=== PATIENT | female | born 1935 | race Caucasian/White ===

== ENCOUNTER 2017-10-30 16:12 | Inpatient (IN) | payer MEDICARE ==
[~2017-10-30] VITALS: Ht 157.5 cm; Wt 53.6 kg
[~2017-10-30 16:12] MED LIST: ACET-3067 PO; ALCA3DRO EACHEYE; BUPR-83 PO; CALC-20 PO; CHOL100062 PO; CYAN1TAB39 PO; GABA-338 PO; GLUC1TAB40 PO; LABE300T PO; LATA2.5D2 EACHEYE; MELA1TAB11 PO; MINO2.5T19 PO; MULT-785 PO; OMEG1CAP54 PO; SYN0.1T PO; UBID100C16 PO; VITA400C19 PO; VITC500T PO
[2017-10-30 16:41] LABS: BASOPHILS % (AUTO) 0.1 % (0-1); EOSINOPHILS % (AUTO) 0.2 % (0-6); HEMATOCRIT 38.7 % (35.0-45.0); HEMOGLOBIN 13.1 g/dl (12.0-16.0); LYMPHOCYTES # (AUTO) 0.6 X10'3 (1.1-4.8); MEAN CORPUSCULAR HEMOGLOBIN 30.7 PG (27.0-31.0); MEAN CORPUSCULAR VOLUME 90.5 FL (78-98); MEAN PLATELET VOLUME 9.5 FL (7.4-10.4); MONOCYTES # (AUTO) 0.8 X10'3 (0-0.9); MONOCYTES % (AUTO) 6.9 % (2-12); NEUTROPHILS # (AUTO) 10.5 X10'3 (1.8-7.7); NEUTROPHILS % (AUTO) 87.8 % (42-75); PLATELET COUNT 325 X10'3 (140-440); RED BLOOD COUNT 4.27 X10'6 (4.20-5.60); RED CELL DISTRIBUTION WIDTH 14.8 % (11.5-14.5); WHITE BLOOD COUNT 11.9 X10'3 (4.5-11.0)
[2017-10-30 16:52] LABS: PARTIAL THROMBOPLASTIN TIME 34 SECONDS (22-32); PROTHROMBIN TIME 10.8 SECONDS (9.0-12.0)
[2017-10-30 16:56] LABS: ALANINE AMINOTRANSFERASE 23 U/L (12-78); ALBUMIN 3.3 G/DL (3.4-5.0); ALKALINE PHOSPHATASE 87 IU/L (46-116); ANION GAP 4 (8-16); ASPARTATE AMINO TRANSFERASE 38 U/L (10-37); BILIRUBIN,TOTAL 0.5 MG/DL (0.1-1.0); BLOOD UREA NITROGEN 17 MG/DL (7-18); BUN/CREATININE RATIO 23.6 (6.6-38.0); CALCIUM 8.4 MG/DL (8.5-10.1); CHLORIDE 89 MMOL/L (99-107); CREATININE 0.72 MG/DL (0.40-0.90); GLUCOSE 134 MG/DL (70-104); POTASSIUM 4.3 MMOL/L (3.5-5.1); SODIUM 129 MMOL/L (135-145); TOTAL CARBON DIOXIDE 36.4 MMOL/L (24-32); TOTAL PROTEIN 6.6 G/DL (6.4-8.2); eGFR 78 ML/MIN
[2017-10-30] MEDS ORDERED: heparin 10,000 units/1 ML INJ IV ONE (18:00)
[2017-10-30] MEDS ORDERED: heparin 10,000 units/1 ML INJ IV PRN (18:00)
[2017-10-30] MEDS ORDERED: nitroGLYCERIN 1gm ointment UD TP ONE (18:00)
[2017-10-30] MEDS ORDERED: normal saline 1000ml 1,000 ML IV SCH (18:19)
[2017-10-30] MEDS ORDERED: mag hydrox/Alum hydrox/simeth 30ml oral suspension PO PRN (18:20)
[2017-10-30] MEDS ORDERED: acetaminophen 325mg tablet PO PRN ×2 (18:20)
[2017-10-30] MEDS ORDERED: magnesium 4gm in 100ml NS 100 ML IV PRN (18:20)
[2017-10-30] MEDS ORDERED: potassium Cl 40MEQ/NS 500ml 500 ML IV PRN ×2 (18:20)
[2017-10-30] MEDS ORDERED: magnesium/D5W IVPB 50 ML IV PRN (18:20)
[2017-10-30] MEDS ORDERED: ondansetron/PF 4mg/2ml inj IV PRN (18:20)
[2017-10-30] MEDS ORDERED: magnesium Cl slow-release 64mg tablet PO PRN (18:20)
[2017-10-30] MEDS ORDERED: magnesium hydroxide 30ml (MOM) UD suspension PO PRN (18:20)
[2017-10-30] MEDS ORDERED: potassium Cl 20 mEq SR tablet PO PRN (18:20)
[2017-10-30] MEDS ORDERED: ASHWAGANDHA PO (18:24)
[2017-10-30] MEDS ORDERED: [UNRECOGNIZED DRUG - OTHER] (18:24)
[2017-10-30] MEDS ORDERED: MAGNESIUM CHELATE PO (18:26)
[2017-10-30] MEDS ORDERED: albuterol 2.5 MG/3 ML nebule NEB PRN (18:40)
[2017-10-30 19:15] VITALS: BP 175/105
[2017-10-30] MEDS: ALPRAZolam 0.5mg tablet PO PRN (19:55)
[2017-10-30] MEDS: carVEDilol 3.125mg tablet PO SCH (19:55)
[2017-10-30] MEDS: HYDROcodone/acetaminophen 5mg/325mg tablet PO PRN (19:56)
[2017-10-30] MEDS ORDERED: temazepam 15mg capsule PO PRN (21:00)
[2017-10-30 21:07] LABS: D-DIMER 0.51 MG/L FEU (0-0.50)
[2017-10-30 23:00] VITALS: BP 120/80
[2017-10-31] VITALS (14 sets, daily range): BP systolic 118–170; BP diastolic 62–94
[2017-10-31] MEDS ORDERED: nitroGLYCERIN 0.4mg SUBLingual tab SL PRN (02:20)
[2017-10-31] MEDS: hydrALAZINE 20mg/ml inj. IV PRN ×2 (03:35→22:21)
[2017-10-31] MEDS: ALPRAZolam 0.5mg tablet PO PRN ×2 (03:51→16:27)
[2017-10-31 05:20] LABS: BASOPHILS % (AUTO) 0.4 % (0-1); EOSINOPHILS # (AUTO) 0.1 X10'3 (0-0.9); EOSINOPHILS % (AUTO) 0.8 % (0-6); HEMATOCRIT 38.1 % (35.0-45.0); HEMOGLOBIN 12.9 g/dl (12.0-16.0); LYMPHOCYTES # (AUTO) 1.1 X10'3 (1.1-4.8); MEAN CORPUSCULAR HEMOGLOBIN 30.8 PG (27.0-31.0); MEAN CORPUSCULAR VOLUME 90.6 FL (78-98); MEAN PLATELET VOLUME 10.5 FL (7.4-10.4); MONOCYTES # (AUTO) 1.1 X10'3 (0-0.9); MONOCYTES % (AUTO) 9.4 % (2-12); NEUTROPHILS % (AUTO) 79.4 % (42-75); PLATELET COUNT 310 X10'3 (140-440); WHITE BLOOD COUNT 11.3 X10'3 (4.5-11.0)
[2017-10-31 06:03] LABS: ALBUMIN 3.2 G/DL (3.4-5.0); ANION GAP 4 (8-16); BLOOD UREA NITROGEN 13 MG/DL (7-18); BUN/CREATININE RATIO 16.9 (6.6-38.0); CALCIUM 8.6 MG/DL (8.5-10.1); CHLORIDE 94 MMOL/L (99-107); CHOL/HDL RATIO 2.5 (0.00-4.99); CHOLESTEROL 150 MG/DL (0-200); CREATININE 0.77 MG/DL (0.40-0.90); GLUCOSE 125 MG/DL (70-104); HDL CHOLESTEROL 61 MG/DL (35-60); LDL CHOLESTEROL 76 MG/DL (50-100); MAGNESIUM 1.9 MG/DL (1.5-2.4); POTASSIUM 3.6 MMOL/L (3.5-5.1); SODIUM 135 MMOL/L (135-145); TRIGLYCERIDES 56 MG/DL (20-135); eGFR 72 ML/MIN
[2017-10-31 07:04] LABS: CLARITY,URINE SLIGHTLY CLOUDY (Clear); COLOR,URINE YELLOW (Yellow); GLUCOSE, URINE NEGATIVE (Neg); KETONES,URINE NEGATIVE (Neg); LEUKOCYTE ESTERASE ,URINE NEGATIVE (Neg); NITRITES, URINE NEGATIVE (Neg); OCCULT BLOOD,URINE NEGATIVE (Neg); PROTEIN,URINE NEGATIVE (Neg); UROBILINOGEN,URINE 0.2 E.U/dL (0.2-1.0)
[2017-10-31] MEDS: enoxaparin 40mg/0.4ml syringe SUBCUT SCH (07:09)
[2017-10-31 07:12] LABS: UA COLLECTION TYPE CLN CATCH MIDSTREAM
[2017-10-31 07:13] LABS: AMORPHOUS PHOSPHATES 1+; BACTERIA,URINE NONE SEEN /HPF (Neg); MUCUS STRANDS NONE SEEN /LPF (Neg); RBC,URINE NONE SEEN /HPF (0-2); SQUAMOUS EPITHELIAL CELL,UR FEW /LPF (FEW); WBC,URINE NONE SEEN /HPF (0-4)
[2017-10-31] MEDS: furosemide 40mg/4ml inj IV SCH (07:37)
[2017-10-31] MEDS: levoFLOXACIN 500mg tablet PO SCH (07:38)
[2017-10-31] MEDS: carVEDilol 3.125mg tablet PO SCH ×2 (07:38→19:32)
[2017-10-31] MEDS: buPROPion SR 150mg tablet PO SCH (07:38)
[2017-10-31] MEDS: losartan 50mg tablet PO SCH (07:38)
[2017-10-31] MEDS: K and/or MAG REPLACEMENT MC SCH (07:46)
[2017-10-31] MEDS ORDERED: heparin 1,000unit/ml 10ml vial 10 ML ONE (07:52)
[2017-10-31] MEDS ORDERED: iohexol 350MG/ML 100ml bottle IV ONE (07:52)
[2017-10-31] MEDS ORDERED: iohexol 350 MG/ML 50ML vial IV ONE (07:52)
[2017-10-31] MEDS ORDERED: nitroGLYCERIN-Tridil 50MG/D5W 250 ML IV ONE (07:52)
[2017-10-31] MEDS ORDERED: LIDOcaine 1% 30ml preserv. free vial ONE (07:53)
[2017-10-31] MEDS ORDERED: enoxaparin 40mg/0.4ml syringe SQ SCH (08:00)
[2017-10-31] MEDS: HYDROcodone/acetaminophen 5mg/325mg tablet PO PRN ×2 (09:45→15:37)
[2017-10-31] MEDS: clopidogrel 75mg tablet PO SCH (09:59)
[2017-10-31] MEDS ORDERED: methylPREDNISolone sod succ 125mg/2ml vial IV ONE (11:50)
[2017-10-31] MEDS ORDERED: ipratropium/albuterol 3ml nebule NEB PRN (11:50)
[2017-10-31] MEDS: atorvastatin 20mg tablet PO SCH (12:00)
[2017-10-31] MEDS: methylPREDNISolone sod succ 125mg/2ml vial IV SCH ×2 (14:15→19:31)
[2017-10-31] MEDS: ipratropium/albuterol 3ml nebule NEB SCH ×2 (15:00→20:29)
[2017-10-31] MEDS: lactobacillus rhamnosus 10,000 MMU CELLS/CAPSULE PO SCH (19:31)
[2017-11-01] VITALS (7 sets, daily range): BP systolic 110–172; BP diastolic 58–88
[2017-11-01] MEDS: methylPREDNISolone sod succ 125mg/2ml vial IV SCH ×4 (01:55→22:23)
[2017-11-01] MEDS: HYDROcodone/acetaminophen 5mg/325mg tablet PO PRN ×2 (02:23→17:53)
[2017-11-01] MEDS: ipratropium/albuterol 3ml nebule NEB SCH ×4 (03:02→20:34)
[2017-11-01 05:30] LABS: BASOPHILS % (AUTO) 0 % (0-1); EOSINOPHILS % (AUTO) 0 % (0-6); HEMATOCRIT 35.7 % (35.0-45.0); HEMOGLOBIN 12.1 g/dl (12.0-16.0); LYMPHOCYTES # (AUTO) 0.3 X10'3 (1.1-4.8); LYMPHOCYTES % (AUTO) 3.1 % (21-51); MEAN CORPUSCULAR HEMOGLOBIN 30.3 PG (27.0-31.0); MEAN CORPUSCULAR HGB CONC 33.8 % (33.0-36.5); MEAN CORPUSCULAR VOLUME 89.7 FL (78-98); MEAN PLATELET VOLUME 10.1 FL (7.4-10.4); MONOCYTES # (AUTO) 0.1 X10'3 (0-0.9); MONOCYTES % (AUTO) 0.9 % (2-12); NEUTROPHILS # (AUTO) 7.9 X10'3 (1.8-7.7); PLATELET COUNT 289 X10'3 (140-440); RED BLOOD COUNT 3.98 X10'6 (4.20-5.60); RED CELL DISTRIBUTION WIDTH 15.3 % (11.5-14.5); WHITE BLOOD COUNT 8.2 X10'3 (4.5-11.0)
[2017-11-01 05:41] LABS: ALBUMIN 2.8 G/DL (3.4-5.0); ANION GAP 5 (8-16); BLOOD UREA NITROGEN 22 MG/DL (7-18); BUN/CREATININE RATIO 29.3 (6.6-38.0); CALCIUM 8.6 MG/DL (8.5-10.1); CHLORIDE 94 MMOL/L (99-107); CREATININE 0.75 MG/DL (0.40-0.90); GLUCOSE 165 MG/DL (70-104); POTASSIUM 3.5 MMOL/L (3.5-5.1); SODIUM 136 MMOL/L (135-145); TOTAL CARBON DIOXIDE 37.4 MMOL/L (24-32); eGFR 74 ML/MIN
[2017-11-01] MEDS: K and/or MAG REPLACEMENT MC SCH (08:00)
[2017-11-01] MEDS: furosemide 40mg/4ml inj IV SCH (08:47)
[2017-11-01] MEDS: levoFLOXACIN 500mg tablet PO SCH (08:48)
[2017-11-01] MEDS: buPROPion SR 150mg tablet PO SCH (08:48)
[2017-11-01] MEDS: clopidogrel 75mg tablet PO SCH (08:48)
[2017-11-01] MEDS: carVEDilol 3.125mg tablet PO SCH ×2 (08:48→22:22)
[2017-11-01] MEDS: lactobacillus rhamnosus 10,000 MMU CELLS/CAPSULE PO SCH ×2 (08:48→22:22)
[2017-11-01] MEDS: enoxaparin 40mg/0.4ml syringe SUBCUT SCH (08:48)
[2017-11-01] MEDS: losartan 50mg tablet PO SCH (08:49)
[2017-11-01] MEDS: atorvastatin 20mg tablet PO SCH (08:49)
[2017-11-01] MEDS: aspirin 81mg tab.chew PO SCH (09:40)
[2017-11-01] MEDS: hydrALAZINE 20mg/ml inj. IV PRN (22:23)
[2017-11-02] MEDS: HYDROcodone/acetaminophen 5mg/325mg tablet PO PRN ×2 (01:43→14:46)
[2017-11-02] MEDS: ipratropium/albuterol 3ml nebule NEB SCH ×4 (02:39→19:59)
[2017-11-02 03:00] VITALS: BP 143/79
[2017-11-02] MEDS: methylPREDNISolone sod succ 125mg/2ml vial IV SCH ×4 (03:01→19:53)
[2017-11-02 05:12] LABS: BASOPHILS % (AUTO) 0.1 % (0-1); EOSINOPHILS # (AUTO) 0.1 X10'3 (0-0.9); EOSINOPHILS % (AUTO) 0.4 % (0-6); HEMATOCRIT 37.2 % (35.0-45.0); HEMOGLOBIN 12.6 g/dl (12.0-16.0); LYMPHOCYTES # (AUTO) 0.3 X10'3 (1.1-4.8); LYMPHOCYTES % (AUTO) 2.5 % (21-51); MEAN CORPUSCULAR HEMOGLOBIN 30.8 PG (27.0-31.0); MEAN CORPUSCULAR HGB CONC 33.7 % (33.0-36.5); MEAN CORPUSCULAR VOLUME 91.2 FL (78-98); MEAN PLATELET VOLUME 10.3 FL (7.4-10.4); MONOCYTES # (AUTO) 0.4 X10'3 (0-0.9); MONOCYTES % (AUTO) 3.3 % (2-12); NEUTROPHILS # (AUTO) 12.4 X10'3 (1.8-7.7); NEUTROPHILS % (AUTO) 93.7 % (42-75); PLATELET COUNT 364 X10'3 (140-440); RED BLOOD COUNT 4.09 X10'6 (4.20-5.60); WHITE BLOOD COUNT 13.2 X10'3 (4.5-11.0)
[2017-11-02 05:29] LABS: ALBUMIN 2.8 G/DL (3.4-5.0); ANION GAP 2 (8-16); BLOOD UREA NITROGEN 27 MG/DL (7-18); BUN/CREATININE RATIO 32.1 (6.6-38.0); CALCIUM 8.6 MG/DL (8.5-10.1); CHLORIDE 91 MMOL/L (99-107); CREATININE 0.84 MG/DL (0.40-0.90); GLUCOSE 181 MG/DL (70-104); POTASSIUM 3.4 MMOL/L (3.5-5.1); SODIUM 132 MMOL/L (135-145); TOTAL CARBON DIOXIDE 38.9 MMOL/L (24-32); eGFR 65 ML/MIN
[2017-11-02 06:00] VITALS: BP 163/81
[2017-11-02 06:36] LABS: LARGE PLATELETS FEW; PLATELET ESTIMATE NORMAL
[2017-11-02] MEDS: K and/or MAG REPLACEMENT MC SCH (08:00)
[2017-11-02] MEDS: buPROPion SR 150mg tablet PO SCH (08:09)
[2017-11-02] MEDS: atorvastatin 20mg tablet PO SCH (08:09)
[2017-11-02] MEDS: carVEDilol 3.125mg tablet PO SCH (08:09)
[2017-11-02] MEDS: losartan 50mg tablet PO SCH (08:09)
[2017-11-02] MEDS: clopidogrel 75mg tablet PO SCH (08:09)
[2017-11-02] MEDS: enoxaparin 40mg/0.4ml syringe SUBCUT SCH (08:09)
[2017-11-02] MEDS: levoFLOXACIN 500mg tablet PO SCH (08:09)
[2017-11-02] MEDS: aspirin 81mg tab.chew PO SCH (08:09)
[2017-11-02] MEDS: potassium Cl 20 mEq SR tablet PO PRN ×2 (08:09→14:41)
[2017-11-02] MEDS: lactobacillus rhamnosus 10,000 MMU CELLS/CAPSULE PO SCH ×2 (08:09→19:53)
[2017-11-02] MEDS: furosemide 40mg/4ml inj IV SCH (08:10)
[2017-11-02 11:00] VITALS: BP 146/77
[2017-11-02] MEDS ORDERED: carVEDilol 3.125mg tablet PO ONE (11:40)
[2017-11-02] MEDS: ALPRAZolam 0.5mg tablet PO PRN ×2 (11:58→22:18)
[2017-11-02 15:00] VITALS: BP 115/79
[2017-11-02 19:00] VITALS: BP 137/82
[2017-11-02] MEDS: carvedilol 6.25mg tablet PO SCH (19:54)
[2017-11-02] MEDS ORDERED: potassium Cl 40MEQ/NS 500ml 500 ML IV PRN ×2 (22:15)
[2017-11-02] MEDS ORDERED: potassium Cl 20 mEq SR tablet PO PRN ×2 (22:15)
[2017-11-02 23:00] VITALS: BP 135/85
[2017-11-03] MEDS: ipratropium/albuterol 3ml nebule NEB SCH ×2 (02:27→09:00)
[2017-11-03 03:00] VITALS: BP 153/75
[2017-11-03] MEDS: HYDROcodone/acetaminophen 5mg/325mg tablet PO PRN (04:54)
[2017-11-03 05:38] LABS: BASOPHILS % (AUTO) 0 % (0-1); EOSINOPHILS # (AUTO) 0.2 X10'3 (0-0.9); EOSINOPHILS % (AUTO) 1.7 % (0-6); HEMATOCRIT 38.3 % (35.0-45.0); LYMPHOCYTES # (AUTO) 0.4 X10'3 (1.1-4.8); MEAN CORPUSCULAR HEMOGLOBIN 30.7 PG (27.0-31.0); MEAN CORPUSCULAR HGB CONC 33.9 % (33.0-36.5); MEAN CORPUSCULAR VOLUME 90.7 FL (78-98); MEAN PLATELET VOLUME 10.2 FL (7.4-10.4); MONOCYTES # (AUTO) 0.4 X10'3 (0-0.9); MONOCYTES % (AUTO) 3.4 % (2-12); NEUTROPHILS % (AUTO) 91.9 % (42-75); PLATELET COUNT 370 X10'3 (140-440); RED BLOOD COUNT 4.22 X10'6 (4.20-5.60); RED CELL DISTRIBUTION WIDTH 14.9 % (11.5-14.5)
[2017-11-03 06:05] LABS: ALBUMIN 2.8 G/DL (3.4-5.0); ANION GAP 4 (8-16); BLOOD UREA NITROGEN 33 MG/DL (7-18); BUN/CREATININE RATIO 39.3 (6.6-38.0); CALCIUM 8.4 MG/DL (8.5-10.1); CHLORIDE 91 MMOL/L (99-107); CREATININE 0.84 MG/DL (0.40-0.90); GLUCOSE 132 MG/DL (70-104); MAGNESIUM 2.2 MG/DL (1.5-2.4); POTASSIUM 3.8 MMOL/L (3.5-5.1); SODIUM 134 MMOL/L (135-145); TOTAL CARBON DIOXIDE 38.6 MMOL/L (24-32); eGFR 65 ML/MIN
[2017-11-03 07:00] VITALS: BP 148/88
[2017-11-03] MEDS: K and/or MAG REPLACEMENT MC SCH (08:00)
[2017-11-03] MEDS ORDERED: methylPREDNISolone sod succ 125mg/2ml vial IV SCH (08:00)
[2017-11-03] MEDS: furosemide 40mg/4ml inj IV SCH (08:20)
[2017-11-03] MEDS: carvedilol 6.25mg tablet PO SCH (08:30)
[2017-11-03] MEDS: losartan 50mg tablet PO SCH (08:31)
[2017-11-03] MEDS: lactobacillus rhamnosus 10,000 MMU CELLS/CAPSULE PO SCH (08:32)
[2017-11-03] MEDS: clopidogrel 75mg tablet PO SCH (08:32)
[2017-11-03] MEDS: buPROPion SR 150mg tablet PO SCH (08:32)
[2017-11-03] MEDS: atorvastatin 20mg tablet PO SCH (08:32)
[2017-11-03] MEDS: aspirin 81mg tab.chew PO SCH (08:37)
[2017-11-03] MEDS: enoxaparin 40mg/0.4ml syringe SUBCUT SCH (08:38)
[2017-11-03 11:00] VITALS: BP 135/72
[2017-11-03] MEDS ORDERED: levoFLOXACIN 250mg tablet PO SCH (11:00)
[2017-11-03] MEDS: ALPRAZolam 0.5mg tablet PO PRN (14:06)
[2017-11-04] MEDS ORDERED: predniSONE 20 mg tablet PO SCH (08:00)
== END 2017-11-03 14:10 | DRG 280 ==
LOC: ER 16:13 → ED HOLD 17:56 → EDBEDREQ 18:43 → PCU 3S 19:15
PROVIDERS: ADMIT Internal Medicine; ATTEND Hospitalist
PROC: 4A023N8 Measurement of Cardiac Sampling and Pressure, Bilateral, Percutaneous Approach (ICD-10-PCS; principal; 2017-10-31)
PROC: B2151ZZ Fluoroscopy of Left Heart using Low Osmolar Contrast (ICD-10-PCS; 2017-10-31)
PROC: B2111ZZ Fluoroscopy of Multiple Coronary Arteries using Low Osmolar Contrast (ICD-10-PCS; 2017-10-31)
DX: I21.4 Non-ST elevation (NSTEMI) myocardial infarction (principal); J18.9 Pneumonia, unspecified organism; J96.90 Respiratory failure, unspecified, unspecified whether with hypoxia or hypercapnia; I50.33 Acute on chronic diastolic (congestive) heart failure; E87.1 Hypo-osmolality and hyponatremia; J44.0 Chronic obstructive pulmonary disease with (acute) lower respiratory infection; I11.0 Hypertensive heart disease with heart failure; F41.1 Generalized anxiety disorder; M19.90 Unspecified osteoarthritis, unspecified site; I25.10 Atherosclerotic heart disease of native coronary artery without angina pectoris; G89.29 Other chronic pain; M54.5 Low back pain; Z96.643 Presence of artificial hip joint, bilateral; Z90.710 Acquired absence of both cervix and uterus; Z90.49 Acquired absence of other specified parts of digestive tract; Z88.1 Allergy status to other antibiotic agents; Z88.0 Allergy status to penicillin; Z88.2 Allergy status to sulfonamides; Z88.8 Allergy status to other drugs, medicaments and biological substances; Z99.81 Dependence on supplemental oxygen
CPT/HCPCS: 36415; 71045; 71250; 80048; 80053; 80061; 81001; 83605; 83735; 83880; 84443; 84484; 85025; 85347; 85379; 85610; 85730; 87040; 87070; 93005; 93306; 93460; 94640; 94760; 97110; 97116; 97161; 99285; A4315; A4620; A6257; C1760; C1769; J0360; J1644; J1650; J1940; J2930; J3490; J7030; Q9967

== ENCOUNTER 2017-12-01 12:05 | Inpatient (IN) | payer MEDICARE ==
[~2017-12-01] VITALS: Ht 170.2 cm; Wt 60.1 kg
[~2017-12-01 12:05] MED LIST changes: -ACET-3067 PO; -ALCA3DRO EACHEYE; -CALC-20 PO; -GABA-338 PO; -LABE300T PO; -LATA2.5D2 EACHEYE; -MELA1TAB11 PO; -MINO2.5T19 PO; -MULT-785 PO; -OMEG1CAP54 PO; -SYN0.1T PO; -UBID100C16 PO; -VITA400C19 PO
[2017-12-01 12:36] LABS: BASOPHILS % (AUTO) 0 % (0-1); EOSINOPHILS # (AUTO) 0.1 X10'3 (0-0.9); EOSINOPHILS % (AUTO) 0.5 % (0-6); HEMATOCRIT 36.8 % (35.0-45.0); HEMOGLOBIN 12.5 g/dl (12.0-16.0); LYMPHOCYTES # (AUTO) 0.6 X10'3 (1.1-4.8); LYMPHOCYTES % (AUTO) 6.4 % (21-51); MEAN CORPUSCULAR HGB CONC 33.9 % (33.0-36.5); MEAN CORPUSCULAR VOLUME 91.5 FL (78-98); MEAN PLATELET VOLUME 9.6 FL (7.4-10.4); MONOCYTES # (AUTO) 0.4 X10'3 (0-0.9); MONOCYTES % (AUTO) 4.5 % (2-12); NEUTROPHILS # (AUTO) 8.7 X10'3 (1.8-7.7); NEUTROPHILS % (AUTO) 88.6 % (42-75); PLATELET COUNT 298 X10'3 (140-440); RED BLOOD COUNT 4.03 X10'6 (4.20-5.60); RED CELL DISTRIBUTION WIDTH 14.8 % (11.5-14.5); WHITE BLOOD COUNT 9.8 X10'3 (4.5-11.0)
[2017-12-01 12:50] LABS: ALANINE AMINOTRANSFERASE 22 U/L (12-78); ALBUMIN 3.4 G/DL (3.4-5.0); ALKALINE PHOSPHATASE 84 IU/L (46-116); ANION GAP 2 (8-16); ASPARTATE AMINO TRANSFERASE 18 U/L (10-37); BILIRUBIN,TOTAL 0.5 MG/DL (0.1-1.0); BLOOD UREA NITROGEN 11 MG/DL (7-18); BUN/CREATININE RATIO 15.3 (6.6-38.0); CALCIUM 8.7 MG/DL (8.5-10.1); CHLORIDE 95 MMOL/L (99-107); CREATININE 0.72 MG/DL (0.40-0.90); GLUCOSE 139 MG/DL (70-104); POTASSIUM 3.6 MMOL/L (3.5-5.1); SODIUM 134 MMOL/L (135-145); TOTAL CARBON DIOXIDE 37.5 MMOL/L (24-32); TOTAL PROTEIN 6.7 G/DL (6.4-8.2); eGFR 77 ML/MIN
[2017-12-01] MEDS ORDERED: ondansetron/PF 4mg/2ml inj IV PRN (16:10)
[2017-12-01] MEDS ORDERED: magnesium Cl slow-release 64mg tablet PO PRN (16:10)
[2017-12-01] MEDS: K and/or MAG REPLACEMENT MC SCH (16:10)
[2017-12-01] MEDS ORDERED: bisacodyl 10mg suppository rectal RC PRN (16:10)
[2017-12-01] MEDS ORDERED: diphenhydrAMINE 25mg capsule PO PRN (16:10)
[2017-12-01] MEDS ORDERED: acetaminophen 325mg tablet PO PRN (16:10)
[2017-12-01] MEDS ORDERED: magnesium hydroxide 30ml (MOM) UD suspension PO PRN (16:10)
[2017-12-01] MEDS ORDERED: mag hydrox/Alum hydrox/simeth 30ml oral suspension PO PRN (16:10)
[2017-12-01] MEDS ORDERED: potassium Cl 40MEQ/NS 500ml 500 ML IV PRN ×2 (16:10)
[2017-12-01] MEDS ORDERED: magnesium 1gm/100ml D5W IVPB 100 ML IV PRN (16:10)
[2017-12-01] MEDS ORDERED: potassium Cl 20 mEq SR tablet PO PRN (16:10)
[2017-12-01] MEDS ORDERED: magnesium 4gm in 100ml NS 100 ML IV PRN (16:10)
[2017-12-01] MEDS ORDERED: furosemide 10 MG/1 ML 10ml inj IV ONE (16:10)
[2017-12-01] MEDS ORDERED: ipratropium/albuterol 3ml nebule NEB PRN (16:20)
[2017-12-01] MEDS ORDERED: IBUP-1984 PO (16:40)
[2017-12-01] MEDS ORDERED: BUPR150T8 PO (16:40)
[2017-12-01] MEDS ORDERED: IPRA3AMP IH (16:40)
[2017-12-01] MEDS ORDERED: FLUT1AER (16:40)
[2017-12-01] MEDS ORDERED: CARV-50 PO (16:40)
[2017-12-01] MEDS ORDERED: BISA10SU60 RC (16:40)
[2017-12-01] MEDS ORDERED: POTA10TA19 PO (16:40)
[2017-12-01] MEDS ORDERED: ATOR20TA PO (16:40)
[2017-12-01] MEDS ORDERED: FURO-150 PO (16:40)
[2017-12-01] MEDS ORDERED: ALPR-624 PO (16:40)
[2017-12-01] MEDS ORDERED: LIDO76.5 (16:40)
[2017-12-01] MEDS ORDERED: LACT1CAP65 PO (16:40)
[2017-12-01] MEDS ORDERED: CLOP75TA35 PO (16:40)
[2017-12-01] MEDS ORDERED: DOCU-28 PO (16:40)
[2017-12-01] MEDS ORDERED: ASPI-1265 PO (16:40)
[2017-12-01] MEDS ORDERED: MAGN400O6 PO (16:40)
[2017-12-01] MEDS ORDERED: LOSA25TA96 PO (16:40)
[2017-12-01] MEDS: normal saline 1000ml 1,000 ML IV SCH (17:30)
[2017-12-01 18:50] VITALS: BP 171/94
[2017-12-01 20:00] VITALS: BP_SYST 123; BP_SYST 131; BP_SYST 88; BP_DIAS 58; BP_DIAS 67; BP_DIAS 78
[2017-12-01] MEDS: carVEDilol 12.5mg tablet PO SCH (20:33)
[2017-12-01] MEDS: heparin, porcine 5000 units/ml vial SQ SCH (20:33)
[2017-12-01] MEDS: furosemide 40mg/4ml inj IV SCH (20:33)
[2017-12-01] MEDS ORDERED: temazepam 15mg capsule PO PRN (21:00)
[2017-12-01 21:03] LABS: CLARITY,URINE CLEAR (Clear); COLOR,URINE YELLOW (Yellow); GLUCOSE, URINE NEGATIVE (Neg); KETONES,URINE NEGATIVE (Neg); LEUKOCYTE ESTERASE ,URINE NEGATIVE (Neg); NITRITES, URINE NEGATIVE (Neg); OCCULT BLOOD,URINE NEGATIVE (Neg); PROTEIN,URINE NEGATIVE (Neg); UROBILINOGEN,URINE 0.2 E.U/dL (0.2-1.0)
[2017-12-01 21:04] LABS: UA COLLECTION TYPE FOLEY CATH
[2017-12-01] MEDS: LORazepam 1 MG tablet PO PRN (22:52)
[2017-12-01 23:00] VITALS: BP 131/78
[2017-12-01] MEDS ORDERED: HYDROcodone/acetaminophen 5mg/325mg tablet PO PRN (23:50)
[2017-12-02] VITALS (7 sets, daily range): BP systolic 125–146; BP diastolic 66–82
[2017-12-02 05:39] LABS: BASOPHILS % (AUTO) 0.3 % (0-1); EOSINOPHILS # (AUTO) 0.2 X10'3 (0-0.9); EOSINOPHILS % (AUTO) 2.9 % (0-6); HEMOGLOBIN 11.1 g/dl (12.0-16.0); LYMPHOCYTES # (AUTO) 0.7 X10'3 (1.1-4.8); LYMPHOCYTES % (AUTO) 10.9 % (21-51); MEAN CORPUSCULAR HEMOGLOBIN 30.4 PG (27.0-31.0); MEAN CORPUSCULAR HGB CONC 33.6 % (33.0-36.5); MEAN CORPUSCULAR VOLUME 90.4 FL (78-98); MONOCYTES # (AUTO) 0.7 X10'3 (0-0.9); MONOCYTES % (AUTO) 10.1 % (2-12); NEUTROPHILS # (AUTO) 4.9 X10'3 (1.8-7.7); NEUTROPHILS % (AUTO) 75.8 % (42-75); PLATELET COUNT 228 X10'3 (140-440); RED BLOOD COUNT 3.65 X10'6 (4.20-5.60); RED CELL DISTRIBUTION WIDTH 14.6 % (11.5-14.5); WHITE BLOOD COUNT 6.5 X10'3 (4.5-11.0)
[2017-12-02 06:17] LABS: ALANINE AMINOTRANSFERASE 19 U/L (12-78); ALBUMIN 2.8 G/DL (3.4-5.0); ALBUMIN/GLOBULIN RATIO 0.9 (1.1-1.5); ALKALINE PHOSPHATASE 71 IU/L (46-116); ANION GAP 3 (8-16); ASPARTATE AMINO TRANSFERASE 12 U/L (10-37); BILIRUBIN,TOTAL 0.4 MG/DL (0.1-1.0); BLOOD UREA NITROGEN 14 MG/DL (7-18); BUN/CREATININE RATIO 19.7 (6.6-38.0); CALCIUM 8.5 MG/DL (8.5-10.1); CHLORIDE 96 MMOL/L (99-107); CREATININE 0.71 MG/DL (0.40-0.90); GLUCOSE 107 MG/DL (70-104); MAGNESIUM 1.6 MG/DL (1.5-2.4); PHOSPHORUS 4.5 MG/DL (2.3-4.5); SODIUM 139 MMOL/L (135-145); TOTAL PROTEIN 5.8 G/DL (6.4-8.2); eGFR 79 ML/MIN
[2017-12-02 06:33] LABS: TOTAL CARBON DIOXIDE 40.2 MMOL/L (24-32)
[2017-12-02] MEDS: K and/or MAG REPLACEMENT MC SCH (08:00)
[2017-12-02] MEDS: furosemide 40mg/4ml inj IV SCH ×2 (08:05→19:12)
[2017-12-02] MEDS: losartan 50mg tablet PO SCH (08:06)
[2017-12-02] MEDS: heparin, porcine 5000 units/ml vial SQ SCH ×2 (08:06→19:13)
[2017-12-02] MEDS: aspirin 325mg tablet PO SCH (08:06)
[2017-12-02] MEDS: atorvastatin 20mg tablet PO SCH (08:07)
[2017-12-02] MEDS: clopidogrel 75mg tablet PO SCH (08:07)
[2017-12-02] MEDS ORDERED: predniSONE 20 mg tablet PO SCH (08:30)
[2017-12-02] MEDS: potassium Cl 20 mEq SR tablet PO PRN ×2 (08:59→19:13)
[2017-12-02] MEDS: carVEDilol 12.5mg tablet PO SCH ×2 (08:59→19:12)
[2017-12-02] MEDS: potassium Cl 20 mEq SR tablet PO SCH ×2 (11:10→14:58)
[2017-12-02] MEDS ORDERED: predniSONE 20 mg tablet PO ONE (11:15)
[2017-12-02 14:00] LABS: ABG BASE EXCESS 13.3 mmol/L (-2.0-3.0); ABG HCO3 39.2 mmol/L (22.0-26.0); ABG PCO2 (T) 55.4 mmHg (32.0-45.0); ABG PH (T) 7.468 (7.350-7.450); ABG PO2 (T) 69.5 mmHg (83-108); ALLEN'S TEST Positive; FCOHb 0.8 % (0.5-1.5); FLOW 3 L/min; FO2Hb 93.2 % (94-100); TOTAL HEMOGLOBIN 13.1 G/dl (12.0-16.0)
[2017-12-02] MEDS: pantoprazole 40mg Tablet.DR PO SCH (14:59)
[2017-12-02] MEDS: acetaminophen 325mg tablet PO PRN (15:23)
[2017-12-02] MEDS: ipratropium/albuterol 3ml nebule NEB SCH ×3 (15:46→23:09)
[2017-12-03] MEDS: acetaminophen 325mg tablet PO PRN (02:29)
[2017-12-03 02:48] VITALS: BP 156/91
[2017-12-03] MEDS: ipratropium/albuterol 3ml nebule NEB SCH ×4 (03:17→14:30)
[2017-12-03 05:34] LABS: ALANINE AMINOTRANSFERASE 16 U/L (12-78); ALBUMIN 2.9 G/DL (3.4-5.0); ALKALINE PHOSPHATASE 69 IU/L (46-116); ANION GAP 3 (8-16); ASPARTATE AMINO TRANSFERASE 12 U/L (10-37); BILIRUBIN,TOTAL 0.3 MG/DL (0.1-1.0); BLOOD UREA NITROGEN 19 MG/DL (7-18); BUN/CREATININE RATIO 23.2 (6.6-38.0); CALCIUM 8.7 MG/DL (8.5-10.1); CHLORIDE 96 MMOL/L (99-107); CREATININE 0.82 MG/DL (0.40-0.90); GLUCOSE 123 MG/DL (70-104); MAGNESIUM 1.6 MG/DL (1.5-2.4); POTASSIUM 3.9 MMOL/L (3.5-5.1); SODIUM 136 MMOL/L (135-145); TOTAL CARBON DIOXIDE 37.5 MMOL/L (24-32); TOTAL PROTEIN 5.9 G/DL (6.4-8.2); eGFR 67 ML/MIN
[2017-12-03 06:32] LABS: LIPASE < 50 U/L (73-393)
[2017-12-03 07:00] VITALS: BP 154/75
[2017-12-03] MEDS: heparin, porcine 5000 units/ml vial SQ SCH (07:19)
[2017-12-03] MEDS: pantoprazole 40mg Tablet.DR PO SCH (07:19)
[2017-12-03] MEDS: atorvastatin 20mg tablet PO SCH (07:19)
[2017-12-03] MEDS: clopidogrel 75mg tablet PO SCH (07:19)
[2017-12-03] MEDS: furosemide 40mg/4ml inj IV SCH (07:19)
[2017-12-03] MEDS: carVEDilol 12.5mg tablet PO SCH (07:19)
[2017-12-03] MEDS: losartan 50mg tablet PO SCH (07:19)
[2017-12-03] MEDS: potassium Cl 20 mEq SR tablet PO SCH (07:31)
[2017-12-03] MEDS: aspirin 325mg tablet PO SCH (07:32)
[2017-12-03 08:00] VITALS: BP_SYST 136; BP_SYST 144; BP_SYST 184; BP_DIAS 71; BP_DIAS 76; BP_DIAS 80
[2017-12-03] MEDS: K and/or MAG REPLACEMENT MC SCH (08:00)
[2017-12-03] MEDS ORDERED: predniSONE 20 mg tablet PO SCH (08:30)
[2017-12-03] MEDS ORDERED: morphine 2 MG/ML inj. syringe IV PRN (10:30)
[2017-12-03] MEDS: LORazepam 1 MG tablet PO PRN (10:39)
[2017-12-03 11:00] VITALS: BP 148/85
[2017-12-03 15:00] VITALS: BP 184/76
[2017-12-03] MEDS: normal saline 1000ml 1,000 ML IV SCH (16:08)
== END 2017-12-03 17:48 | DRG 189 ==
LOC: ER 12:06 → ED HOLD 16:08 → PCU 3S 18:50
PROVIDERS: ADMIT Family Medicine; ATTEND Internal Medicine
DX: J96.00 Acute respiratory failure, unspecified whether with hypoxia or hypercapnia (principal); I50.43 Acute on chronic combined systolic (congestive) and diastolic (congestive) heart failure; J44.1 Chronic obstructive pulmonary disease with (acute) exacerbation; J45.901 Unspecified asthma with (acute) exacerbation; I25.10 Atherosclerotic heart disease of native coronary artery without angina pectoris; E78.5 Hyperlipidemia, unspecified; F41.9 Anxiety disorder, unspecified; G89.4 Chronic pain syndrome; I11.0 Hypertensive heart disease with heart failure; I35.0 Nonrheumatic aortic (valve) stenosis; K21.9 Gastro-esophageal reflux disease without esophagitis; E87.6 Hypokalemia; K30 Functional dyspepsia; M54.9 Dorsalgia, unspecified; Z90.49 Acquired absence of other specified parts of digestive tract; Z90.710 Acquired absence of both cervix and uterus; Z88.1 Allergy status to other antibiotic agents; Z88.5 Allergy status to narcotic agent; Z88.0 Allergy status to penicillin; Z88.2 Allergy status to sulfonamides; Z88.8 Allergy status to other drugs, medicaments and biological substances; Z79.899 Other long term (current) drug therapy; Z79.82 Long term (current) use of aspirin
CPT/HCPCS: 36415; 36600; 71045; 74176; 80053; 81003; 82803; 83605; 83690; 83735; 83880; 84100; 84484; 85018; 85025; 87040; 87070; 93005; 94640; 94760; 97116; 97161; 97530; 99285; A4315; J1644; J1940; J7030; J7512

== ENCOUNTER 2017-12-15 11:33 | Inpatient (IN) | payer MEDICARE ==
[~2017-12-15] VITALS: Ht 160 cm; Wt 54.5 kg
[~2017-12-15 11:33] MED LIST changes: +ALPR-624 PO; +ASPI-1265 PO; +ATOR20TA PO; +BISA10SU60 RC; +BUPR150T8 PO; +CARV-50 PO; +CLOP75TA35 PO; +DOCU-28 PO; +FLUT1AER; +FURO-150 PO; +IBUP-1984 PO; +IPRA3AMP31 IH; +LACT1CAP65 PO; +LIDO76.5; +LOSA25TA96 PO; +MAGN400O6 PO; +POTA10TA19 PO
[2017-12-15] MEDS ORDERED: albuterol 2.5 MG/3 ML nebule NEB ONE (12:00)
[2017-12-15] MEDS ORDERED: ipratropium/albuterol 3ml nebule NEB ONE (12:00)
[2017-12-15 12:12] LABS: PARTIAL THROMBOPLASTIN TIME 30 SECONDS (22-32); PROTHROMBIN TIME 10.2 SECONDS (9.0-12.0)
[2017-12-15 12:17] LABS: ALANINE AMINOTRANSFERASE 16 U/L (12-78); ALBUMIN 3.4 G/DL (3.4-5.0); ALBUMIN/GLOBULIN RATIO 1.1 (1.1-1.5); ALKALINE PHOSPHATASE 72 IU/L (46-116); ANION GAP 4 (8-16); ASPARTATE AMINO TRANSFERASE 13 U/L (10-37); BILIRUBIN,TOTAL 0.7 MG/DL (0.1-1.0); BLOOD UREA NITROGEN 14 MG/DL (7-18); BUN/CREATININE RATIO 19.4 (6.6-38.0); CALCIUM 8.9 MG/DL (8.5-10.1); CHLORIDE 92 MMOL/L (99-107); CREATININE 0.72 MG/DL (0.40-0.90); GLUCOSE 155 MG/DL (70-104); POTASSIUM 4.3 MMOL/L (3.5-5.1); SODIUM 130 MMOL/L (135-145); TOTAL CARBON DIOXIDE 34.4 MMOL/L (24-32); TOTAL PROTEIN 6.6 G/DL (6.4-8.2); eGFR 77 ML/MIN
[2017-12-15 12:26] LABS: BASOPHILS % (AUTO) 0.3 % (0-1); EOSINOPHILS # (AUTO) 0.2 X10'3 (0-0.9); EOSINOPHILS % (AUTO) 1.2 % (0-6); HEMATOCRIT 39.6 % (35.0-45.0); HEMOGLOBIN 13.3 g/dl (12.0-16.0); LYMPHOCYTES # (AUTO) 0.3 X10'3 (1.1-4.8); LYMPHOCYTES % (AUTO) 2.2 % (21-51); MEAN CORPUSCULAR HEMOGLOBIN 30.8 PG (27.0-31.0); MEAN CORPUSCULAR HGB CONC 33.7 % (33.0-36.5); MEAN CORPUSCULAR VOLUME 91.4 FL (78-98); MEAN PLATELET VOLUME 9.8 FL (7.4-10.4); MONOCYTES # (AUTO) 0.1 X10'3 (0-0.9); MONOCYTES % (AUTO) 0.4 % (2-12); NEUTROPHILS # (AUTO) 13.3 X10'3 (1.8-7.7); NEUTROPHILS % (AUTO) 95.9 % (42-75); PLATELET COUNT 265 X10'3 (140-440); RED BLOOD COUNT 4.33 X10'6 (4.20-5.60); RED CELL DISTRIBUTION WIDTH 14.6 % (11.5-14.5); WHITE BLOOD COUNT 13.9 X10'3 (4.5-11.0)
[2017-12-15] MEDS ORDERED: clonazePAM 0.5mg tablet PO STA (13:03)
[2017-12-15 13:24] LABS: MAGNESIUM 1.8 MG/DL (1.5-2.4)
[2017-12-15] MEDS ORDERED: magnesium hydroxide 30ml (MOM) UD suspension PO PRN (14:20)
[2017-12-15] MEDS ORDERED: magnesium 1gm/100ml D5W IVPB 100 ML IV PRN (14:20)
[2017-12-15] MEDS ORDERED: potassium Cl 20 mEq SR tablet PO PRN (14:20)
[2017-12-15] MEDS ORDERED: potassium Cl 40MEQ/NS 500ml 500 ML IV PRN ×2 (14:20)
[2017-12-15] MEDS ORDERED: magnesium 4gm in 100ml NS 100 ML IV PRN (14:20)
[2017-12-15] MEDS ORDERED: magnesium Cl slow-release 64mg tablet PO PRN (14:20)
[2017-12-15] MEDS ORDERED: mag hydrox/Alum hydrox/simeth 30ml oral suspension PO PRN (14:20)
[2017-12-15] MEDS ORDERED: ondansetron/PF 4mg/2ml inj IV PRN (14:20)
[2017-12-15] MEDS: levoFLOXACIN-Levaquin 500mg/D5 100 ML IV SCH (15:03)
[2017-12-15 15:16] LABS: CLARITY,URINE SLIGHTLY CLOUDY (Clear); COLOR,URINE STRAW (Yellow); GLUCOSE, URINE NEGATIVE (Neg); KETONES,URINE NEGATIVE (Neg); LEUKOCYTE ESTERASE ,URINE NEGATIVE (Neg); NITRITES, URINE NEGATIVE (Neg); OCCULT BLOOD,URINE NEGATIVE (Neg); PROTEIN,URINE NEGATIVE (Neg); UA COLLECTION TYPE CLN CATCH MIDSTREAM; UROBILINOGEN,URINE 0.2 E.U/dL (0.2-1.0)
[2017-12-15 15:26] LABS: SQUAMOUS EPITHELIAL CELL,UR MANY /LPF (FEW)
[2017-12-15 15:27] LABS: RBC,URINE 0-2 /HPF (0-2)
[2017-12-15 15:28] LABS: WBC,URINE 0-4 /HPF (0-4)
[2017-12-15 15:32] LABS: BACTERIA,URINE 2+ /HPF (Neg)
[2017-12-15] MEDS: methylPREDNISolone sod succ/PF 40mg inj. IV SCH (16:11)
[2017-12-15 17:45] VITALS: BP 148/75
[2017-12-15 18:00] VITALS: BP 148/81
[2017-12-15] MEDS: furosemide 20 MG/2 ML vial IV SCH (20:07)
[2017-12-15] MEDS: heparin, porcine 5000 units/ml vial SQ SCH (20:08)
[2017-12-15 22:00] VITALS: BP 166/72
[2017-12-15] MEDS: acetaminophen 325mg tablet PO PRN (22:51)
[2017-12-16] VITALS (7 sets, daily range): BP systolic 136–195; BP diastolic 44–95
[2017-12-16] MEDS: methylPREDNISolone sod succ/PF 40mg inj. IV SCH ×4 (00:16→23:49)
[2017-12-16 04:49] LABS: BASOPHILS % (AUTO) 0 % (0-1); EOSINOPHILS # (AUTO) 0.1 X10'3 (0-0.9); EOSINOPHILS % (AUTO) 0.7 % (0-6); HEMATOCRIT 35.1 % (35.0-45.0); HEMOGLOBIN 11.7 g/dl (12.0-16.0); LYMPHOCYTES # (AUTO) 0.4 X10'3 (1.1-4.8); LYMPHOCYTES % (AUTO) 4.1 % (21-51); MEAN CORPUSCULAR HEMOGLOBIN 30.6 PG (27.0-31.0); MEAN CORPUSCULAR HGB CONC 33.4 % (33.0-36.5); MEAN CORPUSCULAR VOLUME 91.7 FL (78-98); MEAN PLATELET VOLUME 9.6 FL (7.4-10.4); MONOCYTES # (AUTO) 0.1 X10'3 (0-0.9); NEUTROPHILS # (AUTO) 8.4 X10'3 (1.8-7.7); NEUTROPHILS % (AUTO) 94.2 % (42-75); PLATELET COUNT 254 X10'3 (140-440); RED BLOOD COUNT 3.82 X10'6 (4.20-5.60); RED CELL DISTRIBUTION WIDTH 14.6 % (11.5-14.5); WHITE BLOOD COUNT 8.9 X10'3 (4.5-11.0)
[2017-12-16 05:08] LABS: ALANINE AMINOTRANSFERASE 17 U/L (12-78); ALKALINE PHOSPHATASE 63 IU/L (46-116); ANION GAP 2 (8-16); ASPARTATE AMINO TRANSFERASE 9 U/L (10-37); BILIRUBIN,TOTAL 0.5 MG/DL (0.1-1.0); BLOOD UREA NITROGEN 24 MG/DL (7-18); CALCIUM 8.5 MG/DL (8.5-10.1); CHLORIDE 92 MMOL/L (99-107); CREATININE 0.96 MG/DL (0.40-0.90); GLUCOSE 163 MG/DL (70-104); MAGNESIUM 1.9 MG/DL (1.5-2.4); POTASSIUM 3.8 MMOL/L (3.5-5.1); SODIUM 132 MMOL/L (135-145); TOTAL CARBON DIOXIDE 38.1 MMOL/L (24-32); TOTAL PROTEIN 5.9 G/DL (6.4-8.2); eGFR 56 ML/MIN
[2017-12-16] MEDS: K and/or MAG REPLACEMENT MC SCH (08:00)
[2017-12-16] MEDS: heparin, porcine 5000 units/ml vial SQ SCH ×2 (08:09→20:38)
[2017-12-16] MEDS: OLANZapine 2.5MG tablet PO SCH (08:11)
[2017-12-16] MEDS: levoFLOXACIN-Levaquin 500mg/D5 100 ML IV SCH (08:12)
[2017-12-16] MEDS: furosemide 20 MG/2 ML vial IV SCH ×2 (08:12→20:40)
[2017-12-16] MEDS: hydrALAZINE 20mg/ml inj. IV PRN ×2 (08:22→15:36)
[2017-12-16] MEDS: losartan 50mg tablet PO SCH (10:16)
[2017-12-16] MEDS: clopidogrel 75mg tablet PO SCH (10:16)
[2017-12-16] MEDS ORDERED: clonazePAM 0.5mg tablet PO SCH (20:00)
[2017-12-16] MEDS: docusate sod 100mg capsule PO SCH (20:36)
[2017-12-16] MEDS: clonazePAM 0.5mg tablet PO SCH (20:37)
[2017-12-16] MEDS: lactobacillus rhamnosus 10,000 MMU CELLS/CAPSULE PO SCH (20:38)
[2017-12-16] MEDS: atorvastatin 20mg tablet PO SCH (20:38)
[2017-12-16] MEDS: carVEDilol 12.5mg tablet PO SCH (20:41)
[2017-12-17 02:00] VITALS: BP 142/75
[2017-12-17] MEDS: acetaminophen 325mg tablet PO PRN (02:06)
[2017-12-17 05:15] LABS: BASOPHILS % (AUTO) 0 % (0-1); EOSINOPHILS # (AUTO) 0.2 X10'3 (0-0.9); EOSINOPHILS % (AUTO) 1.6 % (0-6); HEMATOCRIT 36.1 % (35.0-45.0); HEMOGLOBIN 12.1 g/dl (12.0-16.0); LYMPHOCYTES # (AUTO) 0.3 X10'3 (1.1-4.8); LYMPHOCYTES % (AUTO) 3.1 % (21-51); MEAN CORPUSCULAR HEMOGLOBIN 30.9 PG (27.0-31.0); MEAN CORPUSCULAR HGB CONC 33.6 % (33.0-36.5); MEAN CORPUSCULAR VOLUME 91.9 FL (78-98); MEAN PLATELET VOLUME 10.1 FL (7.4-10.4); MONOCYTES # (AUTO) 0.3 X10'3 (0-0.9); MONOCYTES % (AUTO) 2.5 % (2-12); NEUTROPHILS # (AUTO) 9.7 X10'3 (1.8-7.7); NEUTROPHILS % (AUTO) 92.8 % (42-75); PLATELET COUNT 278 X10'3 (140-440); RED BLOOD COUNT 3.92 X10'6 (4.20-5.60); RED CELL DISTRIBUTION WIDTH 14.8 % (11.5-14.5); WHITE BLOOD COUNT 10.4 X10'3 (4.5-11.0)
[2017-12-17 05:34] LABS: ALANINE AMINOTRANSFERASE 24 U/L (12-78); ALBUMIN 3.1 G/DL (3.4-5.0); ALBUMIN/GLOBULIN RATIO 1.1 (1.1-1.5); ALKALINE PHOSPHATASE 53 IU/L (46-116); ANION GAP 4 (8-16); ASPARTATE AMINO TRANSFERASE 10 U/L (10-37); BILIRUBIN,TOTAL 0.4 MG/DL (0.1-1.0); BLOOD UREA NITROGEN 32 MG/DL (7-18); CALCIUM 8.7 MG/DL (8.5-10.1); CHLORIDE 91 MMOL/L (99-107); GLUCOSE 149 MG/DL (70-104); POTASSIUM 3.1 MMOL/L (3.5-5.1); SODIUM 134 MMOL/L (135-145); TOTAL CARBON DIOXIDE 39.4 MMOL/L (24-32); TOTAL PROTEIN 5.9 G/DL (6.4-8.2); eGFR 53 ML/MIN
[2017-12-17 06:00] VITALS: BP 165/69
[2017-12-17] MEDS: clopidogrel 75mg tablet PO SCH (08:28)
[2017-12-17] MEDS: lactobacillus rhamnosus 10,000 MMU CELLS/CAPSULE PO SCH ×2 (08:28→20:13)
[2017-12-17] MEDS: carVEDilol 12.5mg tablet PO SCH ×2 (08:28→20:13)
[2017-12-17] MEDS: clonazePAM 0.5mg tablet PO SCH ×2 (08:28→20:13)
[2017-12-17] MEDS: docusate sod 100mg capsule PO SCH ×2 (08:28→20:00)
[2017-12-17] MEDS: potassium Cl 20 mEq SR tablet PO PRN ×2 (08:29→12:29)
[2017-12-17] MEDS: OLANZapine 2.5MG tablet PO SCH (08:29)
[2017-12-17] MEDS: losartan 50mg tablet PO SCH (08:29)
[2017-12-17] MEDS: methylPREDNISolone sod succ/PF 40mg inj. IV SCH (08:31)
[2017-12-17] MEDS: heparin, porcine 5000 units/ml vial SQ SCH ×2 (08:31→20:22)
[2017-12-17] MEDS: furosemide 20 MG/2 ML vial IV SCH ×2 (08:37→20:09)
[2017-12-17] MEDS: K and/or MAG REPLACEMENT MC SCH (08:40)
[2017-12-17] MEDS: levoFLOXACIN 250mg tablet PO SCH (10:59)
[2017-12-17 11:00] VITALS: BP 187/85
[2017-12-17] MEDS: hydrALAZINE 20mg/ml inj. IV PRN (11:28)
[2017-12-17 15:00] VITALS: BP 136/58
[2017-12-17 19:00] VITALS: BP 124/71
[2017-12-17] MEDS: atorvastatin 20mg tablet PO SCH (20:14)
[2017-12-17 23:00] VITALS: BP 120/58
[2017-12-18 03:00] VITALS: BP 134/60
[2017-12-18 05:11] LABS: BASOPHILS % (AUTO) 0.1 % (0-1); EOSINOPHILS # (AUTO) 0.2 X10'3 (0-0.9); EOSINOPHILS % (AUTO) 1.7 % (0-6); HEMATOCRIT 36.5 % (35.0-45.0); HEMOGLOBIN 12.2 g/dl (12.0-16.0); LYMPHOCYTES # (AUTO) 0.6 X10'3 (1.1-4.8); LYMPHOCYTES % (AUTO) 5.4 % (21-51); MEAN CORPUSCULAR HEMOGLOBIN 30.8 PG (27.0-31.0); MEAN CORPUSCULAR HGB CONC 33.5 % (33.0-36.5); MEAN CORPUSCULAR VOLUME 91.9 FL (78-98); MEAN PLATELET VOLUME 9.7 FL (7.4-10.4); MONOCYTES # (AUTO) 0.9 X10'3 (0-0.9); MONOCYTES % (AUTO) 8.3 % (2-12); NEUTROPHILS % (AUTO) 84.5 % (42-75); PLATELET COUNT 265 X10'3 (140-440); RED BLOOD COUNT 3.97 X10'6 (4.20-5.60); RED CELL DISTRIBUTION WIDTH 15.1 % (11.5-14.5); WHITE BLOOD COUNT 10.6 X10'3 (4.5-11.0)
[2017-12-18 05:30] LABS: ALANINE AMINOTRANSFERASE 22 U/L (12-78); ALBUMIN 2.9 G/DL (3.4-5.0); ALBUMIN/GLOBULIN RATIO 1.1 (1.1-1.5); ALKALINE PHOSPHATASE 50 IU/L (46-116); ANION GAP 0 (8-16); ASPARTATE AMINO TRANSFERASE 8 U/L (10-37); BILIRUBIN,TOTAL 0.4 MG/DL (0.1-1.0); BLOOD UREA NITROGEN 43 MG/DL (7-18); BUN/CREATININE RATIO 40.6 (6.6-38.0); CALCIUM 8.5 MG/DL (8.5-10.1); CHLORIDE 95 MMOL/L (99-107); CREATININE 1.06 MG/DL (0.40-0.90); GLUCOSE 113 MG/DL (70-104); MAGNESIUM 2.3 MG/DL (1.5-2.4); POTASSIUM 3.7 MMOL/L (3.5-5.1); SODIUM 135 MMOL/L (135-145); TOTAL CARBON DIOXIDE 39.9 MMOL/L (24-32); TOTAL PROTEIN 5.5 G/DL (6.4-8.2); eGFR 50 ML/MIN
[2017-12-18 06:00] VITALS: BP 138/57
[2017-12-18] MEDS: docusate sod 100mg capsule PO SCH ×2 (07:44→19:47)
[2017-12-18] MEDS: lactobacillus rhamnosus 10,000 MMU CELLS/CAPSULE PO SCH ×2 (07:44→19:47)
[2017-12-18] MEDS: clonazePAM 0.5mg tablet PO SCH ×2 (07:44→19:47)
[2017-12-18] MEDS: losartan 50mg tablet PO SCH (07:44)
[2017-12-18] MEDS: carVEDilol 12.5mg tablet PO SCH ×2 (07:45→19:47)
[2017-12-18] MEDS: OLANZapine 2.5MG tablet PO SCH (07:45)
[2017-12-18] MEDS: clopidogrel 75mg tablet PO SCH (07:45)
[2017-12-18] MEDS: predniSONE 20 mg tablet PO SCH (07:45)
[2017-12-18] MEDS: furosemide 20 MG/2 ML vial IV SCH ×2 (07:45→19:47)
[2017-12-18] MEDS: heparin, porcine 5000 units/ml vial SQ SCH ×2 (07:46→19:47)
[2017-12-18] MEDS: K and/or MAG REPLACEMENT MC SCH (08:00)
[2017-12-18 11:00] VITALS: BP 123/52
[2017-12-18] MEDS: levoFLOXACIN 250mg tablet PO SCH (11:12)
[2017-12-18 15:00] VITALS: BP 123/70
[2017-12-18 19:00] VITALS: BP 134/67
[2017-12-18] MEDS: atorvastatin 20mg tablet PO SCH (21:07)
[2017-12-18 23:00] VITALS: BP 128/62
[2017-12-18] MEDS: acetaminophen 325mg tablet PO PRN (23:08)
[2017-12-19 03:00] VITALS: BP 141/62
[2017-12-19 05:16] LABS: BASOPHILS % (AUTO) 0.1 % (0-1); EOSINOPHILS # (AUTO) 0.1 X10'3 (0-0.9); EOSINOPHILS % (AUTO) 0.8 % (0-6); HEMATOCRIT 37.2 % (35.0-45.0); HEMOGLOBIN 12.2 g/dl (12.0-16.0); LYMPHOCYTES # (AUTO) 0.9 X10'3 (1.1-4.8); LYMPHOCYTES % (AUTO) 9.6 % (21-51); MEAN CORPUSCULAR HEMOGLOBIN 30.6 PG (27.0-31.0); MEAN CORPUSCULAR HGB CONC 32.8 % (33.0-36.5); MEAN CORPUSCULAR VOLUME 93.3 FL (78-98); MEAN PLATELET VOLUME 9.9 FL (7.4-10.4); MONOCYTES # (AUTO) 0.8 X10'3 (0-0.9); MONOCYTES % (AUTO) 8.5 % (2-12); NEUTROPHILS # (AUTO) 7.3 X10'3 (1.8-7.7); PLATELET COUNT 245 X10'3 (140-440); RED BLOOD COUNT 3.99 X10'6 (4.20-5.60); RED CELL DISTRIBUTION WIDTH 14.9 % (11.5-14.5)
[2017-12-19 05:49] LABS: ALANINE AMINOTRANSFERASE 19 U/L (12-78); ALBUMIN 2.9 G/DL (3.4-5.0); ALBUMIN/GLOBULIN RATIO 1.1 (1.1-1.5); ALKALINE PHOSPHATASE 54 IU/L (46-116); ANION GAP -1 (8-16); ASPARTATE AMINO TRANSFERASE 13 U/L (10-37); BILIRUBIN,TOTAL 0.4 MG/DL (0.1-1.0); BLOOD UREA NITROGEN 39 MG/DL (7-18); BUN/CREATININE RATIO 40.2 (6.6-38.0); CALCIUM 8.7 MG/DL (8.5-10.1); CHLORIDE 93 MMOL/L (99-107); CREATININE 0.97 MG/DL (0.40-0.90); GLUCOSE 99 MG/DL (70-104); MAGNESIUM 2.3 MG/DL (1.5-2.4); POTASSIUM 3.8 MMOL/L (3.5-5.1); SODIUM 133 MMOL/L (135-145); TOTAL PROTEIN 5.6 G/DL (6.4-8.2); eGFR 55 ML/MIN
[2017-12-19 05:51] LABS: TOTAL CARBON DIOXIDE 41.1 MMOL/L (24-32)
[2017-12-19 06:00] VITALS: BP 160/59
[2017-12-19 07:52] LABS: ANISOCYTOSIS 1+; PLATELET ESTIMATE NORMAL; POIKILOCYTOSIS FEW
[2017-12-19] MEDS: K and/or MAG REPLACEMENT MC SCH (08:00)
[2017-12-19] MEDS: heparin, porcine 5000 units/ml vial SQ SCH ×2 (08:03→20:12)
[2017-12-19] MEDS: furosemide 20 MG/2 ML vial IV SCH ×2 (08:03→20:10)
[2017-12-19] MEDS: lactobacillus rhamnosus 10,000 MMU CELLS/CAPSULE PO SCH ×2 (08:03→20:12)
[2017-12-19] MEDS: OLANZapine 2.5MG tablet PO SCH (08:03)
[2017-12-19] MEDS: predniSONE 20 mg tablet PO SCH (08:03)
[2017-12-19] MEDS: losartan 50mg tablet PO SCH (08:03)
[2017-12-19] MEDS: docusate sod 100mg capsule PO SCH ×2 (08:03→20:12)
[2017-12-19] MEDS: clonazePAM 0.5mg tablet PO SCH ×2 (08:03→20:12)
[2017-12-19] MEDS: clopidogrel 75mg tablet PO SCH (08:03)
[2017-12-19] MEDS: carVEDilol 12.5mg tablet PO SCH ×2 (08:03→20:12)
[2017-12-19 11:00] VITALS: BP 116/58
[2017-12-19] MEDS: levoFLOXACIN 250mg tablet PO SCH (11:16)
[2017-12-19 15:00] VITALS: BP 133/68
[2017-12-19 19:00] VITALS: BP 133/66
[2017-12-19] MEDS: atorvastatin 20mg tablet PO SCH (20:12)
[2017-12-19 23:00] VITALS: BP 146/68
[2017-12-20 03:00] VITALS: BP 159/80
[2017-12-20 05:27] LABS: BASOPHILS % (AUTO) 0.1 % (0-1); EOSINOPHILS # (AUTO) 0.1 X10'3 (0-0.9); EOSINOPHILS % (AUTO) 1.4 % (0-6); HEMOGLOBIN 11.6 g/dl (12.0-16.0); LYMPHOCYTES # (AUTO) 0.8 X10'3 (1.1-4.8); LYMPHOCYTES % (AUTO) 9.6 % (21-51); MEAN CORPUSCULAR HEMOGLOBIN 30.5 PG (27.0-31.0); MEAN CORPUSCULAR HGB CONC 33.2 % (33.0-36.5); MEAN CORPUSCULAR VOLUME 91.9 FL (78-98); MEAN PLATELET VOLUME 9.4 FL (7.4-10.4); MONOCYTES # (AUTO) 0.7 X10'3 (0-0.9); MONOCYTES % (AUTO) 8.3 % (2-12); NEUTROPHILS # (AUTO) 6.8 X10'3 (1.8-7.7); NEUTROPHILS % (AUTO) 80.6 % (42-75); PLATELET COUNT 235 X10'3 (140-440); RED BLOOD COUNT 3.81 X10'6 (4.20-5.60); RED CELL DISTRIBUTION WIDTH 14.9 % (11.5-14.5); WHITE BLOOD COUNT 8.4 X10'3 (4.5-11.0)
[2017-12-20 05:45] LABS: ALANINE AMINOTRANSFERASE 20 U/L (12-78); ALBUMIN 2.8 G/DL (3.4-5.0); ALBUMIN/GLOBULIN RATIO 1.2 (1.1-1.5); ALKALINE PHOSPHATASE 45 IU/L (46-116); ANION GAP -2 (8-16); ASPARTATE AMINO TRANSFERASE 11 U/L (10-37); BILIRUBIN,TOTAL 0.5 MG/DL (0.1-1.0); BLOOD UREA NITROGEN 30 MG/DL (7-18); BUN/CREATININE RATIO 42.9 (6.6-38.0); CALCIUM 8.3 MG/DL (8.5-10.1); CHLORIDE 94 MMOL/L (99-107); GLUCOSE 109 MG/DL (70-104); MAGNESIUM 2.3 MG/DL (1.5-2.4); POTASSIUM 3.9 MMOL/L (3.5-5.1); SODIUM 135 MMOL/L (135-145); TOTAL PROTEIN 5.2 G/DL (6.4-8.2); eGFR 80 ML/MIN
[2017-12-20 05:48] LABS: TOTAL CARBON DIOXIDE 42.6 MMOL/L (24-32)
[2017-12-20 07:00] VITALS: BP 145/67
[2017-12-20] MEDS: K and/or MAG REPLACEMENT MC SCH (08:00)
[2017-12-20] MEDS: lactobacillus rhamnosus 10,000 MMU CELLS/CAPSULE PO SCH (08:06)
[2017-12-20] MEDS: predniSONE 20 mg tablet PO SCH (08:06)
[2017-12-20] MEDS: OLANZapine 2.5MG tablet PO SCH (08:06)
[2017-12-20] MEDS: docusate sod 100mg capsule PO SCH (08:06)
[2017-12-20] MEDS: clonazePAM 0.5mg tablet PO SCH (08:06)
[2017-12-20] MEDS: furosemide 20 MG/2 ML vial IV SCH (08:07)
[2017-12-20] MEDS: carVEDilol 12.5mg tablet PO SCH (08:08)
[2017-12-20] MEDS: losartan 50mg tablet PO SCH (08:08)
[2017-12-20] MEDS: heparin, porcine 5000 units/ml vial SQ SCH (08:08)
[2017-12-20] MEDS: clopidogrel 75mg tablet PO SCH (08:08)
[2017-12-20] MEDS ORDERED: FURO-150 PO (09:19)
[2017-12-20] MEDS: levoFLOXACIN 250mg tablet PO SCH (12:38)
== END 2017-12-20 14:25 | DRG 291 ==
LOC: ER 11:34 → ED HOLD 14:17 → PCU 3S 16:45
PROVIDERS: ADMIT Internal Medicine; ATTEND Internal Medicine
DX: I11.0 Hypertensive heart disease with heart failure (principal); J96.00 Acute respiratory failure, unspecified whether with hypoxia or hypercapnia; E87.1 Hypo-osmolality and hyponatremia; J44.1 Chronic obstructive pulmonary disease with (acute) exacerbation; I50.43 Acute on chronic combined systolic (congestive) and diastolic (congestive) heart failure; E78.00 Pure hypercholesterolemia, unspecified; E78.5 Hyperlipidemia, unspecified; F41.9 Anxiety disorder, unspecified; I07.1 Rheumatic tricuspid insufficiency; I35.0 Nonrheumatic aortic (valve) stenosis; M85.80 Other specified disorders of bone density and structure, unspecified site; G89.29 Other chronic pain; M54.9 Dorsalgia, unspecified; Z90.710 Acquired absence of both cervix and uterus; Z90.49 Acquired absence of other specified parts of digestive tract; Z88.2 Allergy status to sulfonamides; Z88.0 Allergy status to penicillin; Z88.1 Allergy status to other antibiotic agents; Z88.8 Allergy status to other drugs, medicaments and biological substances; Z79.02 Long term (current) use of antithrombotics/antiplatelets; Z79.899 Other long term (current) drug therapy; Z87.01 Personal history of pneumonia (recurrent); Z81.8 Family history of other mental and behavioral disorders
CPT/HCPCS: 36415; 71045; 80053; 81001; 83735; 83880; 84484; 85025; 85610; 85730; 87040; 87070; 93005; 94640; 94760; 97110; 97116; 97161; 97530; 99285; A6212; A6213; J0360; J1644; J1940; J1956; J2405; J2920; J7512

== ENCOUNTER 2018-01-26 08:07 | Inpatient (IN) | payer MEDICARE ==
[~2018-01-26] VITALS: Ht 157.5 cm; Wt 57.6 kg
[~2018-01-26 08:07] MED LIST changes: -ALPR-624 PO; -ASPI-1265 PO; -BISA10SU60 RC; -BUPR-83 PO; -BUPR150T8 PO; -CHOL100062 PO; -CYAN1TAB39 PO; -FLUT1AER; -GLUC1TAB40 PO; -IBUP-1984 PO; -LIDO76.5; -MAGN400O6 PO; -VITC500T PO
[2018-01-26] MEDS ORDERED: normal saline 1000ML IV soln IVB ONE (08:20)
[2018-01-26] MEDS ORDERED: ipratropium/albuterol 3ml nebule NEB ONE (08:20)
[2018-01-26] MEDS ORDERED: methylPREDNISolone sod succ 125mg/2ml vial IV ONE (08:20)
[2018-01-26 08:43] LABS: BASOPHILS % (AUTO) 0.2 % (0-1); EOSINOPHILS # (AUTO) 0.3 X10'3 (0-0.9); EOSINOPHILS % (AUTO) 2.4 % (0-6); HEMOGLOBIN 12.2 g/dl (12.0-16.0); LYMPHOCYTES # (AUTO) 0.8 X10'3 (1.1-4.8); LYMPHOCYTES % (AUTO) 7.6 % (21-51); MEAN CORPUSCULAR HEMOGLOBIN 30.9 PG (27.0-31.0); MEAN CORPUSCULAR HGB CONC 33.8 % (33.0-36.5); MEAN CORPUSCULAR VOLUME 91.4 FL (78-98); MEAN PLATELET VOLUME 8.9 FL (7.4-10.4); MONOCYTES # (AUTO) 0.7 X10'3 (0-0.9); MONOCYTES % (AUTO) 6.6 % (2-12); NEUTROPHILS # (AUTO) 8.7 X10'3 (1.8-7.7); NEUTROPHILS % (AUTO) 83.2 % (42-75); PLATELET COUNT 345 X10'3 (140-440); RED BLOOD COUNT 3.94 X10'6 (4.20-5.60); RED CELL DISTRIBUTION WIDTH 14.9 % (11.5-14.5); WHITE BLOOD COUNT 10.5 X10'3 (4.5-11.0)
[2018-01-26 08:45] LABS: ABG BASE EXCESS 16.3 mmol/L (-2.0-3.0); ABG HCO3 44.4 mmol/L (22.0-26.0); ABG OXYGEN SATURATION 94.4 % (95-98); ABG PCO2 (T) 70.6 mmHg (32.0-45.0); ABG PH (T) 7.416 (7.350-7.450); ABG PO2 (T) 77.5 mmHg (83-108); ALLEN'S TEST Positive; FCOHb 0.9 % (0.5-1.5); FLOW 3 L/min; FMetHb 0.3 % (0.3-1.12); FO2Hb 93.3 % (94-100); RESPIRATORY RATE (OBSERVED) 32 b/min
[2018-01-26] MEDS ORDERED: LORazepam 2 mg/ml vial IV ONE (08:50)
[2018-01-26 09:05] LABS: ALANINE AMINOTRANSFERASE 12 U/L (12-78); ALBUMIN 3.4 G/DL (3.4-5.0); ALKALINE PHOSPHATASE 107 IU/L (46-116); ANION GAP 1 (8-16); ASPARTATE AMINO TRANSFERASE 14 U/L (10-37); BILIRUBIN,TOTAL 0.4 MG/DL (0.1-1.0); BLOOD UREA NITROGEN 14 MG/DL (7-18); BUN/CREATININE RATIO 18.9 (6.6-38.0); CALCIUM 9.1 MG/DL (8.5-10.1); CHLORIDE 91 MMOL/L (99-107); CREATININE 0.74 MG/DL (0.40-0.90); GLUCOSE 135 MG/DL (70-104); POTASSIUM 3.5 MMOL/L (3.5-5.1); SODIUM 132 MMOL/L (135-145); TOTAL PROTEIN 6.7 G/DL (6.4-8.2); eGFR 75 ML/MIN
[2018-01-26] MEDS ORDERED: furosemide 10 MG/1 ML 10ml inj IV ONE (09:05)
[2018-01-26 09:07] LABS: TOTAL CARBON DIOXIDE 40.5 MMOL/L (24-32)
[2018-01-26] MEDS ORDERED: cloNIDine 0.1 mg tablet PO ONE (09:10)
[2018-01-26] MEDS ORDERED: CLON-528 PO (10:05)
[2018-01-26] MEDS ORDERED: CHOL10002 PO (10:07)
[2018-01-26] MEDS ORDERED: ALBU8.5H8 INH (10:08)
[2018-01-26] MEDS ORDERED: ACET-1025 PO (10:13)
[2018-01-26] MEDS ORDERED: [UNRECOGNIZED DRUG - OTHER] PO (10:13)
[2018-01-26] MEDS ORDERED: MAGN400C PO (10:16)
[2018-01-26] MEDS ORDERED: [UNRECOGNIZED DRUG - OTHER] PO (10:17)
[2018-01-26] MEDS ORDERED: magnesium 1gm/100ml D5W IVPB 100 ML IV PRN (10:50)
[2018-01-26] MEDS ORDERED: magnesium Cl slow-release 64mg tablet PO PRN (10:50)
[2018-01-26] MEDS ORDERED: potassium Cl 20 mEq SR tablet PO PRN (10:50)
[2018-01-26] MEDS ORDERED: potassium Cl 40MEQ/NS 500ml 500 ML IV PRN ×2 (10:50)
[2018-01-26] MEDS ORDERED: mag hydrox/Alum hydrox/simeth 30ml oral suspension PO PRN (10:50)
[2018-01-26] MEDS ORDERED: acetaminophen 325mg tablet PO PRN (10:50)
[2018-01-26] MEDS ORDERED: magnesium 4gm in 100ml NS 100 ML IV PRN (10:50)
[2018-01-26] MEDS ORDERED: ondansetron/PF 4mg/2ml inj IV PRN (10:50)
[2018-01-26] MEDS ORDERED: docusate sod 100mg capsule PO PRN (11:10)
[2018-01-26] MEDS: clopidogrel 75mg tablet PO SCH (11:43)
[2018-01-26] MEDS: ipratropium/albuterol 3ml nebule NEB SCH ×4 (12:00→23:39)
[2018-01-26 15:00] VITALS: BP 177/82
[2018-01-26] MEDS: losartan 50mg tablet PO SCH (16:54)
[2018-01-26 18:00] VITALS: BP 161/69
[2018-01-26] MEDS: potassium chloride 10mEq ER tablet PO SCH (19:59)
[2018-01-26] MEDS: clonazePAM 0.5mg tablet PO SCH (19:59)
[2018-01-26] MEDS: furosemide 40mg/4ml inj IV SCH (20:00)
[2018-01-26] MEDS: heparin, porcine 5000 units/ml vial SQ SCH (20:00)
[2018-01-26] MEDS: methylPREDNISolone sod succ/PF 40mg inj. IV SCH (20:00)
[2018-01-26] MEDS: docusate sod 100mg capsule PO SCH (20:00)
[2018-01-26] MEDS: atorvastatin 20mg tablet PO SCH (20:15)
[2018-01-26 23:39] VITALS: BP 160/85
[2018-01-27] VITALS (7 sets, daily range): BP systolic 124–175; BP diastolic 63–95
[2018-01-27] MEDS: ipratropium/albuterol 3ml nebule NEB SCH ×6 (03:56→23:17)
[2018-01-27 04:39] LABS: BASOPHILS % (AUTO) 0 % (0-1); EOSINOPHILS # (AUTO) 0.1 X10'3 (0-0.9); EOSINOPHILS % (AUTO) 0.9 % (0-6); HEMATOCRIT 35.2 % (35.0-45.0); LYMPHOCYTES # (AUTO) 0.5 X10'3 (1.1-4.8); LYMPHOCYTES % (AUTO) 5.8 % (21-51); MEAN CORPUSCULAR HEMOGLOBIN 31.1 PG (27.0-31.0); MEAN CORPUSCULAR HGB CONC 34.2 % (33.0-36.5); MEAN CORPUSCULAR VOLUME 90.8 FL (78-98); MEAN PLATELET VOLUME 9.3 FL (7.4-10.4); MONOCYTES # (AUTO) 0.2 X10'3 (0-0.9); MONOCYTES % (AUTO) 2.1 % (2-12); NEUTROPHILS # (AUTO) 7.2 X10'3 (1.8-7.7); NEUTROPHILS % (AUTO) 91.2 % (42-75); PLATELET COUNT 358 X10'3 (140-440); RED BLOOD COUNT 3.87 X10'6 (4.20-5.60); RED CELL DISTRIBUTION WIDTH 14.6 % (11.5-14.5); WHITE BLOOD COUNT 7.9 X10'3 (4.5-11.0)
[2018-01-27 04:53] LABS: ALBUMIN 3.3 G/DL (3.4-5.0); ANION GAP 3 (8-16); BLOOD UREA NITROGEN 21 MG/DL (7-18); BUN/CREATININE RATIO 20.8 (6.6-38.0); CALCIUM 9.4 MG/DL (8.5-10.1); CHLORIDE 92 MMOL/L (99-107); CREATININE 1.01 MG/DL (0.40-0.90); GLUCOSE 242 MG/DL (70-104); POTASSIUM 3.4 MMOL/L (3.5-5.1); SODIUM 133 MMOL/L (135-145); TOTAL CARBON DIOXIDE 38.5 MMOL/L (24-32); eGFR 52 ML/MIN
[2018-01-27] MEDS: K and/or MAG REPLACEMENT MC SCH (06:39)
[2018-01-27] MEDS: potassium Cl 20 mEq SR tablet PO PRN ×3 (07:24→16:44)
[2018-01-27] MEDS: clonazePAM 0.5mg tablet PO SCH ×2 (07:24→20:38)
[2018-01-27] MEDS: potassium chloride 10mEq ER tablet PO SCH ×2 (07:24→20:39)
[2018-01-27] MEDS: docusate sod 100mg capsule PO SCH ×2 (07:25→20:38)
[2018-01-27] MEDS: clopidogrel 75mg tablet PO SCH (07:25)
[2018-01-27] MEDS: losartan 50mg tablet PO SCH (07:25)
[2018-01-27] MEDS: methylPREDNISolone sod succ/PF 40mg inj. IV SCH ×2 (07:26→20:39)
[2018-01-27] MEDS: furosemide 40mg/4ml inj IV SCH ×2 (07:26→20:39)
[2018-01-27] MEDS: heparin, porcine 5000 units/ml vial SQ SCH ×2 (07:27→07:32)
[2018-01-27] MEDS ORDERED: losartan 50mg tablet PO SCH (08:00)
[2018-01-27] MEDS: atorvastatin 20mg tablet PO SCH (20:39)
[2018-01-28] MEDS ORDERED: hydrALAZINE 20mg/ml inj. IV PRN (01:40)
[2018-01-28 02:00] VITALS: BP 189/80
[2018-01-28] MEDS: ipratropium/albuterol 3ml nebule NEB SCH ×3 (03:02→10:33)
[2018-01-28 05:25] LABS: BASOPHILS % (AUTO) 0 % (0-1); EOSINOPHILS # (AUTO) 0.1 X10'3 (0-0.9); EOSINOPHILS % (AUTO) 0.9 % (0-6); HEMATOCRIT 35.6 % (35.0-45.0); LYMPHOCYTES # (AUTO) 0.5 X10'3 (1.1-4.8); LYMPHOCYTES % (AUTO) 3.4 % (21-51); MEAN CORPUSCULAR HEMOGLOBIN 30.8 PG (27.0-31.0); MEAN CORPUSCULAR HGB CONC 33.8 % (33.0-36.5); MEAN CORPUSCULAR VOLUME 91.2 FL (78-98); MEAN PLATELET VOLUME 9.5 FL (7.4-10.4); MONOCYTES # (AUTO) 0.3 X10'3 (0-0.9); NEUTROPHILS # (AUTO) 12.9 X10'3 (1.8-7.7); NEUTROPHILS % (AUTO) 93.7 % (42-75); PLATELET COUNT 368 X10'3 (140-440); RED BLOOD COUNT 3.91 X10'6 (4.20-5.60); RED CELL DISTRIBUTION WIDTH 14.5 % (11.5-14.5); WHITE BLOOD COUNT 13.7 X10'3 (4.5-11.0)
[2018-01-28 06:17] LABS: ALBUMIN 3.4 G/DL (3.4-5.0); ANION GAP 3 (8-16); BLOOD UREA NITROGEN 29 MG/DL (7-18); BUN/CREATININE RATIO 30.9 (6.6-38.0); CHLORIDE 91 MMOL/L (99-107); CREATININE 0.94 MG/DL (0.40-0.90); GLUCOSE 149 MG/DL (70-104); MAGNESIUM 1.7 MG/DL (1.5-2.4); SODIUM 133 MMOL/L (135-145); TOTAL CARBON DIOXIDE 39.5 MMOL/L (24-32); eGFR 57 ML/MIN
[2018-01-28 07:00] VITALS: BP 157/79
[2018-01-28] MEDS: potassium Cl 20 mEq SR tablet PO PRN (07:22)
[2018-01-28] MEDS: clopidogrel 75mg tablet PO SCH (07:23)
[2018-01-28] MEDS: docusate sod 100mg capsule PO SCH (07:23)
[2018-01-28] MEDS: potassium chloride 10mEq ER tablet PO SCH (07:23)
[2018-01-28] MEDS: clonazePAM 0.5mg tablet PO SCH (07:24)
[2018-01-28] MEDS: losartan 50mg tablet PO SCH (07:24)
[2018-01-28] MEDS: heparin, porcine 5000 units/ml vial SQ SCH (07:25)
[2018-01-28] MEDS: furosemide 40mg/4ml inj IV SCH (07:25)
[2018-01-28] MEDS: methylPREDNISolone sod succ/PF 40mg inj. IV SCH (07:26)
[2018-01-28] MEDS: K and/or MAG REPLACEMENT MC SCH (07:26)
[2018-01-28] MEDS ORDERED: HYDR-4069 PO (10:59)
[2018-01-28] MEDS ORDERED: PRED20TA PO (11:10)
[2018-01-28] MEDS: magnesium 1gm/100ml D5W IVPB 100 ML IV SCH ×2 (11:15→12:53)
== END 2018-01-28 14:48 | disposition home or self-care (01) | DRG 291 ==
LOC: ER 08:09 → ED HOLD 10:49 → EDBEDREQ 11:29 → PCU 3S 12:35
PROVIDERS: ADMIT Internal Medicine; ATTEND Internal Medicine
DX: I11.0 Hypertensive heart disease with heart failure (principal); J96.21 Acute and chronic respiratory failure with hypoxia; J44.1 Chronic obstructive pulmonary disease with (acute) exacerbation; I47.2 Ventricular tachycardia; G89.29 Other chronic pain; I50.9 Heart failure, unspecified; E83.42 Hypomagnesemia; M54.9 Dorsalgia, unspecified; Z96.643 Presence of artificial hip joint, bilateral; F41.1 Generalized anxiety disorder; I25.10 Atherosclerotic heart disease of native coronary artery without angina pectoris; I27.81 Cor pulmonale (chronic); Z90.49 Acquired absence of other specified parts of digestive tract; Z90.710 Acquired absence of both cervix and uterus; Z98.1 Arthrodesis status; Z99.81 Dependence on supplemental oxygen; Z79.899 Other long term (current) drug therapy; Z79.02 Long term (current) use of antithrombotics/antiplatelets; Z79.82 Long term (current) use of aspirin; Z88.1 Allergy status to other antibiotic agents; Z88.5 Allergy status to narcotic agent; Z88.0 Allergy status to penicillin; Z88.2 Allergy status to sulfonamides; Z88.8 Allergy status to other drugs, medicaments and biological substances; Z87.01 Personal history of pneumonia (recurrent)
CPT/HCPCS: 36415; 36600; 71045; 80048; 80053; 82803; 83605; 83735; 83880; 84484; 85018; 85025; 87040; 87070; 93308; 94640; 94760; 96374; 96375; 97116; 97162; 97530; 99285; J0360; J1644; J1940; J2060; J2920; J2930; J7030

== ENCOUNTER 2018-02-17 22:47 | Emergency (ER) | payer MEDICARE ==
[~2018-02-17] VITALS: Ht 157.5 cm; Wt 60.0 kg
[~2018-02-17 22:47] MED LIST changes: +ACET-1025 PO; +ALBU8.5H8 INH; +CHOL10002 PO; +CLON-528 PO; +HYDR-4069 PO; -LACT1CAP65 PO; +PRED20TA PO; +[UNRECOGNIZED DRUG - OTHER] PO; +[UNRECOGNIZED DRUG - OTHER] PO
[2018-02-17 23:36] LABS: BASOPHILS % (AUTO) 0.5 % (0-1); EOSINOPHILS # (AUTO) 0.3 X10'3 (0-0.9); EOSINOPHILS % (AUTO) 3.6 % (0-6); HEMATOCRIT 36.4 % (35.0-45.0); HEMOGLOBIN 12.6 g/dl (12.0-16.0); LYMPHOCYTES # (AUTO) 0.8 X10'3 (1.1-4.8); LYMPHOCYTES % (AUTO) 9.5 % (21-51); MEAN CORPUSCULAR HEMOGLOBIN 31.9 PG (27.0-31.0); MEAN CORPUSCULAR HGB CONC 34.7 % (33.0-36.5); MEAN PLATELET VOLUME 9.2 FL (7.4-10.4); MONOCYTES # (AUTO) 0.5 X10'3 (0-0.9); MONOCYTES % (AUTO) 5.6 % (2-12); NEUTROPHILS # (AUTO) 6.9 X10'3 (1.8-7.7); NEUTROPHILS % (AUTO) 80.8 % (42-75); PLATELET COUNT 222 X10'3 (140-440); RED BLOOD COUNT 3.96 X10'6 (4.20-5.60); RED CELL DISTRIBUTION WIDTH 14.2 % (11.5-14.5); WHITE BLOOD COUNT 8.5 X10'3 (4.5-11.0)
[2018-02-17 23:38] LABS: PARTIAL THROMBOPLASTIN TIME 31 SECONDS (22-32); PROTHROMBIN TIME 10.1 SECONDS (9.0-12.0)
[2018-02-17 23:47] LABS: ALANINE AMINOTRANSFERASE 15 U/L (12-78); ALBUMIN 3.6 G/DL (3.4-5.0); ALBUMIN/GLOBULIN RATIO 1.2 (1.1-1.5); ALKALINE PHOSPHATASE 94 IU/L (46-116); ANION GAP 1 (8-16); ASPARTATE AMINO TRANSFERASE 12 U/L (10-37); BILIRUBIN,TOTAL 0.4 MG/DL (0.1-1.0); BLOOD UREA NITROGEN 16 MG/DL (7-18); BUN/CREATININE RATIO 19.5 (6.6-38.0); CALCIUM 9.2 MG/DL (8.5-10.1); CHLORIDE 94 MMOL/L (99-107); CREATININE 0.82 MG/DL (0.40-0.90); GLUCOSE 109 MG/DL (70-104); POTASSIUM 3.8 MMOL/L (3.5-5.1); SODIUM 139 MMOL/L (135-145); TOTAL PROTEIN 6.6 G/DL (6.4-8.2); eGFR 67 ML/MIN
[2018-02-17 23:53] LABS: TOTAL CARBON DIOXIDE 43.8 MMOL/L (24-32)
[2018-02-18] MEDS ORDERED: albuterol 2.5 MG/3 ML nebule NEB ONE (00:40)
[2018-02-18] MEDS ORDERED: diphenhydrAMINE 50 mg/ml inj IV ONE (00:40)
[2018-02-18 01:08] VITALS: BP 168/109
== END 2018-02-18 01:40 | disposition home or self-care (01) ==
LOC: ER 22:48
DX: J44.9 Chronic obstructive pulmonary disease, unspecified (principal); I11.0 Hypertensive heart disease with heart failure; I50.9 Heart failure, unspecified; G89.29 Other chronic pain; Z90.49 Acquired absence of other specified parts of digestive tract; Z90.710 Acquired absence of both cervix and uterus; Z88.0 Allergy status to penicillin; Z88.2 Allergy status to sulfonamides; Z88.1 Allergy status to other antibiotic agents; Z88.5 Allergy status to narcotic agent; Z79.899 Other long term (current) drug therapy
CPT/HCPCS: 36415; 71045; 80053; 84484; 85025; 85610; 85730; 93005; 94640; 94760; 96374; 99285; J1200

== ENCOUNTER 2018-03-17 02:27 | Inpatient (IN) | payer MEDICARE ==
[2018-03-17] VITALS (20 sets, daily range): BP systolic 86–171; BP diastolic 46–84
[~2018-03-17] VITALS: Ht 157.5 cm; Wt 64.3 kg
[~2018-03-17 02:27] MED LIST changes: -HYDR-4069 PO
[2018-03-17] MEDS ORDERED: levoFLOXACIN-Levaquin 500mg/D5 100 ML IV ONE (03:00)
[2018-03-17] MEDS ORDERED: ipratropium/albuterol 3ml nebule NEB ONE (03:00)
[2018-03-17] MEDS ORDERED: methylPREDNISolone sod succ 125mg/2ml vial IV ONE (03:00)
[2018-03-17] MEDS ORDERED: FENTANYL-0.9 % NACL/PF 100 ML IV PRN (03:01)
[2018-03-17] MEDS ORDERED: midazolam 100mg in NS 100ml 100 ML IV PRN ×2 (03:01→03:22)
[2018-03-17 03:02] LABS: BASOPHILS % (AUTO) 0.2 % (0-1); EOSINOPHILS # (AUTO) 0.3 X10'3 (0-0.9); EOSINOPHILS % (AUTO) 1.2 % (0-6); HEMATOCRIT 41.2 % (35.0-45.0); HEMOGLOBIN 13.3 g/dl (12.0-16.0); LYMPHOCYTES # (AUTO) 1.6 X10'3 (1.1-4.8); MEAN CORPUSCULAR HEMOGLOBIN 30.2 PG (27.0-31.0); MEAN CORPUSCULAR HGB CONC 32.3 % (33.0-36.5); MEAN CORPUSCULAR VOLUME 93.7 FL (78-98); MEAN PLATELET VOLUME 9.6 FL (7.4-10.4); MONOCYTES # (AUTO) 0.7 X10'3 (0-0.9); MONOCYTES % (AUTO) 2.9 % (2-12); NEUTROPHILS # (AUTO) 20.1 X10'3 (1.8-7.7); NEUTROPHILS % (AUTO) 88.7 % (42-75); PLATELET COUNT 293 X10'3 (140-440); RED BLOOD COUNT 4.39 X10'6 (4.20-5.60); RED CELL DISTRIBUTION WIDTH 14.9 % (11.5-14.5); WHITE BLOOD COUNT 22.7 X10'3 (4.5-11.0)
[2018-03-17 03:17] LABS: ALANINE AMINOTRANSFERASE 13 U/L (12-78); ALBUMIN 3.8 G/DL (3.4-5.0); ALBUMIN/GLOBULIN RATIO 1.2 (1.1-1.5); ALKALINE PHOSPHATASE 90 IU/L (46-116); ASPARTATE AMINO TRANSFERASE 14 U/L (10-37); BILIRUBIN,TOTAL 0.4 MG/DL (0.1-1.0); BLOOD UREA NITROGEN 17 MG/DL (7-18); CALCIUM 8.9 MG/DL (8.5-10.1); CHLORIDE 91 MMOL/L (99-107); CREATININE 0.85 MG/DL (0.40-0.90); GLUCOSE 274 MG/DL (70-104); POTASSIUM 3.6 MMOL/L (3.5-5.1); SODIUM 134 MMOL/L (135-145); TOTAL PROTEIN 6.9 G/DL (6.4-8.2); eGFR 64 ML/MIN
[2018-03-17 03:21] LABS: CLARITY,URINE SLIGHTLY CLOUDY (Clear); COLOR,URINE YELLOW (Yellow); GLUCOSE, URINE NEGATIVE (Neg); KETONES,URINE NEGATIVE (Neg); LEUKOCYTE ESTERASE ,URINE NEGATIVE (Neg); NITRITES, URINE NEGATIVE (Neg); OCCULT BLOOD,URINE NEGATIVE (Neg); PROTEIN,URINE 30 mg/dl (Neg); UROBILINOGEN,URINE 0.2 E.U/dL (0.2-1.0)
[2018-03-17 03:25] LABS: INR 1.1 INR; PARTIAL THROMBOPLASTIN TIME 30 SECONDS (22-32); PROTHROMBIN TIME 10.8 SECONDS (9.0-12.0); TROPONIN I < 0.04 NG/ML (0.0-0.05)
[2018-03-17] MEDS ORDERED: potassium Cl 20 mEq SR tablet PO PRN (03:25)
[2018-03-17] MEDS ORDERED: potassium Cl 40MEQ/NS 500ml 500 ML IV PRN ×2 (03:25)
[2018-03-17] MEDS ORDERED: acetaminophen 325mg tablet PO PRN (03:25)
[2018-03-17] MEDS ORDERED: ondansetron/PF 4mg/2ml inj IV PRN (03:25)
[2018-03-17] MEDS ORDERED: morphine 2 MG/ML inj. syringe IV PRN (03:25)
[2018-03-17] MEDS ORDERED: morphine 4 MG/ML inj SYRINge IV PRN (03:25)
[2018-03-17 03:27] LABS: UA COLLECTION TYPE FOLEY CATH
[2018-03-17 03:28] LABS: RBC,URINE NONE SEEN /HPF (0-2); WBC,URINE NONE SEEN /HPF (0-4)
[2018-03-17 03:30] LABS: AMORPHOUS URATES 4+; BACTERIA,URINE FEW /HPF (Neg); MUCUS STRANDS NONE SEEN /LPF (Neg); SQUAMOUS EPITHELIAL CELL,UR FEW /LPF (FEW)
[2018-03-17 03:30] LABS: ANION GAP 3 (8-16); TOTAL CARBON DIOXIDE 39.7 MMOL/L (24-32)
[2018-03-17 03:35] LABS: ABG BASE EXCESS 14.5 mmol/L (-2.0-3.0); ABG HCO3 40.3 mmol/L (22.0-26.0); ABG OXYGEN SATURATION 99.5 % (95-98); ABG PCO2 (T) 52.9 mmHg (32.0-45.0); ABG PH (T) 7.495 (7.350-7.450); ABG PO2 (T) 224.9 mmHg (83-108); FCOHb 0.8 % (0.5-1.5); FO2Hb 98.7 % (94-100); MINUTE VOLUME 7 L/min; PEEP 5 cm H2O; RESPIRATORY RATE 16 b/min; RESPIRATORY RATE (OBSERVED) 16 b/min; TIDAL VOLUME 425 mL; TOTAL HEMOGLOBIN 12.4 G/dl (12.0-16.0)
[2018-03-17] MEDS ORDERED: HYDR-4070 PO (03:51)
[2018-03-17] MEDS ORDERED: POTA10TA19 PO (03:51)
[2018-03-17] MEDS ORDERED: FURO-150 PO ×2 (03:51→15:56)
[2018-03-17] MEDS: FENTANYL-0.9 % NACL/PF 100 ML IV PRN ×2 (04:39→16:55)
[2018-03-17] MEDS: K, MAG and/or Phos replacement - Verify level? MC SCH ×2 (04:40→08:00)
[2018-03-17] MEDS: normal saline 1000ml 1,000 ML IV SCH ×2 (04:47→16:55)
[2018-03-17] MEDS: ipratropium/albuterol 3ml nebule NEB SCH ×5 (07:31→23:09)
[2018-03-17] MEDS: pantoprazole 40 MG vial IV SCH (07:41)
[2018-03-17] MEDS: methylPREDNISolone sod succ/PF 40mg inj. IV SCH ×3 (07:42→20:08)
[2018-03-17] MEDS: enoxaparin 40mg/0.4ml syringe SUBCUT SCH (07:42)
[2018-03-17] MEDS ORDERED: etomidate 2mg/ml inj. ONE (09:00)
[2018-03-17] MEDS ORDERED: rocuronium 10mg/ml inj IV ONE (09:00)
[2018-03-17] MEDS ORDERED: dexmedetomidin/NS 400mcg/100ml 100 ML IV SCH (10:45)
[2018-03-17] MEDS ORDERED: albuterol 2.5 MG/3 ML nebule NEB PRN (17:25)
[2018-03-17] MEDS: potassium chloride 10mEq ER tablet PO SCH (20:00)
[2018-03-17] MEDS: atorvastatin 20mg tablet PO SCH (20:08)
[2018-03-17] MEDS: carVEDilol 12.5mg tablet PO SCH (20:08)
[2018-03-17] MEDS: dexmedetomidin/NS 400mcg/100ml 100 ML IV SCH (20:09)
[2018-03-18] VITALS (23 sets, daily range): BP systolic 123–184; BP diastolic 60–88
[2018-03-18] MEDS: normal saline 1000ml 1,000 ML IV SCH ×3 (00:46→16:48)
[2018-03-18] MEDS: FENTANYL-0.9 % NACL/PF 100 ML IV PRN ×3 (00:47→15:33)
[2018-03-18] MEDS: methylPREDNISolone sod succ/PF 40mg inj. IV SCH ×4 (01:36→19:32)
[2018-03-18] MEDS: hydrALAZINE 20mg/ml inj. IV PRN ×3 (01:36→20:42)
[2018-03-18] MEDS: levoFLOXACIN-Levaquin 500mg/D5 100 ML IV SCH (02:30)
[2018-03-18] MEDS: dexmedetomidin/NS 400mcg/100ml 100 ML IV SCH ×4 (02:35→20:26)
[2018-03-18] MEDS: ipratropium/albuterol 3ml nebule NEB SCH ×6 (02:45→23:25)
[2018-03-18 03:16] LABS: ABG BASE EXCESS 11.9 mmol/L (-2.0-3.0); ABG HCO3 38.6 mmol/L (22.0-26.0); ABG PCO2 (T) 60.2 mmHg (32.0-45.0); ABG PH (T) 7.423 (7.350-7.450); ABG PO2 (T) 59.3 mmHg (83-108); ALLEN'S TEST Positive; FCOHb 0.4 % (0.5-1.5); FMetHb 0.3 % (0.3-1.12); FO2Hb 90.4 % (94-100); MINUTE VOLUME 6 L/min; PATIENT TEMPERATURE 36.6; PEEP 5 cm H2O; RESPIRATORY RATE 12 b/min; RESPIRATORY RATE (OBSERVED) 14 b/min; TIDAL VOLUME 350 mL; TOTAL HEMOGLOBIN 11.9 G/dl (12.0-16.0)
[2018-03-18 05:54] LABS: BASOPHILS % (AUTO) 0 % (0-1); EOSINOPHILS # (AUTO) 0.2 X10'3 (0-0.9); EOSINOPHILS % (AUTO) 1.6 % (0-6); HEMATOCRIT 31.6 % (35.0-45.0); HEMOGLOBIN 10.3 g/dl (12.0-16.0); LYMPHOCYTES # (AUTO) 0.3 X10'3 (1.1-4.8); LYMPHOCYTES % (AUTO) 2.9 % (21-51); MEAN CORPUSCULAR HEMOGLOBIN 30.2 PG (27.0-31.0); MEAN CORPUSCULAR HGB CONC 32.6 % (33.0-36.5); MEAN CORPUSCULAR VOLUME 92.5 FL (78-98); MEAN PLATELET VOLUME 10.1 FL (7.4-10.4); MONOCYTES # (AUTO) 0.2 X10'3 (0-0.9); MONOCYTES % (AUTO) 1.8 % (2-12); NEUTROPHILS # (AUTO) 9.2 X10'3 (1.8-7.7); NEUTROPHILS % (AUTO) 93.7 % (42-75); PLATELET COUNT 196 X10'3 (140-440); RED BLOOD COUNT 3.41 X10'6 (4.20-5.60); RED CELL DISTRIBUTION WIDTH 15.2 % (11.5-14.5); WHITE BLOOD COUNT 9.9 X10'3 (4.5-11.0)
[2018-03-18 06:20] LABS: ALANINE AMINOTRANSFERASE 12 U/L (12-78); ALBUMIN 2.8 G/DL (3.4-5.0); ALBUMIN/GLOBULIN RATIO 1.1 (1.1-1.5); ALKALINE PHOSPHATASE 67 IU/L (46-116); ANION GAP 4 (8-16); ASPARTATE AMINO TRANSFERASE 12 U/L (10-37); BILIRUBIN,TOTAL 0.3 MG/DL (0.1-1.0); BLOOD UREA NITROGEN 22 MG/DL (7-18); BUN/CREATININE RATIO 25.6 (6.6-38.0); CALCIUM 8.7 MG/DL (8.5-10.1); CHLORIDE 97 MMOL/L (99-107); CREATININE 0.86 MG/DL (0.40-0.90); GLUCOSE 149 MG/DL (70-104); MAGNESIUM 1.8 MG/DL (1.5-2.4); PHOSPHORUS 4.3 MG/DL (2.3-4.5); POTASSIUM 4.1 MMOL/L (3.5-5.1); SODIUM 138 MMOL/L (135-145); TOTAL CARBON DIOXIDE 37.4 MMOL/L (24-32); TOTAL PROTEIN 5.3 G/DL (6.4-8.2); eGFR 63 ML/MIN
[2018-03-18] MEDS: potassium chloride 10mEq ER tablet PO SCH ×2 (07:00→20:00)
[2018-03-18] MEDS: losartan 50mg tablet PO SCH (07:39)
[2018-03-18] MEDS: mineral oil/petrolatum ophthal oint EACHEYE SCH ×3 (07:39→20:00)
[2018-03-18] MEDS: pantoprazole 40 MG vial IV SCH (07:39)
[2018-03-18] MEDS: vitamin D (cholecalciferol) 1,000 unit tablet PO SCH (07:39)
[2018-03-18] MEDS: carVEDilol 12.5mg tablet PO SCH ×2 (07:40→19:32)
[2018-03-18] MEDS: clopidogrel 75mg tablet PO SCH (07:40)
[2018-03-18] MEDS: enoxaparin 40mg/0.4ml syringe SUBCUT SCH (07:40)
[2018-03-18] MEDS: K, MAG and/or Phos replacement - Verify level? MC SCH (08:00)
[2018-03-18] MEDS: [UNRECOGNIZED DRUG - OTHER] PO SCH (08:00)
[2018-03-18] MEDS ORDERED: MIDAZolam 5mg/ml 2ml vial IV PRN (10:55)
[2018-03-18] MEDS ORDERED: LORazepam 2 mg/ml vial IV PRN (10:55)
[2018-03-18] MEDS: lactobacillus rhamnosus 10,000 MMU CELLS/CAPSULE PO SCH (19:32)
[2018-03-18] MEDS: atorvastatin 20mg tablet PO SCH (21:01)
[2018-03-19] VITALS (24 sets, daily range): BP systolic 140–192; BP diastolic 64–91
[2018-03-19] MEDS: methylPREDNISolone sod succ/PF 40mg inj. IV SCH ×4 (01:14→20:40)
[2018-03-19] MEDS ORDERED: labetalol 20mg/4ml (5mg/ml) syringe IV ONE (01:15)
[2018-03-19] MEDS: FENTANYL-0.9 % NACL/PF 100 ML IV PRN ×2 (01:15→07:36)
[2018-03-19] MEDS: normal saline 1000ml 1,000 ML IV SCH ×3 (01:30→17:25)
[2018-03-19] MEDS: ipratropium/albuterol 3ml nebule NEB SCH ×6 (02:41→23:55)
[2018-03-19] MEDS: hydrALAZINE 20mg/ml inj. IV PRN ×3 (03:09→17:56)
[2018-03-19] MEDS: mineral oil/petrolatum ophthal oint EACHEYE SCH ×2 (03:16→07:34)
[2018-03-19] MEDS: levoFLOXACIN-Levaquin 500mg/D5 100 ML IV SCH (03:16)
[2018-03-19 04:16] LABS: ABG BASE EXCESS 5.5 mmol/L (-2.0-3.0); ABG HCO3 33.1 mmol/L (22.0-26.0); ABG OXYGEN SATURATION 92.1 % (95-98); ABG PCO2 (T) 61.5 mmHg (32.0-45.0); ABG PH (T) 7.344 (7.350-7.450); ABG PO2 (T) 64.7 mmHg (83-108); ALLEN'S TEST Positive; FCOHb 0.1 % (0.5-1.5); MINUTE VOLUME 6 L/min; PEEP 5 cm H2O; RESPIRATORY RATE 12 b/min; RESPIRATORY RATE (OBSERVED) 13 b/min; TIDAL VOLUME 350 mL; TOTAL HEMOGLOBIN 12.1 G/dl (12.0-16.0)
[2018-03-19 06:03] LABS: BASOPHILS % (AUTO) 0 % (0-1); EOSINOPHILS # (AUTO) 0.1 X10'3 (0-0.9); EOSINOPHILS % (AUTO) 1.3 % (0-6); HEMATOCRIT 35.3 % (35.0-45.0); HEMOGLOBIN 11.5 g/dl (12.0-16.0); LYMPHOCYTES # (AUTO) 0.2 X10'3 (1.1-4.8); LYMPHOCYTES % (AUTO) 2.6 % (21-51); MEAN CORPUSCULAR HEMOGLOBIN 30.6 PG (27.0-31.0); MEAN CORPUSCULAR HGB CONC 32.5 % (33.0-36.5); MEAN CORPUSCULAR VOLUME 94.3 FL (78-98); MEAN PLATELET VOLUME 10.3 FL (7.4-10.4); MONOCYTES # (AUTO) 0.2 X10'3 (0-0.9); MONOCYTES % (AUTO) 2.2 % (2-12); NEUTROPHILS # (AUTO) 7.6 X10'3 (1.8-7.7); NEUTROPHILS % (AUTO) 93.9 % (42-75); PLATELET COUNT 187 X10'3 (140-440); RED BLOOD COUNT 3.75 X10'6 (4.20-5.60); RED CELL DISTRIBUTION WIDTH 15.5 % (11.5-14.5); WHITE BLOOD COUNT 8.1 X10'3 (4.5-11.0)
[2018-03-19 06:21] LABS: ALANINE AMINOTRANSFERASE 13 U/L (12-78); ALBUMIN 2.7 G/DL (3.4-5.0); ALKALINE PHOSPHATASE 65 IU/L (46-116); ANION GAP 1 (8-16); ASPARTATE AMINO TRANSFERASE 12 U/L (10-37); BILIRUBIN,TOTAL 0.3 MG/DL (0.1-1.0); BLOOD UREA NITROGEN 25 MG/DL (7-18); BUN/CREATININE RATIO 37.9 (6.6-38.0); CALCIUM 8.8 MG/DL (8.5-10.1); CHLORIDE 100 MMOL/L (99-107); CREATININE 0.66 MG/DL (0.40-0.90); GLUCOSE 145 MG/DL (70-104); MAGNESIUM 1.9 MG/DL (1.5-2.4); POTASSIUM 3.6 MMOL/L (3.5-5.1); SODIUM 137 MMOL/L (135-145); TOTAL CARBON DIOXIDE 36.1 MMOL/L (24-32); TOTAL PROTEIN 5.3 G/DL (6.4-8.2); eGFR 86 ML/MIN
[2018-03-19] MEDS: potassium chloride 10mEq ER tablet PO SCH ×2 (06:57→20:40)
[2018-03-19] MEDS: [UNRECOGNIZED DRUG - OTHER] PO SCH (06:58)
[2018-03-19] MEDS: pantoprazole 40 MG vial IV SCH (07:34)
[2018-03-19] MEDS: enoxaparin 40mg/0.4ml syringe SUBCUT SCH (07:35)
[2018-03-19] MEDS: dexmedetomidin/NS 400mcg/100ml 100 ML IV SCH ×3 (07:36→20:41)
[2018-03-19] MEDS: losartan 50mg tablet PO SCH (07:37)
[2018-03-19] MEDS: vitamin D (cholecalciferol) 1,000 unit tablet PO SCH (07:37)
[2018-03-19] MEDS: lactobacillus rhamnosus 10,000 MMU CELLS/CAPSULE PO SCH ×2 (07:37→20:40)
[2018-03-19] MEDS: carVEDilol 12.5mg tablet PO SCH ×2 (07:37→20:40)
[2018-03-19] MEDS: clopidogrel 75mg tablet PO SCH (07:37)
[2018-03-19] MEDS: K, MAG and/or Phos replacement - Verify level? MC SCH (08:00)
[2018-03-19] MEDS ORDERED: enalaprilat dihydrate 2.5mg/2ml vial IV PRN (10:50)
[2018-03-19] MEDS ORDERED: furosemide 40mg/4ml inj IV ONE (12:00)
[2018-03-19] MEDS: atorvastatin 20mg tablet PO SCH (20:40)
[2018-03-20] VITALS (19 sets, daily range): BP systolic 102–186; BP diastolic 48–84
[2018-03-20] MEDS: normal saline 1000ml 1,000 ML IV SCH ×3 (01:16→10:33)
[2018-03-20] MEDS: dexmedetomidin/NS 400mcg/100ml 100 ML IV SCH ×2 (01:16→09:35)
[2018-03-20] MEDS: methylPREDNISolone sod succ/PF 40mg inj. IV SCH ×2 (01:41→07:39)
[2018-03-20] MEDS ORDERED: clonazePAM 0.5mg tablet PO ONE (02:10)
[2018-03-20] MEDS: ipratropium/albuterol 3ml nebule NEB SCH ×6 (02:38→22:46)
[2018-03-20] MEDS: levoFLOXACIN-Levaquin 500mg/D5 100 ML IV SCH (03:13)
[2018-03-20] MEDS: hydrALAZINE 20mg/ml inj. IV PRN ×2 (04:28→08:28)
[2018-03-20 05:40] LABS: BASOPHILS % (AUTO) 0 % (0-1); EOSINOPHILS % (AUTO) 0 % (0-6); HEMATOCRIT 36.1 % (35.0-45.0); HEMOGLOBIN 11.8 g/dl (12.0-16.0); LYMPHOCYTES # (AUTO) 0.2 X10'3 (1.1-4.8); MEAN CORPUSCULAR HEMOGLOBIN 30.5 PG (27.0-31.0); MEAN CORPUSCULAR HGB CONC 32.7 % (33.0-36.5); MEAN CORPUSCULAR VOLUME 93.3 FL (78-98); MEAN PLATELET VOLUME 10.2 FL (7.4-10.4); MONOCYTES # (AUTO) 0.3 X10'3 (0-0.9); MONOCYTES % (AUTO) 3.6 % (2-12); NEUTROPHILS # (AUTO) 8.6 X10'3 (1.8-7.7); NEUTROPHILS % (AUTO) 94.4 % (42-75); PLATELET COUNT 197 X10'3 (140-440); RED BLOOD COUNT 3.87 X10'6 (4.20-5.60); RED CELL DISTRIBUTION WIDTH 15.6 % (11.5-14.5); WHITE BLOOD COUNT 9.1 X10'3 (4.5-11.0)
[2018-03-20 06:07] LABS: ANION GAP 1 (8-16); CHLORIDE 99 MMOL/L (99-107); GLUCOSE 122 MG/DL (70-104); POTASSIUM 3.2 MMOL/L (3.5-5.1); SODIUM 139 MMOL/L (135-145); TOTAL CARBON DIOXIDE 38.7 MMOL/L (24-32)
[2018-03-20 06:08] LABS: ALANINE AMINOTRANSFERASE 16 U/L (12-78); ALBUMIN 2.9 G/DL (3.4-5.0); ALBUMIN/GLOBULIN RATIO 1.2 (1.1-1.5); ALKALINE PHOSPHATASE 65 IU/L (46-116); ASPARTATE AMINO TRANSFERASE 20 U/L (10-37); BILIRUBIN,TOTAL 0.4 MG/DL (0.1-1.0); BLOOD UREA NITROGEN 27 MG/DL (7-18); CALCIUM 8.6 MG/DL (8.5-10.1); CREATININE 0.75 MG/DL (0.40-0.90); MAGNESIUM 1.9 MG/DL (1.5-2.4); PHOSPHORUS 3.8 MG/DL (2.3-4.5); TOTAL PROTEIN 5.4 G/DL (6.4-8.2); eGFR 74 ML/MIN
[2018-03-20] MEDS: pantoprazole 40 MG vial IV SCH (07:39)
[2018-03-20] MEDS: lactobacillus rhamnosus 10,000 MMU CELLS/CAPSULE PO SCH ×2 (07:40→20:00)
[2018-03-20] MEDS: clopidogrel 75mg tablet PO SCH (07:40)
[2018-03-20] MEDS: carVEDilol 12.5mg tablet PO SCH (07:40)
[2018-03-20] MEDS: potassium chloride 10mEq ER tablet PO SCH ×2 (07:40→20:00)
[2018-03-20] MEDS: losartan 50mg tablet PO SCH (07:40)
[2018-03-20] MEDS: vitamin D (cholecalciferol) 1,000 unit tablet PO SCH (07:40)
[2018-03-20] MEDS: enoxaparin 40mg/0.4ml syringe SUBCUT SCH (07:41)
[2018-03-20] MEDS: K, MAG and/or Phos replacement - Verify level? MC SCH (07:49)
[2018-03-20] MEDS: [UNRECOGNIZED DRUG - OTHER] PO SCH (07:50)
[2018-03-20] MEDS: potassium Cl 20 mEq SR tablet PO PRN ×3 (07:52→16:57)
[2018-03-20] MEDS: diltiazem CD 180mg cap (once-daily) PO SCH (10:32)
[2018-03-20] MEDS ORDERED: flumazenil 0.1 mg/ml inj. IV ONE ×2 (20:49→20:50)
[2018-03-20] MEDS ORDERED: naloxone 0.4 mg/ml inj ONE (20:54)
[2018-03-20] MEDS ORDERED: furosemide 40mg/4ml inj IV ONE (20:55)
[2018-03-20] MEDS ORDERED: naloxone 0.4 mg/ml inj IV ONE (20:55)
[2018-03-20] MEDS: atorvastatin 20mg tablet PO SCH (21:00)
[2018-03-20 21:05] LABS: ABG BASE EXCESS 8.5 mmol/L (-2.0-3.0); ABG HCO3 42.1 mmol/L (22.0-26.0); ABG OXYGEN SATURATION 94.8 % (95-98); ABG PCO2 (T) 127.5 mmHg (32.0-45.0); ABG PH (T) 7.136 (7.350-7.450); ABG PO2 (T) 91.6 mmHg (83-108); ALLEN'S TEST Positive; FCOHb 0.4 % (0.5-1.5); FLOW 6 L/min; FMetHb 0.2 % (0.3-1.12); FO2Hb 94.2 % (94-100); PATIENT TEMPERATURE 36.9
[2018-03-20 23:16] LABS: ABG BASE EXCESS 3.9 mmol/L (-2.0-3.0); ABG HCO3 34.1 mmol/L (22.0-26.0); ABG OXYGEN SATURATION 92.5 % (95-98); ABG PCO2 (T) 84.6 mmHg (32.0-45.0); ABG PH (T) 7.222 (7.350-7.450); ABG PO2 (T) 71.9 mmHg (83-108); ALLEN'S TEST Positive; FCOHb 0.2 % (0.5-1.5); FMetHb 0.1 % (0.3-1.12); FO2Hb 92.2 % (94-100); MINUTE VOLUME 8 L/min; PATIENT TEMPERATURE 36.9; RESPIRATORY RATE 20 b/min; RESPIRATORY RATE (OBSERVED) 20 b/min; TOTAL HEMOGLOBIN 12.3 G/dl (12.0-16.0)
[2018-03-21] MEDS: ipratropium/albuterol 3ml nebule NEB SCH ×6 (02:45→22:58)
[2018-03-21 03:00] VITALS: BP 104/48
[2018-03-21 06:00] VITALS: BP 109/40
[2018-03-21 07:07] LABS: BASOPHILS % (AUTO) 0.1 % (0-1); EOSINOPHILS % (AUTO) 0 % (0-6); HEMATOCRIT 32.3 % (35.0-45.0); HEMOGLOBIN 10.5 g/dl (12.0-16.0); LYMPHOCYTES # (AUTO) 0.2 X10'3 (1.1-4.8); LYMPHOCYTES % (AUTO) 1.4 % (21-51); MEAN CORPUSCULAR HEMOGLOBIN 30.7 PG (27.0-31.0); MEAN CORPUSCULAR HGB CONC 32.6 % (33.0-36.5); MEAN CORPUSCULAR VOLUME 94.3 FL (78-98); MEAN PLATELET VOLUME 10.2 FL (7.4-10.4); MONOCYTES # (AUTO) 0.6 X10'3 (0-0.9); NEUTROPHILS # (AUTO) 10.7 X10'3 (1.8-7.7); NEUTROPHILS % (AUTO) 93.5 % (42-75); PLATELET COUNT 184 X10'3 (140-440); RED BLOOD COUNT 3.43 X10'6 (4.20-5.60); RED CELL DISTRIBUTION WIDTH 15.9 % (11.5-14.5); WHITE BLOOD COUNT 11.5 X10'3 (4.5-11.0)
[2018-03-21 07:21] LABS: ABG BASE EXCESS 6.6 mmol/L (-2.0-3.0); ABG HCO3 35.5 mmol/L (22.0-26.0); ABG OXYGEN SATURATION 90.1 % (95-98); ABG PCO2 (T) 77.2 mmHg (32.0-45.0); ABG PH (T) 7.281 (7.350-7.450); ABG PO2 (T) 60.4 mmHg (83-108); ALLEN'S TEST Positive; FCOHb 0.6 % (0.5-1.5); FMetHb 0.1 % (0.3-1.12); FO2Hb 89.5 % (94-100); RESPIRATORY RATE 20 b/min; TOTAL HEMOGLOBIN 11.4 G/dl (12.0-16.0)
[2018-03-21 07:27] LABS: ALANINE AMINOTRANSFERASE 16 U/L (12-78); ALBUMIN 2.6 G/DL (3.4-5.0); ALBUMIN/GLOBULIN RATIO 1.2 (1.1-1.5); ALKALINE PHOSPHATASE 45 IU/L (46-116); ANION GAP 2 (8-16); ASPARTATE AMINO TRANSFERASE 14 U/L (10-37); BILIRUBIN,TOTAL 0.5 MG/DL (0.1-1.0); BLOOD UREA NITROGEN 34 MG/DL (7-18); BUN/CREATININE RATIO 36.2 (6.6-38.0); CALCIUM 8.3 MG/DL (8.5-10.1); CHLORIDE 100 MMOL/L (99-107); CREATININE 0.94 MG/DL (0.40-0.90); GLUCOSE 88 MG/DL (70-104); MAGNESIUM 1.8 MG/DL (1.5-2.4); PHOSPHORUS 3.4 MG/DL (2.3-4.5); POTASSIUM 3.8 MMOL/L (3.5-5.1); SODIUM 137 MMOL/L (135-145); TOTAL CARBON DIOXIDE 35.1 MMOL/L (24-32); TOTAL PROTEIN 4.8 G/DL (6.4-8.2); eGFR 57 ML/MIN
[2018-03-21] MEDS: potassium chloride 10mEq ER tablet PO SCH ×2 (08:00→20:00)
[2018-03-21] MEDS: vitamin D (cholecalciferol) 1,000 unit tablet PO SCH (08:00)
[2018-03-21] MEDS: clopidogrel 75mg tablet PO SCH (08:00)
[2018-03-21] MEDS: K, MAG and/or Phos replacement - Verify level? MC SCH (08:00)
[2018-03-21] MEDS: diltiazem CD 180mg cap (once-daily) PO SCH (08:00)
[2018-03-21] MEDS: lactobacillus rhamnosus 10,000 MMU CELLS/CAPSULE PO SCH ×2 (08:00→20:00)
[2018-03-21] MEDS: losartan 50mg tablet PO SCH (08:00)
[2018-03-21] MEDS: [UNRECOGNIZED DRUG - OTHER] PO SCH (08:00)
[2018-03-21] MEDS: enoxaparin 40mg/0.4ml syringe SUBCUT SCH (08:06)
[2018-03-21] MEDS: prednisone 10mg tablet PO SCH (08:22)
[2018-03-21] MEDS: pantoprazole 40 MG vial IV SCH (08:23)
[2018-03-21 11:00] VITALS: BP 105/37
[2018-03-21] MEDS: acetaminophen 650mg rectal suppository RC PRN ×2 (13:42→21:31)
[2018-03-21 15:00] VITALS: BP 104/32
[2018-03-21 19:00] VITALS: BP 130/46
[2018-03-21] MEDS: atorvastatin 20mg tablet PO SCH (21:00)
[2018-03-21 23:00] VITALS: BP 157/55
[2018-03-22] MEDS: ipratropium/albuterol 3ml nebule NEB SCH ×5 (02:59→23:44)
[2018-03-22 03:00] VITALS: BP 189/64
[2018-03-22 05:06] LABS: BASOPHILS % (AUTO) 0.4 % (0-1); EOSINOPHILS % (AUTO) 0 % (0-6); HEMATOCRIT 30.8 % (35.0-45.0); LYMPHOCYTES # (AUTO) 0.3 X10'3 (1.1-4.8); LYMPHOCYTES % (AUTO) 3.5 % (21-51); MEAN CORPUSCULAR HEMOGLOBIN 30.4 PG (27.0-31.0); MEAN CORPUSCULAR HGB CONC 32.6 % (33.0-36.5); MEAN CORPUSCULAR VOLUME 93.3 FL (78-98); MEAN PLATELET VOLUME 10.4 FL (7.4-10.4); MONOCYTES # (AUTO) 0.5 X10'3 (0-0.9); NEUTROPHILS # (AUTO) 8.3 X10'3 (1.8-7.7); NEUTROPHILS % (AUTO) 91.1 % (42-75); PLATELET COUNT 138 X10'3 (140-440); RED CELL DISTRIBUTION WIDTH 15.3 % (11.5-14.5); WHITE BLOOD COUNT 9.1 X10'3 (4.5-11.0)
[2018-03-22 05:17] LABS: ALBUMIN 2.5 G/DL (3.4-5.0); ANION GAP 4 (8-16); BLOOD UREA NITROGEN 35 MG/DL (7-18); BUN/CREATININE RATIO 34.7 (6.6-38.0); CALCIUM 8.5 MG/DL (8.5-10.1); CHLORIDE 102 MMOL/L (99-107); CREATININE 1.01 MG/DL (0.40-0.90); GLUCOSE 76 MG/DL (70-104); POTASSIUM 3.5 MMOL/L (3.5-5.1); SODIUM 140 MMOL/L (135-145); TOTAL CARBON DIOXIDE 33.6 MMOL/L (24-32); eGFR 52 ML/MIN
[2018-03-22 07:00] VITALS: BP 137/51
[2018-03-22] MEDS: K, MAG and/or Phos replacement - Verify level? MC SCH (08:00)
[2018-03-22] MEDS: losartan 50mg tablet PO SCH (08:00)
[2018-03-22] MEDS: vitamin D (cholecalciferol) 1,000 unit tablet PO SCH (08:00)
[2018-03-22] MEDS: diltiazem CD 180mg cap (once-daily) PO SCH (08:00)
[2018-03-22] MEDS: potassium chloride 10mEq ER tablet PO SCH ×2 (08:00→20:00)
[2018-03-22] MEDS: lactobacillus rhamnosus 10,000 MMU CELLS/CAPSULE PO SCH ×2 (08:00→20:00)
[2018-03-22] MEDS: clopidogrel 75mg tablet PO SCH (08:00)
[2018-03-22] MEDS: [UNRECOGNIZED DRUG - OTHER] PO SCH (08:00)
[2018-03-22] MEDS: prednisone 10mg tablet PO SCH (08:30)
[2018-03-22] MEDS: pantoprazole 40 MG vial IV SCH (08:43)
[2018-03-22] MEDS: enoxaparin 40mg/0.4ml syringe SUBCUT SCH (08:45)
[2018-03-22 11:00] VITALS: BP 179/61
[2018-03-22 11:06] LABS: ABG BASE EXCESS 8.4 mmol/L (-2.0-3.0); ABG HCO3 34.7 mmol/L (22.0-26.0); ABG OXYGEN SATURATION 92.6 % (95-98); ABG PCO2 (T) 57.3 mmHg (32.0-45.0); ABG PO2 (T) 63.9 mmHg (83-108); ALLEN'S TEST Positive; FCOHb 0.5 % (0.5-1.5); FO2Hb 92.1 % (94-100); TOTAL HEMOGLOBIN 10.6 G/dl (12.0-16.0)
[2018-03-22 11:11] LABS: ABG BASE EXCESS 6.2 mmol/L (-2.0-3.0); ABG HCO3 32.2 mmol/L (22.0-26.0); ABG OXYGEN SATURATION 92.5 % (95-98); ABG PCO2 (T) 53.5 mmHg (32.0-45.0); ABG PH (T) 7.397 (7.350-7.450); ABG PO2 (T) 62.2 mmHg (83-108); ALLEN'S TEST Positive; FCOHb 0.9 % (0.5-1.5); FMetHb 0.3 % (0.3-1.12); FO2Hb 91.4 % (94-100); RESPIRATORY RATE 20 b/min
[2018-03-22 15:00] VITALS: BP 196/51
[2018-03-22] MEDS: hydrALAZINE 20mg/ml inj. IV PRN ×2 (15:00→23:45)
[2018-03-22] MEDS ORDERED: LORazepam 2 mg/ml vial IV PRN (15:45)
[2018-03-22 19:00] VITALS: BP 141/38
[2018-03-22] MEDS: atorvastatin 20mg tablet PO SCH (21:00)
[2018-03-22 23:00] VITALS: BP 141/38
[2018-03-23] VITALS (7 sets, daily range): BP systolic 148–179; BP diastolic 52–72
[2018-03-23] MEDS: ipratropium/albuterol 3ml nebule NEB SCH ×6 (03:19→23:29)
[2018-03-23] MEDS: acetaminophen 325mg tablet PO PRN ×2 (03:44→15:55)
[2018-03-23] MEDS: clopidogrel 75mg tablet PO SCH (07:55)
[2018-03-23] MEDS: vitamin D (cholecalciferol) 1,000 unit tablet PO SCH (07:55)
[2018-03-23] MEDS: potassium chloride 10mEq ER tablet PO SCH ×2 (07:56→20:32)
[2018-03-23] MEDS: lactobacillus rhamnosus 10,000 MMU CELLS/CAPSULE PO SCH ×2 (07:56→20:32)
[2018-03-23] MEDS: diltiazem CD 180mg cap (once-daily) PO SCH (07:56)
[2018-03-23] MEDS: losartan 50mg tablet PO SCH (07:57)
[2018-03-23] MEDS: pantoprazole 40 MG vial IV SCH (07:57)
[2018-03-23] MEDS: prednisone 10mg tablet PO SCH (07:57)
[2018-03-23] MEDS: enoxaparin 40mg/0.4ml syringe SUBCUT SCH (07:58)
[2018-03-23] MEDS: K, MAG and/or Phos replacement - Verify level? MC SCH (08:00)
[2018-03-23] MEDS: [UNRECOGNIZED DRUG - OTHER] PO SCH (08:00)
[2018-03-23] MEDS: hydrALAZINE 20mg/ml inj. IV PRN (08:19)
[2018-03-23] MEDS ORDERED: magnesium hydroxide 30ml (MOM) UD suspension PO PRN (09:50)
[2018-03-23] MEDS: amLODIPine 5mg tablet PO SCH (15:53)
[2018-03-23] MEDS: atorvastatin 20mg tablet PO SCH (20:32)
[2018-03-23] MEDS: docusate sod 100mg capsule PO SCH (20:32)
[2018-03-24] MEDS: ipratropium/albuterol 3ml nebule NEB SCH ×4 (03:42→15:03)
[2018-03-24 04:00] VITALS: BP 154/58
[2018-03-24 06:00] VITALS: BP 153/63
[2018-03-24] MEDS: [UNRECOGNIZED DRUG - OTHER] PO SCH (08:00)
[2018-03-24] MEDS: acetaminophen 325mg tablet PO PRN ×2 (08:46→14:39)
[2018-03-24] MEDS: diltiazem CD 180mg cap (once-daily) PO SCH (08:46)
[2018-03-24] MEDS: lactobacillus rhamnosus 10,000 MMU CELLS/CAPSULE PO SCH (08:47)
[2018-03-24] MEDS: vitamin D (cholecalciferol) 1,000 unit tablet PO SCH (08:47)
[2018-03-24] MEDS: potassium chloride 10mEq ER tablet PO SCH (08:47)
[2018-03-24] MEDS: losartan 50mg tablet PO SCH (08:47)
[2018-03-24] MEDS: pantoprazole 40 MG vial IV SCH (08:48)
[2018-03-24] MEDS: amLODIPine 5mg tablet PO SCH (08:48)
[2018-03-24] MEDS: clopidogrel 75mg tablet PO SCH (08:48)
[2018-03-24] MEDS: prednisone 10mg tablet PO SCH (08:48)
[2018-03-24] MEDS: docusate sod 100mg capsule PO SCH (08:48)
[2018-03-24 11:00] VITALS: BP 166/70
[2018-03-24] MEDS ORDERED: methylPREDNISolone sod succ 125mg/2ml vial ONE (12:38)
[2018-03-24 15:00] VITALS: BP 180/81
== END 2018-03-24 17:05 | DRG 208 ==
LOC: ER 02:27 → ED HOLD 03:22 → ICU 2S 04:21 → PCU 3S 03-20 15:30
PROVIDERS: ADMIT Internal Medicine Critical Care Medicine; ATTEND Internal Medicine
PROC: 5A1945Z Respiratory Ventilation, 24-96 Consecutive Hours (ICD-10-PCS; principal; 2018-03-17)
PROC: 0BH17EZ Insertion of Endotracheal Airway into Trachea, Via Natural or Artificial Opening (ICD-10-PCS; 2018-03-17)
PROC: 5A09457 Assistance with Respiratory Ventilation, 24-96 Consecutive Hours, Continuous Positive Airway Pressure (ICD-10-PCS; 2018-03-20)
DX: J96.21 Acute and chronic respiratory failure with hypoxia (principal); G93.41 Metabolic encephalopathy; E87.2 Acidosis; J98.11 Atelectasis; J44.1 Chronic obstructive pulmonary disease with (acute) exacerbation; F41.9 Anxiety disorder, unspecified; I11.0 Hypertensive heart disease with heart failure; I50.9 Heart failure, unspecified; J96.22 Acute and chronic respiratory failure with hypercapnia; Z51.5 Encounter for palliative care; G89.29 Other chronic pain; M54.9 Dorsalgia, unspecified; Z79.899 Other long term (current) drug therapy; Z90.49 Acquired absence of other specified parts of digestive tract; Z90.710 Acquired absence of both cervix and uterus; Z88.0 Allergy status to penicillin; Z88.2 Allergy status to sulfonamides; Z88.1 Allergy status to other antibiotic agents; Z88.8 Allergy status to other drugs, medicaments and biological substances; Z88.6 Allergy status to analgesic agent; Z91.011 Allergy to milk products
CPT/HCPCS: 36415; 36600; 71045; 71250; 80048; 80053; 81001; 82533; 82803; 82948; 83605; 83735; 83880; 84100; 84484; 85018; 85025; 85610; 85730; 87040; 87070; 92616; 93005; 94002; 94003; 94640; 94660; 94668; 94760; 97110; 97116; 97162; 97530; C9113; G0378; J0360; J1650; J1940; J1956; J2060; J2250; J2270; J2310; J2405; J2920; J2930; J3490; J7512

== ENCOUNTER 2018-05-26 16:32 | Emergency (ER) | payer MEDICARE ==
[~2018-05-26] VITALS: Ht 157.5 cm; Wt 56.8 kg
[~2018-05-26 16:32] MED LIST changes: -DOCU-28 PO; -PRED20TA PO; -[UNRECOGNIZED DRUG - OTHER] PO
[2018-05-26 17:19] LABS: BASOPHILS % (AUTO) 0.5 % (0-1); EOSINOPHILS % (AUTO) 0.2 % (0-6); HEMATOCRIT 36.5 % (35.0-45.0); HEMOGLOBIN 12.4 g/dl (12.0-16.0); LYMPHOCYTES # (AUTO) 0.7 X10'3 (1.1-4.8); LYMPHOCYTES % (AUTO) 7.6 % (21-51); MEAN CORPUSCULAR HEMOGLOBIN 32.3 PG (27.0-31.0); MEAN PLATELET VOLUME 9.1 FL (7.4-10.4); MONOCYTES # (AUTO) 0.5 X10'3 (0-0.9); MONOCYTES % (AUTO) 4.8 % (2-12); NEUTROPHILS # (AUTO) 8.5 X10'3 (1.8-7.7); NEUTROPHILS % (AUTO) 86.9 % (42-75); PLATELET COUNT 384 X10'3 (140-440); RED BLOOD COUNT 3.84 X10'6 (4.20-5.60); RED CELL DISTRIBUTION WIDTH 13.6 % (11.5-14.5); WHITE BLOOD COUNT 9.7 X10'3 (4.5-11.0)
[2018-05-26 17:33] LABS: PARTIAL THROMBOPLASTIN TIME 26 SECONDS (22-32); PROTHROMBIN TIME 9.8 SECONDS (9.0-12.0)
[2018-05-26 17:41] LABS: ALANINE AMINOTRANSFERASE 18 U/L (12-78); ALBUMIN 3.7 G/DL (3.4-5.0); ALBUMIN/GLOBULIN RATIO 1.2 (1.1-1.5); ALKALINE PHOSPHATASE 69 IU/L (46-116); ANION GAP 6 (8-16); ASPARTATE AMINO TRANSFERASE 11 U/L (10-37); BILIRUBIN,TOTAL 0.3 MG/DL (0.1-1.0); BLOOD UREA NITROGEN 17 MG/DL (7-18); CALCIUM 8.6 MG/DL (8.5-10.1); CHLORIDE 92 MMOL/L (99-107); CREATININE 0.85 MG/DL (0.40-0.90); GLUCOSE 100 MG/DL (70-104); POTASSIUM 3.2 MMOL/L (3.5-5.1); SODIUM 135 MMOL/L (135-145); TOTAL CARBON DIOXIDE 36.7 MMOL/L (24-32); TOTAL PROTEIN 6.7 G/DL (6.4-8.2); eGFR 64 ML/MIN
[2018-05-26] MEDS ORDERED: predniSONE 20 mg tablet PO ONE (20:15)
[2018-05-26] MEDS ORDERED: clonazePAM 1mg tablet PO ONE (20:15)
[2018-05-26] MEDS ORDERED: furosemide 10 MG/1 ML 10ml inj IV ONE (20:20)
[2018-05-26 21:25] VITALS: BP 164/82
== END 2018-05-26 21:27 | disposition home or self-care (01) ==
LOC: ER 16:33
DX: J44.1 Chronic obstructive pulmonary disease with (acute) exacerbation (principal); F41.9 Anxiety disorder, unspecified; I11.0 Hypertensive heart disease with heart failure; I50.9 Heart failure, unspecified; G89.29 Other chronic pain; Z90.49 Acquired absence of other specified parts of digestive tract; Z90.710 Acquired absence of both cervix and uterus; Z98.890 Other specified postprocedural states; Z88.0 Allergy status to penicillin; Z88.2 Allergy status to sulfonamides; Z88.5 Allergy status to narcotic agent; Z91.011 Allergy to milk products; Z88.8 Allergy status to other drugs, medicaments and biological substances; Z79.899 Other long term (current) drug therapy
CPT/HCPCS: 36415; 71045; 80053; 83880; 84484; 85025; 85610; 85730; 93005; 96374; 99284; J1940; J7512

== ENCOUNTER 2018-06-09 05:02 | Inpatient (IN) | payer MEDICARE ==
[~2018-06-09] VITALS: Ht 157.5 cm; Wt 63.7 kg
[2018-06-09] MEDS ORDERED: ondansetron 4mg rapidly disintigrating tab PO ONE (05:20)
[2018-06-09] MEDS ORDERED: ONDA4TAB12 PO (06:06)
[2018-06-09 07:13] LABS: BASOPHILS # (AUTO) 0.1 X10'3 (0-0.2); BASOPHILS % (AUTO) 0.8 % (0-1); EOSINOPHILS # (AUTO) 0.2 X10'3 (0-0.9); EOSINOPHILS % (AUTO) 1.3 % (0-6); HEMATOCRIT 35.3 % (35.0-45.0); HEMOGLOBIN 11.8 g/dl (12.0-16.0); LYMPHOCYTES # (AUTO) 0.4 X10'3 (1.1-4.8); LYMPHOCYTES % (AUTO) 2.6 % (21-51); MEAN CORPUSCULAR HEMOGLOBIN 32.3 PG (27.0-31.0); MEAN CORPUSCULAR HGB CONC 33.5 % (33.0-36.5); MEAN CORPUSCULAR VOLUME 96.3 FL (78-98); MEAN PLATELET VOLUME 9.1 FL (7.4-10.4); MONOCYTES # (AUTO) 0.5 X10'3 (0-0.9); MONOCYTES % (AUTO) 3.3 % (2-12); NEUTROPHILS # (AUTO) 14.7 X10'3 (1.8-7.7); PLATELET COUNT 297 X10'3 (140-440); RED BLOOD COUNT 3.66 X10'6 (4.20-5.60); RED CELL DISTRIBUTION WIDTH 14.7 % (11.5-14.5); WHITE BLOOD COUNT 15.9 X10'3 (4.5-11.0)
[2018-06-09 07:26] LABS: ALANINE AMINOTRANSFERASE 16 U/L (12-78); ALBUMIN 3.4 G/DL (3.4-5.0); ALBUMIN/GLOBULIN RATIO 1.2 (1.1-1.5); ALKALINE PHOSPHATASE 62 IU/L (46-116); ANION GAP 2 (8-16); ASPARTATE AMINO TRANSFERASE 12 U/L (10-37); BILIRUBIN,TOTAL 0.4 MG/DL (0.1-1.0); BLOOD UREA NITROGEN 17 MG/DL (7-18); BUN/CREATININE RATIO 17.2 (6.6-38.0); CALCIUM 8.9 MG/DL (8.5-10.1); CHLORIDE 88 MMOL/L (99-107); CREATININE 0.99 MG/DL (0.40-0.90); GLUCOSE 151 MG/DL (70-104); LIPASE 139 U/L (73-393); POTASSIUM 3.2 MMOL/L (3.5-5.1); SODIUM 134 MMOL/L (135-145); TOTAL PROTEIN 6.2 G/DL (6.4-8.2); eGFR 54 ML/MIN
[2018-06-09 07:27] LABS: COLOR,URINE YELLOW (Yellow); GLUCOSE, URINE NEGATIVE (Neg); KETONES,URINE NEGATIVE (Neg); LEUKOCYTE ESTERASE ,URINE NEGATIVE (Neg); NITRITES, URINE NEGATIVE (Neg); OCCULT BLOOD,URINE NEGATIVE (Neg); PH,URINE 8.5 (4.8-8.0); PROTEIN,URINE NEGATIVE (Neg); UROBILINOGEN,URINE 0.2 E.U/dL (0.2-1.0)
[2018-06-09 07:28] LABS: TOTAL CARBON DIOXIDE 43.6 MMOL/L (24-32)
[2018-06-09 07:30] LABS: UA COLLECTION TYPE VOIDED
[2018-06-09] MEDS ORDERED: normal saline 1000ML IV soln IVB ONE (07:30)
[2018-06-09] MEDS ORDERED: normal saline 1000ml 1,000 ML IV ONE (07:30)
[2018-06-09 07:33] LABS: BACTERIA,URINE 3+ /HPF (Neg)
[2018-06-09 07:37] LABS: RBC,URINE 0-2 /HPF (0-2); WBC,URINE 0-4 /HPF (0-4)
[2018-06-09 07:38] LABS: AMORPHOUS PHOSPHATES 2+; CLARITY,URINE CLOUDY (Clear); SQUAMOUS EPITHELIAL CELL,UR FEW /LPF (FEW)
[2018-06-09 08:26] LABS: MAGNESIUM 1.7 MG/DL (1.5-2.4)
[2018-06-09] MEDS ORDERED: potassium 10mEq/100ml NS w/LIDOcaine (10mg/bag) IV ONE (08:30)
[2018-06-09] MEDS ORDERED: magnesium 2GM in 50ml NS 50 ML IV ONE (08:30)
[2018-06-09] MEDS ORDERED: PRED10TA23 PO (08:42)
[2018-06-09] MEDS ORDERED: AMLO10TA PO (08:42)
[2018-06-09] MEDS ORDERED: BUSP10TA11 PO (08:42)
[2018-06-09] MEDS ORDERED: DOCU-28 PO (08:42)
[2018-06-09] MEDS ORDERED: OMEP20TA23 PO (08:42)
[2018-06-09] MEDS ORDERED: IBUP-1985 PO (08:42)
[2018-06-09] MEDS ORDERED: CALC355O3 (08:42)
[2018-06-09] MEDS ORDERED: DILT180C10 (08:42)
--- NOTE | 2018-06-09 08:44 | NUR ---
DR MARSHALL AT BEDSIDE TALKING WITH PT AND PT'S DAUGHTER
[2018-06-09] MEDS ORDERED: potassium Cl 40MEQ/NS 500ml 500 ML IV PRN ×2 (09:10)
[2018-06-09] MEDS ORDERED: acetaminophen 325mg tablet PO PRN (09:10)
[2018-06-09] MEDS ORDERED: magnesium Cl slow-release 64mg tablet PO PRN (09:10)
[2018-06-09] MEDS ORDERED: magnesium 4gm in 100ml NS 100 ML IV PRN (09:10)
[2018-06-09] MEDS ORDERED: magnesium hydroxide 30ml (MOM) UD suspension PO PRN (09:10)
[2018-06-09] MEDS ORDERED: ondansetron/PF 4mg/2ml inj IV PRN (09:10)
[2018-06-09] MEDS ORDERED: mag hydrox/Alum hydrox/simeth 30ml oral suspension PO PRN (09:10)
[2018-06-09] MEDS ORDERED: potassium Cl 20 mEq SR tablet PO PRN (09:10)
[2018-06-09] MEDS ORDERED: magnesium 2GM in 50ml NS 50 ML IV PRN (09:10)
[2018-06-09] MEDS: metroNIDAZOLE-Flagyl 500mg/NS 100 ML IV SCH ×2 (09:14→16:15)
[2018-06-09] MEDS: ciprofloxacin lact 400MG/200ML 200 ML IV SCH ×2 (10:03→22:03)
[2018-06-09] MEDS: normal saline 1000ml 1,000 ML IV SCH ×2 (10:05→22:26)
--- NOTE | 2018-06-09 12:30 | NUR ---
Pt arrived via w/c from ER with on staff and daughter at her side. Pt transferred to bed and orientated to room. Call light in reach bed in low position. Pt NG placed to low suction. IV RFA with NS @75ml/hr.
[2018-06-09 12:53] VITALS: BP 139/71
--- NOTE | 2018-06-09 18:08 | NUR ---
Problems reprioritized. Patient report given, questions answered & plan of care reviewed with Светлана VICTOR.
--- NOTE | 2018-06-09 18:15 | NUR ---
Patient in room EVE 357. I have received report from Alena VICTOR and had the opportunity to ask questions and assume patient care. Patient resting comfortably, will continue to monitor.
[2018-06-09 19:00] VITALS: BP 166/76
[2018-06-09] MEDS ORDERED: temazepam 15mg capsule PO PRN (21:00)
[2018-06-09] MEDS: clonazePAM 0.5mg tablet PO SCH (22:03)
[2018-06-09] MEDS: atorvastatin 20mg tablet PO SCH (22:04)
[2018-06-09] MEDS: busPIRone 5mg tablet PO SCH (22:04)
[2018-06-09] MEDS: diatr meglu/diatrizoate 30ml oral sol.-(3 dose) bottle PO SCH (22:05)
[2018-06-09] MEDS: furosemide 20MG tablet PO SCH (22:06)
[2018-06-10] VITALS: BP 149/65
[2018-06-10] MEDS: metroNIDAZOLE-Flagyl 500mg/NS 100 ML IV SCH ×3 (00:10→17:17)
--- NOTE | 2018-06-10 04:16 | NUR ---
Patient agitated and forgetful throughout night, appears to be a poor historian. Will have dayshift attempt to complete admission questions with family. Will continue to monitor.
[2018-06-10 06:13] LABS: BASOPHILS % (AUTO) 0.2 % (0-1); EOSINOPHILS # (AUTO) 0.2 X10'3 (0-0.9); EOSINOPHILS % (AUTO) 2.3 % (0-6); HEMATOCRIT 30.9 % (35.0-45.0); HEMOGLOBIN 10.4 g/dl (12.0-16.0); LYMPHOCYTES # (AUTO) 0.7 X10'3 (1.1-4.8); MEAN CORPUSCULAR HEMOGLOBIN 32.4 PG (27.0-31.0); MEAN CORPUSCULAR HGB CONC 33.4 % (33.0-36.5); MEAN PLATELET VOLUME 9.2 FL (7.4-10.4); MONOCYTES # (AUTO) 0.6 X10'3 (0-0.9); MONOCYTES % (AUTO) 6.1 % (2-12); NEUTROPHILS # (AUTO) 7.9 X10'3 (1.8-7.7); NEUTROPHILS % (AUTO) 84.4 % (42-75); PLATELET COUNT 236 X10'3 (140-440); RED BLOOD COUNT 3.19 X10'6 (4.20-5.60); RED CELL DISTRIBUTION WIDTH 14.6 % (11.5-14.5); WHITE BLOOD COUNT 9.4 X10'3 (4.5-11.0)
[2018-06-10 06:29] LABS: ANION GAP 2 (8-16); BLOOD UREA NITROGEN 8 MG/DL (7-18); BUN/CREATININE RATIO 11.3 (6.6-38.0); CHLORIDE 97 MMOL/L (99-107); CREATININE 0.71 MG/DL (0.40-0.90); GLUCOSE 103 MG/DL (70-104); MAGNESIUM 1.9 MG/DL (1.5-2.4); POTASSIUM 3.5 MMOL/L (3.5-5.1); SODIUM 137 MMOL/L (135-145); TOTAL CARBON DIOXIDE 38.3 MMOL/L (24-32); eGFR 79 ML/MIN
--- NOTE | 2018-06-10 06:51 | NUR ---
Problems reprioritized. Patient report given, questions answered & plan of care reviewed with Beryl VICTOR. Patient resting eyes closed respirations even.
--- NOTE | 2018-06-10 07:07 | NUR ---
Patient in room EVE 357. I have received report from Светлана VICTOR and had the opportunity to ask questions and assume patient care.
[2018-06-10] MEDS: diatr meglu/diatrizoate 30ml oral sol.-(3 dose) bottle PO SCH ×2 (07:43→21:00)
[2018-06-10 08:00] VITALS: BP 161/68
[2018-06-10] MEDS: K and/or MAG REPLACEMENT MC SCH (08:00)
[2018-06-10] MEDS: ciprofloxacin lact 400MG/200ML 200 ML IV SCH ×2 (08:14→20:13)
[2018-06-10] MEDS: acetaminophen 325mg tablet PO PRN ×2 (08:15→14:25)
[2018-06-10] MEDS: clopidogrel 75mg tablet PO SCH (08:15)
[2018-06-10] MEDS: busPIRone 5mg tablet PO SCH ×2 (08:16→20:14)
[2018-06-10] MEDS: clonazePAM 0.5mg tablet PO SCH ×2 (08:16→20:14)
[2018-06-10] MEDS: losartan 50mg tablet PO SCH (08:16)
[2018-06-10] MEDS: amLODIPine 5mg tablet PO SCH (08:16)
[2018-06-10] MEDS: furosemide 20MG tablet PO SCH ×2 (08:26→20:14)
--- NOTE | 2018-06-10 10:00 | NUR ---
patient went for CT abdo. commenced on clear lqd diet . daughter in room
[2018-06-10] MEDS ORDERED: magnesium hydroxide 30ml (MOM) UD suspension PO ONE (10:45)
[2018-06-10 11:00] VITALS: BP 113/50
[2018-06-10] MEDS: normal saline 1000ml 1,000 ML IV SCH ×2 (11:46→14:28)
[2018-06-10 18:22] VITALS: BP 136/66
--- NOTE | 2018-06-10 18:28 | NUR ---
Received report from Beryl VICTOR pt is awake sitting in bedside chair eating dinner in no apparent distress, call light and items of freq use within reach.
--- NOTE | 2018-06-10 18:37 | NUR ---
Problems reprioritized. Patient report given, questions answered & plan of care reviewed with shay VICTOR.
[2018-06-10 19:00] VITALS: BP 136/66
[2018-06-10] MEDS: lactobacillus rhamnosus 10,000 MMU CELLS/CAPSULE PO SCH (20:13)
[2018-06-10] MEDS: atorvastatin 20mg tablet PO SCH (20:14)
[2018-06-11] MEDS: metroNIDAZOLE-Flagyl 500mg/NS 100 ML IV SCH ×3 (00:14→16:53)
--- NOTE | 2018-06-11 00:17 | NUR ---
pt refused midnight vital signs stating that the blood pressure cuff hurt to bad
[2018-06-11] MEDS: acetaminophen 325mg tablet PO PRN (04:23)
[2018-06-11] MEDS: normal saline 1000ml 1,000 ML IV SCH ×2 (04:23→23:41)
[2018-06-11] MEDS: albuterol 2.5 MG/3 ML nebule NEB PRN ×2 (04:50→18:54)
--- NOTE | 2018-06-11 06:19 | NUR ---
Problems reprioritized. Patient report given, questions answered & plan of care reviewed with Amy VICTOR.
--- NOTE | 2018-06-11 06:20 | NUR ---
Patient in room EVE 357. I have received report from Patrizia VICTOR and had the opportunity to ask questions and assume patient care.
[2018-06-11 07:00] VITALS: BP 141/67
[2018-06-11 07:14] LABS: BASOPHILS % (AUTO) 0.2 % (0-1); EOSINOPHILS # (AUTO) 0.2 X10'3 (0-0.9); EOSINOPHILS % (AUTO) 2.6 % (0-6); HEMATOCRIT 30.4 % (35.0-45.0); HEMOGLOBIN 10.2 g/dl (12.0-16.0); LYMPHOCYTES # (AUTO) 0.7 X10'3 (1.1-4.8); LYMPHOCYTES % (AUTO) 7.8 % (21-51); MEAN CORPUSCULAR HEMOGLOBIN 32.7 PG (27.0-31.0); MEAN CORPUSCULAR HGB CONC 33.6 % (33.0-36.5); MEAN CORPUSCULAR VOLUME 97.3 FL (78-98); MEAN PLATELET VOLUME 9.6 FL (7.4-10.4); MONOCYTES # (AUTO) 0.5 X10'3 (0-0.9); NEUTROPHILS # (AUTO) 7.3 X10'3 (1.8-7.7); NEUTROPHILS % (AUTO) 83.4 % (42-75); PLATELET COUNT 221 X10'3 (140-440); RED BLOOD COUNT 3.12 X10'6 (4.20-5.60); RED CELL DISTRIBUTION WIDTH 14.2 % (11.5-14.5); WHITE BLOOD COUNT 8.7 X10'3 (4.5-11.0)
[2018-06-11 07:32] LABS: ALBUMIN 2.9 G/DL (3.4-5.0); ANION GAP 3 (8-16); BLOOD UREA NITROGEN 6 MG/DL (7-18); CALCIUM 7.7 MG/DL (8.5-10.1); CHLORIDE 94 MMOL/L (99-107); CREATININE 0.75 MG/DL (0.40-0.90); GLUCOSE 129 MG/DL (70-104); MAGNESIUM 1.7 MG/DL (1.5-2.4); POTASSIUM 3.1 MMOL/L (3.5-5.1); SODIUM 136 MMOL/L (135-145); TOTAL CARBON DIOXIDE 38.7 MMOL/L (24-32); eGFR 74 ML/MIN
[2018-06-11] MEDS: lactobacillus rhamnosus 10,000 MMU CELLS/CAPSULE PO SCH ×2 (07:36→19:11)
[2018-06-11] MEDS: losartan 50mg tablet PO SCH (07:36)
[2018-06-11] MEDS: furosemide 20MG tablet PO SCH ×2 (07:36→19:11)
[2018-06-11] MEDS: clopidogrel 75mg tablet PO SCH (07:37)
[2018-06-11] MEDS: clonazePAM 0.5mg tablet PO SCH ×2 (07:37→19:10)
[2018-06-11] MEDS: amLODIPine 5mg tablet PO SCH (07:37)
[2018-06-11] MEDS: busPIRone 5mg tablet PO SCH ×2 (07:37→19:11)
[2018-06-11] MEDS: K and/or MAG REPLACEMENT MC SCH (08:00)
[2018-06-11] MEDS: meropenem inj 1 GM in normal saline 100ml IV soln 100 ML IV SCH ×3 (10:34→23:41)
[2018-06-11 11:00] VITALS: BP 139/67
[2018-06-11] MEDS: potassium Cl 20 mEq SR tablet PO PRN ×3 (11:49→21:19)
[2018-06-11 18:00] VITALS: BP 140/68
--- NOTE | 2018-06-11 18:30 | NUR ---
Received report from primary care nurse Amy VICTOR. Assumed patient care. Patient is awake and alert on 2L NC. C/o SOB. Obtained vitals, WNL. Paged respiratory therapist. Call light and items of frequent use within reach. Will continue to monitor for changes.
--- NOTE | 2018-06-11 18:32 | NUR ---
Problems reprioritized. Patient report given, questions answered & plan of care reviewed with Summer VICTOR.
[2018-06-11] MEDS: atorvastatin 20mg tablet PO SCH (19:11)
[2018-06-11] MEDS ORDERED: ziprasidone IM 20mg inj **IM only IM PRN (19:30)
[2018-06-11] MEDS: methylPREDNISolone sod succ 125mg/2ml vial IV SCH ×2 (20:10→23:41)
[2018-06-11] MEDS: ipratropium/albuterol 3ml nebule NEB SCH (20:41)
[2018-06-12] VITALS: BP 138/78
[2018-06-12] MEDS: metroNIDAZOLE-Flagyl 500mg/NS 100 ML IV SCH ×2 (00:41→10:35)
[2018-06-12] MEDS: acetaminophen 325mg tablet PO PRN (01:47)
[2018-06-12] MEDS ORDERED: nortriptyline 10mg capsule PO SCH ×2 (05:05→21:00)
[2018-06-12] MEDS ORDERED: LIDOcaine 5% patch TP SCH (06:00)
[2018-06-12 06:39] LABS: BASOPHILS % (AUTO) 0 % (0-1); EOSINOPHILS % (AUTO) 0.9 % (0-6); HEMATOCRIT 33.5 % (35.0-45.0); HEMOGLOBIN 11.1 g/dl (12.0-16.0); LYMPHOCYTES # (AUTO) 0.1 X10'3 (1.1-4.8); LYMPHOCYTES % (AUTO) 2.8 % (21-51); MEAN CORPUSCULAR HEMOGLOBIN 32.2 PG (27.0-31.0); MEAN CORPUSCULAR HGB CONC 33.3 % (33.0-36.5); MEAN CORPUSCULAR VOLUME 96.8 FL (78-98); MEAN PLATELET VOLUME 9.2 FL (7.4-10.4); MONOCYTES % (AUTO) 0.3 % (2-12); PLATELET COUNT 224 X10'3 (140-440); RED BLOOD COUNT 3.46 X10'6 (4.20-5.60); WHITE BLOOD COUNT 5.2 X10'3 (4.5-11.0)
--- NOTE | 2018-06-12 06:40 | NUR ---
Patient in room EVE 357. I have received report from VALENTE Wheeler and had the opportunity to ask questions and assume patient care.
--- NOTE | 2018-06-12 06:50 | NUR ---
Reported off to Ira VICTOR. Patient is resting with relaxed and unlabored respirations on 2LNC. Call light and items of frequent use within reach.
[2018-06-12 07:01] LABS: ANION GAP 6 (8-16); BLOOD UREA NITROGEN 8 MG/DL (7-18); BUN/CREATININE RATIO 10.3 (6.6-38.0); CALCIUM 8.4 MG/DL (8.5-10.1); CHLORIDE 94 MMOL/L (99-107); CREATININE 0.78 MG/DL (0.40-0.90); GLUCOSE 241 MG/DL (70-104); MAGNESIUM 1.7 MG/DL (1.5-2.4); POTASSIUM 4.1 MMOL/L (3.5-5.1); SODIUM 135 MMOL/L (135-145); TOTAL CARBON DIOXIDE 34.6 MMOL/L (24-32); eGFR 71 ML/MIN
[2018-06-12 07:37] VITALS: BP 148/77
[2018-06-12] MEDS: K and/or MAG REPLACEMENT MC SCH (08:00)
[2018-06-12] MEDS: busPIRone 5mg tablet PO SCH (08:28)
[2018-06-12] MEDS: methylPREDNISolone sod succ 125mg/2ml vial IV SCH (08:28)
[2018-06-12] MEDS: meropenem inj 1 GM in normal saline 100ml IV soln 100 ML IV SCH (08:28)
[2018-06-12] MEDS: furosemide 20MG tablet PO SCH (08:30)
[2018-06-12] MEDS: lactobacillus rhamnosus 10,000 MMU CELLS/CAPSULE PO SCH (08:30)
[2018-06-12] MEDS: clonazePAM 0.5mg tablet PO SCH (08:30)
[2018-06-12] MEDS: losartan 50mg tablet PO SCH (08:30)
[2018-06-12] MEDS: clopidogrel 75mg tablet PO SCH (08:31)
[2018-06-12] MEDS: amLODIPine 5mg tablet PO SCH (08:31)
[2018-06-12] MEDS: ipratropium/albuterol 3ml nebule NEB SCH ×2 (09:06→14:54)
[2018-06-12 11:00] VITALS: BP 119/66
--- NOTE | 2018-06-12 15:25 | NUR ---
Patient discharged. PIV removed: cath tip intact. Education given mostly to caregiver and daughter Erica, she verbalized understanding. She has been taking care of her mom for awhile now and knows what she needs. Patient had no new medications but was encourage to follow up with primary are regarding certain medications. The patient has an appointment with Dr. Dixon tomorrow. Patient was wheeled down by staff.
--- NOTE | 2018-06-12 15:45 | NUR ---
Found Zofran script in chart from ER doctor. Was unaware that she had a script for Zofran as the patient has had no nausea for me today. Called the ER to see if Dr. Arnold was there, but he wasn't. I shredded his script because the patient didn't need it and it was dated for the (the date of her admission) so I'm thinking that he wrote it for home because he thought that the patient wasn't going to be admitted. The hospitalist didn't order anything for nausea on discharge; the patient hasn't been nauseous for me.
== END 2018-06-12 15:30 | disposition home health service (06) | DRG 389 ==
LOC: ER 05:02 → ED HOLD 09:06 → SUR 3N 12:37
PROVIDERS: ADMIT Internal Medicine; ATTEND Family Medicine
PROC: 0D9670Z Drainage of Stomach with Drainage Device, Via Natural or Artificial Opening (ICD-10-PCS; principal; 2018-06-09)
PROC: BW211ZZ Computerized Tomography (CT Scan) of Abdomen and Pelvis using Low Osmolar Contrast (ICD-10-PCS; 2018-06-10)
DX: K56.600 Partial intestinal obstruction, unspecified as to cause (principal); N39.0 Urinary tract infection, site not specified; E87.6 Hypokalemia; I25.10 Atherosclerotic heart disease of native coronary artery without angina pectoris; I50.9 Heart failure, unspecified; F41.9 Anxiety disorder, unspecified; G89.29 Other chronic pain; M54.5 Low back pain; I11.0 Hypertensive heart disease with heart failure; F03.90 Unspecified dementia, unspecified severity, without behavioral disturbance, psychotic disturbance, mood disturbance, and anxiety; B96.20 Unspecified Escherichia coli [E. coli] as the cause of diseases classified elsewhere; J44.9 Chronic obstructive pulmonary disease, unspecified; N28.9 Disorder of kidney and ureter, unspecified; Z90.49 Acquired absence of other specified parts of digestive tract; Z90.710 Acquired absence of both cervix and uterus; Z88.0 Allergy status to penicillin; Z88.2 Allergy status to sulfonamides; Z88.1 Allergy status to other antibiotic agents; Z88.8 Allergy status to other drugs, medicaments and biological substances; Z91.011 Allergy to milk products; Z88.6 Allergy status to analgesic agent; Z79.52 Long term (current) use of systemic steroids
CPT/HCPCS: 36415; 71045; 74176; 80048; 80053; 81001; 83605; 83690; 83735; 85025; 87040; 87070; 87077; 87088; 87186; 94640; 94760; 96365; 97116; 97161; 97530; 99285; G0378; J0744; J2185; J2930; J3475; J3480; J3490; J7030; Q9963

== ENCOUNTER 2018-10-31 22:37 | Emergency (ER) | payer MEDICARE ==
[~2018-10-31] VITALS: Ht 162.6 cm; Wt 58.0 kg
[~2018-10-31 22:37] MED LIST changes: +AMLO10TA PO; +BUSP10TA11 PO; +CALC355O3; -CARV-50 PO; +DILT180C10; +DOCU-28 PO; +IBUP-1985 PO; +PRED10TA23 PO; -[UNRECOGNIZED DRUG - OTHER] PO
[2018-10-31 23:46] LABS: BASOPHILS % (AUTO) 0.2 % (0-1); EOSINOPHILS % (AUTO) 0.3 % (0-6); HEMATOCRIT 39.1 % (35.0-45.0); HEMOGLOBIN 13.2 g/dl (12.0-16.0); LYMPHOCYTES # (AUTO) 0.5 X10'3 (1.1-4.8); MEAN CORPUSCULAR HEMOGLOBIN 29.4 PG (27.0-31.0); MEAN CORPUSCULAR HGB CONC 33.8 g/dL (33.0-36.5); MEAN CORPUSCULAR VOLUME 86.9 FL (78-98); MEAN PLATELET VOLUME 8.1 FL (7.4-10.4); MONOCYTES # (AUTO) 0.8 X10'3 (0-0.9); MONOCYTES % (AUTO) 6.2 % (2-12); NEUTROPHILS # (AUTO) 11.9 X10'3 (1.8-7.7); NEUTROPHILS % (AUTO) 89.3 % (42-75); PLATELET COUNT 411 X10'3 (140-440); RED CELL DISTRIBUTION WIDTH 14.4 % (11.5-14.5); WHITE BLOOD COUNT 13.3 X10'3 (4.5-11.0)
[2018-11-01] LABS: ALANINE AMINOTRANSFERASE 19 U/L (12-78); ALBUMIN 3.6 G/DL (3.4-5.0); ALBUMIN/GLOBULIN RATIO 1.1 (1.1-1.5); ALKALINE PHOSPHATASE 126 IU/L (46-116); ANION GAP 2 (8-16); ASPARTATE AMINO TRANSFERASE 16 U/L (10-37); BILIRUBIN,TOTAL 0.7 MG/DL (0.1-1.0); BLOOD UREA NITROGEN 11 MG/DL (7-18); BUN/CREATININE RATIO 16.7 (6.6-38.0); CALCIUM 8.9 MG/DL (8.5-10.1); CHLORIDE 83 MMOL/L (99-107); CREATININE 0.66 MG/DL (0.40-0.90); GLUCOSE 131 MG/DL (70-104); POTASSIUM 3.1 MMOL/L (3.5-5.1); SODIUM 123 MMOL/L (135-145); TOTAL CARBON DIOXIDE 38.5 MMOL/L (24-32); TOTAL PROTEIN 6.8 G/DL (6.4-8.2); eGFR 86 ML/MIN
[2018-11-01 02:13] LABS: TROPONIN I 0.06 NG/ML (0.0-0.05)
[2018-11-01 03:22] VITALS: BP 155/89
[2018-11-01] MEDS ORDERED: furosemide 20 MG/2 ML vial IV ONE (04:05)
[2018-11-01] MEDS ORDERED: furosemide 10 MG/1 ML 10ml inj IV ONE (04:05)
--- NOTE | 2018-11-02 20:58 | NUR ---
REC'D CALL FROM THE LAB - PT HAD POSITIVE BLOOD CULTURE FROM THE LEFT ARM ON @ 0520 - THE ANEROBIC BOTTLE GREW OUT GRAM POSITIVE RODS.
--- NOTE | 2018-11-03 11:15 | NUR ---
PT DAUGHTER CALLED TO STATE PT IS FEELING MUCH BETTER, DR DAVENPORT SPOKE WITH PT TO RECOMMEND TO BRING HER BACK IN. PT DAUGHTER REFUSED. AGREED TO TAKE ABX PRESCRIBED. NEW ORDER OF DOXYCYCLINE 100 MG BID X 5 DAYS CALLED INTO [facility] @8611.
== END 2018-11-01 04:29 | disposition home or self-care (01) ==
LOC: ER 22:38
DX: R06.02 Shortness of breath (principal); I50.9 Heart failure, unspecified; I11.0 Hypertensive heart disease with heart failure; J44.9 Chronic obstructive pulmonary disease, unspecified; G89.29 Other chronic pain; F41.9 Anxiety disorder, unspecified; Z79.899 Other long term (current) drug therapy; Z79.1 Long term (current) use of non-steroidal anti-inflammatories (NSAID); Z88.0 Allergy status to penicillin; Z88.1 Allergy status to other antibiotic agents; Z88.2 Allergy status to sulfonamides; Z88.8 Allergy status to other drugs, medicaments and biological substances; Z88.6 Allergy status to analgesic agent; Z90.49 Acquired absence of other specified parts of digestive tract; Z90.710 Acquired absence of both cervix and uterus; Z98.890 Other specified postprocedural states; Z91.011 Allergy to milk products; Z99.81 Dependence on supplemental oxygen
CPT/HCPCS: 36415; 71045; 80053; 83605; 83880; 84484; 85025; 87040; 99284

== ENCOUNTER 2018-12-24 23:17 | Inpatient (IN) | payer MEDICARE ==
[~2018-12-24] VITALS: Ht 157.5 cm; Wt 52.8 kg
[~2018-12-24 23:17] MED LIST changes: -IBUP-1985 PO
[2018-12-25 01:10] LABS: BASOPHILS % (AUTO) 0.1 % (0-1); EOSINOPHILS % (AUTO) 0 % (0-6); HEMATOCRIT 40.1 % (35.0-45.0); LYMPHOCYTES # (AUTO) 0.2 X10'3 (1.1-4.8); LYMPHOCYTES % (AUTO) 2.5 % (21-51); MEAN CORPUSCULAR VOLUME 85.8 FL (78-98); MEAN PLATELET VOLUME 9.4 FL (7.4-10.4); MONOCYTES # (AUTO) 0.4 X10'3 (0-0.9); MONOCYTES % (AUTO) 3.8 % (2-12); NEUTROPHILS # (AUTO) 9.2 X10'3 (1.8-7.7); NEUTROPHILS % (AUTO) 93.6 % (42-75); PLATELET COUNT 378 X10'3 (140-440); RED BLOOD COUNT 4.67 X10'6 (4.20-5.60); RED CELL DISTRIBUTION WIDTH 15.2 % (11.5-14.5); WHITE BLOOD COUNT 9.8 X10'3 (4.5-11.0)
[2018-12-25 01:19] LABS: ALANINE AMINOTRANSFERASE 21 U/L (12-78); ALBUMIN 3.8 G/DL (3.4-5.0); ALBUMIN/GLOBULIN RATIO 1.2 (1.1-1.5); ALKALINE PHOSPHATASE 145 IU/L (46-116); ANION GAP 4 (8-16); ASPARTATE AMINO TRANSFERASE 10 U/L (10-37); BILIRUBIN,TOTAL 0.6 MG/DL (0.1-1.0); BLOOD UREA NITROGEN 16 MG/DL (7-18); BUN/CREATININE RATIO 21.1 (6.6-38.0); CALCIUM 9.2 MG/DL (8.5-10.1); CHLORIDE 81 MMOL/L (99-107); CREATININE 0.76 MG/DL (0.40-0.90); GLUCOSE 147 MG/DL (70-104); POTASSIUM 3.6 MMOL/L (3.5-5.1); SODIUM 123 MMOL/L (135-145); TOTAL CARBON DIOXIDE 38.1 MMOL/L (24-32); TOTAL PROTEIN 7.1 G/DL (6.4-8.2); eGFR 73 ML/MIN
[2018-12-25 01:21] LABS: MAGNESIUM 1.8 MG/DL (1.5-2.4)
[2018-12-25] MEDS ORDERED: normal saline 1000ML IV soln IVB ONE (01:50)
[2018-12-25] MEDS ORDERED: ondansetron/PF 4mg/2ml inj IV ONE (01:50)
[2018-12-25] MEDS: diatr meglu/diatrizoate 30ml oral sol.-(3 dose) bottle PO SCH ×3 (02:00→03:35)
[2018-12-25 02:57] LABS: CLARITY,URINE CLOUDY (Clear); COLOR,URINE YELLOW (Yellow); GLUCOSE, URINE NEGATIVE (Neg); KETONES,URINE NEGATIVE (Neg); LEUKOCYTE ESTERASE ,URINE SMALL (Neg); NITRITES, URINE NEGATIVE (Neg); OCCULT BLOOD,URINE NEGATIVE (Neg); PH,URINE 7.5 (4.8-8.0); PROTEIN,URINE NEGATIVE (Neg); UROBILINOGEN,URINE 0.2 E.U/dL (0.2-1.0)
[2018-12-25 03:00] LABS: UA COLLECTION TYPE STRAIGHT CATH
[2018-12-25 03:45] LABS: BACTERIA,URINE 4+ /HPF (Neg); MUCUS STRANDS NONE SEEN /LPF (Neg); RBC,URINE NONE SEEN /HPF (0-2); SQUAMOUS EPITHELIAL CELL,UR FEW /LPF (FEW)
[2018-12-25 03:46] LABS: TRANSITIONAL EPI CELLS,URINE FEW /HPF
[2018-12-25 04:35] LABS: LIPASE 100 U/L (73-393)
[2018-12-25] MEDS ORDERED: mag hydrox/Alum hydrox/simeth 30ml oral suspension PO PRN (04:55)
[2018-12-25] MEDS ORDERED: magnesium hydroxide 30ml (MOM) UD suspension PO PRN (04:55)
[2018-12-25] MEDS ORDERED: albuterol 2.5 MG/3 ML nebule NEB PRN (04:55)
[2018-12-25] MEDS ORDERED: FURO-149 PO (05:09)
[2018-12-25] MEDS ORDERED: POTA10TA19 PO (05:09)
[2018-12-25] MEDS ORDERED: DILT180C64 (05:09)
[2018-12-25] MEDS ORDERED: ATOR20TA66 PO (05:09)
[2018-12-25] MEDS ORDERED: MAGN400C PO ×2 (05:09→05:52)
[2018-12-25] MEDS ORDERED: LOSA100T3 PO (05:09)
[2018-12-25] MEDS ORDERED: LACT1CAP26 PO (05:09)
[2018-12-25] MEDS ORDERED: XAL0.005OS OP (05:09)
[2018-12-25] MEDS ORDERED: BUSP5TAB3 PO (05:09)
[2018-12-25] MEDS ORDERED: CLOP75TA33 PO (05:09)
--- NOTE | 2018-12-25 05:15 | NUR ---
Received report from Tesfaye VICTOR
[2018-12-25] MEDS: normal saline 1000ml 1,000 ML IV SCH ×3 (05:24→21:30)
[2018-12-25] MEDS ORDERED: ASPI-1053 PO (05:52)
[2018-12-25] MEDS ORDERED: BUSP10TA11 PO ×2 (05:52)
[2018-12-25] MEDS ORDERED: PUMP160C PO (05:52)
[2018-12-25] MEDS ORDERED: CLON-528 PO (05:52)
[2018-12-25] MEDS ORDERED: FURO-150 PO (05:52)
[2018-12-25] MEDS ORDERED: PHOS1POW PO (05:52)
[2018-12-25 06:15] VITALS: BP 143/67
--- NOTE | 2018-12-25 06:15 | NUR ---
Patient's daughter Erica here and states that the patient is confidential and the daughter states no phone calls in to patient. States that she will be here from 04-16 and that she can call anytime to daughter. Additionally states that we can call daughter to come in to speak to .
--- NOTE | 2018-12-25 06:36 | NUR ---
Patient in room 340A. I have received report from VALENTE Almonte and had the opportunity to ask questions and assume patient care.
[2018-12-25] MEDS ORDERED: PUMPKIN SEED OIL PO SCH (08:00)
[2018-12-25] MEDS: PHOSPHATIDYLSERINE PO SCH (08:00)
[2018-12-25] MEDS ORDERED: SAW PALMETTO PO SCH (08:00)
[2018-12-25] MEDS: busPIRone 5mg tablet PO SCH ×2 (08:38→20:00)
[2018-12-25] MEDS: clopidogrel 75mg tablet PO SCH (08:38)
[2018-12-25] MEDS: aspirin 81mg tab.chew PO SCH (08:38)
[2018-12-25] MEDS: losartan 50mg tablet PO SCH (08:38)
[2018-12-25] MEDS: magnesium oxide 400mg tablet PO SCH (08:38)
[2018-12-25] MEDS: furosemide 20MG tablet PO SCH (08:38)
[2018-12-25] MEDS: enoxaparin 40mg/0.4ml syringe SUBCUT SCH (08:39)
[2018-12-25 11:00] VITALS: BP 135/71
--- NOTE | 2018-12-25 18:13 | NUR ---
Problems reprioritized. Patient report given, questions answered & plan of care reviewed with VALENTE Doyle.
--- NOTE | 2018-12-25 18:30 | NUR ---
Patient in room EVE 340. I have received report from Tricia VICTOR and had the opportunity to ask questions and assume patient care.
[2018-12-25 19:00] VITALS: BP 157/59
[2018-12-25] MEDS: nystatin 15 GM powder TP SCH (21:31)
[2018-12-25] MEDS: latanoprost 0.005% 2.5ml ophthalmic drops LEFTEYE SCH (21:31)
[2018-12-25 23:45] VITALS: BP 121/66
[2018-12-26 05:41] LABS: BASOPHILS % (AUTO) 0.3 % (0-1); EOSINOPHILS % (AUTO) 0.3 % (0-6); HEMOGLOBIN 11.4 g/dl (12.0-16.0); LYMPHOCYTES # (AUTO) 0.4 X10'3 (1.1-4.8); LYMPHOCYTES % (AUTO) 4.2 % (21-51); MEAN CORPUSCULAR HEMOGLOBIN 30.1 PG (27.0-31.0); MEAN CORPUSCULAR HGB CONC 34.5 g/dL (33.0-36.5); MEAN CORPUSCULAR VOLUME 87.4 FL (78-98); MEAN PLATELET VOLUME 9.2 FL (7.4-10.4); MONOCYTES # (AUTO) 0.6 X10'3 (0-0.9); MONOCYTES % (AUTO) 6.6 % (2-12); NEUTROPHILS % (AUTO) 88.6 % (42-75); PLATELET COUNT 295 X10'3 (140-440); RED BLOOD COUNT 3.77 X10'6 (4.20-5.60); RED CELL DISTRIBUTION WIDTH 15.3 % (11.5-14.5)
[2018-12-26 05:45] LABS: ALBUMIN 2.8 G/DL (3.4-5.0); ANION GAP 5 (8-16); BLOOD UREA NITROGEN 11 MG/DL (7-18); BUN/CREATININE RATIO 18.6 (6.6-38.0); CALCIUM 8.1 MG/DL (8.5-10.1); CHLORIDE 92 MMOL/L (99-107); CREATININE 0.59 MG/DL (0.40-0.90); GLUCOSE 73 MG/DL (70-104); SODIUM 135 MMOL/L (135-145); TOTAL CARBON DIOXIDE 37.8 MMOL/L (24-32); eGFR > 90 ML/MIN
[2018-12-26 05:49] LABS: POTASSIUM 2.4 MMOL/L (3.5-5.1)
--- NOTE | 2018-12-26 06:30 | NUR ---
Patient in room EVE 340. I have received report from VALENTE Doyle and had the opportunity to ask questions and assume patient care.
[2018-12-26] MEDS ORDERED: magnesium Cl slow-release 64mg tablet PO PRN (06:50)
[2018-12-26] MEDS ORDERED: potassium Cl 20 mEq SR tablet PO PRN ×2 (06:50)
[2018-12-26] MEDS ORDERED: magnesium 4gm in 100ml NS 100 ML IV PRN (06:50)
--- NOTE | 2018-12-26 06:50 | NUR ---
Received message that patients K was 2.4 this AM. informed, orders for mag and K replacement in, day nurse aware.
--- NOTE | 2018-12-26 06:54 | NUR ---
Problems reprioritized. Patient report given, questions answered & plan of care reviewed with Ellie VICTOR.
[2018-12-26 08:00] VITALS: BP 158/60
[2018-12-26] MEDS ORDERED: potassium Cl 40MEQ/NS 500ml 500 ML IV ONE ×2 (08:00→12:00)
[2018-12-26] MEDS: normal saline 1000ml 1,000 ML IV SCH ×2 (08:56→18:23)
[2018-12-26] MEDS: diltiazem CD 180mg cap (once-daily) PO SCH (08:57)
[2018-12-26] MEDS: clopidogrel 75mg tablet PO SCH (08:58)
[2018-12-26] MEDS: busPIRone 5mg tablet PO SCH (09:00)
[2018-12-26] MEDS: losartan 50mg tablet PO SCH (09:02)
[2018-12-26] MEDS: magnesium oxide 400mg tablet PO SCH (09:02)
[2018-12-26] MEDS: furosemide 20MG tablet PO SCH (09:02)
[2018-12-26] MEDS: LACTOBACILLUS RHAMNOSUS GG 15 billion unit sprinkle caps PO SCH (09:02)
[2018-12-26] MEDS: aspirin 81mg tab.chew PO SCH (09:02)
[2018-12-26] MEDS: atorvastatin 20mg tablet PO SCH (09:02)
[2018-12-26] MEDS: nystatin 15 GM powder TP SCH ×3 (09:03→23:33)
[2018-12-26] MEDS: enoxaparin 40mg/0.4ml syringe SUBCUT SCH (09:03)
[2018-12-26] MEDS: PHOSPHATIDYLSERINE PO SCH (09:44)
[2018-12-26] MEDS ORDERED: Ashwagandha PO (09:51)
--- NOTE | 2018-12-26 09:54 | NUR ---
Page sent to Dr. Funk - Order clarification: Pts daughter Staci stated you said the pt could take her home Ashwagandha PO BID PRN? I added med to pts home med list in the computer. Addendum: 12/26/18 at 1004 by Nichelle Lo RN MD called RN back and stated ok to order and administer pts home Ashwagandha when NG tube is removed. Addendum: 12/26/18 at 1005 by Nichelle Lo RN Also talked to MD about pts Buspirone dose. Pt takes 10mg daily at home, we have her on 10mg BID here. Will change Buspirone dosage here to reflect home dose per MD ochoa.
[2018-12-26 12:00] VITALS: BP 166/52
--- NOTE | 2018-12-26 17:20 | NUR ---
Vs stable throughout the day. Denies pain. Pt continues to ask for food throughout the day and continues to ask when she can go home. Pt easily redirected and reminded of plan of care. Lemon mouth swabs provided. Slightly anxious this AM. Daughter, Erica, who is the healthcare social worker states she can take a small dose of Xanax if needed but too much makes pts Bipolar "start up". No Xanax ordered at this time. Pts daughter brought Sonia for pt for anxiety. states ok to give to pt once NGT is removed. 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 k 2.4 this AM. Replacing with IV K throughout the day, running at a slower rate so to not agitate the veins since pt is elderly. Pt tolerating it at 80ml/hr. Moderate amount noted out of pts NGT. Dark brown/black/green color.
--- NOTE | 2018-12-26 18:20 | NUR ---
Patient in room EVE 340. I have received report from Nichelle VICTOR and had the opportunity to ask questions and assume patient care.
[2018-12-26 18:45] VITALS: BP 164/80
--- NOTE | 2018-12-26 19:05 | NUR ---
Patients BP elevated at 192/101. Retook manually =185/90 with irregular pulse at 48. Informed MD. Instructed to take BP/pulse q 4 hrs and to inform MD if systolic up at 200cc.
[2018-12-26] MEDS ORDERED: enalaprilat dihydrate 2.5mg/2ml vial IV PRN ×2 (19:55→20:00)
[2018-12-26 20:00] VITALS: BP 164/80
[2018-12-26] MEDS ORDERED: busPIRone 5mg tablet PO SCH (20:00)
[2018-12-26] MEDS: latanoprost 0.005% 2.5ml ophthalmic drops LEFTEYE SCH (23:32)
[2018-12-27] VITALS (21 sets, daily range): BP systolic 90–198; BP diastolic 34–101
[2018-12-27] MEDS ORDERED: ALPRAZolam 0.25mg tablet PO PRN (00:10)
--- NOTE | 2018-12-27 01:28 | NUR ---
As potassium has only just finished infusing, it will be re-drawn with scheduled AM labs.
[2018-12-27] MEDS: normal saline 1000ml 1,000 ML IV SCH ×2 (02:57→22:04)
[2018-12-27 04:48] LABS: BASOPHILS % (AUTO) 0.5 % (0-1); EOSINOPHILS % (AUTO) 0.1 % (0-6); HEMATOCRIT 36.5 % (35.0-45.0); HEMOGLOBIN 12.5 g/dl (12.0-16.0); LYMPHOCYTES # (AUTO) 0.5 X10'3 (1.1-4.8); LYMPHOCYTES % (AUTO) 4.7 % (21-51); MEAN CORPUSCULAR HEMOGLOBIN 30.9 PG (27.0-31.0); MEAN CORPUSCULAR HGB CONC 34.2 g/dL (33.0-36.5); MEAN CORPUSCULAR VOLUME 90.3 FL (78-98); MEAN PLATELET VOLUME 8.9 FL (7.4-10.4); MONOCYTES # (AUTO) 0.7 X10'3 (0-0.9); MONOCYTES % (AUTO) 6.1 % (2-12); NEUTROPHILS # (AUTO) 9.5 X10'3 (1.8-7.7); NEUTROPHILS % (AUTO) 88.6 % (42-75); PLATELET COUNT 306 X10'3 (140-440); RED BLOOD COUNT 4.04 X10'6 (4.20-5.60); RED CELL DISTRIBUTION WIDTH 15.5 % (11.5-14.5); WHITE BLOOD COUNT 10.7 X10'3 (4.5-11.0)
[2018-12-27 05:12] LABS: ALBUMIN 3.2 G/DL (3.4-5.0); ANION GAP 10 (8-16); BLOOD UREA NITROGEN 11 MG/DL (7-18); CALCIUM 8.4 MG/DL (8.5-10.1); CHLORIDE 98 MMOL/L (99-107); CREATININE 0.58 MG/DL (0.40-0.90); GLUCOSE 62 MG/DL (70-104); MAGNESIUM 1.9 MG/DL (1.5-2.4); POTASSIUM 3.3 MMOL/L (3.5-5.1); SODIUM 141 MMOL/L (135-145); TOTAL CARBON DIOXIDE 33.2 MMOL/L (24-32); eGFR > 90 ML/MIN
--- NOTE | 2018-12-27 05:57 | NUR ---
Patient up/down to BSC and setting off tabs alarm. Pt. has been voiding on BSC as well as having episodes of incontinence. Bladder scan revealed 323cc. Call MD and explained situation and that patient is going to start vancomycin today, and that C&S revealed gram neg rods. MD said to refer to Day MD. Reported situation to day nurse coming on. MD also wants VS q4hrs . Will put in a miscellaneous nursing order.
--- NOTE | 2018-12-27 06:48 | NUR ---
Patient in room EVE 340. I have received report from Yanira VICTOR and had the opportunity to ask questions and assume patient care.
--- NOTE | 2018-12-27 07:03 | NUR ---
Problems reprioritized. Patient report given, questions answered & plan of care reviewed with Makenzie VICTOR and Lula VICTOR.
[2018-12-27] MEDS: LACTOBACILLUS RHAMNOSUS GG 15 billion unit sprinkle caps PO SCH (07:30)
[2018-12-27] MEDS ORDERED: dextrose 50%-water 50ml dispensing syringe IV PRN ×2 (07:35)
[2018-12-27] MEDS ORDERED: glucagon, human recombinant 1mg kit SUBCUT PRN (07:35)
[2018-12-27] MEDS ORDERED: dextrose ORAL solution 15 GM/59 ML bottle PO PRN ×2 (07:35)
[2018-12-27] MEDS: PHOSPHATIDYLSERINE PO SCH (08:00)
[2018-12-27] MEDS: clopidogrel 75mg tablet PO SCH (08:08)
[2018-12-27] MEDS: atorvastatin 20mg tablet PO SCH (08:08)
[2018-12-27] MEDS: diltiazem CD 180mg cap (once-daily) PO SCH (08:08)
[2018-12-27] MEDS: furosemide 20MG tablet PO SCH (08:08)
[2018-12-27] MEDS: losartan 50mg tablet PO SCH (08:08)
[2018-12-27] MEDS: aspirin 81mg tab.chew PO SCH (08:09)
[2018-12-27] MEDS: busPIRone 5mg tablet PO SCH ×2 (08:09→20:00)
[2018-12-27] MEDS: enoxaparin 40mg/0.4ml syringe SUBCUT SCH ×2 (08:10→08:37)
[2018-12-27] MEDS: dextrose 5%-1/2 normal saline 1,000 ML IV SCH ×2 (08:12→17:58)
[2018-12-27] MEDS: hydrALAZINE 20mg/ml inj. IV SCH ×3 (08:54→21:18)
[2018-12-27] MEDS: vancomycin/NS 1 GM ADD-VANTAGE 250 ML IV SCH (08:55)
[2018-12-27] MEDS: nystatin 15 GM powder TP SCH ×3 (09:02→22:07)
[2018-12-27] MEDS: magnesium oxide 400mg tablet PO SCH (09:16)
[2018-12-27] MEDS: benzocaine/menthol oral lozeng 1 EACH BOX MM PRN ×2 (09:29→12:00)
[2018-12-27] MEDS ORDERED: ringers solution, lacted 1,000 ML IV ONE (12:11)
[2018-12-27] MEDS ORDERED: potassium Cl 40MEQ/NS 500ml 500 ML IV ONE (12:35)
[2018-12-27] MEDS ORDERED: LIDOcaine 1% (10mg/ml) 2ml vial ONE (13:49)
[2018-12-27] MEDS ORDERED: ringers solution, lacted 1,000 ML IV SCH (14:02)
[2018-12-27] MEDS ORDERED: fentaNYL/PF 50MCG/1 ML 2ML syringe IV PRN ×2 (14:05)
[2018-12-27] MEDS ORDERED: hydrALAZINE 20mg/ml inj. IV PRN (14:05)
[2018-12-27] MEDS ORDERED: morphine 4 MG/ML inj SYRINge IV PRN (14:05)
[2018-12-27] MEDS ORDERED: ondansetron/PF 4mg/2ml inj IV PRN (14:05)
[2018-12-27] MEDS ORDERED: labetalol 20mg/4ml (5mg/ml) syringe IV PRN (14:05)
--- NOTE | 2018-12-27 14:21 | NUR ---
Called Jeremias VICTOR in recovery to report glucose levels 93. Report was given by Chelsey earlier, just reminded Jeremias that K+3.3 is currently been replaced.
[2018-12-27] MEDS ORDERED: BUPIVAcaine/PF 2.5 mg/ml (0.25%) 30ml vial ONE (14:26)
[2018-12-27] MEDS ORDERED: LIDOcaine 1% 30ml preserv. free vial ONE (14:26)
[2018-12-27] MEDS ORDERED: sevoflurane 250ml liquid IH ONE (14:30)
[2018-12-27] MEDS ORDERED: ondansetron/PF 4mg/2ml inj ONE (14:30)
[2018-12-27] MEDS ORDERED: potassium Cl 2 mEq/ml inj IV ONE (14:30)
[2018-12-27] MEDS ORDERED: MIDAZolam 5mg/5ml vial ONE (14:32)
[2018-12-27] MEDS ORDERED: fentaNYL /PF 50mcg/ml 5ml ampule ONE (14:33)
[2018-12-27] MEDS ORDERED: etomidate 2mg/ml inj. ONE (14:34)
[2018-12-27] MEDS ORDERED: rocuronium 10mg/ml inj IV ONE (14:34)
--- NOTE | 2018-12-27 15:13 | NUR ---
Problems reprioritized. Patient report given, questions answered & plan of care reviewed with Sonal VICTOR in ICU.
[2018-12-27] MEDS ORDERED: dexamethasone sod phosphate 4mg/ml inj. ONE (15:19)
[2018-12-27] MEDS ORDERED: albumin (Human) 5% 250ml 250 ML IV ONE (15:31)
--- NOTE | 2018-12-27 16:04 | NUR ---
Pt had no belongings in her room, hospital medications taken to ICU.
--- NOTE | 2018-12-27 16:07 | NUR ---
Received from OR via , accompanied by Anesthesiologist DR AIKEN and report given by Anesthesiolgist. PT IS UNCONSCIOUS, SKIN WARM AND PINK, NOT MOVING EXT, SIMV VENT FIO2 70, PEEP 5 RIGHT IJ TLC WITH LR 100ML/HR, RIGHT RADIAL ART LINE, NG WITH DARK BROWN DRAINAGE, SCD'S, HOOPER TO GRAVITY CLEAR/LIGHT YELLOW, MIDLINE ABD ISLAND DRESSING DRY WITH SHADOW OF DRAINAGE
[2018-12-27 16:41] LABS: ABG BASE EXCESS 10.8 mmol/L (-2.0-3.0); ABG HCO3 34.2 mmol/L (22.0-26.0); ABG OXYGEN SATURATION 99.4 % (95-98); ABG PCO2 (T) 39.3 mmHg (35.0-45.0); ABG PH (T) 7.555 (7.350-7.450); ABG PO2 (T) 315.2 mmHg (83-108); FCOHb 0.2 % (0.5-1.5); FMetHb 0.2 % (0.3-1.12); MINUTE VOLUME 5 L/min; PATIENT TEMPERATURE 36.4; PEEP 5 cm H2O; RESPIRATORY RATE 10 b/min; RESPIRATORY RATE (OBSERVED) 10 b/min; TIDAL VOLUME 500 mL
--- NOTE | 2018-12-27 17:18 | NUR ---
Report called to receiving nurse. Transferred via BED Belongings . Special Issues communicated to receiving nurse LAUREN VICTOR. PT IS SLEEPING WITH MINIMAL ROUSING, NG TO LIS, RIGHT IJ TLC PATENT, RIGHT RADIAL ARTLINE PROTECTED WITH SPLINT, HOOPER TO GRAVITY, DRESSING DRY WITH SHADOW OF RED, SKIN DRY WITH SCATTERED BRUISING, ABSENT BOWEL SOUNDS, LUNG SOUNDS DIM, VSS, ASSISTED TO ICU WITH RT TO BAG PATIENT.
--- NOTE | 2018-12-27 17:49 | NUR ---
Received pt. from Recovery Room on bed. VSS. Awaiting orders from ICU . Dtr. Maldonado at bedside. Pt. currently on vent at 50% FI02.
[2018-12-27] MEDS: morphine 4 MG/ML inj SYRINge IV PRN ×2 (19:10→22:07)
[2018-12-27] MEDS: lactobacillus rhamnosus 10,000 MMU CELLS/CAPSULE PO SCH (20:00)
[2018-12-27] MEDS: latanoprost 0.005% 2.5ml ophthalmic drops LEFTEYE SCH (21:19)
[2018-12-28] VITALS (24 sets, daily range): BP systolic 90–170; BP diastolic 31–60
[2018-12-28] MEDS: propofol 1000mg/100ml bottle 100 ML IV PRN ×4 (00:18→22:18)
[2018-12-28] MEDS: hydrALAZINE 20mg/ml inj. IV SCH ×4 (02:19→20:00)
[2018-12-28 03:36] LABS: ABG BASE EXCESS 11.8 mmol/L (-2.0-3.0); ABG HCO3 38.1 mmol/L (22.0-26.0); ABG PH (T) 7.435 (7.350-7.450); ABG PO2 (T) 84.6 mmHg (83-108); FCOHb 0.2 % (0.5-1.5); FMetHb 0.4 % (0.3-1.12); FO2Hb 95.4 % (94-100); MINUTE VOLUME 4 L/min; PATIENT TEMPERATURE 36.8; PEEP 5 cm H2O; RESPIRATORY RATE 10 b/min; RESPIRATORY RATE (OBSERVED) 10 b/min; TIDAL VOLUME 375 mL; TOTAL HEMOGLOBIN 11.5 G/dl (12.0-16.0)
[2018-12-28] MEDS: normal saline 1000ml 1,000 ML IV SCH ×2 (04:01→06:37)
[2018-12-28 04:05] LABS: BASOPHILS % (AUTO) 0 % (0-1); EOSINOPHILS % (AUTO) 0 % (0-6); HEMATOCRIT 31.6 % (35.0-45.0); HEMOGLOBIN 10.6 g/dl (12.0-16.0); LYMPHOCYTES # (AUTO) 0.1 X10'3 (1.1-4.8); LYMPHOCYTES % (AUTO) 0.9 % (21-51); MEAN CORPUSCULAR HEMOGLOBIN 30.1 PG (27.0-31.0); MEAN CORPUSCULAR HGB CONC 33.5 g/dL (33.0-36.5); MEAN CORPUSCULAR VOLUME 89.9 FL (78-98); MEAN PLATELET VOLUME 9.1 FL (7.4-10.4); MONOCYTES # (AUTO) 0.4 X10'3 (0-0.9); MONOCYTES % (AUTO) 3.3 % (2-12); NEUTROPHILS # (AUTO) 11.9 X10'3 (1.8-7.7); NEUTROPHILS % (AUTO) 95.8 % (42-75); PLATELET COUNT 241 X10'3 (140-440); RED BLOOD COUNT 3.51 X10'6 (4.20-5.60); RED CELL DISTRIBUTION WIDTH 15.4 % (11.5-14.5); WHITE BLOOD COUNT 12.5 X10'3 (4.5-11.0)
[2018-12-28 04:18] LABS: ALANINE AMINOTRANSFERASE 12 U/L (12-78); ALBUMIN 2.6 G/DL (3.4-5.0); ALBUMIN/GLOBULIN RATIO 1.2 (1.1-1.5); ALKALINE PHOSPHATASE 71 IU/L (46-116); ANION GAP 1 (8-16); ASPARTATE AMINO TRANSFERASE 9 U/L (10-37); BILIRUBIN,TOTAL 0.7 MG/DL (0.1-1.0); BLOOD UREA NITROGEN 9 MG/DL (7-18); CALCIUM 7.5 MG/DL (8.5-10.1); CHLORIDE 103 MMOL/L (99-107); GLUCOSE 144 MG/DL (70-104); MAGNESIUM 1.4 MG/DL (1.5-2.4); POTASSIUM 3.2 MMOL/L (3.5-5.1); SODIUM 140 MMOL/L (135-145); TOTAL CARBON DIOXIDE 35.6 MMOL/L (24-32); TOTAL PROTEIN 4.8 G/DL (6.4-8.2); TRIGLYCERIDES 37 MG/DL (20-135); eGFR > 90 ML/MIN
[2018-12-28] MEDS: potassium CL 10mEq/100ml bag 100 ML IV PRN ×3 (05:05→08:03)
--- NOTE | 2018-12-28 06:34 | NUR ---
Problems reprioritized. Patient report given, questions answered & plan of care reviewed with SREEDHAR VICTOR.
[2018-12-28] MEDS: atorvastatin 20mg tablet PO SCH (07:46)
[2018-12-28] MEDS: aspirin 81mg tab.chew PO SCH (07:46)
[2018-12-28] MEDS: clopidogrel 75mg tablet PO SCH (07:46)
[2018-12-28] MEDS: furosemide 20MG tablet PO SCH (07:46)
[2018-12-28] MEDS: nystatin 15 GM powder TP SCH ×3 (07:46→20:23)
[2018-12-28] MEDS: magnesium oxide 400mg tablet PO SCH (07:46)
[2018-12-28] MEDS: busPIRone 5mg tablet PO SCH ×2 (07:46→20:00)
[2018-12-28] MEDS: losartan 50mg tablet PO SCH (07:47)
[2018-12-28] MEDS: lactobacillus rhamnosus 10,000 MMU CELLS/CAPSULE PO SCH ×2 (07:47→20:00)
[2018-12-28] MEDS: diltiazem CD 180mg cap (once-daily) PO SCH (07:51)
[2018-12-28] MEDS: PHOSPHATIDYLSERINE PO SCH (08:00)
[2018-12-28] MEDS: vancomycin/NS 1 GM ADD-VANTAGE 250 ML IV SCH (08:03)
[2018-12-28] MEDS: fentaNYL/PF 50MCG/1 ML 2ML syringe IV PRN ×3 (10:28→16:43)
--- NOTE | 2018-12-28 11:20 | NUR ---
Patient is mechanically ventilated s/p open exploratory laparotomy with lysis of adhesions d/t SBO on 12/27. Patient is receiving opiate agonists, d/w RN that these meds may cause delay in return of bowel function. TPN not indicated unless expected NPO more than 7 days, d/w RN. Will continue to follow and monitor need for nutrition support if prolonged intubation. Recommend: 1. if prolonged intubation and if TF, would recommend Vital AF at 55 ml/hr 2. When extubated, advance diet as medically indicated to regular when ok by MD 3. bowel care as needed 4. wt per rx Addendum: 12/28/18 at [address] Amended: Links added.
[2018-12-28] MEDS: cefepime 1GM in D5W 50mL 50 ML IV SCH (15:00)
[2018-12-28] MEDS: diltiazem 30mg tablet PO SCH (15:11)
[2018-12-28] MEDS ORDERED: diltiazem 30mg tablet PO SCH (16:00)
[2018-12-28] MEDS: latanoprost 0.005% 2.5ml ophthalmic drops LEFTEYE SCH (20:23)
--- NOTE | 2018-12-28 23:22 | NUR ---
CARMENCITA ORTEGA NP OF PATIENT'S LOW URINE OUTPUT
[2018-12-29] VITALS (21 sets, daily range): BP systolic 112–162; BP diastolic 38–70
[2018-12-29] MEDS: hydrALAZINE 20mg/ml inj. IV SCH ×4 (02:00→19:41)
[2018-12-29 03:21] LABS: BASOPHILS % (AUTO) 0.1 % (0-1); EOSINOPHILS % (AUTO) 0 % (0-6); HEMATOCRIT 29.1 % (35.0-45.0); HEMOGLOBIN 9.9 g/dl (12.0-16.0); LYMPHOCYTES # (AUTO) 0.5 X10'3 (1.1-4.8); LYMPHOCYTES % (AUTO) 6.2 % (21-51); MEAN CORPUSCULAR HGB CONC 34.1 g/dL (33.0-36.5); MEAN CORPUSCULAR VOLUME 87.8 FL (78-98); MONOCYTES # (AUTO) 0.5 X10'3 (0-0.9); MONOCYTES % (AUTO) 5.6 % (2-12); NEUTROPHILS # (AUTO) 7.4 X10'3 (1.8-7.7); NEUTROPHILS % (AUTO) 88.1 % (42-75); PLATELET COUNT 238 X10'3 (140-440); RED BLOOD COUNT 3.31 X10'6 (4.20-5.60); RED CELL DISTRIBUTION WIDTH 15.4 % (11.5-14.5); WHITE BLOOD COUNT 8.4 X10'3 (4.5-11.0)
[2018-12-29 03:35] LABS: ALBUMIN 2.3 G/DL (3.4-5.0); ANION GAP 5 (8-16); BLOOD UREA NITROGEN 14 MG/DL (7-18); BUN/CREATININE RATIO 21.9 (6.6-38.0); CALCIUM 7.7 MG/DL (8.5-10.1); CHLORIDE 104 MMOL/L (99-107); CREATININE 0.64 MG/DL (0.40-0.90); GLUCOSE 85 MG/DL (70-104); MAGNESIUM 2.5 MG/DL (1.5-2.4); SODIUM 141 MMOL/L (135-145); TOTAL CARBON DIOXIDE 31.8 MMOL/L (24-32); eGFR 88 ML/MIN
[2018-12-29 03:41] LABS: POTASSIUM 2.9 MMOL/L (3.5-5.1)
[2018-12-29 03:51] LABS: ABG BASE EXCESS 7.5 mmol/L (-2.0-3.0); ABG HCO3 31.4 mmol/L (22.0-26.0); ABG OXYGEN SATURATION 93.6 % (95-98); ABG PCO2 (T) 42.6 mmHg (35.0-45.0); ABG PH (T) 7.488 (7.350-7.450); ABG PO2 (T) 68.9 mmHg (83-108); FCOHb 0.3 % (0.5-1.5); FMetHb 0.2 % (0.3-1.12); FO2Hb 93.1 % (94-100); MINUTE VOLUME 5 L/min; PATIENT TEMPERATURE 37.6; PEEP 5 cm H2O; RESPIRATORY RATE 13 b/min; RESPIRATORY RATE (OBSERVED) 13 b/min; TIDAL VOLUME 375 mL; TOTAL HEMOGLOBIN 10.8 G/dl (12.0-16.0)
[2018-12-29] MEDS: potassium Cl 20mEq/100mL bag 100 ML IV PRN ×5 (04:03→10:32)
[2018-12-29] MEDS: fentaNYL/PF 50MCG/1 ML 2ML syringe IV PRN ×2 (04:10→05:23)
--- NOTE | 2018-12-29 05:38 | NUR ---
SHORTLY AFTER TURNING OFF SEDATION PATIENT BECAME VERY ANXIOUS. SHE DID FOLLOW COMMANDS AND NODDED HEAD YES AND NO APPROPRIATELY. HOWEVER HER SBP INCREASED TO 180, HR UP TO THE 110'S AND SHE BEGAN TO DESATURATE. ALSO SITTING UP IN BED, VERY ANXIOUS. INFORMED Sirisha ORTEGA NP WHO INSTRUCTED TO RE-START SEDATION.
--- NOTE | 2018-12-29 06:51 | NUR ---
Patient in room ICU 2038. I have received report from SHEILA VICTOR and had the opportunity to ask questions and assume patient care.
[2018-12-29] MEDS: dexmedetomidine inj. 400 MCG in normal saline 100ml IV soln 100 ML IV PRN ×2 (07:12→19:42)
[2018-12-29] MEDS: PHOSPHATIDYLSERINE PO SCH (08:00)
[2018-12-29] MEDS: enoxaparin 40mg/0.4ml syringe SUBCUT SCH ×2 (08:00→09:12)
[2018-12-29 08:55] LABS: ABG BASE EXCESS 9.6 mmol/L (-2.0-3.0); ABG HCO3 34.1 mmol/L (22.0-26.0); ABG PH (T) 7.488 (7.350-7.450); ABG PO2 (T) 55.3 mmHg (83-108); ALLEN'S TEST Positive; FMetHb 0.2 % (0.3-1.12); FO2Hb 88.8 % (94-100); MINUTE VOLUME 6 L/min; PEEP 5 cm H2O; RESPIRATORY RATE (OBSERVED) 17 b/min; TOTAL HEMOGLOBIN 11.1 G/dl (12.0-16.0)
[2018-12-29] MEDS: diltiazem 30mg tablet PO SCH ×3 (09:09→17:20)
[2018-12-29] MEDS: lactobacillus rhamnosus 10,000 MMU CELLS/CAPSULE PO SCH ×2 (09:09→19:41)
[2018-12-29] MEDS: losartan 50mg tablet PO SCH (09:10)
[2018-12-29] MEDS: magnesium oxide 400mg tablet PO SCH (09:11)
[2018-12-29] MEDS: aspirin 81mg tab.chew PO SCH (09:11)
[2018-12-29] MEDS: busPIRone 5mg tablet PO SCH ×2 (09:11→19:41)
[2018-12-29] MEDS: atorvastatin 20mg tablet PO SCH (09:11)
[2018-12-29] MEDS: cefepime 1GM in D5W 50mL 50 ML IV SCH (09:11)
[2018-12-29] MEDS: nystatin 15 GM powder TP SCH ×3 (09:13→19:42)
[2018-12-29] MEDS: clopidogrel 75mg tablet PO SCH (09:13)
[2018-12-29] MEDS: furosemide 20MG tablet PO SCH (09:18)
[2018-12-29 12:35] LABS: ABG BASE EXCESS 11.6 mmol/L (-2.0-3.0); ABG HCO3 36.3 mmol/L (22.0-26.0); ABG OXYGEN SATURATION 93.3 % (95-98); ABG PCO2 (T) 48.1 mmHg (35.0-45.0); ABG PH (T) 7.496 (7.350-7.450); ABG PO2 (T) 64.9 mmHg (83-108); FCOHb 0.3 % (0.5-1.5); FLOW 2 L/min; FMetHb 0.2 % (0.3-1.12); FO2Hb 92.8 % (94-100); RESPIRATORY RATE (OBSERVED) 22 b/min; TOTAL HEMOGLOBIN 11.7 G/dl (12.0-16.0)
--- NOTE | 2018-12-29 12:43 | NUR ---
Called Dr. Young to check on starting TF. Dr. Young wants to wait until he is sure ileus has resolved.
[2018-12-29] MEDS ORDERED: cefepime 1GM in D5W 50mL 50 ML IV SCH (16:00)
[2018-12-29 18:30] LABS: HEMATOCRIT 31.6 % (35.0-45.0); HEMOGLOBIN 10.7 g/dl (12.0-16.0); MEAN CORPUSCULAR HGB CONC 33.9 g/dL (33.0-36.5); MEAN CORPUSCULAR VOLUME 88.4 FL (78-98); MEAN PLATELET VOLUME 8.9 FL (7.4-10.4); PLATELET COUNT 248 X10'3 (140-440); RED BLOOD COUNT 3.57 X10'6 (4.20-5.60); RED CELL DISTRIBUTION WIDTH 15.5 % (11.5-14.5); WHITE BLOOD COUNT 9.9 X10'3 (4.5-11.0)
--- NOTE | 2018-12-29 18:33 | NUR ---
Problems reprioritized. Patient report given, questions answered & plan of care reviewed with MAC RN.
[2018-12-29] MEDS: latanoprost 0.005% 2.5ml ophthalmic drops LEFTEYE SCH (19:42)
[2018-12-30] VITALS (24 sets, daily range): BP systolic 114–162; BP diastolic 47–98
[2018-12-30] MEDS: diltiazem 30mg tablet PO SCH ×5 (00:33→16:37)
[2018-12-30] MEDS: potassium Cl 20mEq/100mL bag 100 ML IV PRN ×2 (00:45→02:27)
[2018-12-30] MEDS: hydrALAZINE 20mg/ml inj. IV SCH ×4 (02:00→20:12)
[2018-12-30 03:39] LABS: BASOPHILS % (AUTO) 0.4 % (0-1); EOSINOPHILS # (AUTO) 0.1 X10'3 (0-0.9); EOSINOPHILS % (AUTO) 1.1 % (0-6); HEMATOCRIT 29.9 % (35.0-45.0); HEMOGLOBIN 10.4 g/dl (12.0-16.0); LYMPHOCYTES # (AUTO) 0.4 X10'3 (1.1-4.8); LYMPHOCYTES % (AUTO) 5.2 % (21-51); MEAN CORPUSCULAR HEMOGLOBIN 30.4 PG (27.0-31.0); MEAN CORPUSCULAR HGB CONC 34.6 g/dL (33.0-36.5); MEAN CORPUSCULAR VOLUME 87.8 FL (78-98); MEAN PLATELET VOLUME 8.8 FL (7.4-10.4); MONOCYTES # (AUTO) 0.5 X10'3 (0-0.9); MONOCYTES % (AUTO) 6.1 % (2-12); NEUTROPHILS % (AUTO) 87.2 % (42-75); PLATELET COUNT 232 X10'3 (140-440); RED BLOOD COUNT 3.41 X10'6 (4.20-5.60); RED CELL DISTRIBUTION WIDTH 15.4 % (11.5-14.5)
[2018-12-30 03:41] LABS: ALBUMIN 2.6 G/DL (3.4-5.0); ANION GAP 1 (8-16); BLOOD UREA NITROGEN 12 MG/DL (7-18); BUN/CREATININE RATIO 21.4 (6.6-38.0); CALCIUM 7.9 MG/DL (8.5-10.1); CHLORIDE 101 MMOL/L (99-107); CREATININE 0.56 MG/DL (0.40-0.90); GLUCOSE 75 MG/DL (70-104); POTASSIUM 4.5 MMOL/L (3.5-5.1); SODIUM 138 MMOL/L (135-145); TOTAL CARBON DIOXIDE 35.7 MMOL/L (24-32); eGFR > 90 ML/MIN
[2018-12-30] MEDS: benzocaine/menthol oral lozeng 1 EACH BOX MM PRN ×2 (04:33→20:12)
--- NOTE | 2018-12-30 04:54 | NUR ---
RN Note -dressing saturated with blood. Assessed site. Surgical site closed, without redness, swelling or hematoma. Still oozing blood from top of incision. Dressing cleaned with NS and changed.
[2018-12-30] MEDS: enoxaparin 40mg/0.4ml syringe SUBCUT SCH (08:00)
[2018-12-30] MEDS: PHOSPHATIDYLSERINE PO SCH ×2 (08:00→20:14)
[2018-12-30] MEDS: clopidogrel 75mg tablet PO SCH (08:27)
[2018-12-30] MEDS: lactobacillus rhamnosus 10,000 MMU CELLS/CAPSULE PO SCH ×2 (08:27→20:12)
[2018-12-30] MEDS: atorvastatin 20mg tablet PO SCH (08:27)
[2018-12-30] MEDS: busPIRone 5mg tablet PO SCH ×2 (08:28→20:14)
[2018-12-30] MEDS: magnesium oxide 400mg tablet PO SCH (08:28)
[2018-12-30] MEDS: furosemide 20MG tablet PO SCH (08:28)
[2018-12-30] MEDS: aspirin 81mg tab.chew PO SCH (08:28)
[2018-12-30] MEDS ORDERED: VANCOMYCIN LEVEL IV ONE (08:30)
[2018-12-30] MEDS: nystatin 15 GM powder TP SCH ×3 (08:30→20:12)
[2018-12-30] MEDS: losartan 50mg tablet PO SCH (08:46)
[2018-12-30] MEDS: cefepime 1GM in D5W 50mL 50 ML IV SCH (08:49)
[2018-12-30] MEDS ORDERED: clonazePAM 0.5mg tablet PO ONE (10:31)
[2018-12-30] MEDS: ondansetron/PF 4mg/2ml inj IV PRN (13:02)
[2018-12-30] MEDS: aspirin 81mg tab.chew PO PRN (13:14)
--- NOTE | 2018-12-30 13:37 | NUR ---
Reassessment: Pt has been extubated still not passing gas per MD notes. TF has been started per MD using Jevity 1.2 with goal rate of 65 mL/hr. Recommendations d/w RN to provide 100 mL water flushes Q4H to meet fluid needs. Pt okay to have sips of clear liquids per MD notes, noted that MD has ordered that in EMR. Will continue to follow. Recommend: 1. Continuous TF of Jevity 1.2 to begin at 30 mL/hr and advance by 10 mL q 6 hours per MD with goal rate of 65 ml/hr to provide: total volume of 1560 mL/day, 1872 kcal, 87 g protein, and 1259 mL water 2. Additional 100 mL water flush Q4H 3. Prealbumin q /; daily weights 4. When extubated, advance diet as medically indicated to regular when ok by MD 5. bowel care as needed Addendum: 12/30/18 at [address] Amended: Links added.
[2018-12-30] MEDS ORDERED: ASHWAGANDHA PO SCH (14:28)
[2018-12-30] MEDS: ASHWAGANDHA PO SCH ×2 (15:51→20:13)
[2018-12-30 16:06] LABS: HEMATOCRIT 31.2 % (35.0-45.0); HEMOGLOBIN 10.6 g/dl (12.0-16.0); MEAN CORPUSCULAR HEMOGLOBIN 29.9 PG (27.0-31.0); MEAN CORPUSCULAR HGB CONC 34.1 g/dL (33.0-36.5); MEAN CORPUSCULAR VOLUME 87.9 FL (78-98); MEAN PLATELET VOLUME 8.8 FL (7.4-10.4); PLATELET COUNT 260 X10'3 (140-440); RED BLOOD COUNT 3.55 X10'6 (4.20-5.60); RED CELL DISTRIBUTION WIDTH 15.6 % (11.5-14.5); WHITE BLOOD COUNT 9.5 X10'3 (4.5-11.0)
[2018-12-30] MEDS: normal saline 1000ml 1,000 ML IV SCH (16:07)
[2018-12-30] MEDS ORDERED: LIDOcaine 1% w/epiNEPHrine 1:200,000 30ml vial SQ ONE (16:10)
[2018-12-30] MEDS: latanoprost 0.005% 2.5ml ophthalmic drops LEFTEYE SCH (20:14)
[2018-12-30 21:08] LABS: BASOPHILS % (AUTO) 0.3 % (0-1); EOSINOPHILS # (AUTO) 0.1 X10'3 (0-0.9); EOSINOPHILS % (AUTO) 0.6 % (0-6); HEMATOCRIT 34.3 % (35.0-45.0); HEMOGLOBIN 11.4 g/dl (12.0-16.0); LYMPHOCYTES # (AUTO) 0.5 X10'3 (1.1-4.8); LYMPHOCYTES % (AUTO) 5.3 % (21-51); MEAN CORPUSCULAR HEMOGLOBIN 29.4 PG (27.0-31.0); MEAN CORPUSCULAR HGB CONC 33.4 g/dL (33.0-36.5); MEAN CORPUSCULAR VOLUME 88.2 FL (78-98); MEAN PLATELET VOLUME 8.6 FL (7.4-10.4); MONOCYTES # (AUTO) 0.6 X10'3 (0-0.9); MONOCYTES % (AUTO) 5.9 % (2-12); NEUTROPHILS # (AUTO) 8.5 X10'3 (1.8-7.7); NEUTROPHILS % (AUTO) 87.9 % (42-75); PLATELET COUNT 279 X10'3 (140-440); RED BLOOD COUNT 3.89 X10'6 (4.20-5.60); RED CELL DISTRIBUTION WIDTH 15.4 % (11.5-14.5); WHITE BLOOD COUNT 9.7 X10'3 (4.5-11.0)
[2018-12-30 21:21] LABS: PARTIAL THROMBOPLASTIN TIME 32 SECONDS (22-32)
[2018-12-30] MEDS: morphine 2 MG/ML inj. syringe IV PRN (21:23)
[2018-12-31] VITALS (24 sets, daily range): BP systolic 119–162; BP diastolic 26–71
[2018-12-31] MEDS: diltiazem 30mg tablet PO SCH ×3 (00:10→15:44)
[2018-12-31] MEDS: morphine 2 MG/ML inj. syringe IV PRN ×3 (01:34→23:05)
[2018-12-31] MEDS: hydrALAZINE 20mg/ml inj. IV SCH ×4 (01:34→20:00)
[2018-12-31] MEDS: ondansetron/PF 4mg/2ml inj IV PRN (02:08)
[2018-12-31 05:13] LABS: HEMATOCRIT 31.3 % (35.0-45.0); HEMOGLOBIN 10.7 g/dl (12.0-16.0); MEAN CORPUSCULAR HEMOGLOBIN 30.4 PG (27.0-31.0); MEAN CORPUSCULAR HGB CONC 34.1 g/dL (33.0-36.5); MEAN CORPUSCULAR VOLUME 89.2 FL (78-98); PLATELET COUNT 265 X10'3 (140-440); RED BLOOD COUNT 3.51 X10'6 (4.20-5.60); RED CELL DISTRIBUTION WIDTH 15.2 % (11.5-14.5); WHITE BLOOD COUNT 8.5 X10'3 (4.5-11.0)
[2018-12-31] MEDS ORDERED: methylnaltrexone br 12mg/0.6ml inj***SubQ only SQ ONE (06:50)
--- NOTE | 2018-12-31 06:53 | NUR ---
Patient in room ICU 2038. I have received report from VALENTE Berry and had the opportunity to ask questions and assume patient care.
[2018-12-31] MEDS: cefepime 1GM in D5W 50mL 50 ML IV SCH (07:12)
[2018-12-31] MEDS: aspirin 81mg tab.chew PO SCH (07:13)
[2018-12-31] MEDS: losartan 50mg tablet PO SCH (07:13)
[2018-12-31] MEDS: atorvastatin 20mg tablet PO SCH (07:13)
[2018-12-31] MEDS: clonazePAM 0.5mg tablet PO SCH (07:13)
[2018-12-31] MEDS: magnesium oxide 400mg tablet PO SCH (07:13)
[2018-12-31] MEDS: furosemide 20MG tablet PO SCH (07:13)
[2018-12-31] MEDS: busPIRone 5mg tablet PO SCH ×2 (07:13→20:55)
[2018-12-31] MEDS: clopidogrel 75mg tablet PO SCH (07:13)
[2018-12-31] MEDS: lactobacillus rhamnosus 10,000 MMU CELLS/CAPSULE PO SCH ×2 (07:13→20:55)
[2018-12-31] MEDS: nystatin 15 GM powder TP SCH ×3 (07:39→20:56)
[2018-12-31] MEDS ORDERED: clonazePAM 0.5mg tablet PO SCH (08:00)
[2018-12-31] MEDS: ASHWAGANDHA PO SCH ×2 (08:00→20:56)
[2018-12-31] MEDS: aspirin 81mg tab.chew PO PRN (12:51)
[2018-12-31 14:55] LABS: HEMATOCRIT 30.6 % (35.0-45.0); HEMOGLOBIN 10.5 g/dl (12.0-16.0); MEAN CORPUSCULAR HEMOGLOBIN 30.1 PG (27.0-31.0); MEAN CORPUSCULAR HGB CONC 34.1 g/dL (33.0-36.5); MEAN CORPUSCULAR VOLUME 88.1 FL (78-98); MEAN PLATELET VOLUME 8.3 FL (7.4-10.4); PLATELET COUNT 276 X10'3 (140-440); RED BLOOD COUNT 3.48 X10'6 (4.20-5.60); RED CELL DISTRIBUTION WIDTH 15.2 % (11.5-14.5); WHITE BLOOD COUNT 7.9 X10'3 (4.5-11.0)
--- NOTE | 2018-12-31 18:11 | NUR ---
Problems reprioritized. Patient report given, questions answered & plan of care reviewed with Asaf RN.
[2018-12-31] MEDS: latanoprost 0.005% 2.5ml ophthalmic drops LEFTEYE SCH (20:56)
[2019-01-01] VITALS (24 sets, daily range): BP systolic 111–171; BP diastolic 49–93
--- NOTE | 2019-01-01 | NUR ---
RN Note -Pt is unable to tolerate reclining more than 60 degrees, even for short periods of time; pt panics and says she cannot breathe. Attempts to turn pt onto side with pillows are ineffective because pt is sitting so upright that she is still on her buttocks. Coccyx is becoming reddened. Placed pt on gelfoam cushion. Will endorse to day shift RN to inquire about specialty mattress.
[2019-01-01] MEDS: diltiazem 30mg tablet PO SCH ×3 (00:27→15:32)
[2019-01-01] MEDS: aspirin 81mg tab.chew PO SCH (00:27)
[2019-01-01] MEDS: hydrALAZINE 20mg/ml inj. IV SCH ×5 (02:00→20:09)
[2019-01-01 06:11] LABS: BASOPHILS % (AUTO) 0.4 % (0-1); EOSINOPHILS # (AUTO) 0.3 X10'3 (0-0.9); EOSINOPHILS % (AUTO) 3.6 % (0-6); HEMATOCRIT 29.8 % (35.0-45.0); HEMOGLOBIN 10.4 g/dl (12.0-16.0); LYMPHOCYTES # (AUTO) 0.6 X10'3 (1.1-4.8); LYMPHOCYTES % (AUTO) 7.1 % (21-51); MEAN CORPUSCULAR HEMOGLOBIN 30.4 PG (27.0-31.0); MEAN CORPUSCULAR HGB CONC 34.9 g/dL (33.0-36.5); MEAN CORPUSCULAR VOLUME 87.2 FL (78-98); MONOCYTES # (AUTO) 0.5 X10'3 (0-0.9); MONOCYTES % (AUTO) 6.2 % (2-12); NEUTROPHILS # (AUTO) 6.9 X10'3 (1.8-7.7); NEUTROPHILS % (AUTO) 82.7 % (42-75); PLATELET COUNT 313 X10'3 (140-440); RED BLOOD COUNT 3.42 X10'6 (4.20-5.60); RED CELL DISTRIBUTION WIDTH 15.4 % (11.5-14.5); WHITE BLOOD COUNT 8.3 X10'3 (4.5-11.0)
[2019-01-01 06:22] LABS: ALBUMIN 2.8 G/DL (3.4-5.0); ANION GAP 1 (8-16); BLOOD UREA NITROGEN 13 MG/DL (7-18); BUN/CREATININE RATIO 21.7 (6.6-38.0); CALCIUM 8.2 MG/DL (8.5-10.1); CHLORIDE 100 MMOL/L (99-107); GLUCOSE 149 MG/DL (70-104); SODIUM 139 MMOL/L (135-145); TOTAL CARBON DIOXIDE 38.3 MMOL/L (24-32); eGFR > 90 ML/MIN
[2019-01-01] MEDS ORDERED: POTASSIUM BICARB 20meq eff tab 20 MEQ TABLET.EFF PO ONE (06:45)
[2019-01-01] MEDS: clonazePAM 0.5mg tablet PO SCH (07:32)
[2019-01-01] MEDS: clopidogrel 75mg tablet PO SCH (07:33)
[2019-01-01] MEDS: busPIRone 5mg tablet PO SCH ×2 (07:33→20:08)
[2019-01-01] MEDS: furosemide 20MG tablet PO SCH (07:33)
[2019-01-01] MEDS: atorvastatin 20mg tablet PO SCH (07:33)
[2019-01-01] MEDS: magnesium oxide 400mg tablet PO SCH (07:33)
[2019-01-01] MEDS: lactobacillus rhamnosus 10,000 MMU CELLS/CAPSULE PO SCH ×2 (07:34→20:08)
[2019-01-01] MEDS: losartan 50mg tablet PO SCH (07:34)
[2019-01-01] MEDS: ASHWAGANDHA PO SCH ×2 (07:35→20:09)
[2019-01-01] MEDS: nystatin 15 GM powder TP SCH ×3 (07:35→20:09)
[2019-01-01] MEDS: cefepime 1GM in D5W 50mL 50 ML IV SCH (07:35)
[2019-01-01] MEDS: PHOSPHATIDYLSERINE PO SCH (07:35)
[2019-01-01] MEDS: morphine 2 MG/ML inj. syringe IV PRN ×4 (10:00→22:11)
[2019-01-01] MEDS: aspirin 81mg tab.chew PO PRN (12:22)
[2019-01-01 15:36] LABS: HEMATOCRIT 29.7 % (35.0-45.0); MEAN CORPUSCULAR HEMOGLOBIN 29.9 PG (27.0-31.0); MEAN CORPUSCULAR HGB CONC 33.7 g/dL (33.0-36.5); MEAN CORPUSCULAR VOLUME 88.7 FL (78-98); MEAN PLATELET VOLUME 8.8 FL (7.4-10.4); PLATELET COUNT 279 X10'3 (140-440); RED BLOOD COUNT 3.35 X10'6 (4.20-5.60); RED CELL DISTRIBUTION WIDTH 15.5 % (11.5-14.5); WHITE BLOOD COUNT 10.5 X10'3 (4.5-11.0)
[2019-01-01] MEDS: normal saline 1000ml 1,000 ML IV SCH (15:50)
[2019-01-01] MEDS: latanoprost 0.005% 2.5ml ophthalmic drops LEFTEYE SCH (20:24)
[2019-01-02] VITALS (17 sets, daily range): BP systolic 105–161; BP diastolic 45–98
[2019-01-02] MEDS: diltiazem 30mg tablet PO SCH ×3 (00:09→16:22)
[2019-01-02] MEDS ORDERED: diphenhydrAMINE 50 mg/ml inj ONE (00:26)
[2019-01-02] MEDS: diphenhydrAMINE 50 mg/ml inj IV PRN ×2 (00:29→07:05)
[2019-01-02] MEDS: hydrALAZINE 20mg/ml inj. IV SCH ×2 (01:56→07:05)
[2019-01-02] MEDS: morphine 2 MG/ML inj. syringe IV PRN ×2 (03:18→08:49)
--- NOTE | 2019-01-02 06:29 | NUR ---
Problems reprioritized. Patient report given, questions answered & plan of care reviewed with VALENTE Domínguez.
[2019-01-02 06:33] LABS: ALBUMIN 2.5 G/DL (3.4-5.0); ANION GAP 1 (8-16); BLOOD UREA NITROGEN 13 MG/DL (7-18); CALCIUM 7.9 MG/DL (8.5-10.1); CHLORIDE 102 MMOL/L (99-107); CREATININE 0.59 MG/DL (0.40-0.90); GLUCOSE 147 MG/DL (70-104); POTASSIUM 3.6 MMOL/L (3.5-5.1); SODIUM 140 MMOL/L (135-145); TOTAL CARBON DIOXIDE 36.8 MMOL/L (24-32); eGFR > 90 ML/MIN
[2019-01-02 06:39] LABS: BASOPHILS % (AUTO) 0.4 % (0-1); EOSINOPHILS # (AUTO) 0.4 X10'3 (0-0.9); EOSINOPHILS % (AUTO) 3.3 % (0-6); HEMATOCRIT 29.6 % (35.0-45.0); HEMOGLOBIN 9.8 g/dl (12.0-16.0); LYMPHOCYTES # (AUTO) 0.6 X10'3 (1.1-4.8); LYMPHOCYTES % (AUTO) 5.1 % (21-51); MEAN CORPUSCULAR HEMOGLOBIN 29.4 PG (27.0-31.0); MEAN CORPUSCULAR HGB CONC 32.9 g/dL (33.0-36.5); MEAN CORPUSCULAR VOLUME 89.2 FL (78-98); MEAN PLATELET VOLUME 9.2 FL (7.4-10.4); MONOCYTES # (AUTO) 0.9 X10'3 (0-0.9); MONOCYTES % (AUTO) 8.3 % (2-12); NEUTROPHILS # (AUTO) 9.3 X10'3 (1.8-7.7); NEUTROPHILS % (AUTO) 82.9 % (42-75); PLATELET COUNT 294 X10'3 (140-440); RED BLOOD COUNT 3.32 X10'6 (4.20-5.60); RED CELL DISTRIBUTION WIDTH 15.7 % (11.5-14.5); WHITE BLOOD COUNT 11.2 X10'3 (4.5-11.0)
[2019-01-02] MEDS: cefepime 1GM in D5W 50mL 50 ML IV SCH (06:50)
[2019-01-02] MEDS: losartan 50mg tablet PO SCH (07:03)
[2019-01-02] MEDS: aspirin 81mg tab.chew PO SCH (07:04)
[2019-01-02] MEDS: busPIRone 5mg tablet PO SCH ×2 (07:04→20:19)
[2019-01-02] MEDS: magnesium oxide 400mg tablet PO SCH (07:04)
[2019-01-02] MEDS: atorvastatin 20mg tablet PO SCH (07:04)
[2019-01-02] MEDS: lactobacillus rhamnosus 10,000 MMU CELLS/CAPSULE PO SCH ×2 (07:04→20:18)
[2019-01-02] MEDS: clopidogrel 75mg tablet PO SCH (07:04)
[2019-01-02] MEDS: ASHWAGANDHA PO SCH ×2 (07:05→20:19)
[2019-01-02] MEDS: furosemide 20MG tablet PO SCH (07:05)
[2019-01-02] MEDS: PHOSPHATIDYLSERINE PO SCH (07:05)
[2019-01-02] MEDS: nystatin 15 GM powder TP SCH ×3 (07:05→20:20)
[2019-01-02] MEDS: clonazePAM 0.5mg tablet PO SCH (07:12)
[2019-01-02] MEDS: aspirin 81mg tab.chew PO PRN ×2 (07:24→13:28)
[2019-01-02] MEDS: sennosides/docusate sodium tablet PO SCH ×2 (11:46→20:19)
[2019-01-02] MEDS: methylnaltrexone br 12mg/0.6ml inj***SubQ only SQ SCH (11:49)
--- NOTE | 2019-01-02 12:26 | NUR ---
Reassessment: Tube feeding continues to be tolerated with Jevity 1.2 at goal rate of 65 mL/hr. Patient also receiving 100 mL water flushes Q4H to meet fluid needs. Pt okay to have sips of clear liquids per MD notes, noted that MD has ordered that in EMR. Pt is s/p open exploratory laparotomy with lysis of adhesions d/t SBO on 12/27. Patient continues to receive morphine prn, MD added relistor today. GRV remain WNL. LBM 11 days ago, RN discussed at rounds that patient has not had a BM, MD also OKayed adding senna. Will continue to follow. Recommend: 1. Continuous TF of Jevity 1.2 at 65 ml/hr per MD to provide: total volume of 1560 mL/day, 1872 kcal, 87 g protein, and 1259 mL water 2. Additional 100 mL water flush Q4H 3. Prealbumin q /; daily weights 4. When extubated, advance diet as medically indicated to regular when ok by MD 5. Continue bowel care as needed Addendum: 01/02/19 at [address] Amended: Links added.
--- NOTE | 2019-01-02 14:22 | NUR ---
Pt is transferred from ICU 2041 to PCU 3018A, received report from Catrachita VICTOR, Pt was transferred @ 1308 via wheelchair with hospital staff, VSS 98.3 74 18 158/77 92% on RA, tele monitor 51, pt is in bed all needs met at this time. will continue to monitor.
[2019-01-02 16:09] LABS: HEMOGLOBIN 9.9 g/dl (12.0-16.0); MEAN CORPUSCULAR VOLUME 87.9 FL (78-98); PLATELET COUNT 326 X10'3 (140-440); RED BLOOD COUNT 3.41 X10'6 (4.20-5.60); RED CELL DISTRIBUTION WIDTH 15.3 % (11.5-14.5); WHITE BLOOD COUNT 13.8 X10'3 (4.5-11.0)
--- NOTE | 2019-01-02 16:18 | NUR ---
WOUND INFECTION EDUCATION PROVIDED BY WOUND CARE 1. Patient instructed to call their primary doctor, or go the ED immediately if any of the following symptoms occur: * Increased pain in wound * Increase in drainage from the wound * Redness in the skin surrounding the wound * Warmth in the skin surrounding the wound * Bleeding from the wound * Temperature of 101 or greater 2. If any of these occur while in the hospital tell a nurse immediately. Addendum: 01/02/19 at 1618 by Ira Mtz RN Amended: Links added.
[2019-01-02] MEDS: HYDROmorphone inj. 0.5 MG/0.5 ML DISP.SYRIN IV PRN (17:18)
--- NOTE | 2019-01-02 18:00 | NUR ---
Patient in room PCU 3018. I have received report from Rosi Duran RN and had the opportunity to ask questions and assume patient care.
--- NOTE | 2019-01-02 18:26 | NUR ---
Problems reprioritized. Patient report given, questions answered & plan of care reviewed with Annie VICTOR.
[2019-01-02] MEDS: latanoprost 0.005% 2.5ml ophthalmic drops LEFTEYE SCH (21:00)
[2019-01-03] MEDS: diltiazem 30mg tablet PO SCH ×4 (00:02→23:19)
[2019-01-03 03:00] VITALS: BP 149/63
[2019-01-03] MEDS: HYDROmorphone inj. 0.5 MG/0.5 ML DISP.SYRIN IV PRN ×2 (03:01→21:29)
[2019-01-03 03:17] LABS: BASOPHILS # (AUTO) 0.1 X10'3 (0-0.2); BASOPHILS % (AUTO) 0.8 % (0-1); EOSINOPHILS # (AUTO) 0.4 X10'3 (0-0.9); EOSINOPHILS % (AUTO) 3.3 % (0-6); HEMATOCRIT 28.7 % (35.0-45.0); HEMOGLOBIN 9.7 g/dl (12.0-16.0); LYMPHOCYTES # (AUTO) 0.6 X10'3 (1.1-4.8); MEAN CORPUSCULAR HEMOGLOBIN 29.9 PG (27.0-31.0); MEAN CORPUSCULAR HGB CONC 33.8 g/dL (33.0-36.5); MEAN CORPUSCULAR VOLUME 88.4 FL (78-98); MEAN PLATELET VOLUME 8.7 FL (7.4-10.4); MONOCYTES # (AUTO) 0.9 X10'3 (0-0.9); MONOCYTES % (AUTO) 8.8 % (2-12); NEUTROPHILS # (AUTO) 8.7 X10'3 (1.8-7.7); NEUTROPHILS % (AUTO) 81.1 % (42-75); PLATELET COUNT 303 X10'3 (140-440); RED BLOOD COUNT 3.25 X10'6 (4.20-5.60); WHITE BLOOD COUNT 10.7 X10'3 (4.5-11.0)
[2019-01-03 03:25] LABS: ALBUMIN 2.6 G/DL (3.4-5.0); ANION GAP 2 (8-16); BLOOD UREA NITROGEN 12 MG/DL (7-18); BUN/CREATININE RATIO 23.1 (6.6-38.0); CHLORIDE 99 MMOL/L (99-107); CREATININE 0.52 MG/DL (0.40-0.90); GLUCOSE 110 MG/DL (70-104); POTASSIUM 3.4 MMOL/L (3.5-5.1); SODIUM 136 MMOL/L (135-145); TOTAL CARBON DIOXIDE 34.7 MMOL/L (24-32); eGFR > 90 ML/MIN
[2019-01-03 06:00] VITALS: BP 156/71
--- NOTE | 2019-01-03 06:20 | NUR ---
Problems reprioritized. Patient report given, questions answered & plan of care reviewed with VALENTE Wynn.
--- NOTE | 2019-01-03 06:55 | NUR ---
Patient in room PCU 3018. I have received report from VALENTE Valencia and had the opportunity to ask questions and assume patient care. Pt is awake and confused. Will continue to monitor.
[2019-01-03] MEDS: aspirin 81mg tab.chew PO SCH (08:17)
[2019-01-03] MEDS: clonazePAM 0.5mg tablet PO SCH (08:19)
[2019-01-03] MEDS: atorvastatin 20mg tablet PO SCH (08:20)
[2019-01-03] MEDS: magnesium oxide 400mg tablet PO SCH (08:20)
[2019-01-03] MEDS: busPIRone 5mg tablet PO SCH ×2 (08:20→19:55)
[2019-01-03] MEDS: furosemide 20MG tablet PO SCH (08:20)
[2019-01-03] MEDS: sennosides/docusate sodium tablet PO SCH ×2 (08:20→19:55)
[2019-01-03] MEDS: clopidogrel 75mg tablet PO SCH (08:20)
[2019-01-03] MEDS: lactobacillus rhamnosus 10,000 MMU CELLS/CAPSULE PO SCH ×2 (08:20→19:55)
[2019-01-03] MEDS: losartan 50mg tablet PO SCH (08:20)
[2019-01-03] MEDS: cefepime 1GM in D5W 50mL 50 ML IV SCH (08:21)
[2019-01-03] MEDS: nystatin 15 GM powder TP SCH ×3 (08:22→21:28)
[2019-01-03] MEDS: PHOSPHATIDYLSERINE PO SCH (08:54)
[2019-01-03] MEDS: ASHWAGANDHA PO SCH ×2 (08:54→19:56)
--- NOTE | 2019-01-03 10:38 | NUR ---
Reassessment: Pt has been transferred to the floors and passed BSS with ST recs to advance to mechanical soft diet with thin liquids. TF has been discontinued however still with active diet order. D/w RN to d/c active TF and pureed diet order. Noted that pt with without a BM since 12/22. Pt receiving routine Relistor and Senna-S and with PRN MoM just given today. Pt receiving PRN Dilaudid and may benefit from GI stimulant such as Reglan per MD approval, d/w RN as well. Will continue to follow. Recommend: 1. Continue Na restrict heart healthy diet [facility] soft with thin liquids per ST recs; consider diet liberalization if poor PO intake 2. Continue routine bowel care; monitor need for additional 3. Wt per rx Addendum: 01/03/19 at [address] Amended: Links added.
[2019-01-03 11:00] VITALS: BP 143/51
[2019-01-03] MEDS: aspirin 81mg tab.chew PO PRN (13:41)
[2019-01-03 15:00] VITALS: BP 135/56
[2019-01-03 15:35] LABS: HEMATOCRIT 29.8 % (35.0-45.0); MEAN CORPUSCULAR HEMOGLOBIN 29.8 PG (27.0-31.0); MEAN CORPUSCULAR HGB CONC 33.6 g/dL (33.0-36.5); MEAN CORPUSCULAR VOLUME 88.8 FL (78-98); MEAN PLATELET VOLUME 9.1 FL (7.4-10.4); PLATELET COUNT 327 X10'3 (140-440); RED BLOOD COUNT 3.36 X10'6 (4.20-5.60); RED CELL DISTRIBUTION WIDTH 15.4 % (11.5-14.5)
[2019-01-03] MEDS: normal saline 1000ml 1,000 ML IV SCH ×2 (15:50→21:37)
[2019-01-03] MEDS ORDERED: potassium CL 10mEq/100ml bag 100 ML IV PRN ×2 (16:45)
[2019-01-03] MEDS ORDERED: potassium Cl 20 mEq SR tablet PO PRN (16:45)
[2019-01-03] MEDS: K and/or MAG REPLACEMENT MC SCH (16:45)
[2019-01-03] MEDS: potassium Cl 20 mEq SR tablet PO PRN ×2 (17:48→21:37)
--- NOTE | 2019-01-03 18:30 | NUR ---
Patient in room PCU 3018. I have received report from VALENTE Wynn and had the opportunity to ask questions and assume patient care.
--- NOTE | 2019-01-03 18:53 | NUR ---
Problems reprioritized. Patient report given, questions answered & plan of care reviewed with VALENTE Valencia.
[2019-01-03 19:00] VITALS: BP 136/82
[2019-01-03] MEDS: latanoprost 0.005% 2.5ml ophthalmic drops LEFTEYE SCH (21:00)
[2019-01-03 23:00] VITALS: BP 151/52
[2019-01-04] MEDS: potassium Cl 20 mEq SR tablet PO PRN (02:10)
[2019-01-04] MEDS: HYDROmorphone inj. 0.5 MG/0.5 ML DISP.SYRIN IV PRN (02:23)
[2019-01-04 03:00] VITALS: BP 167/73
[2019-01-04 06:00] VITALS: BP 144/75
--- NOTE | 2019-01-04 06:25 | NUR ---
Problems reprioritized. Patient report given, questions answered & plan of care reviewed with VALENTE Wynn.
--- NOTE | 2019-01-04 06:40 | NUR ---
Patient in room PCU 3018. I have received report from VALENTE Valencia and had the opportunity to ask questions and assume patient care. Pt is awake and alert. Will continue to monitor.
[2019-01-04] MEDS: K and/or MAG REPLACEMENT MC SCH (08:00)
[2019-01-04] MEDS ORDERED: cefepime 1GM/NS ADD-VANTAGE 100 ML IV SCH (08:00)
[2019-01-04] MEDS: methylnaltrexone br 12mg/0.6ml inj***SubQ only SQ SCH (08:12)
[2019-01-04] MEDS: diltiazem 30mg tablet PO SCH ×2 (08:12→16:00)
[2019-01-04] MEDS: furosemide 20MG tablet PO SCH (08:12)
[2019-01-04] MEDS: aspirin 81mg tab.chew PO SCH (08:13)
[2019-01-04] MEDS: sennosides/docusate sodium tablet PO SCH (08:13)
[2019-01-04] MEDS: lactobacillus rhamnosus 10,000 MMU CELLS/CAPSULE PO SCH (08:13)
[2019-01-04] MEDS: clopidogrel 75mg tablet PO SCH (08:13)
[2019-01-04] MEDS: busPIRone 5mg tablet PO SCH (08:13)
[2019-01-04] MEDS: atorvastatin 20mg tablet PO SCH (08:13)
[2019-01-04] MEDS: clonazePAM 0.5mg tablet PO SCH (08:13)
[2019-01-04] MEDS: magnesium oxide 400mg tablet PO SCH (08:13)
[2019-01-04] MEDS: losartan 50mg tablet PO SCH (08:14)
[2019-01-04] MEDS: PHOSPHATIDYLSERINE PO SCH (08:14)
[2019-01-04] MEDS: ASHWAGANDHA PO SCH (08:14)
[2019-01-04] MEDS: nystatin 15 GM powder TP SCH ×2 (08:14→13:52)
[2019-01-04 11:00] VITALS: BP 112/46
[2019-01-04] MEDS ORDERED: bisacodyl 10mg suppository rectal RC STA (13:04)
--- NOTE | 2019-01-04 14:49 | NUR ---
After removing the surgical winter per Dr. Burgess's order, I discovered that pt had sutures as well. TC to Dr. Young to see if he wanted sutures out as well. He indicated that he would not want the sutures or winter removed at this point, but conceded that if Dr. Burgess had rounded and written orders, that could happen. He stated that if winter hadn't already been remove, pt can wait until follow up next to remove both.
[2019-01-04 15:00] VITALS: BP 123/48
--- NOTE | 2019-01-04 16:36 | NUR ---
Pt discharged. IV d/c'd, tele removed. Some belongings sent home with pt, one pt belonging bag was left behind; daughter/POA was called, and a message was left. Pt left with daughter in private vehicle.
--- NOTE | 2019-01-04 17:49 | NUR ---
Pt left one of three belonging bags behind. The pt's daughter will return tomorrow 01/05 to vegetable picker the bag. The pt belonging bag is under the counter next to charge's desk at nurse's station, with a pt label on it.
== END 2019-01-04 17:15 | disposition home or self-care (01) | DRG 335 ==
LOC: ER 23:18 → CMPBEDREQ 12-25 05:35 → SUR 3N 12-25 06:39 → EEVIPCON 12-25 06:39 → SUR 3N 12-27 08:43 → ICU 2S 12-27 15:01 → PCU 3S 01-02 13:07
PROVIDERS: ADMIT Hospitalist; ATTEND Internal Medicine Critical Care Medicine
PROC: 0D9670Z Drainage of Stomach with Drainage Device, Via Natural or Artificial Opening (ICD-10-PCS; 2018-12-25)
PROC: BW211ZZ Computerized Tomography (CT Scan) of Abdomen and Pelvis using Low Osmolar Contrast (ICD-10-PCS; 2018-12-25)
PROC: 5A1945Z Respiratory Ventilation, 24-96 Consecutive Hours (ICD-10-PCS; 2018-12-27)
PROC: 0BH17EZ Insertion of Endotracheal Airway into Trachea, Via Natural or Artificial Opening (ICD-10-PCS; 2018-12-27)
PROC: 0DN80ZZ Release Small Intestine, Open Approach (ICD-10-PCS; principal; 2018-12-27 14:30)
PROC: 5A09357 Assistance with Respiratory Ventilation, Less than 24 Consecutive Hours, Continuous Positive Airway Pressure (ICD-10-PCS; 2018-12-29)
DX: K56.50 Intestinal adhesions [bands], unspecified as to partial versus complete obstruction (principal); G93.41 Metabolic encephalopathy; J96.20 Acute and chronic respiratory failure, unspecified whether with hypoxia or hypercapnia; E87.1 Hypo-osmolality and hyponatremia; N39.0 Urinary tract infection, site not specified; F03.90 Unspecified dementia, unspecified severity, without behavioral disturbance, psychotic disturbance, mood disturbance, and anxiety; F31.9 Bipolar disorder, unspecified; F41.9 Anxiety disorder, unspecified; I11.0 Hypertensive heart disease with heart failure; I25.10 Atherosclerotic heart disease of native coronary artery without angina pectoris; I50.9 Heart failure, unspecified; K57.90 Diverticulosis of intestine, part unspecified, without perforation or abscess without bleeding; N73.6 Female pelvic peritoneal adhesions (postinfective); Z79.02 Long term (current) use of antithrombotics/antiplatelets; Z85.828 Personal history of other malignant neoplasm of skin; Z90.49 Acquired absence of other specified parts of digestive tract; Z90.710 Acquired absence of both cervix and uterus; Z96.649 Presence of unspecified artificial hip joint; Z99.81 Dependence on supplemental oxygen; I49.9 Cardiac arrhythmia, unspecified; Z88.2 Allergy status to sulfonamides; Z88.8 Allergy status to other drugs, medicaments and biological substances; Z88.1 Allergy status to other antibiotic agents; Z91.011 Allergy to milk products; Z88.0 Allergy status to penicillin; Z91.013 Allergy to seafood; Z79.899 Other long term (current) drug therapy; J43.9 Emphysema, unspecified
CPT/HCPCS: 36415; 36600; 71045; 74018; 74176; 80048; 80053; 81001; 82803; 82948; 83690; 83735; 84132; 84478; 85018; 85025; 85027; 85610; 85730; 87077; 87088; 87186; 92508; 92616; 93005; 94002; 94003; 94640; 94760; 96361; 96374; 97110; 97116; 97162; 97530; 99285; A4215; A4618; A7000; C1751; C1758; G0378; J0360; J0692; J1100; J1170; J1200; J1650; J2001; J2212; J2250; J2270; J2405; J2704; J3010; J3370; J3475; J3480; J3490; J7030; J7120; P9045; Q9963

== ENCOUNTER 2019-01-22 08:12 | Inpatient (IN) | payer MEDICARE ==
[2019-01-22] VITALS (16 sets, daily range): BP systolic 110–153; BP diastolic 52–79
[~2019-01-22] VITALS: Ht 157.5 cm; Wt 56.8 kg
[~2019-01-22 08:12] MED LIST changes: -ACET-1025 PO; -ALBU8.5H8 INH; -AMLO10TA PO; +ASPI-1053 PO; -ATOR20TA PO; +ATOR20TA66 PO; +Ashwagandha PO; -CALC355O3; -CHOL10002 PO; +CLOP75TA33 PO; -CLOP75TA35 PO; -DILT180C10; +DILT180C64; -DOCU-28 PO; -IPRA3AMP31 IH; +LACT1CAP26 PO; +LOSA100T3 PO; -LOSA25TA96 PO; +MAGN400C PO; +PHOS1POW PO; -PRED10TA23 PO; +PUMP160C PO; +XAL0.005OS OP
[2019-01-22] MEDS ORDERED: normal saline 1000ML IV soln IVB ONE (08:50)
[2019-01-22 09:16] LABS: CLARITY,URINE SLIGHTLY CLOUDY (Clear); COLOR,URINE STRAW (Yellow); GLUCOSE, URINE NEGATIVE (Neg); KETONES,URINE NEGATIVE (Neg); LEUKOCYTE ESTERASE ,URINE SMALL (Neg); NITRITES, URINE NEGATIVE (Neg); OCCULT BLOOD,URINE NEGATIVE (Neg); PROTEIN,URINE NEGATIVE (Neg); UROBILINOGEN,URINE 0.2 E.U/dL (0.2-1.0)
[2019-01-22 09:18] LABS: UA COLLECTION TYPE STRAIGHT CATH
[2019-01-22 09:18] LABS: BASOPHILS % (AUTO) 0.5 % (0-1); EOSINOPHILS % (AUTO) 0.6 % (0-6); LYMPHOCYTES # (AUTO) 0.3 X10'3 (1.1-4.8); LYMPHOCYTES % (AUTO) 3.6 % (21-51); MEAN CORPUSCULAR HEMOGLOBIN 30.3 PG (27.0-31.0); MEAN CORPUSCULAR HGB CONC 34.2 g/dL (33.0-36.5); MEAN CORPUSCULAR VOLUME 88.6 FL (78-98); MEAN PLATELET VOLUME 8.3 FL (7.4-10.4); MONOCYTES # (AUTO) 0.5 X10'3 (0-0.9); MONOCYTES % (AUTO) 7.2 % (2-12); NEUTROPHILS # (AUTO) 6.1 X10'3 (1.8-7.7); NEUTROPHILS % (AUTO) 88.1 % (42-75); PLATELET COUNT 380 X10'3 (140-440); RED BLOOD COUNT 2.17 X10'6 (4.20-5.60); RED CELL DISTRIBUTION WIDTH 16.1 % (11.5-14.5)
[2019-01-22 09:22] LABS: HEMOGLOBIN 6.6 g/dl (12.0-16.0)
[2019-01-22 09:23] LABS: HEMATOCRIT 19.2 % (35.0-45.0)
[2019-01-22 09:29] LABS: BACTERIA,URINE 4+ /HPF (Neg); MUCUS STRANDS FEW /LPF (Neg); RBC,URINE 0-2 /HPF (0-2); SQUAMOUS EPITHELIAL CELL,UR FEW /LPF (FEW)
[2019-01-22 09:37] LABS: ALANINE AMINOTRANSFERASE 15 U/L (12-78); ALBUMIN 2.8 G/DL (3.4-5.0); ALKALINE PHOSPHATASE 120 IU/L (46-116); ANION GAP 3 (8-16); ASPARTATE AMINO TRANSFERASE 11 U/L (10-37); BILIRUBIN,TOTAL 0.4 MG/DL (0.1-1.0); BLOOD UREA NITROGEN 10 MG/DL (7-18); BUN/CREATININE RATIO 15.9 (6.6-38.0); CALCIUM 7.7 MG/DL (8.5-10.1); CHLORIDE 91 MMOL/L (99-107); CREATININE 0.63 MG/DL (0.40-0.90); GLUCOSE 114 MG/DL (70-104); POTASSIUM 4.4 MMOL/L (3.5-5.1); SODIUM 127 MMOL/L (135-145); TOTAL PROTEIN 5.6 G/DL (6.4-8.2); eGFR 90 ML/MIN
[2019-01-22] MEDS ORDERED: pantoprazole 40MG/NS 100ML BAG 100 ML IV ONE (09:45)
[2019-01-22] MEDS ORDERED: levoFLOXACIN-Levaquin 750MG/D5 150 ML IV ONE (09:50)
[2019-01-22] MEDS ORDERED: potassium Cl 20 mEq SR tablet PO PRN ×2 (10:15)
[2019-01-22] MEDS ORDERED: magnesium 2GM in 50ml NS 50 ML IV PRN (10:15)
[2019-01-22] MEDS ORDERED: magnesium Cl slow-release 64mg tablet PO PRN (10:15)
[2019-01-22] MEDS ORDERED: acetaminophen 325mg tablet PO PRN (10:15)
[2019-01-22] MEDS ORDERED: magnesium 4gm in 100ml NS 100 ML IV PRN (10:15)
[2019-01-22] MEDS ORDERED: pantoprazole 40 MG vial IV ONE (10:15)
[2019-01-22] MEDS ORDERED: potassium CL 10mEq/100ml bag 100 ML IV PRN ×2 (10:15)
[2019-01-22] MEDS ORDERED: mag hydrox/Alum hydrox/simeth 30ml oral suspension PO PRN (10:15)
[2019-01-22] MEDS ORDERED: ondansetron/PF 4mg/2ml inj IV PRN (10:15)
[2019-01-22] MEDS ORDERED: magnesium hydroxide 30ml (MOM) UD suspension PO PRN (10:15)
[2019-01-22] MEDS: normal saline 1000ml 1,000 ML IV SCH ×2 (10:30→18:18)
[2019-01-22] MEDS ORDERED: pantoprazole 40MG/NS 100ML BAG 100 ML IV SCH (11:00)
[2019-01-22] MEDS ORDERED: LIDOcaine Viscous 15ml cup ONE (12:32)
[2019-01-22] MEDS ORDERED: MIDAZolam 5mg/5ml vial ONE (12:32)
[2019-01-22] MEDS ORDERED: fentaNYL/PF 50MCG/1 ML 2ML syringe ONE (12:32)
--- NOTE | 2019-01-22 14:30 | NUR ---
Patient in room EVE 345. I have received report from Alisia VICTOR, and Rosi VICTOR and had the opportunity to ask questions and assume patient care.patient orientated to room , daughter tomi present . patient receiving blood first unit VSS.will continue to monitor.
[2019-01-22] MEDS ORDERED: BUSP7.5T4 PO (15:48)
[2019-01-22] MEDS: clonazePAM 0.5mg tablet PO SCH (16:35)
[2019-01-22] MEDS: busPIRone 5mg tablet PO SCH (17:19)
--- NOTE | 2019-01-22 18:31 | NUR ---
second unit of blood given , patient tolerated well. Daughter at bedside. patient needing much reassurance very anxious , constantly asking for repositioning, for many needs to be met. Much time spent with patient and daughter. Pharmacist nubia present working through specific needs of meds with this staff and daughter tomi. See EMAR. Wound to right negro pictured and covered with optifoam. prophylactic optifoam to left negro and sacrum. Sacrum appears reddened, blanchable. Patient instructed and assisted to be positioned side to side. Report given to Jerald VICTOR
[2019-01-22] MEDS: pantoprazole 40mg Tablet.DR PO SCH (19:36)
[2019-01-22] MEDS: lactobacillus rhamnosus 10,000 MMU CELLS/CAPSULE PO SCH (19:36)
[2019-01-22] MEDS: acetaminophen 325mg tablet PO PRN (19:41)
[2019-01-22] MEDS ORDERED: non-formulary drug (Buspirone Hcl* (Buspar*) 1 TAB) PO SCH (20:00)
[2019-01-22] MEDS ORDERED: temazepam 15mg capsule PO PRN (21:00)
[2019-01-22 22:24] LABS: HEMATOCRIT 24.5 % (35.0-45.0); HEMOGLOBIN 8.3 g/dl (12.0-16.0); MEAN CORPUSCULAR HEMOGLOBIN 30.2 PG (27.0-31.0); MEAN CORPUSCULAR HGB CONC 33.9 g/dL (33.0-36.5); MEAN CORPUSCULAR VOLUME 89.2 FL (78-98); MEAN PLATELET VOLUME 8.6 FL (7.4-10.4); PLATELET COUNT 316 X10'3 (140-440); RED BLOOD COUNT 2.75 X10'6 (4.20-5.60); RED CELL DISTRIBUTION WIDTH 15.1 % (11.5-14.5); WHITE BLOOD COUNT 11.5 X10'3 (4.5-11.0)
[2019-01-23] MEDS: acetaminophen 325mg tablet PO PRN ×3 (01:35→20:58)
[2019-01-23 04:49] LABS: HEMATOCRIT 24.2 % (35.0-45.0); MEAN CORPUSCULAR HEMOGLOBIN 29.9 PG (27.0-31.0); MEAN CORPUSCULAR VOLUME 90.5 FL (78-98); MEAN PLATELET VOLUME 8.8 FL (7.4-10.4); PLATELET COUNT 324 X10'3 (140-440); RED BLOOD COUNT 2.67 X10'6 (4.20-5.60); RED CELL DISTRIBUTION WIDTH 15.2 % (11.5-14.5); WHITE BLOOD COUNT 11.3 X10'3 (4.5-11.0)
[2019-01-23 04:54] LABS: ALBUMIN 2.3 G/DL (3.4-5.0); ANION GAP 4 (8-16); BLOOD UREA NITROGEN 4 MG/DL (7-18); CALCIUM 7.5 MG/DL (8.5-10.1); CHLORIDE 99 MMOL/L (99-107); CREATININE 0.57 MG/DL (0.40-0.90); GLUCOSE 103 MG/DL (70-104); MAGNESIUM 1.7 MG/DL (1.5-2.4); PHOSPHORUS 3.5 MG/DL (2.3-4.5); SODIUM 132 MMOL/L (135-145); TOTAL CARBON DIOXIDE 29.1 MMOL/L (24-32); eGFR > 90 ML/MIN
--- NOTE | 2019-01-23 06:39 | NUR ---
Patient in room EVE 345. I have received report from Jerald VICTOR and had the opportunity to ask questions and assume patient care.
--- NOTE | 2019-01-23 06:42 | NUR ---
Problems reprioritized. Patient report given, questions answered & plan of care reviewed with JASEN. Addendum: 01/23/19 at 0643 by Jaren Pichardo RN Amended: Links added.
[2019-01-23 07:00] VITALS: BP 146/59
[2019-01-23] MEDS ORDERED: K and/or MAG REPLACEMENT MC SCH (08:00)
[2019-01-23] MEDS ORDERED: clonazePAM 0.5mg tablet PO SCH (08:00)
[2019-01-23] MEDS: furosemide 40mg tablet PO SCH (08:18)
[2019-01-23] MEDS: levoFLOXACIN-Levaquin 500mg/D5 100 ML IV SCH (08:18)
[2019-01-23] MEDS: potassium Cl 20 mEq SR tablet PO SCH (08:18)
[2019-01-23] MEDS: busPIRone 5mg tablet PO SCH ×3 (08:19→17:55)
[2019-01-23] MEDS: losartan 50mg tablet PO SCH (08:20)
[2019-01-23] MEDS: clonazePAM 0.5mg tablet PO SCH ×2 (08:20→21:02)
[2019-01-23] MEDS: lactobacillus rhamnosus 10,000 MMU CELLS/CAPSULE PO SCH ×2 (08:21→20:58)
[2019-01-23] MEDS: pantoprazole 40mg Tablet.DR PO SCH ×2 (08:21→20:58)
[2019-01-23] MEDS: normal saline 1000ml 1,000 ML IV SCH (08:26)
[2019-01-23 11:00] VITALS: BP 111/49
--- NOTE | 2019-01-23 17:42 | NUR ---
irrigation technician reported patient had runs of SVT. Printed strip was faxed to our unit. Patient asymptomatic, BP 140/62, pulse 76, O2 sat 97%. No new order made
--- NOTE | 2019-01-23 18:23 | NUR ---
Problems reprioritized. Patient report given, questions answered & plan of care reviewed with Jerald VICTOR.
[2019-01-23 19:00] VITALS: BP 120/60
[2019-01-24 05:14] LABS: HEMATOCRIT 25.2 % (35.0-45.0); HEMOGLOBIN 8.5 g/dl (12.0-16.0); MEAN CORPUSCULAR HEMOGLOBIN 30.2 PG (27.0-31.0); MEAN CORPUSCULAR HGB CONC 33.7 g/dL (33.0-36.5); MEAN CORPUSCULAR VOLUME 89.6 FL (78-98); MEAN PLATELET VOLUME 8.4 FL (7.4-10.4); PLATELET COUNT 320 X10'3 (140-440); RED BLOOD COUNT 2.81 X10'6 (4.20-5.60); RED CELL DISTRIBUTION WIDTH 15.6 % (11.5-14.5)
[2019-01-24 05:27] LABS: ALBUMIN 2.4 G/DL (3.4-5.0); ANION GAP 1 (8-16); BLOOD UREA NITROGEN 8 MG/DL (7-18); BUN/CREATININE RATIO 11.8 (6.6-38.0); CALCIUM 7.9 MG/DL (8.5-10.1); CHLORIDE 98 MMOL/L (99-107); CREATININE 0.68 MG/DL (0.40-0.90); GLUCOSE 106 MG/DL (70-104); MAGNESIUM 1.6 MG/DL (1.5-2.4); PHOSPHORUS 3.8 MG/DL (2.3-4.5); POTASSIUM 4.1 MMOL/L (3.5-5.1); SODIUM 133 MMOL/L (135-145); TOTAL CARBON DIOXIDE 33.7 MMOL/L (24-32); eGFR 82 ML/MIN
--- NOTE | 2019-01-24 06:00 | NUR ---
Problems reprioritized. Patient report given, questions answered & plan of care reviewed with RABIA. Addendum: 01/24/19 at 0657 by Jaren Pichardo RN Amended: Links added.
--- NOTE | 2019-01-24 06:24 | NUR ---
Patient in room EVE 349. I have received report from Jerald VICTOR and had the opportunity to ask questions and assume patient care.
[2019-01-24 07:00] VITALS: BP 96/66
[2019-01-24] MEDS: losartan 50mg tablet PO SCH (08:00)
[2019-01-24] MEDS: furosemide 40mg tablet PO SCH (08:00)
[2019-01-24] MEDS: clonazePAM 0.5mg tablet PO SCH (08:04)
[2019-01-24] MEDS: pantoprazole 40mg Tablet.DR PO SCH (08:05)
[2019-01-24] MEDS: busPIRone 5mg tablet PO SCH (08:05)
[2019-01-24] MEDS: lactobacillus rhamnosus 10,000 MMU CELLS/CAPSULE PO SCH (08:05)
[2019-01-24] MEDS: levoFLOXACIN-Levaquin 500mg/D5 100 ML IV SCH (08:06)
[2019-01-24] MEDS: potassium Cl 20 mEq SR tablet PO SCH (08:06)
[2019-01-24] MEDS: acetaminophen 325mg tablet PO PRN (09:27)
--- NOTE | 2019-01-24 09:56 | NUR ---
Discharged patient home with her daughter. Discharge instructions given to the daughter as patient is demented. Daughter verbalized understanding of all instructions made. Peripheral IV catheter removed, tip intact. Instructed the daughter to ensure they have all the belongings with them.
[2019-01-28 10:07] LABS: OCCULT BLOOD STOOL POSITIVE (Neg)
== END 2019-01-24 10:25 | disposition home or self-care (01) | DRG 378 ==
LOC: ER 08:13 → EDBEDREQTM 10:33 → EDBEDREQSVC 10:33 → SUR 3N 12:48 → CMPBEDREQ 01-23 19:33 → SUR 3N 01-23 21:35
PROVIDERS: ADMIT Family Medicine; ATTEND Internal Medicine
PROC: 0DJ08ZZ Inspection of Upper Intestinal Tract, Via Natural or Artificial Opening Endoscopic (ICD-10-PCS; principal; 2019-01-22)
PROC: 30233N1 Transfusion of Nonautologous Red Blood Cells into Peripheral Vein, Percutaneous Approach (ICD-10-PCS; 2019-01-22)
DX: K92.1 Melena (principal); N39.0 Urinary tract infection, site not specified; E87.1 Hypo-osmolality and hyponatremia; D62 Acute posthemorrhagic anemia; I13.0 Hypertensive heart and chronic kidney disease with heart failure and stage 1 through stage 4 chronic kidney disease, or unspecified chronic kidney disease; J96.11 Chronic respiratory failure with hypoxia; E83.51 Hypocalcemia; B96.89 Other specified bacterial agents as the cause of diseases classified elsewhere; Z96.649 Presence of unspecified artificial hip joint; F31.9 Bipolar disorder, unspecified; I25.10 Atherosclerotic heart disease of native coronary artery without angina pectoris; F41.9 Anxiety disorder, unspecified; G89.29 Other chronic pain; F03.90 Unspecified dementia, unspecified severity, without behavioral disturbance, psychotic disturbance, mood disturbance, and anxiety; M54.9 Dorsalgia, unspecified; I50.9 Heart failure, unspecified; J44.9 Chronic obstructive pulmonary disease, unspecified; N18.9 Chronic kidney disease, unspecified; Z79.02 Long term (current) use of antithrombotics/antiplatelets; Z79.899 Other long term (current) drug therapy; Z85.828 Personal history of other malignant neoplasm of skin; Z87.440 Personal history of urinary (tract) infections; Z90.49 Acquired absence of other specified parts of digestive tract; Z90.710 Acquired absence of both cervix and uterus; Z99.81 Dependence on supplemental oxygen; Z88.0 Allergy status to penicillin; Z88.2 Allergy status to sulfonamides; Z88.8 Allergy status to other drugs, medicaments and biological substances; Z88.1 Allergy status to other antibiotic agents; Z91.011 Allergy to milk products
CPT/HCPCS: 36415; 43235; 80048; 80053; 81001; 82272; 83735; 84100; 85025; 85027; 86885; 86900; 86901; 86920; 87077; 87081; 87088; 87186; 96361; 96365; 96368; 96376; 97116; 97161; 97530; 99152; 99285; A4620; C9113; G0378; J1956; J2250; J3010; J7030; P9016

== ENCOUNTER 2019-03-15 18:16 | Inpatient (IN) | payer MEDICARE ==
[~2019-03-15] VITALS: Ht 157.5 cm; Wt 52.3 kg
[~2019-03-15 18:16] MED LIST changes: -ASPI-1053 PO; -BUSP10TA11 PO; +BUSP7.5T4 PO; -CLOP75TA33 PO
[2019-03-15] MEDS ORDERED: methylPREDNISolone sod succ 125mg/2ml vial IV ONE (18:35)
[2019-03-15] MEDS ORDERED: ipratropium/albuterol 3ml nebule NEB ONE (18:35)
[2019-03-15] MEDS ORDERED: normal saline 1000ML IV soln IV ONE (18:40)
[2019-03-15] MEDS ORDERED: levoFLOXACIN-Levaquin 750MG/D5 150 ML IV ONE (18:40)
[2019-03-15 18:54] LABS: BASOPHILS # (AUTO) 0.1 X10'3 (0-0.2); BASOPHILS % (AUTO) 0.7 % (0-1); EOSINOPHILS % (AUTO) 0.2 % (0-6); HEMATOCRIT 36.8 % (35.0-45.0); LYMPHOCYTES # (AUTO) 0.2 X10'3 (1.1-4.8); LYMPHOCYTES % (AUTO) 1.4 % (21-51); MEAN CORPUSCULAR HGB CONC 32.6 g/dL (33.0-36.5); MEAN CORPUSCULAR VOLUME 79.6 FL (78-98); MEAN PLATELET VOLUME 8.8 FL (7.4-10.4); MONOCYTES # (AUTO) 1.3 X10'3 (0-0.9); MONOCYTES % (AUTO) 7.6 % (2-12); NEUTROPHILS # (AUTO) 15.8 X10'3 (1.8-7.7); NEUTROPHILS % (AUTO) 90.1 % (42-75); PLATELET COUNT 544 X10'3 (140-440); RED BLOOD COUNT 4.62 X10'6 (4.20-5.60); RED CELL DISTRIBUTION WIDTH 18.4 % (11.5-14.5); WHITE BLOOD COUNT 17.6 X10'3 (4.5-11.0)
[2019-03-15 19:07] LABS: ALANINE AMINOTRANSFERASE 29 U/L (12-78); ALBUMIN 2.8 G/DL (3.4-5.0); ALBUMIN/GLOBULIN RATIO 0.7 (1.1-1.5); ALKALINE PHOSPHATASE 136 IU/L (46-116); ANION GAP 2 (8-16); ASPARTATE AMINO TRANSFERASE 26 U/L (10-37); BILIRUBIN,TOTAL 0.2 MG/DL (0.1-1.0); BLOOD UREA NITROGEN 21 MG/DL (7-18); BUN/CREATININE RATIO 30.4 (6.6-38.0); CHLORIDE 89 MMOL/L (99-107); CREATININE 0.69 MG/DL (0.40-0.90); GLUCOSE 133 MG/DL (70-104); POTASSIUM 4.5 MMOL/L (3.5-5.1); SODIUM 127 MMOL/L (135-145); TOTAL CARBON DIOXIDE 36.5 MMOL/L (24-32); TOTAL PROTEIN 6.8 G/DL (6.4-8.2); eGFR 81 ML/MIN
[2019-03-15] MEDS ORDERED: normal saline 1000ml 1,000 ML IV SCH (20:11)
[2019-03-15] MEDS ORDERED: acetaminophen 325mg tablet PO PRN (20:15)
[2019-03-15] MEDS ORDERED: magnesium hydroxide 30ml (MOM) UD suspension PO PRN (20:15)
[2019-03-15] MEDS ORDERED: ondansetron/PF 4mg/2ml inj IV PRN (20:15)
[2019-03-15] MEDS ORDERED: albuterol 2.5 MG/3 ML nebule NEB PRN (20:15)
[2019-03-15] MEDS ORDERED: mag hydrox/Alum hydrox/simeth 30ml oral suspension PO PRN (20:15)
[2019-03-15] MEDS: clonazePAM 0.5mg tablet PO SCH (20:53)
[2019-03-15] MEDS: busPIRone 15mg tablet PO SCH (20:54)
--- NOTE | 2019-03-15 21:40 | NUR ---
Patient in room ED 2. I have received report from VALENTE Flores and had the opportunity to ask questions and assume patient care.
[2019-03-15 23:08] VITALS: BP 119/81
[2019-03-16 05:12] LABS: ALBUMIN 2.2 G/DL (3.4-5.0); ANION GAP 2 (8-16); BLOOD UREA NITROGEN 20 MG/DL (7-18); BUN/CREATININE RATIO 34.5 (6.6-38.0); CHLORIDE 93 MMOL/L (99-107); CREATININE 0.58 MG/DL (0.40-0.90); GLUCOSE 147 MG/DL (70-104); POTASSIUM 5.3 MMOL/L (3.5-5.1); SODIUM 128 MMOL/L (135-145); eGFR > 90 ML/MIN
[2019-03-16 06:10] LABS: BASOPHILS % (AUTO) 0.1 % (0-1); EOSINOPHILS % (AUTO) 0 % (0-6); HEMATOCRIT 32.4 % (35.0-45.0); HEMOGLOBIN 10.6 g/dl (12.0-16.0); LYMPHOCYTES # (AUTO) 0.1 X10'3 (1.1-4.8); MEAN CORPUSCULAR HEMOGLOBIN 26.4 PG (27.0-31.0); MEAN CORPUSCULAR HGB CONC 32.8 g/dL (33.0-36.5); MEAN CORPUSCULAR VOLUME 80.7 FL (78-98); MEAN PLATELET VOLUME 8.4 FL (7.4-10.4); MONOCYTES % (AUTO) 0.3 % (2-12); NEUTROPHILS # (AUTO) 10.5 X10'3 (1.8-7.7); NEUTROPHILS % (AUTO) 98.6 % (42-75); PLATELET COUNT 465 X10'3 (140-440); RED BLOOD COUNT 4.02 X10'6 (4.20-5.60); RED CELL DISTRIBUTION WIDTH 18.1 % (11.5-14.5); WHITE BLOOD COUNT 10.7 X10'3 (4.5-11.0)
--- NOTE | 2019-03-16 06:35 | NUR ---
Problems reprioritized. Patient report given, questions answered & plan of care reviewed with VALENTE SANCHEZ. Addendum: 03/16/19 at 0636 by Aubree Robb RN Amended: Links added.
--- NOTE | 2019-03-16 07:15 | NUR ---
Patient in room EVE 352. I have received report from Laine VICTOR and had the opportunity to ask questions and assume patient care.
[2019-03-16] MEDS ORDERED: PUMPKIN SEED OIL PO SCH (08:00)
[2019-03-16] MEDS ORDERED: levoFLOXACIN-Levaquin 500mg/D5 100 ML IV SCH (08:00)
[2019-03-16] MEDS ORDERED: furosemide 40mg tablet PO SCH (08:00)
[2019-03-16] MEDS: potassium Cl 20 mEq SR tablet PO SCH (08:00)
[2019-03-16] MEDS ORDERED: ASHWAGANDHA PO SCH (08:00)
[2019-03-16] MEDS ORDERED: SAW PALMETTO PO SCH (08:00)
[2019-03-16 08:12] VITALS: BP 140/67
[2019-03-16] MEDS: magnesium oxide 400mg tablet PO SCH (08:47)
[2019-03-16] MEDS: busPIRone 15mg tablet PO SCH ×2 (08:47→20:26)
[2019-03-16] MEDS: losartan 50mg tablet PO SCH (08:48)
[2019-03-16] MEDS: clonazePAM 0.5mg tablet PO SCH (08:48)
[2019-03-16] MEDS: enoxaparin 40mg/0.4ml syringe SUBCUT SCH (08:49)
[2019-03-16] MEDS: furosemide 20 MG/2 ML vial IV SCH ×2 (09:35→20:26)
[2019-03-16 11:19] VITALS: BP 132/68
--- NOTE | 2019-03-16 18:46 | NUR ---
Received report from Lula VICTOR pt is resting on RA, daughter at bedside in no apparent distress
[2019-03-16 19:30] VITALS: BP 116/55
--- NOTE | 2019-03-16 20:15 | NUR ---
Spoke with Dr. Funk regarding pt taken Sonia he deffered ordering the med and told me to let dayshift to know to take it up with the dayshift doctor.
[2019-03-16] MEDS: lactobacillus rhamnosus 10,000 MMU CELLS/CAPSULE PO SCH (20:25)
[2019-03-16] MEDS: clonazePAM 0.5mg tablet PO PRN (20:26)
[2019-03-17] VITALS: BP 136/67
[2019-03-17 04:48] LABS: BASOPHILS % (AUTO) 0.1 % (0-1); EOSINOPHILS % (AUTO) 0 % (0-6); HEMATOCRIT 30.7 % (35.0-45.0); HEMOGLOBIN 10.1 g/dl (12.0-16.0); LYMPHOCYTES # (AUTO) 0.5 X10'3 (1.1-4.8); LYMPHOCYTES % (AUTO) 4.9 % (21-51); MEAN CORPUSCULAR HEMOGLOBIN 26.5 PG (27.0-31.0); MEAN CORPUSCULAR HGB CONC 32.8 g/dL (33.0-36.5); MEAN PLATELET VOLUME 8.3 FL (7.4-10.4); MONOCYTES # (AUTO) 0.9 X10'3 (0-0.9); MONOCYTES % (AUTO) 9.6 % (2-12); NEUTROPHILS # (AUTO) 8.3 X10'3 (1.8-7.7); NEUTROPHILS % (AUTO) 85.4 % (42-75); PLATELET COUNT 426 X10'3 (140-440); RED BLOOD COUNT 3.79 X10'6 (4.20-5.60); RED CELL DISTRIBUTION WIDTH 17.6 % (11.5-14.5); WHITE BLOOD COUNT 9.7 X10'3 (4.5-11.0)
[2019-03-17 05:02] LABS: ALBUMIN 2.2 G/DL (3.4-5.0); ANION GAP 0 (8-16); BLOOD UREA NITROGEN 21 MG/DL (7-18); BUN/CREATININE RATIO 31.8 (6.6-38.0); CALCIUM 8.4 MG/DL (8.5-10.1); CHLORIDE 95 MMOL/L (99-107); CREATININE 0.66 MG/DL (0.40-0.90); GLUCOSE 112 MG/DL (70-104); POTASSIUM 4.4 MMOL/L (3.5-5.1); SODIUM 133 MMOL/L (135-145); TOTAL CARBON DIOXIDE 37.8 MMOL/L (24-32); eGFR 85 ML/MIN
--- NOTE | 2019-03-17 06:21 | NUR ---
Gave report to Lula VICTOR pts daughter just left, pt laying in bed on 2L of O2 via NC in no apparent distress
--- NOTE | 2019-03-17 06:45 | NUR ---
Patient in room EVE 352. I have received report from Patrizia VICTOR and had the opportunity to ask questions and assume patient care. Pt needs to get herbal supplement on her list of meds approved by Dr. Jerson Maldonado to be called if not approved. Pt takes it TID with meals.
[2019-03-17] MEDS ORDERED: levoFLOXACIN-Levaquin 250mg/D5 50 ML IV SCH (08:00)
[2019-03-17] MEDS: busPIRone 15mg tablet PO SCH (10:14)
[2019-03-17] MEDS: magnesium oxide 400mg tablet PO SCH (10:14)
[2019-03-17] MEDS: clonazePAM 0.5mg tablet PO PRN (10:14)
[2019-03-17] MEDS: furosemide 20 MG/2 ML vial IV SCH (10:14)
[2019-03-17] MEDS: losartan 50mg tablet PO SCH (10:14)
[2019-03-17] MEDS: potassium Cl 20 mEq SR tablet PO SCH (10:14)
[2019-03-17] MEDS: lactobacillus rhamnosus 10,000 MMU CELLS/CAPSULE PO SCH (10:14)
[2019-03-17] MEDS: enoxaparin 40mg/0.4ml syringe SUBCUT SCH (10:15)
[2019-03-17] MEDS ORDERED: LEVO500T2 PO (13:26)
--- NOTE | 2019-03-17 13:59 | NUR ---
PRESSURE ULCER EDUCATION: DEFINITION: A pressure ulcer is an area of skin that breaks down when you stay in one position too long. The constant pressure against the skin reduces the blood flow to that area and the affected tissue dies. CAUSES: "Being bedridden or in a wheelchair "Fragile skin "Having a chronic condition, such as diabetes or vascular disease "Inability to move certain parts of your body without assistance "Older age "Incontinence of urine or stool SYMPTOMS: "A reddened area that DOES NOT turn white when pressed on - this can be the beginning of a pressure ulcer "A blister, deep sore or a crater - these can be advanced pressure ulcers FIRST AID: "Relieve the pressure on this area "Keep the area clean and dry "Call your primary doctor if you see any of the above symptoms "DO NOT massage the area "DO NOT use a donut shaped or ring shaped pillow- these actually interfere with the blood flow and cause complications PREVENTION: "Check for pressure ulcers everyday "Change position at least every two hours to relieve pressure "Use items that help relieve pressure- pillows, sheepskin, foam padding, and powders. "Keep skin clean and dry "Eat healthy well balanced meals "Exercise daily IF YOU SEE ANY OF THESE SYMPTOMS WHILE IN THE HOSPITAL - TELL YOUR NURSE IMMEDIATELY. IF YOU SEE ANY OF THESE SYMPTOMS WHILE AT HOME OR HAVE ANY QUESTIONS OR CONCERNS ABOUT PRESSURE ULCERS - CALL YOUR PRIMARY DOCTOR IMMEDIATELY. Addendum: 03/17/19 at 1359 by Nikos Lyon RN Amended: Links added.
--- NOTE | 2019-03-17 17:45 | NUR ---
PT DISCHARGE TO HOME WITH HER DAUGHTER GHADA. PT A & O AND IN NO APPARENT DISCOMFORT. DAUGHTER VERBALIZED UNDERSTANDING OF DC ORDERS AND ASKED QUESTIONS. PO ANTIBIOTICS SEND TO [facility]. PT WHEELED OUT AND LOADED INTO DAUGHTER'S CAR.
--- NOTE | 2019-03-18 13:04 | NUR ---
Dtr, Erica, called w/ concern that pt's Levaquin was not available at the pharmacy when she went to pick it up. When told we would call in the Rx the daughter stated she thinks the pt is "lethargic and weak" d/t the Levaquin. Further discussion w/ dtr revealed the pt is not at functional baseline and the daughter is unable to care for pt's ADLs. Erica stated pt is currently sitting in a chair in the living room stating she is hungry, "At least her appetite is back.". Erica stated pt was asst x2 (dtr & neighbor) from car to inside house and into the chair last night, which is more assistance than needed before hospitalization. Dtr was asked about pt's mentation, urine output, whether pt was independently sitting erect in chair, etc. Dtr said pt is sitting up independently, is oriented and able to converse, and is making urine because her "pad in her underwear seems wet". Dtr stated she doesn't know how she'll get pt to 'bathroom to clean up". As per chart I discussed HHC availability and dtr denied being offered HHC. I instructed on S/Sx to take pt to the emergency room, and to call 911 if pt is unsafe in the home, but for daughter to ask neighbor for additional help to get pt cleaned up and fed. Erica agreed and discussed the pt is unable to lie in flat bed so wants to stay in chair in living room, and she does have a commode and WC in home to transfer pt as needed safely stating, "I'm just not thinking." I needed to have someone remind me of what to do." "That will work." Erica is now interested in HHC. Call/message left for [facility] Social Worker to call me and to call daughter with resources, information and help. Rtn call from ISRAEL pending.
== END 2019-03-17 17:46 | disposition home health service (06) | DRG 189 ==
LOC: EEVIPCON 18:17 → ER 18:17 → ED HOLD 20:11 → EDBEDREQ 20:55 → SUR 3N 21:55
PROVIDERS: ADMIT Hospitalist; ATTEND Internal Medicine
DX: J96.21 Acute and chronic respiratory failure with hypoxia (principal); E43 Unspecified severe protein-calorie malnutrition; J18.1 Lobar pneumonia, unspecified organism; E87.1 Hypo-osmolality and hyponatremia; J44.1 Chronic obstructive pulmonary disease with (acute) exacerbation; J44.0 Chronic obstructive pulmonary disease with (acute) lower respiratory infection; F41.9 Anxiety disorder, unspecified; I11.0 Hypertensive heart disease with heart failure; I25.10 Atherosclerotic heart disease of native coronary artery without angina pectoris; I50.813 Acute on chronic right heart failure; I27.29 Other secondary pulmonary hypertension; Z96.649 Presence of unspecified artificial hip joint; I27.81 Cor pulmonale (chronic); E87.5 Hyperkalemia; G89.29 Other chronic pain; M54.9 Dorsalgia, unspecified; Z79.899 Other long term (current) drug therapy; Z85.828 Personal history of other malignant neoplasm of skin; Z90.49 Acquired absence of other specified parts of digestive tract; Z90.710 Acquired absence of both cervix and uterus; Z99.81 Dependence on supplemental oxygen; Z88.0 Allergy status to penicillin; Z88.2 Allergy status to sulfonamides; Z88.8 Allergy status to other drugs, medicaments and biological substances; Z91.011 Allergy to milk products; Z98.1 Arthrodesis status; Z68.21 Body mass index [BMI] 21.0-21.9, adult
CPT/HCPCS: 36415; 71045; 80048; 80053; 83605; 83880; 84145; 85025; 87040; 87081; 92508; 92616; 93005; 93306; 94640; 94760; 96365; 96375; 97110; 97161; 97530; 99285; G0378; J1650; J1940; J1956; J2930; J7030

== ENCOUNTER 2019-03-24 19:58 | Inpatient (IN) | payer MEDICARE ==
[~2019-03-24] VITALS: Ht 160 cm; Wt 46.0 kg
[~2019-03-24 19:58] MED LIST changes: -DILT180C64; +DILT180C64 PO; +LEVO500T2 PO; -PHOS1POW PO
[2019-03-24 20:56] LABS: BASOPHILS # (AUTO) 0.1 X10'3 (0-0.2); BASOPHILS % (AUTO) 0.7 % (0-1); EOSINOPHILS # (AUTO) 0.1 X10'3 (0-0.9); EOSINOPHILS % (AUTO) 0.5 % (0-6); HEMATOCRIT 36.6 % (35.0-45.0); HEMOGLOBIN 11.9 g/dl (12.0-16.0); LYMPHOCYTES # (AUTO) 0.3 X10'3 (1.1-4.8); LYMPHOCYTES % (AUTO) 2.3 % (21-51); MEAN CORPUSCULAR HEMOGLOBIN 25.5 PG (27.0-31.0); MEAN CORPUSCULAR HGB CONC 32.6 g/dL (33.0-36.5); MEAN CORPUSCULAR VOLUME 78.3 FL (78-98); MEAN PLATELET VOLUME 8.7 FL (7.4-10.4); MONOCYTES # (AUTO) 0.7 X10'3 (0-0.9); MONOCYTES % (AUTO) 4.7 % (2-12); NEUTROPHILS # (AUTO) 12.8 X10'3 (1.8-7.7); NEUTROPHILS % (AUTO) 91.8 % (42-75); PLATELET COUNT 352 X10'3 (140-440); RED BLOOD COUNT 4.68 X10'6 (4.20-5.60); RED CELL DISTRIBUTION WIDTH 17.8 % (11.5-14.5); WHITE BLOOD COUNT 13.9 X10'3 (4.5-11.0)
[2019-03-24 21:02] LABS: ALANINE AMINOTRANSFERASE 15 U/L (12-78); ALBUMIN 2.7 G/DL (3.4-5.0); ALBUMIN/GLOBULIN RATIO 0.7 (1.1-1.5); ALKALINE PHOSPHATASE 115 IU/L (46-116); BILIRUBIN,TOTAL 0.4 MG/DL (0.1-1.0); BLOOD UREA NITROGEN 10 MG/DL (7-18); BUN/CREATININE RATIO 24.4 (6.6-38.0); CALCIUM 8.1 MG/DL (8.5-10.1); CHLORIDE 78 MMOL/L (99-107); CREATININE 0.41 MG/DL (0.40-0.90); GLUCOSE 112 MG/DL (70-104); TOTAL PROTEIN 6.5 G/DL (6.4-8.2); eGFR > 90 ML/MIN
[2019-03-24 21:09] LABS: POTASSIUM 4.9 MMOL/L (3.5-5.1)
[2019-03-24 21:16] LABS: ANION GAP 1 (8-16); ASPARTATE AMINO TRANSFERASE 32 U/L (10-37); SODIUM 121 MMOL/L (135-145)
[2019-03-24 21:17] LABS: TOTAL CARBON DIOXIDE 42.2 MMOL/L (24-32)
[2019-03-24] MEDS ORDERED: normal saline 1000ML IV soln IVB ONE (21:55)
[2019-03-24 21:58] LABS: CLARITY,URINE SLIGHTLY CLOUDY (Clear); COLOR,URINE YELLOW (Yellow); GLUCOSE, URINE NEGATIVE (Neg); KETONES,URINE NEGATIVE (Neg); LEUKOCYTE ESTERASE ,URINE NEGATIVE (Neg); NITRITES, URINE POSITIVE (Neg); OCCULT BLOOD,URINE TRACE-INTACT (Neg); PH,URINE 6.5 (4.8-8.0); PROTEIN,URINE NEGATIVE (Neg)
[2019-03-24 22:00] LABS: UA COLLECTION TYPE STRAIGHT CATH
[2019-03-24 22:05] LABS: ABG BASE EXCESS 15.9 mmol/L (-2.0-3.0); ABG OXYGEN SATURATION 95.7 % (95-98); ABG PCO2 (T) 92.3 mmHg (35.0-45.0); ABG PH (T) 7.316 (7.350-7.450); ABG PO2 (T) 84.2 mmHg (83-108); FCOHb 0.9 % (0.5-1.5); FLOW 2 L/min; FMetHb 0.2 % (0.3-1.12); FO2Hb 94.6 % (94-100); PATIENT TEMPERATURE 37.1; RESPIRATORY RATE (OBSERVED) 10 b/min; TOTAL HEMOGLOBIN 12.1 G/dl (12.0-16.0)
[2019-03-24 22:06] LABS: BACTERIA,URINE 4+ /HPF (Neg); MUCUS STRANDS NONE SEEN /LPF (Neg); RBC,URINE 0-2 /HPF (0-2); SQUAMOUS EPITHELIAL CELL,UR FEW /LPF (FEW); WBC,URINE 0-4 /HPF (0-4)
[2019-03-24] MEDS ORDERED: levoFLOXACIN-Levaquin 500mg/D5 100 ML IV ONE (22:40)
--- NOTE | 2019-03-24 23:04 | NUR ---
Pt. daughter expresses concern regarding levaquin rx. Daughter feels that levaquin caused the patient to be drowsy when it was originally prescribed as PO dose. MD was informed of this concern and he spoke to daugther about the medication and the unlikeliness of it to be the cause of claimed symptoms. Pt. daughter demonstrates understanding after provider spoke with her.
[2019-03-24 23:12] LABS: TROPONIN I < 0.04 NG/ML (0.0-0.05)
[2019-03-25] MEDS ORDERED: ipratropium/albuterol 3ml nebule NEB PRN ×2 (01:10)
[2019-03-25] MEDS ORDERED: magnesium 2GM in 50ml NS 50 ML IV PRN (01:10)
[2019-03-25] MEDS ORDERED: potassium Cl 20 mEq SR tablet PO PRN ×2 (01:10)
[2019-03-25] MEDS ORDERED: acetaminophen 650mg rectal suppository RC PRN (01:10)
[2019-03-25] MEDS ORDERED: magnesium Cl slow-release 64mg tablet PO PRN (01:10)
[2019-03-25] MEDS ORDERED: potassium CL 10mEq/100ml bag 100 ML IV PRN ×2 (01:10)
[2019-03-25] MEDS ORDERED: magnesium 4gm in 100ml NS 100 ML IV PRN (01:10)
[2019-03-25] MEDS ORDERED: pantoprazole 40 MG vial IV ONE (01:20)
[2019-03-25] MEDS: normal saline 1000ml 1,000 ML IV SCH ×2 (01:40→11:06)
[2019-03-25 02:06] LABS: ABG HCO3 39.9 mmol/L (22.0-26.0); ABG OXYGEN SATURATION 94.3 % (95-98); ABG PCO2 (T) 70.9 mmHg (35.0-45.0); ABG PH (T) 7.368 (7.350-7.450); ABG PO2 (T) 71.7 mmHg (83-108); ALLEN'S TEST Positive; FCOHb 0.5 % (0.5-1.5); FMetHb 0.1 % (0.3-1.12); FO2Hb 93.7 % (94-100); MINUTE VOLUME 8 L/min; RESPIRATORY RATE 18 b/min; RESPIRATORY RATE (OBSERVED) 18 b/min; TOTAL HEMOGLOBIN 11.4 G/dl (12.0-16.0)
--- NOTE | 2019-03-25 04:50 | NUR ---
received report from Tesfaye VICTOR ER, had the opportunity to ask questions.
[2019-03-25 05:00] VITALS: BP 135/52
[2019-03-25 06:00] VITALS: BP 154/55
--- NOTE | 2019-03-25 06:30 | NUR ---
Problems reprioritized. Patient report given, questions answered & plan of care reviewed with Janay Andrew RN.
--- NOTE | 2019-03-25 06:50 | NUR ---
Patient in room PCU 3026. I have received report from VALENTE Abbott and had the opportunity to ask questions and assume patient care. Spoke with daughter at bedside, daughter reports that patient has psych history and is bipolar and has generalized anxiety for which she gets klonopin, daughter states that patient may require a sitter. patient is sleeping at this time with NS running at 100ml/hr per order. will continue to monitor.
[2019-03-25] MEDS: K and/or MAG REPLACEMENT MC SCH (08:00)
--- NOTE | 2019-03-25 08:30 | NUR ---
PAGER ID: [phone] MESSAGE: VALENTE Gustafson, ext [phone], [id number], Eliel, [facility] rec reviewed, please address, patient needs her reinieronipin
[2019-03-25] MEDS: levoFLOXACIN-Levaquin 500mg/D5 100 ML IV SCH (08:37)
[2019-03-25] MEDS: heparin, porcine 5000 units/ml vial SQ SCH ×2 (08:37→20:34)
[2019-03-25] MEDS ORDERED: sod chloride 0.9% 10ml flush syringe IV ONE (09:00)
[2019-03-25] MEDS ORDERED: etomidate 2mg/ml inj. ONE (09:00)
[2019-03-25] MEDS ORDERED: clonazePAM 0.5mg tablet PO PRN (09:05)
--- NOTE | 2019-03-25 09:08 | NUR ---
PAGER ID: [phone] MESSAGE: VALENTE Gustafson, ext [phone], [id number], Eliel, kya at bedside, need PRN order, pt requesting to eat but NPO order, not sure why, does she need bedside swallow?
--- NOTE | 2019-03-25 09:08 | NUR ---
spoke with Dr. Juares, will put in PRN bipap order, med rec will be addressed and patient NPO status will be evaluated
[2019-03-25 11:00] VITALS: BP 86/56
[2019-03-25] MEDS ORDERED: FLU VACC QS 2019-20 (6 MOS UP) 60 MCG/0.5 ML VIAL IMVAC ONE (12:25)
[2019-03-25 15:00] VITALS: BP 129/56
--- NOTE | 2019-03-25 15:14 | NUR ---
Malnutrition/wound consult: No skin issues noted in physical assessment however wound care has been consulted for reports of abrasions on legs with open areas to sacrum/coccyx, pending further assessment at this time. Attempted visit with pt at bedside however pt sleeping and did not wake with verbal cues. Written protein education with RD contact information left at bedside. Patient with fluctuating wt hx however seems to be overall stable with range of 49-56 kg, current documented wt falls within that range. Pt currently on regular diet documented with average 75% PO intake first meal meeting nutrient needs. No significant decrease in muscle strength however with bilat foot 2+ mild edema. No visible fat or muscle wasting noted. Pt currently lacks a minimum of two criteria for malnutrition. Will continue to follow. Addendum: 03/25/19 at [address] Amended: Links added.
[2019-03-25 18:00] VITALS: BP 133/69
--- NOTE | 2019-03-25 18:00 | NUR ---
Patient in room PCU 3026. I have received report from YONY VICTOR and had the opportunity to ask questions and assume patient care.
--- NOTE | 2019-03-25 18:22 | NUR ---
Problems reprioritized. Patient report given, questions answered & plan of care reviewed with VALENTE Joshi. Patient stable at shift change
[2019-03-25] MEDS: busPIRone 15mg tablet PO SCH (20:32)
[2019-03-25 22:00] VITALS: BP 143/71
[2019-03-26] VITALS (9 sets, daily range): BP systolic 91–160; BP diastolic 40–104
[2019-03-26] MEDS: normal saline 1000ml 1,000 ML IV SCH ×3 (03:16→21:03)
--- NOTE | 2019-03-26 06:00 | NUR ---
Problems reprioritized. Patient report given, questions answered & plan of care reviewed with Tianna RN.
[2019-03-26 06:46] LABS: BASOPHILS % (AUTO) 0.3 % (0-1); EOSINOPHILS % (AUTO) 0.3 % (0-6); HEMATOCRIT 32.9 % (35.0-45.0); HEMOGLOBIN 10.7 g/dl (12.0-16.0); LYMPHOCYTES # (AUTO) 0.4 X10'3 (1.1-4.8); LYMPHOCYTES % (AUTO) 4.2 % (21-51); MEAN CORPUSCULAR HEMOGLOBIN 25.7 PG (27.0-31.0); MEAN CORPUSCULAR HGB CONC 32.6 g/dL (33.0-36.5); MEAN CORPUSCULAR VOLUME 78.9 FL (78-98); MEAN PLATELET VOLUME 8.9 FL (7.4-10.4); MONOCYTES # (AUTO) 0.7 X10'3 (0-0.9); MONOCYTES % (AUTO) 7.4 % (2-12); NEUTROPHILS # (AUTO) 8.5 X10'3 (1.8-7.7); NEUTROPHILS % (AUTO) 87.8 % (42-75); PLATELET COUNT 350 X10'3 (140-440); RED BLOOD COUNT 4.17 X10'6 (4.20-5.60); RED CELL DISTRIBUTION WIDTH 17.9 % (11.5-14.5); WHITE BLOOD COUNT 9.6 X10'3 (4.5-11.0)
--- NOTE | 2019-03-26 06:47 | NUR ---
Patient in room PCU 3026. I have received report from VALENTE Joshi and had the opportunity to ask questions and assume patient care. Pt sleeping. Will continue to monitor.
[2019-03-26 07:07] LABS: ALBUMIN 2.1 G/DL (3.4-5.0); ANION GAP -1 (8-16); BLOOD UREA NITROGEN 8 MG/DL (7-18); BUN/CREATININE RATIO 20.5 (6.6-38.0); CALCIUM 7.9 MG/DL (8.5-10.1); CHLORIDE 91 MMOL/L (99-107); CREATININE 0.39 MG/DL (0.40-0.90); GLUCOSE 84 MG/DL (70-104); MAGNESIUM 1.6 MG/DL (1.5-2.4); POTASSIUM 4.6 MMOL/L (3.5-5.1); SODIUM 127 MMOL/L (135-145); TOTAL CARBON DIOXIDE 36.9 MMOL/L (24-32); eGFR > 90 ML/MIN
[2019-03-26] MEDS: K and/or MAG REPLACEMENT MC SCH (08:00)
[2019-03-26] MEDS: levoFLOXACIN-Levaquin 500mg/D5 100 ML IV SCH (08:03)
[2019-03-26] MEDS: busPIRone 15mg tablet PO SCH (08:04)
[2019-03-26] MEDS: losartan 50mg tablet PO SCH (08:04)
[2019-03-26] MEDS: heparin, porcine 5000 units/ml vial SQ SCH ×2 (08:04→20:45)
[2019-03-26] MEDS: ondansetron/PF 4mg/2ml inj IV PRN (10:53)
--- NOTE | 2019-03-26 12:55 | NUR ---
Pt's daughter requested to know how much sodium to give the pt on a heart healthy diet. Due to the pt's heart healthy diet, the daughter states she has not been cooking with salt.
--- NOTE | 2019-03-26 13:00 | NUR ---
Sent to Dr Juares PAGER ID: [phone] MESSAGE: RE: Ciarra Julian [id number]. Pt's daughter doesn't know how much sodium to give the pt due to the heart healthy diet, hasn't been giving her much if any. Also questions about alcoholic dementia. -Tianna [phone]
[2019-03-26] MEDS ORDERED: clonazePAM 0.5mg tablet PO PRN (13:35)
[2019-03-26] MEDS ORDERED: CLONAZEPAM 0.25 MG oral disentigrating tablet (ODT) PO PRN (13:49)
--- NOTE | 2019-03-26 14:55 | NUR ---
Sent to Dr Juares PAGER ID: [phone] MESSAGE: Re: Ciarra Julian [id number]. Pt struggles to stay awake. HR >110 with frequent PVCs. -Tianna [phone]
--- NOTE | 2019-03-26 15:21 | NUR ---
Sent to Dr Juares PAGER ID: [phone] MESSAGE: RE: Ciarra Julian [id number]. EKG completed. Abnormal. -Tianna [phone]
[2019-03-26 16:11] LABS: ABG BASE EXCESS 11.4 mmol/L (-2.0-3.0); ABG HCO3 42.4 mmol/L (22.0-26.0); ABG OXYGEN SATURATION 65.8 % (95-98); ABG PCO2 (T) 99.2 mmHg (35.0-45.0); ABG PH (T) 7.249 (7.350-7.450); ABG PO2 (T) 34.4 mmHg (83-108); ALLEN'S TEST Positive; FCOHb 0.6 % (0.5-1.5); FLOW 6 L/min; FO2Hb 65.4 % (94-100); TOTAL HEMOGLOBIN 12.5 G/dl (12.0-16.0)
[2019-03-26 17:00] LABS: ABG BASE EXCESS 15.6 mmol/L (-2.0-3.0); ABG HCO3 48.7 mmol/L (22.0-26.0); ABG OXYGEN SATURATION 94.7 % (95-98); ABG PCO2 (T) 128.1 mmHg (35.0-45.0); ABG PH (T) 7.198 (7.350-7.450); ABG PO2 (T) 81.5 mmHg (83-108); ALLEN'S TEST Positive; FCOHb 0.8 % (0.5-1.5); FMetHb 0.3 % (0.3-1.12); FO2Hb 93.7 % (94-100); MINUTE VOLUME 9 L/min; RESPIRATORY RATE 24 b/min; RESPIRATORY RATE (OBSERVED) 24 b/min; TOTAL HEMOGLOBIN 12.2 G/dl (12.0-16.0)
--- NOTE | 2019-03-26 17:08 | NUR ---
Sent to Dr Juares PAGER ID: [phone] MESSAGE: RE: Ciarra Julian [id number]. pCO2 128.1 pH 7.198 -Tianna [phone]
--- NOTE | 2019-03-26 17:51 | NUR ---
Problems reprioritized. Patient report given, questions answered & plan of care reviewed with VALENTE Chris. Pt transferred to ICU.
[2019-03-26] MEDS ORDERED: midazolam 2 mg/2 ml injection ONE (17:52)
[2019-03-26] MEDS ORDERED: fentaNYL/PF 50MCG/1 ML 2ML syringe IV PRN ×2 (17:55)
--- NOTE | 2019-03-26 18:13 | NUR ---
Pt. rapid response earlier this shift. Transferred to 2039 for resp. distress. Bedside report given by Tianna VICTOR. Pt. sedated and intubated per Dr. Cano. SBP 70s after sedation. Dr. Cano aware. Ordered a 500cc NS bolus. CXR obtained. ETT advanced 2 cm per RT.
[2019-03-26] MEDS: FENTANYL-0.9 % NACL/PF 100 ML IV PRN (18:22)
--- NOTE | 2019-03-26 18:30 | NUR ---
Patient in room ICU 2039. I have received report from VALENTE Chris and had the opportunity to ask questions and assume patient care.
[2019-03-26] MEDS ORDERED: midazolam 2 mg/2 ml injection IV ONE (18:40)
[2019-03-26 19:10] LABS: ABG BASE EXCESS 8.7 mmol/L (-2.0-3.0); ABG HCO3 38.5 mmol/L (22.0-26.0); ABG OXYGEN SATURATION 94.8 % (95-98); ABG PCO2 (T) 88.1 mmHg (35.0-45.0); ABG PH (T) 7.262 (7.350-7.450); ALLEN'S TEST Positive; FCOHb 0.7 % (0.5-1.5); FMetHb 0.1 % (0.3-1.12); MINUTE VOLUME 5 L/min; PATIENT TEMPERATURE 37.6; PEEP 5 cm H2O; RESPIRATORY RATE 14 b/min; RESPIRATORY RATE (OBSERVED) 14 b/min; TIDAL VOLUME 400 mL
[2019-03-26] MEDS: ipratropium/albuterol 3ml nebule NEB SCH ×2 (19:44→22:44)
[2019-03-26] MEDS: metoprolol tartrate 12.5mg (1/2 tablet) PO SCH (20:00)
[2019-03-26 20:24] LABS: ALANINE AMINOTRANSFERASE 12 U/L (12-78); ALBUMIN 2.3 G/DL (3.4-5.0); ALBUMIN/GLOBULIN RATIO 0.8 (1.1-1.5); ALKALINE PHOSPHATASE 101 IU/L (46-116); ANION GAP 1 (8-16); ASPARTATE AMINO TRANSFERASE 17 U/L (10-37); BILIRUBIN,TOTAL 0.4 MG/DL (0.1-1.0); BLOOD UREA NITROGEN 9 MG/DL (7-18); BUN/CREATININE RATIO 19.1 (6.6-38.0); CALCIUM 8.3 MG/DL (8.5-10.1); CHLORIDE 89 MMOL/L (99-107); CREATININE 0.47 MG/DL (0.40-0.90); GLUCOSE 103 MG/DL (70-104); POTASSIUM 5.1 MMOL/L (3.5-5.1); SODIUM 124 MMOL/L (135-145); TOTAL CARBON DIOXIDE 33.9 MMOL/L (24-32); TOTAL PROTEIN 5.1 G/DL (6.4-8.2); eGFR > 90 ML/MIN
[2019-03-26] MEDS: diltiazem 30mg tablet OGT SCH (20:41)
[2019-03-26] MEDS: lactobacillus rhamnosus 10,000 MMU CELLS/CAPSULE PO SCH (20:42)
[2019-03-26] MEDS: methylPREDNISolone sod succ 125mg/2ml vial IV SCH (20:43)
[2019-03-26] MEDS: latanoprost 0.005% 2.5ml ophthalmic drops EACHEYE SCH (20:45)
[2019-03-26] MEDS: midazolam 100mg in NS 100ml 100 ML IV PRN (21:02)
[2019-03-27] VITALS (22 sets, daily range): BP systolic 92–162; BP diastolic 41–78
[2019-03-27] MEDS ORDERED: albumin (Human) 5% 250ml 250 ML IV ONE ×2 (00:30)
--- NOTE | 2019-03-27 00:31 | NUR ---
Jason Grimes FACING CUTTING MACHINE OPERATOR notified of patient's blood pressure and urine output being low. Map has been between 57-60. Urine output was 15cc the last two hours. FACING CUTTING MACHINE OPERATOR ordered 500cc of 5% albumin. Will give and continue to monitor.
[2019-03-27] MEDS: diltiazem 30mg tablet OGT SCH ×4 (02:00→20:20)
[2019-03-27] MEDS: ipratropium/albuterol 3ml nebule NEB SCH ×6 (03:01→22:44)
[2019-03-27 04:50] LABS: ABG BASE EXCESS 8.6 mmol/L (-2.0-3.0); ABG HCO3 32.1 mmol/L (22.0-26.0); ABG OXYGEN SATURATION 96.9 % (95-98); ABG PCO2 (T) 40.9 mmHg (35.0-45.0); ABG PH (T) 7.514 (7.350-7.450); ABG PO2 (T) 82.1 mmHg (83-108); ALLEN'S TEST Positive; FCOHb 0.3 % (0.5-1.5); FMetHb 0.3 % (0.3-1.12); FO2Hb 96.3 % (94-100); MINUTE VOLUME 6 L/min; PATIENT TEMPERATURE 37.7; PEEP 5 cm H2O; RESPIRATORY RATE 14 b/min; RESPIRATORY RATE (OBSERVED) 14 b/min; TIDAL VOLUME 400 mL
[2019-03-27] MEDS: normal saline 1000ml 1,000 ML IV SCH (05:20)
[2019-03-27 05:31] LABS: BASOPHILS % (AUTO) 0 % (0-1); EOSINOPHILS % (AUTO) 0 % (0-6); HEMATOCRIT 27.8 % (35.0-45.0); HEMOGLOBIN 9.1 g/dl (12.0-16.0); LYMPHOCYTES # (AUTO) 0.1 X10'3 (1.1-4.8); LYMPHOCYTES % (AUTO) 1.2 % (21-51); MEAN CORPUSCULAR HEMOGLOBIN 25.7 PG (27.0-31.0); MEAN CORPUSCULAR HGB CONC 32.8 g/dL (33.0-36.5); MEAN CORPUSCULAR VOLUME 78.6 FL (78-98); MEAN PLATELET VOLUME 9.7 FL (7.4-10.4); MONOCYTES % (AUTO) 0.6 % (2-12); NEUTROPHILS # (AUTO) 7.5 X10'3 (1.8-7.7); NEUTROPHILS % (AUTO) 98.2 % (42-75); PLATELET COUNT 251 X10'3 (140-440); RED BLOOD COUNT 3.54 X10'6 (4.20-5.60); RED CELL DISTRIBUTION WIDTH 18.4 % (11.5-14.5); WHITE BLOOD COUNT 7.6 X10'3 (4.5-11.0)
[2019-03-27 05:49] LABS: ALANINE AMINOTRANSFERASE 24 U/L (12-78); ALBUMIN 2.5 G/DL (3.4-5.0); ALKALINE PHOSPHATASE 83 IU/L (46-116); ANION GAP 4 (8-16); ASPARTATE AMINO TRANSFERASE 12 U/L (10-37); BILIRUBIN,TOTAL 0.5 MG/DL (0.1-1.0); BLOOD UREA NITROGEN 13 MG/DL (7-18); BUN/CREATININE RATIO 20.6 (6.6-38.0); CALCIUM 8.1 MG/DL (8.5-10.1); CHLORIDE 88 MMOL/L (99-107); CREATININE 0.63 MG/DL (0.40-0.90); GLUCOSE 161 MG/DL (70-104); POTASSIUM 4.5 MMOL/L (3.5-5.1); SODIUM 123 MMOL/L (135-145); TOTAL CARBON DIOXIDE 30.9 MMOL/L (24-32); TOTAL PROTEIN 4.9 G/DL (6.4-8.2); eGFR 90 ML/MIN
--- NOTE | 2019-03-27 06:30 | NUR ---
Patient in room ICU 2039. I have received report from Mellisa Kang and had the opportunity to ask questions and assume patient care.
--- NOTE | 2019-03-27 06:43 | NUR ---
Problems reprioritized. Patient report given, questions answered & plan of care reviewed with VALENTE Chris.
[2019-03-27 07:31] LABS: MAGNESIUM 1.4 MG/DL (1.5-2.4); PHOSPHORUS 2.4 MG/DL (2.3-4.5)
[2019-03-27] MEDS ORDERED: potassium Cl 20 mEq SR tablet PO SCH (08:00)
[2019-03-27] MEDS: levoFLOXACIN-Levaquin 500mg/D5 100 ML IV SCH (08:49)
[2019-03-27] MEDS: losartan 50mg tablet PO SCH (08:50)
[2019-03-27] MEDS: metoprolol tartrate 12.5mg (1/2 tablet) PO SCH ×2 (08:50→20:20)
[2019-03-27] MEDS: lactobacillus rhamnosus 10,000 MMU CELLS/CAPSULE PO SCH ×2 (08:50→20:20)
[2019-03-27] MEDS: heparin, porcine 5000 units/ml vial SQ SCH ×2 (08:51→20:20)
[2019-03-27] MEDS: methylPREDNISolone sod succ 125mg/2ml vial IV SCH ×2 (08:51→20:21)
--- NOTE | 2019-03-27 10:15 | NUR ---
Per Dr Cano continue to obtain pick line, he would also like a ct of the chest with out contrast
[2019-03-27] MEDS: azithromycin/NS 500mg/250ml 250 ML IV SCH (12:26)
[2019-03-27] MEDS: FENTANYL-0.9 % NACL/PF 100 ML IV PRN (15:57)
--- NOTE | 2019-03-27 17:47 | NUR ---
High risk screen, patient is now intubated with respiratory failure. Per patient's daughter at critical care rounds the pt had aspirated on water two times. Patient was recently admitted 03/15-03/17; at that time patient was evaluated by ST, needed a feeder d/t cognitive level and mechanical soft foods, ground meats, thin liquids. If prolonged intubation will benefit from TF to meet needs on vent. Recommend: 1. IF tube feeding while intubated recommend Vital AF at 55 ml/hr- noted that patient has adverse reaction to milk containing products, will confirm lactose intolerance with daughter 2. IF tube feeding monitor need for water flush, sodium is low at 123 3. weight per rx Addendum: 03/27/19 at [address] Amended: Links added.
--- NOTE | 2019-03-27 18:30 | NUR ---
Patient in room ICU 2039. I have received report from VALENTE Chris and had the opportunity to ask questions and assume patient care.
--- NOTE | 2019-03-27 18:38 | NUR ---
Problems reprioritized. Patient report given, questions answered & plan of care reviewed with Mellisa VICTOR.
[2019-03-27 18:46] LABS: ALANINE AMINOTRANSFERASE 10 U/L (12-78); ALBUMIN 2.5 G/DL (3.4-5.0); ALKALINE PHOSPHATASE 77 IU/L (46-116); ANION GAP 3 (8-16); ASPARTATE AMINO TRANSFERASE 15 U/L (10-37); BILIRUBIN,TOTAL 0.4 MG/DL (0.1-1.0); BLOOD UREA NITROGEN 16 MG/DL (7-18); BUN/CREATININE RATIO 24.2 (6.6-38.0); CALCIUM 8.5 MG/DL (8.5-10.1); CHLORIDE 91 MMOL/L (99-107); CREATININE 0.66 MG/DL (0.40-0.90); GLUCOSE 112 MG/DL (70-104); MAGNESIUM 2.2 MG/DL (1.5-2.4); PHOSPHORUS 2.4 MG/DL (2.3-4.5); POTASSIUM 4.8 MMOL/L (3.5-5.1); SODIUM 126 MMOL/L (135-145); TOTAL CARBON DIOXIDE 32.5 MMOL/L (24-32); TOTAL PROTEIN 5.1 G/DL (6.4-8.2); eGFR 85 ML/MIN
[2019-03-27] MEDS: mineral oil/petrolatum ophthal oint EACHEYE SCH (20:21)
[2019-03-27] MEDS: NYSTATIN CREAM - 30GM TUBE TP SCH (20:21)
[2019-03-27] MEDS: latanoprost 0.005% 2.5ml ophthalmic drops EACHEYE SCH (20:22)
[2019-03-27] MEDS: midazolam 100mg in NS 100ml 100 ML IV PRN (20:22)
[2019-03-28] VITALS (24 sets, daily range): BP systolic 104–152; BP diastolic 45–109
[2019-03-28] MEDS: mineral oil/petrolatum ophthal oint EACHEYE SCH ×4 (01:57→19:49)
[2019-03-28] MEDS: diltiazem 30mg tablet OGT SCH ×4 (01:58→19:55)
[2019-03-28] MEDS: ipratropium/albuterol 3ml nebule NEB SCH ×6 (02:36→23:20)
[2019-03-28 03:19] LABS: BASOPHILS % (AUTO) 0.1 % (0-1); EOSINOPHILS % (AUTO) 0 % (0-6); HEMATOCRIT 27.9 % (35.0-45.0); HEMOGLOBIN 9.2 g/dl (12.0-16.0); LYMPHOCYTES # (AUTO) 0.1 X10'3 (1.1-4.8); MEAN CORPUSCULAR HEMOGLOBIN 25.5 PG (27.0-31.0); MEAN CORPUSCULAR HGB CONC 33.2 g/dL (33.0-36.5); MEAN CORPUSCULAR VOLUME 76.9 FL (78-98); MEAN PLATELET VOLUME 9.7 FL (7.4-10.4); MONOCYTES # (AUTO) 0.1 X10'3 (0-0.9); MONOCYTES % (AUTO) 1.5 % (2-12); NEUTROPHILS # (AUTO) 7.4 X10'3 (1.8-7.7); NEUTROPHILS % (AUTO) 97.4 % (42-75); PLATELET COUNT 269 X10'3 (140-440); RED BLOOD COUNT 3.63 X10'6 (4.20-5.60); WHITE BLOOD COUNT 7.6 X10'3 (4.5-11.0)
[2019-03-28 03:38] LABS: ALANINE AMINOTRANSFERASE 11 U/L (12-78); ALBUMIN 2.5 G/DL (3.4-5.0); ALKALINE PHOSPHATASE 79 IU/L (46-116); ANION GAP 0 (8-16); ASPARTATE AMINO TRANSFERASE 12 U/L (10-37); BILIRUBIN,TOTAL 0.5 MG/DL (0.1-1.0); BLOOD UREA NITROGEN 16 MG/DL (7-18); BUN/CREATININE RATIO 28.1 (6.6-38.0); CHLORIDE 91 MMOL/L (99-107); CREATININE 0.57 MG/DL (0.40-0.90); GLUCOSE 126 MG/DL (70-104); PHOSPHORUS 2.7 MG/DL (2.3-4.5); POTASSIUM 4.1 MMOL/L (3.5-5.1); SODIUM 125 MMOL/L (135-145); TOTAL CARBON DIOXIDE 33.7 MMOL/L (24-32); TOTAL PROTEIN 4.9 G/DL (6.4-8.2); eGFR > 90 ML/MIN
[2019-03-28 03:58] LABS: PLATELET ESTIMATE NORMAL
[2019-03-28 03:59] LABS: ANISOCYTOSIS 2+; ELLIPTOCYTES FEW; HYPOCHROMASIA 1+; MICROCYTOSIS 1+; SCHISTOCYTES FEW
[2019-03-28 04:00] LABS: BURR CELLS FEW; LARGE PLATELETS FEW
[2019-03-28 04:25] LABS: ABG BASE EXCESS 6.9 mmol/L (-2.0-3.0); ABG HCO3 29.6 mmol/L (22.0-26.0); ABG OXYGEN SATURATION 92.4 % (95-98); ABG PCO2 (T) 34.4 mmHg (35.0-45.0); ABG PH (T) 7.551 (7.350-7.450); ALLEN'S TEST Positive; FCOHb 0.7 % (0.5-1.5); FMetHb 0.3 % (0.3-1.12); FO2Hb 91.5 % (94-100); MINUTE VOLUME 6 L/min; PATIENT TEMPERATURE 36.6; PEEP 5 cm H2O; RESPIRATORY RATE 14 b/min; RESPIRATORY RATE (OBSERVED) 14 b/min; TIDAL VOLUME 400 mL; TOTAL HEMOGLOBIN 10.4 G/dl (12.0-16.0)
--- NOTE | 2019-03-28 06:23 | NUR ---
Problems reprioritized. Patient report given, questions answered & plan of care reviewed with VALENTE Chris.
--- NOTE | 2019-03-28 06:30 | NUR ---
Patient in room ICU 2039. I have received report from vicente VICTOR and had the opportunity to ask questions and assume patient care.
[2019-03-28] MEDS: heparin, porcine 5000 units/ml vial SQ SCH ×2 (09:34→19:48)
[2019-03-28] MEDS: lactobacillus rhamnosus 10,000 MMU CELLS/CAPSULE PO SCH ×2 (09:35→19:48)
[2019-03-28] MEDS: methylPREDNISolone sod succ 125mg/2ml vial IV SCH ×2 (09:35→19:49)
[2019-03-28] MEDS: POTASSIUM BICARB 20meq eff tab 20 MEQ TABLET.EFF PO SCH (09:35)
[2019-03-28] MEDS: losartan 50mg tablet PO SCH (09:35)
[2019-03-28] MEDS: metoprolol tartrate 12.5mg (1/2 tablet) PO SCH ×2 (09:36→19:47)
[2019-03-28] MEDS: azithromycin/NS 500mg/250ml 250 ML IV SCH (09:36)
[2019-03-28] MEDS: NYSTATIN CREAM - 30GM TUBE TP SCH ×2 (09:37→19:49)
--- NOTE | 2019-03-28 12:37 | NUR ---
Tube feeding consult. Noted that patient has adverse reaction to "milk containing products," pt's bedside RN discussed this with the patient's daughter who reports patient has an intolerance to having milk to drink due increasing mucous in throat, no contraindication to the milk protein in tube feeding products. Nursing attempted weaning, did not pass, continues to be intubated and sedated. TF recommendations below. Recommend: 1. continuous tube feeding per OG tube using Vital AF at 55 ml/hr, will provide 1320 ml volume, 1584 cals, 100 g protein, 1069 ml water. 2. monitor need for water flush, sodium is low at 123 3. weight per rx Addendum: 03/28/19 at [address] Amended: Links added.
--- NOTE | 2019-03-28 16:45 | NUR ---
patient to Ct, tolerated well. Vital signs stable
--- NOTE | 2019-03-28 18:30 | NUR ---
Patient in room ICU 2039. I have received report from Dot VICTOR and had the opportunity to ask questions and assume patient care.
--- NOTE | 2019-03-28 18:33 | NUR ---
Problems reprioritized. Patient report given, questions answered & plan of care reviewed with Bhakti VICTOR.
[2019-03-28] MEDS: FENTANYL-0.9 % NACL/PF 100 ML IV PRN (19:47)
[2019-03-28] MEDS: latanoprost 0.005% 2.5ml ophthalmic drops EACHEYE SCH (20:16)
[2019-03-28] MEDS: normal saline 1000ml 1,000 ML IV SCH (20:35)
[2019-03-29] VITALS (24 sets, daily range): BP systolic 115–171; BP diastolic 51–95
[2019-03-29] MEDS: diltiazem 30mg tablet OGT SCH ×4 (02:15→20:03)
[2019-03-29] MEDS: midazolam 100mg in NS 100ml 100 ML IV PRN (02:15)
[2019-03-29] MEDS: mineral oil/petrolatum ophthal oint EACHEYE SCH ×4 (02:15→20:07)
[2019-03-29 02:49] LABS: BASOPHILS % (AUTO) 0.1 % (0-1); EOSINOPHILS % (AUTO) 0 % (0-6); HEMATOCRIT 26.9 % (35.0-45.0); HEMOGLOBIN 8.9 g/dl (12.0-16.0); LYMPHOCYTES # (AUTO) 0.1 X10'3 (1.1-4.8); LYMPHOCYTES % (AUTO) 2.8 % (21-51); MEAN CORPUSCULAR HEMOGLOBIN 25.3 PG (27.0-31.0); MEAN CORPUSCULAR VOLUME 76.4 FL (78-98); MEAN PLATELET VOLUME 9.1 FL (7.4-10.4); MONOCYTES # (AUTO) 0.1 X10'3 (0-0.9); MONOCYTES % (AUTO) 3.2 % (2-12); NEUTROPHILS # (AUTO) 3.3 X10'3 (1.8-7.7); NEUTROPHILS % (AUTO) 93.9 % (42-75); PLATELET COUNT 272 X10'3 (140-440); RED BLOOD COUNT 3.52 X10'6 (4.20-5.60); RED CELL DISTRIBUTION WIDTH 19.3 % (11.5-14.5); WHITE BLOOD COUNT 3.5 X10'3 (4.5-11.0)
[2019-03-29 03:11] LABS: ALANINE AMINOTRANSFERASE 9 U/L (12-78); ALBUMIN 2.4 G/DL (3.4-5.0); ALKALINE PHOSPHATASE 72 IU/L (46-116); ANION GAP 4 (8-16); ASPARTATE AMINO TRANSFERASE 11 U/L (10-37); BILIRUBIN,TOTAL 0.4 MG/DL (0.1-1.0); BLOOD UREA NITROGEN 20 MG/DL (7-18); BUN/CREATININE RATIO 31.3 (6.6-38.0); CALCIUM 7.7 MG/DL (8.5-10.1); CHLORIDE 92 MMOL/L (99-107); CREATININE 0.64 MG/DL (0.40-0.90); GLUCOSE 116 MG/DL (70-104); MAGNESIUM 1.8 MG/DL (1.5-2.4); POTASSIUM 4.2 MMOL/L (3.5-5.1); SODIUM 126 MMOL/L (135-145); TOTAL PROTEIN 4.7 G/DL (6.4-8.2); eGFR 88 ML/MIN
[2019-03-29] MEDS: ipratropium/albuterol 3ml nebule NEB SCH ×6 (03:17→23:22)
[2019-03-29 03:31] LABS: ABG BASE EXCESS 6.4 mmol/L (-2.0-3.0); ABG HCO3 29.6 mmol/L (22.0-26.0); ABG OXYGEN SATURATION 92.8 % (95-98); ABG PCO2 (T) 36.9 mmHg (35.0-45.0); ABG PH (T) 7.522 (7.350-7.450); ABG PO2 (T) 63.8 mmHg (83-108); ALLEN'S TEST Positive; FCOHb 0.3 % (0.5-1.5); FMetHb 0.1 % (0.3-1.12); FO2Hb 92.4 % (94-100); MINUTE VOLUME 6 L/min; PEEP 5 cm H2O; RESPIRATORY RATE 14 b/min; RESPIRATORY RATE (OBSERVED) 14 b/min; TIDAL VOLUME 400 mL
[2019-03-29 03:32] LABS: ANISOCYTOSIS 2+; MICROCYTOSIS 1+; PLATELET ESTIMATE NORMAL
[2019-03-29 03:34] LABS: BURR CELLS FEW; ELLIPTOCYTES FEW; HYPOCHROMASIA 1+
[2019-03-29 03:35] LABS: SCHISTOCYTES FEW
--- NOTE | 2019-03-29 06:40 | NUR ---
Problems reprioritized. Patient report given, questions answered & plan of care reviewed with Reid/Art RN.
[2019-03-29] MEDS ORDERED: azithromycin 250mg tablet PO SCH (08:00)
[2019-03-29] MEDS: heparin, porcine 5000 units/ml vial SQ SCH ×2 (08:43→20:07)
[2019-03-29] MEDS: methylPREDNISolone sod succ 125mg/2ml vial IV SCH ×2 (08:43→20:06)
[2019-03-29] MEDS: lactobacillus rhamnosus 10,000 MMU CELLS/CAPSULE PO SCH ×2 (08:44→20:03)
[2019-03-29] MEDS: POTASSIUM BICARB 20meq eff tab 20 MEQ TABLET.EFF PO SCH (08:44)
[2019-03-29] MEDS: metoprolol tartrate 12.5mg (1/2 tablet) PO SCH (08:44)
[2019-03-29] MEDS: losartan 50mg tablet PO SCH (08:44)
[2019-03-29] MEDS: NYSTATIN CREAM - 30GM TUBE TP SCH ×2 (08:55→20:07)
[2019-03-29] MEDS: FENTANYL-0.9 % NACL/PF 100 ML IV PRN (15:53)
--- NOTE | 2019-03-29 16:34 | NUR ---
tube feed increased to 55 per orders
--- NOTE | 2019-03-29 18:30 | NUR ---
Patient in room ICU 2039. I have received report from Jyoti RN and had the opportunity to ask questions and assume patient care.
[2019-03-29] MEDS: metoprolol tartrate 12.5mg (1/2 tablet) OGT SCH (20:03)
[2019-03-29] MEDS: latanoprost 0.005% 2.5ml ophthalmic drops EACHEYE SCH (20:07)
[2019-03-29] MEDS: normal saline 1000ml 1,000 ML IV SCH (20:08)
[2019-03-30] VITALS (24 sets, daily range): BP systolic 112–192; BP diastolic 50–96
[2019-03-30] MEDS: mineral oil/petrolatum ophthal oint EACHEYE SCH (02:07)
[2019-03-30] MEDS: diltiazem 30mg tablet OGT SCH ×4 (02:07→20:34)
[2019-03-30 02:47] LABS: BASOPHILS % (AUTO) 0.3 % (0-1); EOSINOPHILS % (AUTO) 0 % (0-6); HEMATOCRIT 27.9 % (35.0-45.0); HEMOGLOBIN 9.2 g/dl (12.0-16.0); LYMPHOCYTES # (AUTO) 0.1 X10'3 (1.1-4.8); MEAN CORPUSCULAR HEMOGLOBIN 25.5 PG (27.0-31.0); MEAN CORPUSCULAR HGB CONC 33.1 g/dL (33.0-36.5); MEAN PLATELET VOLUME 9.4 FL (7.4-10.4); MONOCYTES # (AUTO) 0.2 X10'3 (0-0.9); NEUTROPHILS # (AUTO) 7.4 X10'3 (1.8-7.7); NEUTROPHILS % (AUTO) 96.7 % (42-75); PLATELET COUNT 259 X10'3 (140-440); RED BLOOD COUNT 3.62 X10'6 (4.20-5.60); RED CELL DISTRIBUTION WIDTH 18.6 % (11.5-14.5); WHITE BLOOD COUNT 7.6 X10'3 (4.5-11.0)
[2019-03-30 03:07] LABS: ANISOCYTOSIS 2+; MICROCYTOSIS 1+; PLATELET ESTIMATE NORMAL
[2019-03-30 03:08] LABS: BURR CELLS FEW
[2019-03-30 03:09] LABS: SCHISTOCYTES FEW
[2019-03-30 03:14] LABS: ALANINE AMINOTRANSFERASE 16 U/L (12-78); ALBUMIN 2.4 G/DL (3.4-5.0); ANION GAP 3 (8-16); ASPARTATE AMINO TRANSFERASE 14 U/L (10-37); BILIRUBIN,TOTAL 0.4 MG/DL (0.1-1.0); BLOOD UREA NITROGEN 19 MG/DL (7-18); BUN/CREATININE RATIO 38.8 (6.6-38.0); CALCIUM 7.6 MG/DL (8.5-10.1); CHLORIDE 94 MMOL/L (99-107); CREATININE 0.49 MG/DL (0.40-0.90); GLUCOSE 143 MG/DL (70-104); MAGNESIUM 1.7 MG/DL (1.5-2.4); PHOSPHORUS 3.6 MG/DL (2.3-4.5); POTASSIUM 3.9 MMOL/L (3.5-5.1); PREALBUMIN 18.2 MG/DL (19-36); SODIUM 129 MMOL/L (135-145); TOTAL CARBON DIOXIDE 32.2 MMOL/L (24-32); TOTAL PROTEIN 4.9 G/DL (6.4-8.2); eGFR > 90 ML/MIN
[2019-03-30] MEDS: ipratropium/albuterol 3ml nebule NEB SCH ×6 (03:25→23:53)
[2019-03-30 03:40] LABS: ABG BASE EXCESS 6.2 mmol/L (-2.0-3.0); ABG HCO3 30.2 mmol/L (22.0-26.0); ABG OXYGEN SATURATION 93.5 % (95-98); ABG PCO2 (T) 40.3 mmHg (35.0-45.0); ABG PO2 (T) 64.8 mmHg (83-108); ALLEN'S TEST Positive; FCOHb 0.3 % (0.5-1.5); FMetHb 0.1 % (0.3-1.12); FO2Hb 93.1 % (94-100); MINUTE VOLUME 5 L/min; PATIENT TEMPERATURE 36.4; PEEP 5 cm H2O; RESPIRATORY RATE 12 b/min; RESPIRATORY RATE (OBSERVED) 12 b/min; TIDAL VOLUME 400 mL; TOTAL HEMOGLOBIN 9.9 G/dl (12.0-16.0)
[2019-03-30 03:44] LABS: ALKALINE PHOSPHATASE 76 IU/L (46-116)
--- NOTE | 2019-03-30 06:31 | NUR ---
Problems reprioritized. Patient report given, questions answered & plan of care reviewed with Reid VICTOR.
[2019-03-30] MEDS: POTASSIUM BICARB 20meq eff tab 20 MEQ TABLET.EFF OGT SCH (09:03)
[2019-03-30] MEDS: lactobacillus rhamnosus 10,000 MMU CELLS/CAPSULE PO SCH ×2 (09:04→20:34)
[2019-03-30] MEDS: heparin, porcine 5000 units/ml vial SQ SCH ×2 (09:05→20:36)
[2019-03-30] MEDS: losartan 50mg tablet OGT SCH (09:07)
[2019-03-30] MEDS: methylPREDNISolone sod succ 125mg/2ml vial IV SCH ×2 (09:07→20:35)
[2019-03-30] MEDS: azithromycin/NS 500mg/250ml 250 ML IV SCH (09:08)
[2019-03-30] MEDS: metoprolol tartrate 12.5mg (1/2 tablet) OGT SCH ×2 (09:10→20:34)
--- NOTE | 2019-03-30 10:15 | NUR ---
Pt extubated per MD orders to 3L NC sating 92%. Pt tolerated well. Some confusion noted but alert and answering questions appropriately. Will continue to monitor.
[2019-03-30] MEDS: NYSTATIN CREAM - 30GM TUBE TP SCH ×2 (11:35→20:36)
--- NOTE | 2019-03-30 12:54 | NUR ---
Patient refused SVN tx @ this time. No Shortness of breath noted. PT STATES DOESNT WANT TO TAKE THIS MANY TX nad Addendum: 03/30/19 at 1257 by Danyell Ashby RT Amended: Links added.
--- NOTE | 2019-03-30 18:30 | NUR ---
Patient in room ICU 2039. I have received report from Reid VICTOR and had the opportunity to ask questions and assume patient care.
[2019-03-30] MEDS: lactose-reduced food (Ensure Enlive) - 237ml bottle PO SCH (18:56)
[2019-03-30] MEDS: ondansetron/PF 4mg/2ml inj IV PRN (18:57)
[2019-03-30] MEDS ORDERED: clonazePAM 0.5mg tablet PO PRN (19:50)
[2019-03-30] MEDS: latanoprost 0.005% 2.5ml ophthalmic drops EACHEYE SCH (20:36)
[2019-03-31] VITALS (17 sets, daily range): BP systolic 128–174; BP diastolic 57–86
[2019-03-31] MEDS: diltiazem 30mg tablet OGT SCH ×4 (02:06→19:34)
[2019-03-31] MEDS: ondansetron/PF 4mg/2ml inj IV PRN (02:19)
[2019-03-31] MEDS: ipratropium/albuterol 3ml nebule NEB SCH ×6 (03:00→23:39)
[2019-03-31 04:03] LABS: BASOPHILS % (AUTO) 0.2 % (0-1); EOSINOPHILS % (AUTO) 0 % (0-6); HEMATOCRIT 28.6 % (35.0-45.0); HEMOGLOBIN 9.4 g/dl (12.0-16.0); LYMPHOCYTES # (AUTO) 0.1 X10'3 (1.1-4.8); LYMPHOCYTES % (AUTO) 1.2 % (21-51); MEAN CORPUSCULAR HEMOGLOBIN 25.6 PG (27.0-31.0); MEAN CORPUSCULAR HGB CONC 32.9 g/dL (33.0-36.5); MEAN CORPUSCULAR VOLUME 77.6 FL (78-98); MEAN PLATELET VOLUME 8.9 FL (7.4-10.4); MONOCYTES # (AUTO) 0.2 X10'3 (0-0.9); MONOCYTES % (AUTO) 3.1 % (2-12); NEUTROPHILS # (AUTO) 7.3 X10'3 (1.8-7.7); NEUTROPHILS % (AUTO) 95.5 % (42-75); PLATELET COUNT 261 X10'3 (140-440); RED BLOOD COUNT 3.69 X10'6 (4.20-5.60); RED CELL DISTRIBUTION WIDTH 19.1 % (11.5-14.5); WHITE BLOOD COUNT 7.6 X10'3 (4.5-11.0)
[2019-03-31 04:13] LABS: ALANINE AMINOTRANSFERASE 14 U/L (12-78); ALBUMIN 2.5 G/DL (3.4-5.0); ANION GAP 1 (8-16); ASPARTATE AMINO TRANSFERASE 12 U/L (10-37); BILIRUBIN,TOTAL 0.4 MG/DL (0.1-1.0); BLOOD UREA NITROGEN 23 MG/DL (7-18); BUN/CREATININE RATIO 39.7 (6.6-38.0); CALCIUM 7.7 MG/DL (8.5-10.1); CHLORIDE 93 MMOL/L (99-107); CREATININE 0.58 MG/DL (0.40-0.90); GLUCOSE 133 MG/DL (70-104); MAGNESIUM 1.7 MG/DL (1.5-2.4); PHOSPHORUS 3.5 MG/DL (2.3-4.5); SODIUM 131 MMOL/L (135-145); TOTAL CARBON DIOXIDE 37.5 MMOL/L (24-32); TOTAL PROTEIN 5.1 G/DL (6.4-8.2); eGFR > 90 ML/MIN
[2019-03-31 04:29] LABS: ALKALINE PHOSPHATASE 73 IU/L (46-116)
[2019-03-31 04:37] LABS: BURR CELLS 1+; ELLIPTOCYTES FEW; HYPOCHROMASIA 1+; PLATELET ESTIMATE NORMAL
[2019-03-31 04:38] LABS: ANISOCYTOSIS 2+; MICROCYTOSIS 1+
--- NOTE | 2019-03-31 05:00 | NUR ---
pt has been nauseous most of the night. she started complaining of nausea after dinner. she was almost finished with her ensure. she was given zofran, and reported some relief, but not full relief. her abdomen is distended. she slept for several hours. zofran was given again after 6 hrs. she has not complained of nausea since that time.
--- NOTE | 2019-03-31 06:30 | NUR ---
Patient in room ICU 2039. I have received report from Win VICTOR and had the opportunity to ask questions and assume patient care.
--- NOTE | 2019-03-31 06:34 | NUR ---
Problems reprioritized. Patient report given, questions answered & plan of care reviewed with Tegan VICTOR and Suzy VICTOR.
[2019-03-31] MEDS: azithromycin/NS 500mg/250ml 250 ML IV SCH (08:37)
[2019-03-31] MEDS: methylPREDNISolone sod succ 125mg/2ml vial IV SCH ×2 (08:37→19:32)
[2019-03-31] MEDS: heparin, porcine 5000 units/ml vial SQ SCH ×2 (08:39→19:33)
[2019-03-31] MEDS: lactobacillus rhamnosus 10,000 MMU CELLS/CAPSULE PO SCH (08:39)
[2019-03-31] MEDS: losartan 50mg tablet OGT SCH (08:40)
[2019-03-31] MEDS: metoprolol tartrate 12.5mg (1/2 tablet) OGT SCH ×2 (08:40→19:34)
[2019-03-31] MEDS: POTASSIUM BICARB 20meq eff tab 20 MEQ TABLET.EFF OGT SCH (08:41)
[2019-03-31] MEDS: lactose-reduced food (Ensure Enlive) - 237ml bottle PO SCH (08:43)
[2019-03-31] MEDS: NYSTATIN CREAM - 30GM TUBE TP SCH ×2 (08:43→19:36)
[2019-03-31] MEDS ORDERED: clonazePAM 0.5mg tablet OGT PRN (09:31)
[2019-03-31] MEDS ORDERED: lactobacillus rhamnosus 10,000 MMU CELLS/CAPSULE OGT SCH (09:32)
[2019-03-31] MEDS: normal saline 1000ml 1,000 ML IV SCH (09:35)
[2019-03-31] MEDS: lactose-reduced food (Ensure Enlive) - 237ml bottle OGT SCH ×2 (13:01→18:44)
--- NOTE | 2019-03-31 14:45 | NUR ---
Problems reprioritized. Patient report given, questions answered & plan of care reviewed with Dianne VICTOR.
--- NOTE | 2019-03-31 14:55 | NUR ---
I have reviewed and agree with all medications administered and interventions performed by [facility] Student(ILLA GLASER)
--- NOTE | 2019-03-31 14:56 | NUR ---
pt transferred to 3028 via chair with all belongings.
--- NOTE | 2019-03-31 16:20 | NUR ---
Reassessment: Patient is extubated. Tube feedings discontinued. Per MD note patient at baseline (dementia), continuing treatment for COPD exacerbation. BSS done this morning, ST recommends upgrade from pureed to mechanical soft food, all chopped, thin liquids. She has a sacrum and left ischium partial thickness pressure ulcer. She is receiving ensure enlive with meals, drinking 25%; she is eating 25-49% of meals so far. Will continue to follow. Recommend: 1. continue mechanical soft diet, chop all 2. ensure enlive with all meals 3. weight per rx Addendum: 03/31/19 at [address] Amended: Links added.
--- NOTE | 2019-03-31 18:15 | NUR ---
Patient in room U 3028. I have received report from VALENTE Carpenter and had the opportunity to ask questions and assume patient care. Addendum: 03/31/19 at 2304 by Angelica Dailey RN Amended: Links added.
--- NOTE | 2019-03-31 18:15 | NUR ---
Patient in room PCU 3028. I have received report from VALENTE Aranda and had the opportunity to ask questions and assume patient care.
--- NOTE | 2019-03-31 18:15 | NUR ---
Problems reprioritized. Patient report given, questions answered & plan of care reviewed with Tianna RN.
--- NOTE | 2019-03-31 18:53 | NUR ---
Patient in room PCU 3028. I have received report from VALENTE Carpenter and had the opportunity to ask questions and assume patient care.
--- NOTE | 2019-03-31 20:00 | NUR ---
bilat arms with 3+ pitting edema, with weeping noted from right arm.
--- NOTE | 2019-03-31 20:00 | NUR ---
pt bladder scanned (275ml), pt reports thinks she is able to void but has not voided since F/C DC'd will reassess and cont. to monitor. Addendum: 03/31/19 at 2231 by Angelica Dailey RN Amended: Links added.
[2019-03-31] MEDS: latanoprost 0.005% 2.5ml ophthalmic drops EACHEYE SCH (21:00)
--- NOTE | 2019-03-31 21:00 | NUR ---
bath not given this HS pt refusing cares at this time and wants to go to sleep stated "I'm done" Addendum: 03/31/19 at 2144 by Angelica Dailey RN Amended: Links added.
--- NOTE | 2019-03-31 23:00 | NUR ---
performed bladder scan pt has not voided since F/C SHERRI'd on previous shift, scanned (512ml) at this time. Will straight cath pt per protocol. Addendum: 03/31/19 at 2309 by Angelica Dailey RN Amended: Links added.
[2019-04-01 02:00] VITALS: BP 153/63
[2019-04-01 03:02] LABS: BASOPHILS % (AUTO) 0.1 % (0-1); EOSINOPHILS % (AUTO) 0 % (0-6); HEMATOCRIT 27.7 % (35.0-45.0); HEMOGLOBIN 9.1 g/dl (12.0-16.0); LYMPHOCYTES # (AUTO) 0.1 X10'3 (1.1-4.8); LYMPHOCYTES % (AUTO) 1.6 % (21-51); MEAN CORPUSCULAR HEMOGLOBIN 25.5 PG (27.0-31.0); MEAN CORPUSCULAR HGB CONC 32.7 g/dL (33.0-36.5); MEAN CORPUSCULAR VOLUME 77.8 FL (78-98); MEAN PLATELET VOLUME 9.1 FL (7.4-10.4); MONOCYTES # (AUTO) 0.1 X10'3 (0-0.9); MONOCYTES % (AUTO) 2.6 % (2-12); NEUTROPHILS # (AUTO) 4.8 X10'3 (1.8-7.7); NEUTROPHILS % (AUTO) 95.7 % (42-75); PLATELET COUNT 208 X10'3 (140-440); RED BLOOD COUNT 3.56 X10'6 (4.20-5.60); RED CELL DISTRIBUTION WIDTH 19.1 % (11.5-14.5)
[2019-04-01 03:36] LABS: ALANINE AMINOTRANSFERASE 17 U/L (12-78); ALBUMIN 2.5 G/DL (3.4-5.0); ALKALINE PHOSPHATASE 68 IU/L (46-116); ANION GAP -2 (8-16); ASPARTATE AMINO TRANSFERASE 14 U/L (10-37); BILIRUBIN,TOTAL 0.3 MG/DL (0.1-1.0); BLOOD UREA NITROGEN 20 MG/DL (7-18); CHLORIDE 94 MMOL/L (99-107); CREATININE 0.54 MG/DL (0.40-0.90); GLUCOSE 128 MG/DL (70-104); MAGNESIUM 1.7 MG/DL (1.5-2.4); SODIUM 130 MMOL/L (135-145); TOTAL CARBON DIOXIDE 37.9 MMOL/L (24-32); TOTAL PROTEIN 4.9 G/DL (6.4-8.2); eGFR > 90 ML/MIN
[2019-04-01] MEDS: ipratropium/albuterol 3ml nebule NEB SCH ×6 (03:36→23:52)
--- NOTE | 2019-04-01 06:30 | NUR ---
Patient in room PCU 3028. I have received report from VALENTE Dean and had the opportunity to ask questions and assume patient care.
[2019-04-01] MEDS: methylPREDNISolone sod succ 125mg/2ml vial IV SCH (07:35)
[2019-04-01] MEDS: heparin, porcine 5000 units/ml vial SQ SCH ×2 (07:38→21:13)
[2019-04-01] MEDS: losartan 50mg tablet PO SCH (07:40)
[2019-04-01] MEDS: metoprolol tartrate 12.5mg (1/2 tablet) PO SCH ×2 (07:41→21:18)
[2019-04-01] MEDS: diltiazem CD 180mg cap (once-daily) PO SCH (07:41)
[2019-04-01] MEDS: POTASSIUM BICARB 20meq eff tab 20 MEQ TABLET.EFF PO SCH (07:42)
[2019-04-01] MEDS: lactose-reduced food (Ensure Enlive) - 237ml bottle PO SCH ×3 (07:43→18:00)
[2019-04-01] MEDS: NYSTATIN CREAM - 30GM TUBE TP SCH ×2 (07:44→21:20)
[2019-04-01] MEDS: lactobacillus rhamnosus 10,000 MMU CELLS/CAPSULE PO SCH ×2 (07:45→21:14)
[2019-04-01] MEDS: azithromycin/NS 500mg/250ml 250 ML IV SCH (08:23)
--- NOTE | 2019-04-01 17:44 | NUR ---
Pt. is incontinent of urine and no wic is used for urine collection.
[2019-04-01 18:00] VITALS: BP 157/77
--- NOTE | 2019-04-01 18:58 | NUR ---
Patient in room U 3028. I have received report from Dianne Kang and had the opportunity to ask questions and assume patient care. Addendum: 04/01/19 at 1859 by Berta Alvarez RN Amended: Links added.
--- NOTE | 2019-04-01 20:00 | NUR ---
pt positioned to comfort skin care done had been changed for inc of urine. daughter at the bedside. hs meds given as tolerated and eye gtts.
[2019-04-01] MEDS: clonazePAM 0.5mg tablet PO PRN (21:17)
[2019-04-01] MEDS: latanoprost 0.005% 2.5ml ophthalmic drops EACHEYE SCH (21:19)
--- NOTE | 2019-04-01 22:00 | NUR ---
daughter at pt bedside and requested aide not do vitals on pt as just dozed off to sleep.
--- NOTE | 2019-04-02 | NUR ---
pt postioned to comfort no changes at this time.
[2019-04-02 02:00] VITALS: BP 141/69
--- NOTE | 2019-04-02 02:00 | NUR ---
pt resting eyes closed without changes. wicc in place at this time. no s&s of distress at this time.
--- NOTE | 2019-04-02 03:10 | NUR ---
no s&s of distress resting without changes.
[2019-04-02] MEDS: ipratropium/albuterol 3ml nebule NEB SCH ×6 (03:19→23:27)
--- NOTE | 2019-04-02 05:10 | NUR ---
pt resting without changes at this time. positioned to comfort.
[2019-04-02 06:04] LABS: HEMATOCRIT 29.3 % (35.0-45.0); HEMOGLOBIN 9.8 g/dl (12.0-16.0)
[2019-04-02 06:05] LABS: BASOPHILS % (AUTO) 0.1 % (0-1); EOSINOPHILS % (AUTO) 0 % (0-6); LYMPHOCYTES # (AUTO) 0.2 X10'3 (1.1-4.8); LYMPHOCYTES % (AUTO) 2.2 % (21-51); MEAN CORPUSCULAR HGB CONC 33.5 g/dL (33.0-36.5); MEAN CORPUSCULAR VOLUME 77.8 FL (78-98); MEAN PLATELET VOLUME 8.9 FL (7.4-10.4); MONOCYTES # (AUTO) 0.7 X10'3 (0-0.9); MONOCYTES % (AUTO) 7.4 % (2-12); NEUTROPHILS # (AUTO) 8.3 X10'3 (1.8-7.7); NEUTROPHILS % (AUTO) 90.3 % (42-75); PLATELET COUNT 201 X10'3 (140-440); RED BLOOD COUNT 3.76 X10'6 (4.20-5.60); RED CELL DISTRIBUTION WIDTH 18.6 % (11.5-14.5); WHITE BLOOD COUNT 9.2 X10'3 (4.5-11.0)
--- NOTE | 2019-04-02 06:15 | NUR ---
Patient in room PCU 3028. I have received report from VALENTE Hampton and had the opportunity to ask questions and assume patient care.
[2019-04-02 06:29] LABS: ALANINE AMINOTRANSFERASE 29 U/L (12-78); ALBUMIN 2.5 G/DL (3.4-5.0); ALBUMIN/GLOBULIN RATIO 1.1 (1.1-1.5); ALKALINE PHOSPHATASE 71 IU/L (46-116); ANION GAP 1 (8-16); ASPARTATE AMINO TRANSFERASE 16 U/L (10-37); BILIRUBIN,TOTAL 0.3 MG/DL (0.1-1.0); BLOOD UREA NITROGEN 27 MG/DL (7-18); BUN/CREATININE RATIO 61.4 (6.6-38.0); CALCIUM 7.8 MG/DL (8.5-10.1); CHLORIDE 94 MMOL/L (99-107); CREATININE 0.44 MG/DL (0.40-0.90); GLUCOSE 144 MG/DL (70-104); POTASSIUM 3.5 MMOL/L (3.5-5.1); SODIUM 133 MMOL/L (135-145); TOTAL CARBON DIOXIDE 37.6 MMOL/L (24-32); TOTAL PROTEIN 4.7 G/DL (6.4-8.2); eGFR > 90 ML/MIN
--- NOTE | 2019-04-02 06:33 | NUR ---
Problems reprioritized. Patient report given, questions answered & plan of care reviewed with Thuy Kang. Addendum: 04/02/19 at 0634 by Berta Alvarez RN Amended: Links added.
[2019-04-02 07:02] VITALS: BP 142/64
[2019-04-02 07:14] LABS: ACANTHOCYTES FEW; ANISOCYTOSIS 2+; ELLIPTOCYTES FEW; MICROCYTOSIS 1+; PLATELET ESTIMATE NORMAL
[2019-04-02 07:15] LABS: SCHISTOCYTES 1+
[2019-04-02] MEDS: azithromycin/NS 500mg/250ml 250 ML IV SCH (07:34)
[2019-04-02] MEDS: methylPREDNISolone sod succ 125mg/2ml vial IV SCH (07:34)
[2019-04-02] MEDS: heparin, porcine 5000 units/ml vial SQ SCH ×2 (07:34→19:54)
[2019-04-02] MEDS: POTASSIUM BICARB 20meq eff tab 20 MEQ TABLET.EFF PO SCH (07:35)
[2019-04-02] MEDS: losartan 50mg tablet PO SCH (07:35)
[2019-04-02] MEDS: NYSTATIN CREAM - 30GM TUBE TP SCH ×2 (07:36→19:55)
[2019-04-02] MEDS: lactobacillus rhamnosus 10,000 MMU CELLS/CAPSULE PO SCH ×2 (07:36→19:53)
[2019-04-02] MEDS: lactose-reduced food (Ensure Enlive) - 237ml bottle PO SCH ×3 (07:36→18:00)
[2019-04-02] MEDS: metoprolol tartrate 12.5mg (1/2 tablet) PO SCH (08:31)
[2019-04-02] MEDS: diltiazem CD 180mg cap (once-daily) PO SCH (08:31)
[2019-04-02] MEDS ORDERED: magnesium hydroxide 30ml (MOM) UD suspension PO ONE (09:15)
[2019-04-02 11:00] VITALS: BP 145/68
[2019-04-02] MEDS: bisacodyl 10mg suppository rectal RC PRN (11:50)
[2019-04-02 15:00] VITALS: BP 145/66
--- NOTE | 2019-04-02 17:04 | NUR ---
I have assessed patient and agree with physical assessment charting of Thuy Castro RN.
[2019-04-02 18:00] VITALS: BP 151/65
--- NOTE | 2019-04-02 18:22 | NUR ---
New hire documentation: I have reviewed and agree with all interventions, assessments performed and documented by Janay VICTOR.
--- NOTE | 2019-04-02 18:26 | NUR ---
Problems reprioritized. Patient report given, questions answered & plan of care reviewed with Malaika VICTOR.
--- NOTE | 2019-04-02 18:27 | NUR ---
Patient in room PCU 3028. I have received report from VALENTE Mckay and had the opportunity to ask questions and assume patient care. Patient is sitting up in bed in no obvious distress, daughter is at the bedside.
[2019-04-02] MEDS: clonazePAM 0.5mg tablet PO PRN (19:53)
[2019-04-02] MEDS: latanoprost 0.005% 2.5ml ophthalmic drops EACHEYE SCH (19:54)
[2019-04-02] MEDS: sennosides/docusate sodium tablet PO SCH (20:07)
[2019-04-02 22:00] VITALS: BP 142/100
[2019-04-03 03:00] VITALS: BP 147/69
[2019-04-03] MEDS: ipratropium/albuterol 3ml nebule NEB SCH ×6 (03:00→23:05)
--- NOTE | 2019-04-03 06:20 | NUR ---
Problems reprioritized. Patient report given, questions answered & plan of care reviewed with VALENTE Daley.
[2019-04-03 07:00] VITALS: BP 164/65
[2019-04-03] MEDS: diltiazem CD 180mg cap (once-daily) PO SCH (07:22)
[2019-04-03] MEDS: azithromycin/NS 500mg/250ml 250 ML IV SCH (07:22)
[2019-04-03] MEDS: NYSTATIN CREAM - 30GM TUBE TP SCH ×2 (07:22→20:14)
[2019-04-03] MEDS: losartan 50mg tablet PO SCH (07:22)
[2019-04-03] MEDS: lactobacillus rhamnosus 10,000 MMU CELLS/CAPSULE PO SCH ×2 (07:22→20:14)
[2019-04-03] MEDS: POTASSIUM BICARB 20meq eff tab 20 MEQ TABLET.EFF PO SCH (07:23)
[2019-04-03] MEDS: heparin, porcine 5000 units/ml vial SQ SCH ×2 (07:24→20:13)
[2019-04-03] MEDS: methylPREDNISolone sod succ 125mg/2ml vial IV SCH ×3 (07:25→20:12)
[2019-04-03] MEDS: lactose-reduced food (Ensure Enlive) - 237ml bottle PO SCH ×3 (07:38→18:43)
[2019-04-03] MEDS ORDERED: metoprolol succinate 25mg (24-HOUR) SR. Tablet PO SCH (08:00)
[2019-04-03] MEDS: clonazePAM 0.5mg tablet PO PRN ×3 (10:11→23:50)
[2019-04-03 11:00] VITALS: BP 142/80
--- NOTE | 2019-04-03 12:28 | NUR ---
reassessment: Pt PO improved to 100% ONS/mech soft meals this AM and 50% avg prior meals past few days s/p extubation likely meeting needs given current wt/wounds. Possible d/c home today per MD note. LBM 04/02. Will continue to monitor. Recommend: 1. continue mechanical soft diet, chop all 2. ensure enlive with all meals 3. weight per rx Addendum: 04/03/19 at [address] Amended: Links added.
[2019-04-03 15:00] VITALS: BP 154/76
[2019-04-03 18:00] VITALS: BP 139/73
--- NOTE | 2019-04-03 18:20 | NUR ---
Patient in room PCU 3028. I have received report from VALENTE Daley and had the opportunity to ask questions and assume patient care. Patient is sleeping comfortably in bed, just finished dinner and daughter is at the bedside. I will continue to monitor.
[2019-04-03] MEDS: latanoprost 0.005% 2.5ml ophthalmic drops EACHEYE SCH (20:14)
[2019-04-03] MEDS: sennosides/docusate sodium tablet PO SCH (20:14)
[2019-04-03 22:00] VITALS: BP 160/77
--- NOTE | 2019-04-03 23:52 | NUR ---
Patient complained of stomach ache, she was repositioned and her wick readjusted. She is resting comfortably now.
[2019-04-04] MEDS: bisacodyl 10mg suppository rectal RC PRN ×2 (01:29→21:09)
[2019-04-04] MEDS: ondansetron/PF 4mg/2ml inj IV PRN ×3 (01:34→14:44)
[2019-04-04] MEDS: methylPREDNISolone sod succ 125mg/2ml vial IV SCH ×4 (01:37→20:48)
--- NOTE | 2019-04-04 01:52 | NUR ---
Patient woke and is complaining of stomach ache, cramping. She has not had a BM since 04/02 and her stomach is a little distended, I placed her on the bedpan with no success. I gave her a ducolax suppository and Zofran for nausea, I also bladder scanned her (showed less than 30mL in bladder). I will continue to monitor.
[2019-04-04 02:00] VITALS: BP 151/77
[2019-04-04] MEDS: ipratropium/albuterol 3ml nebule NEB SCH ×4 (03:15→19:01)
--- NOTE | 2019-04-04 03:39 | NUR ---
RT went to give pt breathing treatment and found she had vomited all over herself. She was give a bed bath, linen cng and repositioned. Patient now reports her stomach feels much better, she seems more comfortable. I will continue to monitor.
--- NOTE | 2019-04-04 06:14 | NUR ---
Problems reprioritized. Patient report given, questions answered & plan of care reviewed with VALENTE Daley.
--- NOTE | 2019-04-04 06:14 | NUR ---
Patient in room PCU 3028. I have received report from Renee VICTOR and had the opportunity to ask questions and assume patient care.
--- NOTE | 2019-04-04 06:15 | NUR ---
Patient in room PCU 3028. I have received report from VALENTE Duran and had the opportunity to ask questions and assume patient care.
[2019-04-04 07:00] VITALS: BP 154/83
[2019-04-04] MEDS: azithromycin 250mg tablet PO SCH (07:47)
[2019-04-04] MEDS: lactobacillus rhamnosus 10,000 MMU CELLS/CAPSULE PO SCH ×2 (07:48→20:48)
[2019-04-04] MEDS: diltiazem CD 180mg cap (once-daily) PO SCH (07:48)
[2019-04-04] MEDS: losartan 50mg tablet PO SCH (07:48)
[2019-04-04] MEDS: heparin, porcine 5000 units/ml vial SQ SCH ×2 (07:49→20:48)
[2019-04-04] MEDS: metoprolol succinate 25mg (24-HOUR) SR. Tablet PO SCH (07:50)
[2019-04-04] MEDS: lactose-reduced food (Ensure Enlive) - 237ml bottle PO SCH ×3 (08:00→18:00)
[2019-04-04] MEDS: POTASSIUM BICARB 20meq eff tab 20 MEQ TABLET.EFF PO SCH (08:00)
--- NOTE | 2019-04-04 08:37 | NUR ---
Called Dr. Jordan regarding pts increased nausea as well as distended abdomen. Let him know that the pt hasn't had labs drawn since 04/02. Will continue to assess and call with updates
[2019-04-04 11:00] VITALS: BP 125/76
[2019-04-04 11:36] LABS: ABG BASE EXCESS 17.5 mmol/L (-2.0-3.0); ABG HCO3 44.1 mmol/L (22.0-26.0); ABG OXYGEN SATURATION 88.3 % (95-98); ABG PCO2 (T) 60.8 mmHg (35.0-45.0); ABG PH (T) 7.478 (7.350-7.450); ABG PO2 (T) 53.2 mmHg (83-108); ALLEN'S TEST Positive; FCOHb 0.6 % (0.5-1.5); FLOW 4 L/min; FMetHb 0.2 % (0.3-1.12); FO2Hb 87.6 % (94-100); TOTAL HEMOGLOBIN 12.9 G/dl (12.0-16.0)
[2019-04-04 11:56] LABS: BASOPHILS % (AUTO) 0 % (0-1); EOSINOPHILS % (AUTO) 0 % (0-6); HEMATOCRIT 37.7 % (35.0-45.0); HEMOGLOBIN 12.3 g/dl (12.0-16.0); LYMPHOCYTES # (AUTO) 0.1 X10'3 (1.1-4.8); MEAN CORPUSCULAR HEMOGLOBIN 25.5 PG (27.0-31.0); MEAN CORPUSCULAR HGB CONC 32.7 g/dL (33.0-36.5); MEAN CORPUSCULAR VOLUME 78.1 FL (78-98); MEAN PLATELET VOLUME 9.7 FL (7.4-10.4); MONOCYTES # (AUTO) 0.3 X10'3 (0-0.9); MONOCYTES % (AUTO) 3.4 % (2-12); NEUTROPHILS # (AUTO) 9.3 X10'3 (1.8-7.7); NEUTROPHILS % (AUTO) 95.6 % (42-75); PLATELET COUNT 219 X10'3 (140-440); RED BLOOD COUNT 4.82 X10'6 (4.20-5.60); RED CELL DISTRIBUTION WIDTH 19.7 % (11.5-14.5); WHITE BLOOD COUNT 9.7 X10'3 (4.5-11.0)
[2019-04-04 12:18] LABS: ALANINE AMINOTRANSFERASE 26 U/L (12-78); ALBUMIN/GLOBULIN RATIO 1.2 (1.1-1.5); ALKALINE PHOSPHATASE 78 IU/L (46-116); ANION GAP -1 (8-16); ASPARTATE AMINO TRANSFERASE 12 U/L (10-37); BILIRUBIN,TOTAL 0.5 MG/DL (0.1-1.0); BLOOD UREA NITROGEN 24 MG/DL (7-18); BUN/CREATININE RATIO 41.4 (6.6-38.0); CALCIUM 8.5 MG/DL (8.5-10.1); CHLORIDE 90 MMOL/L (99-107); CREATININE 0.58 MG/DL (0.40-0.90); GLUCOSE 123 MG/DL (70-104); PHOSPHORUS 3.6 MG/DL (2.3-4.5); POTASSIUM 4.1 MMOL/L (3.5-5.1); SODIUM 131 MMOL/L (135-145); TOTAL PROTEIN 5.6 G/DL (6.4-8.2); eGFR > 90 ML/MIN
--- NOTE | 2019-04-04 12:30 | NUR ---
Called Dr Jordan about critical venous CO2 of 42.0 . No orders at this time due to recent ABG results and the fact that she has a history of COPD.
[2019-04-04 13:46] LABS: ANISOCYTOSIS 2+; HYPOCHROMASIA 1+; MICROCYTOSIS 1+; PLATELET ESTIMATE NORMAL
[2019-04-04] MEDS: NYSTATIN CREAM - 30GM TUBE TP SCH ×2 (14:44→20:49)
[2019-04-04 15:00] VITALS: BP 178/89
[2019-04-04] MEDS ORDERED: magnesium hydroxide 30ml (MOM) UD suspension PO PRN (16:50)
[2019-04-04] MEDS: morphine 2 MG/ML inj. syringe IV PRN (17:34)
[2019-04-04 18:00] VITALS: BP 161/85
--- NOTE | 2019-04-04 18:25 | NUR ---
Problems reprioritized. Patient report given, questions answered & plan of care reviewed with Renee and Laine RNs .
--- NOTE | 2019-04-04 18:31 | NUR ---
Patient in room PCU 3028. I have received report from VALENTE Mariee and had the opportunity to ask questions and assume patient care. Per day shift pt is still nauseous and Zofran not helping. notified. Pt asleep and appears comfortable at this time.
--- NOTE | 2019-04-04 18:31 | NUR ---
Patient in room PCU 3028. I have received report from VALENTE Mariee and had the opportunity to ask questions and assume patient care. Per dayshift patient still nauseous and abdomen distended, Dr. Horn aware and evaluated patient. She is sleeping comfortably at this time, I will continue to monitor.
[2019-04-04] MEDS: latanoprost 0.005% 2.5ml ophthalmic drops EACHEYE SCH (20:48)
[2019-04-04] MEDS: sennosides/docusate sodium tablet PO SCH (20:48)
[2019-04-04 22:00] VITALS: BP 154/74
[2019-04-05] MEDS: ipratropium/albuterol 3ml nebule NEB SCH ×7 (00:06→22:36)
[2019-04-05 02:00] VITALS: BP 152/74
[2019-04-05] MEDS: methylPREDNISolone sod succ 125mg/2ml vial IV SCH ×4 (02:22→20:08)
[2019-04-05 05:46] LABS: ALANINE AMINOTRANSFERASE 20 U/L (12-78); ALBUMIN 2.7 G/DL (3.4-5.0); ALBUMIN/GLOBULIN RATIO 1.2 (1.1-1.5); ALKALINE PHOSPHATASE 70 IU/L (46-116); ANION GAP 1 (8-16); ASPARTATE AMINO TRANSFERASE 9 U/L (10-37); BILIRUBIN,TOTAL 0.5 MG/DL (0.1-1.0); BLOOD UREA NITROGEN 24 MG/DL (7-18); CALCIUM 7.9 MG/DL (8.5-10.1); CHLORIDE 91 MMOL/L (99-107); GLUCOSE 113 MG/DL (70-104); MAGNESIUM 1.9 MG/DL (1.5-2.4); PHOSPHORUS 4.3 MG/DL (2.3-4.5); POTASSIUM 3.5 MMOL/L (3.5-5.1); SODIUM 134 MMOL/L (135-145); eGFR > 90 ML/MIN
[2019-04-05 05:48] LABS: BASOPHILS % (AUTO) 0.1 % (0-1); EOSINOPHILS % (AUTO) 0 % (0-6); HEMATOCRIT 34.3 % (35.0-45.0); HEMOGLOBIN 11.2 g/dl (12.0-16.0); LYMPHOCYTES # (AUTO) 0.1 X10'3 (1.1-4.8); LYMPHOCYTES % (AUTO) 0.8 % (21-51); MEAN CORPUSCULAR HEMOGLOBIN 25.5 PG (27.0-31.0); MEAN CORPUSCULAR HGB CONC 32.6 g/dL (33.0-36.5); MEAN CORPUSCULAR VOLUME 78.2 FL (78-98); MEAN PLATELET VOLUME 10.2 FL (7.4-10.4); MONOCYTES # (AUTO) 0.8 X10'3 (0-0.9); MONOCYTES % (AUTO) 5.9 % (2-12); NEUTROPHILS # (AUTO) 12.4 X10'3 (1.8-7.7); NEUTROPHILS % (AUTO) 93.2 % (42-75); PLATELET COUNT 187 X10'3 (140-440); RED BLOOD COUNT 4.39 X10'6 (4.20-5.60); RED CELL DISTRIBUTION WIDTH 20.2 % (11.5-14.5); WHITE BLOOD COUNT 13.3 X10'3 (4.5-11.0)
[2019-04-05 05:50] LABS: TOTAL CARBON DIOXIDE 42.2 MMOL/L (24-32)
[2019-04-05 06:00] VITALS: BP 120/64
--- NOTE | 2019-04-05 06:05 | NUR ---
Patient in room PCU 3028. I have received report from VALENTE Dai and had the opportunity to ask questions and assume patient care. Patient is asleep at this time with chest rise/fall present. Will continue to monitor the patient.
--- NOTE | 2019-04-05 06:05 | NUR ---
Problems reprioritized. Patient report given, questions answered & plan of care reviewed with VALENTE Daley.
[2019-04-05] MEDS: heparin, porcine 5000 units/ml vial SQ SCH ×2 (07:34→20:08)
[2019-04-05] MEDS: diltiazem CD 180mg cap (once-daily) PO SCH (07:35)
[2019-04-05] MEDS: lactobacillus rhamnosus 10,000 MMU CELLS/CAPSULE PO SCH ×2 (07:35→20:08)
[2019-04-05] MEDS: azithromycin 250mg tablet PO SCH (07:35)
[2019-04-05] MEDS: losartan 50mg tablet PO SCH (07:35)
[2019-04-05] MEDS: POTASSIUM BICARB 20meq eff tab 20 MEQ TABLET.EFF PO SCH (07:36)
[2019-04-05] MEDS: metoprolol succinate 25mg (24-HOUR) SR. Tablet PO SCH (07:39)
[2019-04-05] MEDS: NYSTATIN CREAM - 30GM TUBE TP SCH ×2 (07:49→20:10)
[2019-04-05] MEDS: lactose-reduced food (Ensure Enlive) - 237ml bottle PO SCH ×3 (07:51→18:00)
[2019-04-05 08:48] LABS: ANISOCYTOSIS 3+; MICROCYTOSIS 1+; PLATELET ESTIMATE NORMAL
[2019-04-05 11:00] VITALS: BP 113/58
--- NOTE | 2019-04-05 12:09 | NUR ---
Daughter Erica called for an update on the pts condition, was told that the pt is resting comfortably and has been getting some much needed sleep this AM. Stated she would call back later and that she might come in later today if the pt wakes up.
[2019-04-05 15:00] VITALS: BP 102/55
--- NOTE | 2019-04-05 16:21 | NUR ---
[place] documentation: I have reviewed and agree with all interventions, assessments performed and documented by VALENTE Napoles. [place] Medication Administration: For this medication-pass time frame, all medication were reviewed, dispensed, administered and documented per hospital policy by VALENTE Napoles.
--- NOTE | 2019-04-05 18:18 | NUR ---
Problems reprioritized. Patient report given, questions answered & plan of care reviewed with Pam VICTOR.
[2019-04-05 19:00] VITALS: BP 120/53
[2019-04-05] MEDS: sennosides/docusate sodium tablet PO SCH (20:08)
[2019-04-05] MEDS: latanoprost 0.005% 2.5ml ophthalmic drops EACHEYE SCH (20:08)
[2019-04-05 23:00] VITALS: BP 128/62
[2019-04-06] MEDS: methylPREDNISolone sod succ 125mg/2ml vial IV SCH ×4 (02:03→20:56)
[2019-04-06] MEDS: ipratropium/albuterol 3ml nebule NEB SCH ×6 (02:51→23:37)
[2019-04-06 03:00] VITALS: BP 132/62
[2019-04-06 05:23] LABS: BASOPHILS % (AUTO) 0.1 % (0-1); EOSINOPHILS % (AUTO) 0 % (0-6); HEMOGLOBIN 10.6 g/dl (12.0-16.0); LYMPHOCYTES # (AUTO) 0.1 X10'3 (1.1-4.8); LYMPHOCYTES % (AUTO) 0.9 % (21-51); MEAN CORPUSCULAR HEMOGLOBIN 25.8 PG (27.0-31.0); MEAN CORPUSCULAR VOLUME 78.1 FL (78-98); MEAN PLATELET VOLUME 9.5 FL (7.4-10.4); MONOCYTES # (AUTO) 0.2 X10'3 (0-0.9); MONOCYTES % (AUTO) 2.6 % (2-12); NEUTROPHILS # (AUTO) 8.3 X10'3 (1.8-7.7); NEUTROPHILS % (AUTO) 96.4 % (42-75); PLATELET COUNT 163 X10'3 (140-440); RED BLOOD COUNT 4.09 X10'6 (4.20-5.60); RED CELL DISTRIBUTION WIDTH 19.6 % (11.5-14.5); WHITE BLOOD COUNT 8.7 X10'3 (4.5-11.0)
[2019-04-06 05:48] LABS: ANISOCYTOSIS 2+; HYPOCHROMASIA 1+; MICROCYTOSIS 1+
[2019-04-06 05:50] LABS: LARGE PLATELETS FEW
[2019-04-06 05:51] LABS: PLATELET ESTIMATE NORMAL
[2019-04-06 05:54] LABS: ALANINE AMINOTRANSFERASE 20 U/L (12-78); ALBUMIN 2.7 G/DL (3.4-5.0); ALBUMIN/GLOBULIN RATIO 1.3 (1.1-1.5); ALKALINE PHOSPHATASE 60 IU/L (46-116); ANION GAP -1 (8-16); ASPARTATE AMINO TRANSFERASE 10 U/L (10-37); BILIRUBIN,TOTAL 0.4 MG/DL (0.1-1.0); BLOOD UREA NITROGEN 30 MG/DL (7-18); BUN/CREATININE RATIO 48.4 (6.6-38.0); CALCIUM 8.1 MG/DL (8.5-10.1); CHLORIDE 95 MMOL/L (99-107); CREATININE 0.62 MG/DL (0.40-0.90); GLUCOSE 135 MG/DL (70-104); PHOSPHORUS 3.8 MG/DL (2.3-4.5); PREALBUMIN 22.1 MG/DL (19-36); SODIUM 135 MMOL/L (135-145); TOTAL PROTEIN 4.8 G/DL (6.4-8.2); eGFR > 90 ML/MIN
--- NOTE | 2019-04-06 06:10 | NUR ---
Problems reprioritized. Patient report given, questions answered & plan of care reviewed with Beverly VICTOR. Addendum: 04/06/19 at 0618 by Pam Morin RN Report given to VALENTE Park
--- NOTE | 2019-04-06 06:13 | NUR ---
Patient in room PCU 3028. I have received report from Pam and had the opportunity to ask questions and assume patient care.
[2019-04-06 07:00] VITALS: BP 131/62
[2019-04-06] MEDS: azithromycin 250mg tablet PO SCH (08:38)
[2019-04-06] MEDS: metoprolol succinate 25mg (24-HOUR) SR. Tablet PO SCH (08:39)
[2019-04-06] MEDS: lactobacillus rhamnosus 10,000 MMU CELLS/CAPSULE PO SCH ×2 (08:39→20:54)
[2019-04-06] MEDS: POTASSIUM BICARB 20meq eff tab 20 MEQ TABLET.EFF PO SCH (08:40)
[2019-04-06] MEDS: diltiazem CD 180mg cap (once-daily) PO SCH (08:40)
[2019-04-06] MEDS: losartan 50mg tablet PO SCH (08:42)
[2019-04-06] MEDS: heparin, porcine 5000 units/ml vial SQ SCH ×2 (08:42→20:55)
[2019-04-06] MEDS: NYSTATIN CREAM - 30GM TUBE TP SCH ×2 (08:51→20:59)
[2019-04-06] MEDS: lactose-reduced food (Ensure Enlive) - 237ml bottle PO SCH ×3 (08:52→18:00)
[2019-04-06 11:00] VITALS: BP 148/70
--- NOTE | 2019-04-06 13:45 | NUR ---
PRESSURE ULCER EDUCATION: DEFINITION: A pressure ulcer is an area of skin that breaks down when you stay in one position too long. The constant pressure against the skin reduces the blood flow to that area and the affected tissue dies. CAUSES: "Being bedridden or in a wheelchair "Fragile skin "Having a chronic condition, such as diabetes or vascular disease "Inability to move certain parts of your body without assistance "Older age "Incontinence of urine or stool SYMPTOMS: "A reddened area that DOES NOT turn white when pressed on - this can be the beginning of a pressure ulcer "A blister, deep sore or a crater - these can be advanced pressure ulcers FIRST AID: "Relieve the pressure on this area "Keep the area clean and dry "Call your primary doctor if you see any of the above symptoms "DO NOT massage the area "DO NOT use a donut shaped or ring shaped pillow- these actually interfere with the blood flow and cause complications PREVENTION: "Check for pressure ulcers everyday "Change position at least every two hours to relieve pressure "Use items that help relieve pressure- pillows, sheepskin, foam padding, and powders. "Keep skin clean and dry "Eat healthy well balanced meals "Exercise daily IF YOU SEE ANY OF THESE SYMPTOMS WHILE IN THE HOSPITAL - TELL YOUR NURSE IMMEDIATELY. IF YOU SEE ANY OF THESE SYMPTOMS WHILE AT HOME OR HAVE ANY QUESTIONS OR CONCERNS ABOUT PRESSURE ULCERS - CALL YOUR PRIMARY DOCTOR IMMEDIATELY. Addendum: 04/06/19 at 1345 by rIa Mtz RN Amended: Links added.
[2019-04-06] MEDS: morphine 2 MG/ML inj. syringe IV PRN (13:49)
[2019-04-06] MEDS: bisacodyl 10mg suppository rectal RC PRN (13:49)
[2019-04-06 15:00] VITALS: BP 148/66
--- NOTE | 2019-04-06 15:18 | NUR ---
Notified Dr. Horn regarding 5 beat run of V-tach, no new orders. stated patient needs to go to SNF but daughter is unwilling. CM aware that the patient is not able to discharge until she can ambulate 200 feet. MD also aware that the patient has yet to have a BM since 04/02. Suppository given, pending results. Attempted to call patient Daughter to update her on POC and plan for CT with no anwer at this time. Will continue to monitor.
--- NOTE | 2019-04-06 18:37 | NUR ---
Problems reprioritized. Patient report given, questions answered & plan of care reviewed with
[2019-04-06 19:00] VITALS: BP 150/66
[2019-04-06] MEDS: sennosides/docusate sodium tablet PO SCH (20:54)
[2019-04-06] MEDS: latanoprost 0.005% 2.5ml ophthalmic drops EACHEYE SCH (20:58)
[2019-04-06 23:00] VITALS: BP 151/68
[2019-04-07] MEDS: methylPREDNISolone sod succ 125mg/2ml vial IV SCH ×2 (02:08→08:47)
[2019-04-07 02:46] LABS: ANION GAP -1 (8-16); BILIRUBIN,TOTAL 0.4 MG/DL (0.1-1.0); BLOOD UREA NITROGEN 31 MG/DL (7-18); BUN/CREATININE RATIO 67.4 (6.6-38.0); CHLORIDE 94 MMOL/L (99-107); CREATININE 0.46 MG/DL (0.40-0.90); GLUCOSE 119 MG/DL (70-104); MAGNESIUM 1.8 MG/DL (1.5-2.4); PHOSPHORUS 2.7 MG/DL (2.3-4.5); POTASSIUM 3.8 MMOL/L (3.5-5.1); SODIUM 135 MMOL/L (135-145); eGFR > 90 ML/MIN
[2019-04-07 02:47] LABS: ALANINE AMINOTRANSFERASE 23 U/L (12-78); ALBUMIN 2.6 G/DL (3.4-5.0); ALBUMIN/GLOBULIN RATIO 1.3 (1.1-1.5); ALKALINE PHOSPHATASE 59 IU/L (46-116); ASPARTATE AMINO TRANSFERASE 12 U/L (10-37); TOTAL PROTEIN 4.6 G/DL (6.4-8.2)
[2019-04-07 02:49] LABS: BASOPHILS % (AUTO) 0.2 % (0-1); EOSINOPHILS % (AUTO) 0 % (0-6); HEMATOCRIT 29.4 % (35.0-45.0); HEMOGLOBIN 9.8 g/dl (12.0-16.0); LYMPHOCYTES # (AUTO) 0.1 X10'3 (1.1-4.8); LYMPHOCYTES % (AUTO) 0.9 % (21-51); MEAN CORPUSCULAR HEMOGLOBIN 25.9 PG (27.0-31.0); MEAN CORPUSCULAR HGB CONC 33.2 g/dL (33.0-36.5); MEAN PLATELET VOLUME 9.4 FL (7.4-10.4); MONOCYTES # (AUTO) 0.2 X10'3 (0-0.9); MONOCYTES % (AUTO) 2.3 % (2-12); NEUTROPHILS # (AUTO) 8.9 X10'3 (1.8-7.7); NEUTROPHILS % (AUTO) 96.6 % (42-75); PLATELET COUNT 136 X10'3 (140-440); RED BLOOD COUNT 3.77 X10'6 (4.20-5.60); RED CELL DISTRIBUTION WIDTH 19.8 % (11.5-14.5); WHITE BLOOD COUNT 9.2 X10'3 (4.5-11.0)
[2019-04-07 03:00] VITALS: BP 137/59
[2019-04-07] MEDS: ipratropium/albuterol 3ml nebule NEB SCH ×6 (03:12→23:30)
[2019-04-07 03:32] LABS: ANISOCYTOSIS 2+; ELLIPTOCYTES FEW; MICROCYTOSIS 1+; PLATELET ESTIMATE DECREASED; TARGET CELLS FEW
[2019-04-07 03:33] LABS: SCHISTOCYTES FEW
--- NOTE | 2019-04-07 06:22 | NUR ---
Problems reprioritized. Patient report given, questions answered & plan of care reviewed with Vivian VICTOR.
[2019-04-07 07:00] VITALS: BP 140/43
--- NOTE | 2019-04-07 07:12 | NUR ---
Patient in room PCU 3028. I have received report from Pam and had the opportunity to ask questions and assume patient care.
[2019-04-07] MEDS: diltiazem CD 180mg cap (once-daily) PO SCH (08:45)
[2019-04-07] MEDS: lactobacillus rhamnosus 10,000 MMU CELLS/CAPSULE PO SCH ×2 (08:46→20:57)
[2019-04-07] MEDS: losartan 50mg tablet PO SCH (08:46)
[2019-04-07] MEDS: metoprolol succinate 25mg (24-HOUR) SR. Tablet PO SCH (08:46)
[2019-04-07] MEDS: azithromycin 250mg tablet PO SCH (08:46)
[2019-04-07] MEDS: heparin, porcine 5000 units/ml vial SQ SCH ×2 (08:47→20:53)
[2019-04-07] MEDS: NYSTATIN CREAM - 30GM TUBE TP SCH ×2 (08:48→20:52)
[2019-04-07] MEDS: lactose-reduced food (Ensure Enlive) - 237ml bottle PO SCH ×3 (08:48→20:00)
[2019-04-07] MEDS: POTASSIUM BICARB 20meq eff tab 20 MEQ TABLET.EFF PO SCH (08:56)
[2019-04-07 11:00] VITALS: BP 143/65
[2019-04-07] MEDS: morphine 2 MG/ML inj. syringe IV PRN (11:22)
--- NOTE | 2019-04-07 12:13 | NUR ---
Reassessment: Pt documented with 25-50% PO intake of meals up to 100% at breakfast this morning. Pt with fluctuating PO intake of ONS ranging from 25-75% with some refusals since last RD assessment. Pt likely closely meeting nutrient needs given wt and geriatric age. LBM 04/02. Pt was started on routine Senna-S 04/02 and with PRN Dulcolax suppository last given yesterday and PRN MoM last given 04/04. Pt improving per MD notes. Will continue to follow. Recommend: 1. continue mechanical soft diet, chop all 2. ensure enlive TIDWM 3. routine bowel care 4. weight per rx Addendum: 04/07/19 at [address] Amended: Links added.
--- NOTE | 2019-04-07 12:50 | NUR ---
Dr. Horn notified of ABD distention and c/o abdominal and flank pain. Laxative use has been ineffective. MD also notified regarding strong cloudy malodorous urine, recent UA growing e-coli on 03/24/19. MD at bedside and shown edematous APRIL where PICC line is in place. PICC line is still in place with no other symptoms at this time. Patient was OOB X 1 today. Oral fluids being encouraged r/t dry mucous membranes and elevated BUN/CR. PRN morphine administered for severe flank pain despite her problem of constipation because other interventions were not effective. MD assessing patient at this time. Will continue to monitor.
[2019-04-07 15:00] VITALS: BP 166/71
[2019-04-07] MEDS: lactulose 20gm/30ml cup PO PRN (15:09)
[2019-04-07 18:00] VITALS: BP 159/73
--- NOTE | 2019-04-07 18:24 | NUR ---
Problems reprioritized. Patient report given, questions answered & plan of care reviewed with Kathleen.
[2019-04-07] MEDS: latanoprost 0.005% 2.5ml ophthalmic drops EACHEYE SCH (20:52)
[2019-04-07] MEDS: sennosides/docusate sodium tablet PO SCH (20:53)
[2019-04-07 22:00] VITALS: BP 149/61
[2019-04-08 02:00] VITALS: BP 160/65
[2019-04-08 03:11] LABS: CLARITY,URINE CLOUDY (Clear); COLOR,URINE YELLOW (Yellow); GLUCOSE, URINE NEGATIVE (Neg); KETONES,URINE NEGATIVE (Neg); LEUKOCYTE ESTERASE ,URINE LARGE (Neg); NITRITES, URINE POSITIVE (Neg); OCCULT BLOOD,URINE TRACE-INTACT (Neg); PROTEIN,URINE NEGATIVE (Neg); UA COLLECTION TYPE STRAIGHT CATH
[2019-04-08] MEDS: ipratropium/albuterol 3ml nebule NEB SCH ×6 (03:28→23:49)
[2019-04-08 03:41] LABS: ALANINE AMINOTRANSFERASE 23 U/L (12-78); ALBUMIN 2.6 G/DL (3.4-5.0); ALBUMIN/GLOBULIN RATIO 1.4 (1.1-1.5); ALKALINE PHOSPHATASE 59 IU/L (46-116); ANION GAP 1 (8-16); ASPARTATE AMINO TRANSFERASE 11 U/L (10-37); BILIRUBIN,TOTAL 0.5 MG/DL (0.1-1.0); BLOOD UREA NITROGEN 24 MG/DL (7-18); BUN/CREATININE RATIO 53.3 (6.6-38.0); CALCIUM 7.6 MG/DL (8.5-10.1); CHLORIDE 95 MMOL/L (99-107); CREATININE 0.45 MG/DL (0.40-0.90); GLUCOSE 91 MG/DL (70-104); MAGNESIUM 1.8 MG/DL (1.5-2.4); MUCUS STRANDS MODERATE /LPF (Neg); PHOSPHORUS 2.6 MG/DL (2.3-4.5); POTASSIUM 3.1 MMOL/L (3.5-5.1); RBC,URINE 0-2 /HPF (0-2); SODIUM 136 MMOL/L (135-145); SQUAMOUS EPITHELIAL CELL,UR MANY /LPF (FEW); TOTAL PROTEIN 4.5 G/DL (6.4-8.2); TRANSITIONAL EPI CELLS,URINE FEW /HPF; WBC,URINE TNTC /HPF (0-4); eGFR > 90 ML/MIN
[2019-04-08 03:42] LABS: AMORPHOUS PHOSPHATES 1+; BACTERIA,URINE 4+ /HPF (Neg)
[2019-04-08 03:44] LABS: TOTAL CARBON DIOXIDE 40.5 MMOL/L (24-32)
--- NOTE | 2019-04-08 04:03 | NUR ---
Critical CO2 40.5/Thrush PAGER ID: [phone] MESSAGE: galen shaffer- critical CO2 of 40.5; patient complains of throat hurting; assessed, white patches/thrush all throughout oral mucosa. please advise. Kathleen VICTOR PCU [id number]
[2019-04-08 06:00] VITALS: BP 159/60
[2019-04-08 06:39] LABS: BASOPHILS # (AUTO) 0.1 X10'3 (0-0.2); BASOPHILS % (AUTO) 0.6 % (0-1); EOSINOPHILS % (AUTO) 0 % (0-6); HEMATOCRIT 30.7 % (35.0-45.0); HEMOGLOBIN 10.2 g/dl (12.0-16.0); LYMPHOCYTES # (AUTO) 0.1 X10'3 (1.1-4.8); LYMPHOCYTES % (AUTO) 1.1 % (21-51); MEAN CORPUSCULAR HEMOGLOBIN 25.9 PG (27.0-31.0); MEAN CORPUSCULAR HGB CONC 33.3 g/dL (33.0-36.5); MEAN CORPUSCULAR VOLUME 77.8 FL (78-98); MEAN PLATELET VOLUME 9.5 FL (7.4-10.4); MONOCYTES # (AUTO) 0.7 X10'3 (0-0.9); MONOCYTES % (AUTO) 5.9 % (2-12); NEUTROPHILS # (AUTO) 10.7 X10'3 (1.8-7.7); NEUTROPHILS % (AUTO) 92.4 % (42-75); PLATELET COUNT 132 X10'3 (140-440); RED BLOOD COUNT 3.94 X10'6 (4.20-5.60); RED CELL DISTRIBUTION WIDTH 19.9 % (11.5-14.5); WHITE BLOOD COUNT 11.5 X10'3 (4.5-11.0)
--- NOTE | 2019-04-08 06:40 | NUR ---
Problems reprioritized. Patient report given, questions answered & plan of care reviewed with Janay VICTOR.
[2019-04-08] MEDS ORDERED: potassium CL 10mEq/100ml bag 100 ML IV PRN (07:55)
[2019-04-08] MEDS ORDERED: potassium Cl 20 mEq SR tablet PO PRN (07:55)
[2019-04-08] MEDS: diltiazem CD 180mg cap (once-daily) PO SCH (07:57)
[2019-04-08] MEDS: predniSONE 20 mg tablet PO SCH (07:57)
[2019-04-08] MEDS: losartan 50mg tablet PO SCH (07:58)
[2019-04-08] MEDS: lactobacillus rhamnosus 10,000 MMU CELLS/CAPSULE PO SCH ×2 (07:58→20:48)
[2019-04-08] MEDS: nystatin 500,000 unit/5ML UD oral suspension PO SCH ×3 (07:58→21:00)
[2019-04-08] MEDS: heparin, porcine 5000 units/ml vial SQ SCH (07:58)
[2019-04-08] MEDS: POTASSIUM BICARB 20meq eff tab 20 MEQ TABLET.EFF PO SCH (07:59)
[2019-04-08] MEDS: lactose-reduced food (Ensure Enlive) - 237ml bottle PO SCH ×3 (08:00→18:00)
[2019-04-08] MEDS: metoprolol succinate 25mg (24-HOUR) SR. Tablet PO SCH (08:09)
[2019-04-08] MEDS: NYSTATIN CREAM - 30GM TUBE TP SCH ×2 (08:17→20:49)
[2019-04-08] MEDS: potassium Cl 20 mEq SR tablet PO PRN ×2 (09:41→14:17)
[2019-04-08] MEDS: clonazePAM 0.5mg tablet PO PRN (10:07)
[2019-04-08 11:20] VITALS: BP 148/88
[2019-04-08] MEDS: morphine 2 MG/ML inj. syringe IV PRN (14:30)
[2019-04-08 15:00] VITALS: BP 148/67
[2019-04-08] MEDS: lactulose 20gm/30ml cup PO PRN (17:41)
[2019-04-08 18:00] VITALS: BP 146/72
--- NOTE | 2019-04-08 18:09 | NUR ---
Patient in room PCU 3028B. I have received report from VALENTE Gustafson and had the opportunity to ask questions and assume patient care.
--- NOTE | 2019-04-08 18:09 | NUR ---
Problems reprioritized. Patient report given, questions answered & plan of care reviewed with VALENTE Cartagena.
[2019-04-08] MEDS: sennosides/docusate sodium tablet PO SCH (20:48)
[2019-04-08] MEDS: latanoprost 0.005% 2.5ml ophthalmic drops EACHEYE SCH (21:00)
[2019-04-08 22:00] VITALS: BP 145/72
[2019-04-09 02:00] VITALS: BP 148/67
[2019-04-09] MEDS: ipratropium/albuterol 3ml nebule NEB SCH ×6 (03:13→23:22)
[2019-04-09 04:30] LABS: BASOPHILS % (AUTO) 0 % (0-1); EOSINOPHILS % (AUTO) 0 % (0-6); HEMATOCRIT 30.9 % (35.0-45.0); HEMOGLOBIN 10.2 g/dl (12.0-16.0); LYMPHOCYTES # (AUTO) 0.2 X10'3 (1.1-4.8); LYMPHOCYTES % (AUTO) 2.2 % (21-51); MEAN CORPUSCULAR HEMOGLOBIN 25.7 PG (27.0-31.0); MEAN CORPUSCULAR HGB CONC 33.1 g/dL (33.0-36.5); MEAN CORPUSCULAR VOLUME 77.5 FL (78-98); MEAN PLATELET VOLUME 10.6 FL (7.4-10.4); MONOCYTES # (AUTO) 0.5 X10'3 (0-0.9); MONOCYTES % (AUTO) 4.7 % (2-12); NEUTROPHILS # (AUTO) 9.8 X10'3 (1.8-7.7); NEUTROPHILS % (AUTO) 93.1 % (42-75); PLATELET COUNT 127 X10'3 (140-440); RED BLOOD COUNT 3.99 X10'6 (4.20-5.60); WHITE BLOOD COUNT 10.5 X10'3 (4.5-11.0)
[2019-04-09 04:39] LABS: ALANINE AMINOTRANSFERASE 19 U/L (12-78); ALBUMIN 2.5 G/DL (3.4-5.0); ALBUMIN/GLOBULIN RATIO 1.3 (1.1-1.5); ALKALINE PHOSPHATASE 61 IU/L (46-116); ANION GAP 1 (8-16); ASPARTATE AMINO TRANSFERASE 13 U/L (10-37); BILIRUBIN,TOTAL 0.6 MG/DL (0.1-1.0); BLOOD UREA NITROGEN 17 MG/DL (7-18); BUN/CREATININE RATIO 47.2 (6.6-38.0); CALCIUM 7.5 MG/DL (8.5-10.1); CHLORIDE 95 MMOL/L (99-107); CREATININE 0.36 MG/DL (0.40-0.90); GLUCOSE 86 MG/DL (70-104); MAGNESIUM 1.7 MG/DL (1.5-2.4); PHOSPHORUS 2.3 MG/DL (2.3-4.5); POTASSIUM 3.3 MMOL/L (3.5-5.1); SODIUM 133 MMOL/L (135-145); TOTAL CARBON DIOXIDE 36.8 MMOL/L (24-32); TOTAL PROTEIN 4.5 G/DL (6.4-8.2); eGFR > 90 ML/MIN
[2019-04-09 05:17] LABS: PLATELET ESTIMATE DECREASED
[2019-04-09 05:18] LABS: ANISOCYTOSIS 2+; MICROCYTOSIS 1+; POIKILOCYTOSIS FEW
[2019-04-09 05:19] LABS: ELLIPTOCYTES FEW; HYPOCHROMASIA 2+
--- NOTE | 2019-04-09 06:29 | NUR ---
Problems reprioritized. Patient report given, questions answered & plan of care reviewed with VALENTE Cristina. Pt stable at shift change
--- NOTE | 2019-04-09 06:34 | NUR ---
Patient in room PCU 3028. I have received report from Osiel VICTOR and had the opportunity to ask questions and assume patient care. Patient asleep in bed and resting comfortably.
--- NOTE | 2019-04-09 06:35 | NUR ---
Patient in room U 3028. I have received report from VALENTE Cartagena and had the opportunity to ask questions and assume patient care. Patient sleeping in bed and in no acute distress.
[2019-04-09 07:00] VITALS: BP 147/66
[2019-04-09] MEDS: lactose-reduced food (Ensure Enlive) - 237ml bottle PO SCH ×3 (08:00→18:00)
[2019-04-09] MEDS: azithromycin/NS 500mg/250ml 250 ML IV SCH (08:25)
[2019-04-09] MEDS: diltiazem CD 180mg cap (once-daily) PO SCH (08:26)
[2019-04-09] MEDS: nystatin 500,000 unit/5ML UD oral suspension PO SCH ×3 (08:27→20:56)
[2019-04-09] MEDS: losartan 50mg tablet PO SCH (08:27)
[2019-04-09] MEDS: lactobacillus rhamnosus 10,000 MMU CELLS/CAPSULE PO SCH ×2 (08:27→19:49)
[2019-04-09] MEDS: potassium Cl 20 mEq SR tablet PO PRN ×3 (08:28→19:50)
[2019-04-09] MEDS: metoprolol succinate 25mg (24-HOUR) SR. Tablet PO SCH (08:28)
[2019-04-09] MEDS: predniSONE 20 mg tablet PO SCH (08:28)
[2019-04-09 11:00] VITALS: BP 147/77
[2019-04-09] MEDS: lactulose 20gm/30ml cup PO PRN ×2 (14:00→20:02)
[2019-04-09] MEDS: NYSTATIN CREAM - 30GM TUBE TP SCH ×2 (14:01→19:50)
--- NOTE | 2019-04-09 17:08 | NUR ---
Unable to scan Ensure to EMAR, but was still on the patient's breakfast and lunch tray this afternoon and were administered.
--- NOTE | 2019-04-09 17:20 | NUR ---
[place] documentation: I have reviewed and agree with all interventions, assessments performed and documented by VALENTE Jiang. [place] Medication Administration: For this medication-pass time frame, all medication were reviewed, dispensed, administered and documented per hospital policy by Deidre VICTOR.
[2019-04-09 18:00] VITALS: BP 120/65
--- NOTE | 2019-04-09 18:16 | NUR ---
Problems reprioritized. Patient report given, questions answered & plan of care reviewed with VALENTE Cartagena. Patient stable at the transfer of care.
--- NOTE | 2019-04-09 18:17 | NUR ---
Problems reprioritized. Patient report given, questions answered & plan of care reviewed with Lianne VICTOR. Patient stable at transfer of care.
--- NOTE | 2019-04-09 18:24 | NUR ---
Patient in room PCU 3028B. I have received report from VALENTE Cristina and had the opportunity to ask questions and assume patient care. Patient is sleeping with no sign of distress.
[2019-04-09] MEDS: sennosides/docusate sodium tablet PO SCH (20:02)
[2019-04-09] MEDS: latanoprost 0.005% 2.5ml ophthalmic drops EACHEYE SCH (20:02)
[2019-04-09 22:00] VITALS: BP 138/69
[2019-04-10 02:00] VITALS: BP 128/64
[2019-04-10] MEDS: ipratropium/albuterol 3ml nebule NEB SCH ×6 (03:00→23:00)
[2019-04-10 04:31] LABS: BASOPHILS % (AUTO) 0.2 % (0-1); EOSINOPHILS % (AUTO) 0.1 % (0-6); HEMATOCRIT 31.5 % (35.0-45.0); HEMOGLOBIN 10.3 g/dl (12.0-16.0); LYMPHOCYTES # (AUTO) 0.2 X10'3 (1.1-4.8); LYMPHOCYTES % (AUTO) 2.7 % (21-51); MEAN CORPUSCULAR HEMOGLOBIN 25.5 PG (27.0-31.0); MEAN CORPUSCULAR HGB CONC 32.7 g/dL (33.0-36.5); MEAN PLATELET VOLUME 9.3 FL (7.4-10.4); MONOCYTES # (AUTO) 0.4 X10'3 (0-0.9); MONOCYTES % (AUTO) 4.9 % (2-12); NEUTROPHILS # (AUTO) 8.1 X10'3 (1.8-7.7); NEUTROPHILS % (AUTO) 92.1 % (42-75); PLATELET COUNT 108 X10'3 (140-440); RED BLOOD COUNT 4.04 X10'6 (4.20-5.60); RED CELL DISTRIBUTION WIDTH 19.9 % (11.5-14.5); WHITE BLOOD COUNT 8.8 X10'3 (4.5-11.0)
[2019-04-10 04:33] LABS: ALANINE AMINOTRANSFERASE 18 U/L (12-78); ALBUMIN 2.4 G/DL (3.4-5.0); ALBUMIN/GLOBULIN RATIO 1.2 (1.1-1.5); ALKALINE PHOSPHATASE 62 IU/L (46-116); ANION GAP 2 (8-16); ASPARTATE AMINO TRANSFERASE 13 U/L (10-37); BILIRUBIN,TOTAL 0.7 MG/DL (0.1-1.0); BLOOD UREA NITROGEN 17 MG/DL (7-18); BUN/CREATININE RATIO 45.9 (6.6-38.0); CALCIUM 7.7 MG/DL (8.5-10.1); CHLORIDE 94 MMOL/L (99-107); CREATININE 0.37 MG/DL (0.40-0.90); GLUCOSE 92 MG/DL (70-104); MAGNESIUM 1.7 MG/DL (1.5-2.4); PHOSPHORUS 2.6 MG/DL (2.3-4.5); POTASSIUM 3.8 MMOL/L (3.5-5.1); PREALBUMIN 18.8 MG/DL (19-36); SODIUM 131 MMOL/L (135-145); TOTAL CARBON DIOXIDE 35.2 MMOL/L (24-32); TOTAL PROTEIN 4.4 G/DL (6.4-8.2); eGFR > 90 ML/MIN
[2019-04-10 05:13] LABS: ANISOCYTOSIS 2+; ELLIPTOCYTES FEW; HYPOCHROMASIA 1+; MICROCYTOSIS 1+; PLATELET ESTIMATE DECREASED; TARGET CELLS FEW
[2019-04-10 06:00] VITALS: BP 168/71
--- NOTE | 2019-04-10 06:17 | NUR ---
Problems reprioritized. Patient report given, questions answered & plan of care reviewed with VALENTE Gustafson. Patient stable at shift change
--- NOTE | 2019-04-10 06:30 | NUR ---
Patient in room PCU 3028. I have received report from Osiel VICTOR and had the opportunity to ask questions and assume patient care. All patient's needs met at this time.
[2019-04-10] MEDS: nystatin 500,000 unit/5ML UD oral suspension PO SCH ×3 (08:09→21:00)
[2019-04-10] MEDS: predniSONE 20 mg tablet PO SCH (08:09)
[2019-04-10] MEDS: losartan 50mg tablet PO SCH (08:10)
[2019-04-10] MEDS: metoprolol succinate 25mg (24-HOUR) SR. Tablet PO SCH (08:10)
[2019-04-10] MEDS: diltiazem CD 180mg cap (once-daily) PO SCH (08:10)
[2019-04-10] MEDS: lactobacillus rhamnosus 10,000 MMU CELLS/CAPSULE PO SCH ×2 (08:10→20:00)
[2019-04-10] MEDS: azithromycin/NS 500mg/250ml 250 ML IV SCH (08:10)
[2019-04-10] MEDS: lactose-reduced food (Ensure Enlive) - 237ml bottle PO SCH ×3 (08:11→18:00)
[2019-04-10] MEDS: NYSTATIN CREAM - 30GM TUBE TP SCH ×2 (08:11→21:07)
[2019-04-10 11:00] VITALS: BP 141/64
[2019-04-10 15:00] VITALS: BP 116/80
[2019-04-10] MEDS: lactulose 20gm/30ml cup PO SCH ×9 (16:55→23:51)
[2019-04-10 18:30] VITALS: BP 105/58
--- NOTE | 2019-04-10 18:31 | NUR ---
Problems reprioritized. Patient report given, questions answered & plan of care reviewed with Nakul VICTOR/Roberto VICTOR. All patient's needs met at this time.
--- NOTE | 2019-04-10 18:38 | NUR ---
Patient in room PCU 3028. I have received report from Janay VICTOR and had the opportunity to ask questions and assume patient care.
[2019-04-10] MEDS: sennosides/docusate sodium tablet PO SCH (21:00)
[2019-04-10] MEDS: latanoprost 0.005% 2.5ml ophthalmic drops EACHEYE SCH (21:00)
[2019-04-10] MEDS: heparin, porcine 5000 units/ml vial SQ SCH (21:07)
--- NOTE | 2019-04-10 22:22 | NUR ---
Notified Jason Grimes NP of pt refusing medications, per Jason ochoa to hold all Q1H lactulose for tonight.
[2019-04-10 22:30] VITALS: BP 147/72
--- NOTE | 2019-04-11 00:30 | NUR ---
Problems reprioritized. Patient report given, questions answered & plan of care reviewed with Ashia VICTOR.
--- NOTE | 2019-04-11 00:33 | NUR ---
Received patient report from Nan VICTOR, Will assume patient care.
[2019-04-11] MEDS: lactulose 20gm/30ml cup PO SCH ×21 (00:55→20:55)
[2019-04-11 02:00] VITALS: BP 150/87
[2019-04-11] MEDS: ipratropium/albuterol 3ml nebule NEB SCH ×6 (03:00→23:00)
[2019-04-11 05:50] LABS: BASOPHILS % (AUTO) 0.1 % (0-1); EOSINOPHILS % (AUTO) 0.3 % (0-6); HEMATOCRIT 33.2 % (35.0-45.0); HEMOGLOBIN 11.2 g/dl (12.0-16.0); LYMPHOCYTES # (AUTO) 0.2 X10'3 (1.1-4.8); LYMPHOCYTES % (AUTO) 2.2 % (21-51); MEAN CORPUSCULAR HEMOGLOBIN 25.9 PG (27.0-31.0); MEAN CORPUSCULAR HGB CONC 33.7 g/dL (33.0-36.5); MEAN CORPUSCULAR VOLUME 76.7 FL (78-98); MEAN PLATELET VOLUME 9.8 FL (7.4-10.4); MONOCYTES # (AUTO) 0.4 X10'3 (0-0.9); MONOCYTES % (AUTO) 3.5 % (2-12); NEUTROPHILS # (AUTO) 10.1 X10'3 (1.8-7.7); NEUTROPHILS % (AUTO) 93.9 % (42-75); PLATELET COUNT 110 X10'3 (140-440); RED BLOOD COUNT 4.32 X10'6 (4.20-5.60); RED CELL DISTRIBUTION WIDTH 20.2 % (11.5-14.5); WHITE BLOOD COUNT 10.7 X10'3 (4.5-11.0)
[2019-04-11 05:51] LABS: ALANINE AMINOTRANSFERASE 24 U/L (12-78); ALBUMIN 2.5 G/DL (3.4-5.0); ALBUMIN/GLOBULIN RATIO 1.2 (1.1-1.5); ALKALINE PHOSPHATASE 66 IU/L (46-116); ANION GAP 4 (8-16); ASPARTATE AMINO TRANSFERASE 15 U/L (10-37); BILIRUBIN,TOTAL 0.8 MG/DL (0.1-1.0); BLOOD UREA NITROGEN 16 MG/DL (7-18); BUN/CREATININE RATIO 44.4 (6.6-38.0); CALCIUM 7.6 MG/DL (8.5-10.1); CHLORIDE 95 MMOL/L (99-107); CREATININE 0.36 MG/DL (0.40-0.90); GLUCOSE 82 MG/DL (70-104); MAGNESIUM 1.6 MG/DL (1.5-2.4); PHOSPHORUS 2.5 MG/DL (2.3-4.5); POTASSIUM 3.1 MMOL/L (3.5-5.1); SODIUM 133 MMOL/L (135-145); TOTAL CARBON DIOXIDE 34.1 MMOL/L (24-32); TOTAL PROTEIN 4.6 G/DL (6.4-8.2); eGFR > 90 ML/MIN
[2019-04-11 06:00] VITALS: BP 158/81
--- NOTE | 2019-04-11 06:26 | NUR ---
Problems reprioritized. Patient report given, questions answered & plan of care reviewed with Janay VICTOR.
[2019-04-11 07:13] LABS: PLATELET ESTIMATE DECREASED
[2019-04-11 07:15] LABS: ACANTHOCYTES FEW; ANISOCYTOSIS 3+; ELLIPTOCYTES FEW; HYPOCHROMASIA 1+; MICROCYTOSIS 1+; POLYCHROMASIA FEW; TARGET CELLS 1+
[2019-04-11 07:17] LABS: SPHEROCYTES FEW
[2019-04-11] MEDS: lactose-reduced food (Ensure Enlive) - 237ml bottle PO SCH ×3 (08:00→18:00)
[2019-04-11] MEDS: metoprolol succinate 25mg (24-HOUR) SR. Tablet PO SCH (08:43)
[2019-04-11] MEDS: nystatin 500,000 unit/5ML UD oral suspension PO SCH ×3 (08:43→21:29)
[2019-04-11] MEDS: diltiazem CD 180mg cap (once-daily) PO SCH (08:43)
[2019-04-11] MEDS: linezolid 600mg tablet PO SCH ×2 (08:48→20:35)
[2019-04-11] MEDS: predniSONE 20 mg tablet PO SCH (08:49)
[2019-04-11] MEDS: lactobacillus rhamnosus 10,000 MMU CELLS/CAPSULE PO SCH ×2 (08:49→20:35)
[2019-04-11] MEDS: heparin, porcine 5000 units/ml vial SQ SCH ×2 (08:49→20:35)
[2019-04-11] MEDS: losartan 50mg tablet PO SCH (08:50)
[2019-04-11] MEDS: MEROPENEM 500MG/50ML-NS IVPB 50 ML IV SCH ×3 (08:50→23:42)
[2019-04-11] MEDS: azithromycin 250mg tablet PO SCH (08:50)
[2019-04-11] MEDS: NYSTATIN CREAM - 30GM TUBE TP SCH ×2 (10:39→14:50)
[2019-04-11 11:00] VITALS: BP 138/68
--- NOTE | 2019-04-11 12:11 | NUR ---
Reassessment: PO intake fluctuates however remains fairly stable at 25-50% PO intake of meals and ONS with occasional 75-100% of ONS. Pt likely closely meeting nutrient needs given wt and geriatric age. Pt receiving Zyvox however not appropriate for low tyramine nutrition therapy education at this time given pt confused and A/O x 1 with hx dementia. LBM 04/08. Pt with multiple routine and PRN bowel care medications however not always given d/t patient refusing. Lactulose was given today. Will continue to follow and monitor need for further nutrition intervention. Recommend: 1. continue mechanical soft chop all diet; Encourage PO intake 2. ensure enlive TIDWM 3. routine bowel care; monitor need for additional 4. weight per rx Addendum: 04/11/19 at [address] Amended: Links added.
[2019-04-11] MEDS ORDERED: potassium Cl 20 mEq SR tablet PO PRN (13:00)
[2019-04-11] MEDS: potassium Cl 20 mEq SR tablet PO PRN ×2 (14:47→20:35)
[2019-04-11 15:00] VITALS: BP 126/75
[2019-04-11 18:00] VITALS: BP 136/72
--- NOTE | 2019-04-11 18:00 | NUR ---
Patient in room PCU 3028. I have received report from Janay VICTOR and had the opportunity to ask questions and assume patient care.
--- NOTE | 2019-04-11 18:44 | NUR ---
Problems reprioritized. Patient report given, questions answered & plan of care reviewed with Alison VICTOR. All patients' needs met at this time.
--- NOTE | 2019-04-11 20:17 | NUR ---
Patient agreed to take breathing treatment, but then was uncooperative and refused to finish the treatment.
--- NOTE | 2019-04-11 20:30 | NUR ---
pt had small bowel movement, lactulose q 1hr is no longer necessary for this pt. order changed to qid prn for constipation. will continue to monitor pt
[2019-04-11] MEDS: sennosides/docusate sodium tablet PO SCH (20:36)
[2019-04-11] MEDS: latanoprost 0.005% 2.5ml ophthalmic drops EACHEYE SCH (20:37)
[2019-04-11] MEDS ORDERED: lactulose 20gm/30ml cup PO PRN (22:27)
[2019-04-11 23:00] VITALS: BP 120/60
[2019-04-12] MEDS: potassium Cl 20 mEq SR tablet PO PRN ×4 (01:03→18:30)
[2019-04-12 03:00] VITALS: BP 132/78
[2019-04-12] MEDS: ipratropium/albuterol 3ml nebule NEB SCH ×6 (03:00→23:24)
[2019-04-12 04:31] LABS: BASOPHILS % (AUTO) 0.3 % (0-1); EOSINOPHILS % (AUTO) 0.1 % (0-6); HEMOGLOBIN 10.3 g/dl (12.0-16.0); LYMPHOCYTES # (AUTO) 0.2 X10'3 (1.1-4.8); LYMPHOCYTES % (AUTO) 3.9 % (21-51); MEAN CORPUSCULAR HEMOGLOBIN 25.5 PG (27.0-31.0); MEAN CORPUSCULAR HGB CONC 33.4 g/dL (33.0-36.5); MEAN CORPUSCULAR VOLUME 76.5 FL (78-98); MEAN PLATELET VOLUME 10.3 FL (7.4-10.4); MONOCYTES # (AUTO) 0.3 X10'3 (0-0.9); MONOCYTES % (AUTO) 5.1 % (2-12); NEUTROPHILS # (AUTO) 5.7 X10'3 (1.8-7.7); NEUTROPHILS % (AUTO) 90.6 % (42-75); PLATELET COUNT 96 X10'3 (140-440); RED BLOOD COUNT 4.05 X10'6 (4.20-5.60); RED CELL DISTRIBUTION WIDTH 20.1 % (11.5-14.5); WHITE BLOOD COUNT 6.3 X10'3 (4.5-11.0)
[2019-04-12 04:43] LABS: ALANINE AMINOTRANSFERASE 20 U/L (12-78); ALBUMIN 2.5 G/DL (3.4-5.0); ALBUMIN/GLOBULIN RATIO 1.2 (1.1-1.5); ALKALINE PHOSPHATASE 66 IU/L (46-116); ANION GAP 3 (8-16); ASPARTATE AMINO TRANSFERASE 13 U/L (10-37); BILIRUBIN,TOTAL 0.6 MG/DL (0.1-1.0); BLOOD UREA NITROGEN 16 MG/DL (7-18); CALCIUM 7.8 MG/DL (8.5-10.1); CHLORIDE 96 MMOL/L (99-107); CREATININE 0.39 MG/DL (0.40-0.90); GLUCOSE 84 MG/DL (70-104); POTASSIUM 3.4 MMOL/L (3.5-5.1); SODIUM 133 MMOL/L (135-145); TOTAL CARBON DIOXIDE 33.6 MMOL/L (24-32); TOTAL PROTEIN 4.6 G/DL (6.4-8.2); eGFR > 90 ML/MIN
[2019-04-12 06:00] VITALS: BP 120/66
[2019-04-12 06:08] LABS: LARGE PLATELETS MODERATE; PLATELET ESTIMATE DECREASED
[2019-04-12 06:09] LABS: ANISOCYTOSIS 3+; MICROCYTOSIS 1+
--- NOTE | 2019-04-12 06:20 | NUR ---
Problems reprioritized. Patient report given, questions answered & plan of care reviewed with Janay VICTOR.
--- NOTE | 2019-04-12 06:26 | NUR ---
Patient in room PCU 3028. I have received report from VALENTE Rosas and had the opportunity to ask questions and assume patient care. Patient currently resting in bed, bed locked and low, call light in reach, no acute distress, will continue to monitor.
[2019-04-12] MEDS: heparin, porcine 5000 units/ml vial SQ SCH ×2 (08:00→20:00)
[2019-04-12] MEDS: metoprolol succinate 25mg (24-HOUR) SR. Tablet PO SCH (08:02)
[2019-04-12] MEDS: lactobacillus rhamnosus 10,000 MMU CELLS/CAPSULE PO SCH ×2 (08:02→21:26)
[2019-04-12] MEDS: diltiazem CD 180mg cap (once-daily) PO SCH (08:02)
[2019-04-12] MEDS: nystatin 500,000 unit/5ML UD oral suspension PO SCH ×3 (08:03→21:25)
[2019-04-12] MEDS: azithromycin 250mg tablet PO SCH (08:03)
[2019-04-12] MEDS: lactose-reduced food (Ensure Enlive) - 237ml bottle PO SCH ×3 (08:03→18:00)
[2019-04-12] MEDS: losartan 50mg tablet PO SCH (08:03)
[2019-04-12] MEDS: predniSONE 20 mg tablet PO SCH (08:03)
[2019-04-12] MEDS: linezolid 600mg tablet PO SCH ×2 (08:03→21:25)
[2019-04-12] MEDS: MEROPENEM 500MG/50ML-NS IVPB 50 ML IV SCH (08:12)
[2019-04-12 09:20] LABS: ABG BASE EXCESS 5.4 mmol/L (-2.0-3.0); ABG HCO3 28.8 mmol/L (22.0-26.0); ABG OXYGEN SATURATION 92.4 % (95-98); ABG PCO2 (T) 37.4 mmHg (35.0-45.0); ABG PH (T) 7.504 (7.350-7.450); ABG PO2 (T) 60.8 mmHg (83-108); ALLEN'S TEST Positive; FCOHb 0.6 % (0.5-1.5); FLOW 3 L/min; FMetHb 0.1 % (0.3-1.12); FO2Hb 91.8 % (94-100); RESPIRATORY RATE (OBSERVED) 20 b/min; TOTAL HEMOGLOBIN 11.3 G/dl (12.0-16.0)
[2019-04-12] MEDS: morphine 2 MG/ML inj. syringe IV PRN ×3 (09:35→22:58)
[2019-04-12 11:00] VITALS: BP 118/61
--- NOTE | 2019-04-12 12:52 | NUR ---
Physical therapy was working with patient and informed me that they bumped her arm on the rehab walker and caused a skin tear. I examined it, cleaned it with normal saline and applied an optifoam. I informed the primary nurse Janay Gongora of the occurrence.
[2019-04-12] MEDS: lactulose 20gm/30ml cup PO PRN (12:56)
[2019-04-12] MEDS: clonazePAM 0.5mg tablet PO PRN (12:56)
[2019-04-12 15:00] VITALS: BP 132/63
--- NOTE | 2019-04-12 15:12 | NUR ---
Spoke with daughter Erica on the phone who is also her caregiver at home. Daughter is very upset that patient has not been receiving her buspirone for her anxiety and is angry that patient is not getting up and walking daily. It was explained that the patient has not demonstrated an ability to walk despite PT working with her daily, she insists that this is because the patient "gets attention from appearing weak" and that if we "won't do the job" she will take her home and nurse her back to health herself.
[2019-04-12] MEDS ORDERED: BUSP7.5T4 PO (15:23)
[2019-04-12] MEDS: aztreonam inj. 1,000 MG in normal saline 100ml IV soln 100 ML IV SCH (15:41)
--- NOTE | 2019-04-12 16:14 | NUR ---
Patient in room PCU 3028. I have received report from VALENTE Gustafson and had the opportunity to ask questions and assume patient care.
--- NOTE | 2019-04-12 16:31 | NUR ---
Problems reprioritized. Patient report given, questions answered & plan of care reviewed with VALENTE Decker.
--- NOTE | 2019-04-12 18:00 | NUR ---
Patient in room PCU 3028. I have received report from Ruby VICTOR and had the opportunity to ask questions and assume patient care.
--- NOTE | 2019-04-12 18:15 | NUR ---
Problems reprioritized. Patient report given, questions answered & plan of care reviewed with Genia
--- NOTE | 2019-04-12 18:51 | NUR ---
Spoke with Daughter Eirca regarding Buspar dosage. Daughter states that she can take 10 mg in one day and 5mg bid is the dosage for anxiety. Dr Kory HURLEY ok
[2019-04-12 19:00] VITALS: BP 142/72
[2019-04-12] MEDS ORDERED: busPIRone 5mg tablet PO SCH (20:00)
[2019-04-12] MEDS: NYSTATIN CREAM - 30GM TUBE TP SCH (20:00)
[2019-04-12] MEDS ORDERED: BUSPIRONE PO SCH (21:00)
[2019-04-12] MEDS: busPIRone 5mg tablet PO SCH (21:25)
[2019-04-12] MEDS: latanoprost 0.005% 2.5ml ophthalmic drops EACHEYE SCH (21:25)
[2019-04-12] MEDS: sennosides/docusate sodium tablet PO SCH (21:25)
[2019-04-12 23:00] VITALS: BP 151/74
[2019-04-13] MEDS: aztreonam inj. 1,000 MG in normal saline 100ml IV soln 100 ML IV SCH ×3 (00:05→16:24)
[2019-04-13 03:00] VITALS: BP 156/74
[2019-04-13] MEDS: ipratropium/albuterol 3ml nebule NEB SCH ×7 (03:22→23:00)
[2019-04-13 05:16] LABS: BASOPHILS % (AUTO) 0.1 % (0-1); EOSINOPHILS % (AUTO) 0.1 % (0-6); HEMATOCRIT 29.4 % (35.0-45.0); LYMPHOCYTES # (AUTO) 0.2 X10'3 (1.1-4.8); LYMPHOCYTES % (AUTO) 4.8 % (21-51); MEAN CORPUSCULAR HEMOGLOBIN 25.9 PG (27.0-31.0); MEAN CORPUSCULAR HGB CONC 33.9 g/dL (33.0-36.5); MEAN CORPUSCULAR VOLUME 76.5 FL (78-98); MEAN PLATELET VOLUME 10.2 FL (7.4-10.4); MONOCYTES # (AUTO) 0.3 X10'3 (0-0.9); MONOCYTES % (AUTO) 5.8 % (2-12); NEUTROPHILS # (AUTO) 4.5 X10'3 (1.8-7.7); NEUTROPHILS % (AUTO) 89.2 % (42-75); RED BLOOD COUNT 3.85 X10'6 (4.20-5.60); RED CELL DISTRIBUTION WIDTH 20.1 % (11.5-14.5)
[2019-04-13 05:34] LABS: PLATELET COUNT 99 X10'3 (140-440)
[2019-04-13 05:37] LABS: ALANINE AMINOTRANSFERASE 21 U/L (12-78); ALBUMIN 2.6 G/DL (3.4-5.0); ALBUMIN/GLOBULIN RATIO 1.2 (1.1-1.5); ALKALINE PHOSPHATASE 68 IU/L (46-116); ANION GAP 6 (8-16); ASPARTATE AMINO TRANSFERASE 13 U/L (10-37); BILIRUBIN,TOTAL 0.5 MG/DL (0.1-1.0); BLOOD UREA NITROGEN 17 MG/DL (7-18); BUN/CREATININE RATIO 44.7 (6.6-38.0); CALCIUM 7.6 MG/DL (8.5-10.1); CHLORIDE 96 MMOL/L (99-107); CREATININE 0.38 MG/DL (0.40-0.90); GLUCOSE 117 MG/DL (70-104); POTASSIUM 3.6 MMOL/L (3.5-5.1); PREALBUMIN 16.5 MG/DL (19-36); SODIUM 134 MMOL/L (135-145); TOTAL PROTEIN 4.8 G/DL (6.4-8.2); eGFR > 90 ML/MIN
[2019-04-13 06:00] VITALS: BP 130/69
--- NOTE | 2019-04-13 06:27 | NUR ---
Problems reprioritized. Patient report given, questions answered & plan of care reviewed with Catalina VICTOR.
[2019-04-13 06:48] LABS: ACANTHOCYTES FEW; ANISOCYTOSIS 3+; HYPOCHROMASIA 1+; MICROCYTOSIS 1+; PLATELET ESTIMATE DECREASED; SCHISTOCYTES FEW
--- NOTE | 2019-04-13 07:04 | NUR ---
Patient in room PCU 3028. I have received report from Alison VICTOR and had the opportunity to ask questions and assume patient care.
[2019-04-13] MEDS: linezolid 600mg tablet PO SCH ×2 (07:25→20:12)
[2019-04-13] MEDS: nystatin 500,000 unit/5ML UD oral suspension PO SCH ×3 (07:25→20:11)
[2019-04-13] MEDS: losartan 50mg tablet PO SCH (07:25)
[2019-04-13] MEDS: busPIRone 5mg tablet PO SCH ×2 (07:25→20:12)
[2019-04-13] MEDS: metoprolol succinate 25mg (24-HOUR) SR. Tablet PO SCH (07:25)
[2019-04-13] MEDS: diltiazem CD 180mg cap (once-daily) PO SCH (07:25)
[2019-04-13] MEDS: lactobacillus rhamnosus 10,000 MMU CELLS/CAPSULE PO SCH ×2 (07:25→20:11)
[2019-04-13] MEDS: predniSONE 20 mg tablet PO SCH (07:26)
[2019-04-13] MEDS: heparin, porcine 5000 units/ml vial SQ SCH ×2 (07:37→20:00)
[2019-04-13] MEDS: lactose-reduced food (Ensure Enlive) - 237ml bottle PO SCH ×3 (07:38→18:00)
[2019-04-13] MEDS: NYSTATIN CREAM - 30GM TUBE TP SCH ×2 (07:38→20:11)
--- NOTE | 2019-04-13 09:00 | NUR ---
When informing patient of medications to be given on morning medpass, patient refused gabapentin stating that she has a reaction to it. Gabapentin was scanned in eMAR, but held on medication administration per patient refusal. Addendum: 04/13/19 at 1122 by Radha Farias RN Disregard. Incorrect patient.
[2019-04-13 11:00] VITALS: BP 141/60
--- NOTE | 2019-04-13 11:19 | NUR ---
Problems reprioritized. Patient report given, questions answered & plan of care reviewed with Janay VICTOR.
--- NOTE | 2019-04-13 12:20 | NUR ---
RN TC: RN reports pt daughter told pt not to drink ensures even though they are lactose free and is bringing in protein shakes from home. RN reports will d/c ONS and dietary notified. Reassessment: PO intake fluctuates however remains fairly stable at 25-50% PO intake of meals and ONS with occasional 75-100% of ONS. Pt likely closely meeting nutrient needs given wt and geriatric age. Pt receiving Zyvox however not appropriate for low tyramine nutrition therapy education at this time given pt confused and A/O x 1 with hx dementia. LBM 04/08. Pt with multiple routine and PRN bowel care medications however not always given d/t patient refusing. Lactulose was given today. Will continue to follow and monitor need for further nutrition intervention. Recommend: 1. continue mechanical soft chop all diet; Encourage PO intake 2. protein shakes from home by daughter 3. routine bowel care; monitor need for additional 4. weight per rx Addendum: 04/13/19 at [address] Amended: Links added.
[2019-04-13] MEDS: morphine 2 MG/ML inj. syringe IV PRN (13:45)
[2019-04-13] MEDS: clonazePAM 0.5mg tablet PO PRN (14:31)
[2019-04-13 15:00] VITALS: BP 131/70
[2019-04-13] MEDS ORDERED: morphine 2 MG/ML inj. syringe IV ONE (15:15)
--- NOTE | 2019-04-13 18:24 | NUR ---
Received report from Janay VICTOR pt is resting in no apparent distress breaths even and unlabored
--- NOTE | 2019-04-13 18:27 | NUR ---
Problems reprioritized. Patient report given, questions answered & plan of care reviewed with VALENTE Almonte.
[2019-04-13 18:30] VITALS: BP 157/83
[2019-04-13] MEDS: sennosides/docusate sodium tablet PO SCH (20:12)
[2019-04-13] MEDS: latanoprost 0.005% 2.5ml ophthalmic drops EACHEYE SCH (20:37)
[2019-04-13 22:30] VITALS: BP 138/97
[2019-04-14 02:30] VITALS: BP 144/67
[2019-04-14] MEDS: ipratropium/albuterol 3ml nebule NEB SCH ×7 (02:49→22:58)
[2019-04-14] MEDS: ondansetron/PF 4mg/2ml inj IV PRN (03:57)
[2019-04-14] MEDS: clonazePAM 0.5mg tablet PO PRN (04:43)
[2019-04-14 06:00] VITALS: BP 147/70
--- NOTE | 2019-04-14 06:20 | NUR ---
Patient in room PCU 3028. I have received report from VALENTE Adams and had the opportunity to ask questions and assume patient care.
--- NOTE | 2019-04-14 06:26 | NUR ---
Gave report to Brianne VICTOR pt is requesting ot be pulled up and to call daughter tomi at 0700
[2019-04-14] MEDS: aztreonam inj. 1,000 MG in normal saline 100ml IV soln 100 ML IV SCH ×4 (07:56→15:53)
[2019-04-14] MEDS: lactose-reduced food (Ensure Enlive) - 237ml bottle PO SCH ×2 (08:00→13:00)
[2019-04-14] MEDS: NYSTATIN CREAM - 30GM TUBE TP SCH ×2 (08:00→20:00)
[2019-04-14] MEDS: nystatin 500,000 unit/5ML UD oral suspension PO SCH ×3 (08:00→20:24)
[2019-04-14] MEDS: diltiazem CD 180mg cap (once-daily) PO SCH (08:55)
[2019-04-14] MEDS: lactobacillus rhamnosus 10,000 MMU CELLS/CAPSULE PO SCH ×2 (08:55→20:25)
[2019-04-14] MEDS: busPIRone 5mg tablet PO SCH ×2 (08:55→20:25)
[2019-04-14] MEDS: predniSONE 20 mg tablet PO SCH (08:55)
[2019-04-14] MEDS: heparin, porcine 5000 units/ml vial SQ SCH ×2 (08:55→20:00)
[2019-04-14] MEDS: metoprolol succinate 25mg (24-HOUR) SR. Tablet PO SCH (08:55)
[2019-04-14] MEDS: linezolid 600mg tablet PO SCH ×2 (08:55→20:25)
[2019-04-14] MEDS: losartan 50mg tablet PO SCH (08:55)
[2019-04-14 11:00] VITALS: BP 124/56
[2019-04-14 15:00] VITALS: BP 143/67
--- NOTE | 2019-04-14 17:23 | NUR ---
Spoke with pt's daughter Erica. Her plan is to take pt home when MD is feels she's ready to dc. Pt had a good day, she is more clear cognitively today and was cooperative with PT. She states her wishes to return home with daughter. Dr Horn was notified
[2019-04-14 18:00] VITALS: BP 129/83
--- NOTE | 2019-04-14 18:25 | NUR ---
Patient in room PCU 3028. I have received report from Ruby VICTOR and had the opportunity to ask questions and assume patient care.
[2019-04-14] MEDS: latanoprost 0.005% 2.5ml ophthalmic drops EACHEYE SCH (20:25)
[2019-04-14] MEDS: sennosides/docusate sodium tablet PO SCH (20:25)
[2019-04-14 22:00] VITALS: BP 138/54
[2019-04-14] MEDS: morphine 2 MG/ML inj. syringe IV PRN (22:39)
[2019-04-15] MEDS: aztreonam inj. 1,000 MG in normal saline 100ml IV soln 100 ML IV SCH ×4 (01:26→23:41)
[2019-04-15 02:00] VITALS: BP 144/62
[2019-04-15] MEDS: ipratropium/albuterol 3ml nebule NEB SCH ×6 (02:35→23:15)
[2019-04-15 05:27] LABS: ALANINE AMINOTRANSFERASE 27 U/L (12-78); ALBUMIN 2.3 G/DL (3.4-5.0); ALBUMIN/GLOBULIN RATIO 1.1 (1.1-1.5); ALKALINE PHOSPHATASE 71 IU/L (46-116); ANION GAP 2 (8-16); ASPARTATE AMINO TRANSFERASE 18 U/L (10-37); BILIRUBIN,TOTAL 0.4 MG/DL (0.1-1.0); BLOOD UREA NITROGEN 17 MG/DL (7-18); BUN/CREATININE RATIO 32.1 (6.6-38.0); CALCIUM 7.5 MG/DL (8.5-10.1); CHLORIDE 98 MMOL/L (99-107); CREATININE 0.53 MG/DL (0.40-0.90); GLUCOSE 108 MG/DL (70-104); SODIUM 134 MMOL/L (135-145); TOTAL CARBON DIOXIDE 33.7 MMOL/L (24-32); TOTAL PROTEIN 4.4 G/DL (6.4-8.2); eGFR > 90 ML/MIN
[2019-04-15 05:36] LABS: BASOPHILS % (AUTO) 0.4 % (0-1); EOSINOPHILS % (AUTO) 0.2 % (0-6); HEMATOCRIT 27.5 % (35.0-45.0); HEMOGLOBIN 9.3 g/dl (12.0-16.0); LYMPHOCYTES # (AUTO) 0.1 X10'3 (1.1-4.8); LYMPHOCYTES % (AUTO) 1.4 % (21-51); MEAN CORPUSCULAR HEMOGLOBIN 25.6 PG (27.0-31.0); MEAN CORPUSCULAR HGB CONC 33.8 g/dL (33.0-36.5); MEAN CORPUSCULAR VOLUME 75.8 FL (78-98); MEAN PLATELET VOLUME 9.1 FL (7.4-10.4); MONOCYTES # (AUTO) 0.4 X10'3 (0-0.9); MONOCYTES % (AUTO) 5.3 % (2-12); NEUTROPHILS # (AUTO) 6.2 X10'3 (1.8-7.7); NEUTROPHILS % (AUTO) 92.7 % (42-75); PLATELET COUNT 86 X10'3 (140-440); RED BLOOD COUNT 3.63 X10'6 (4.20-5.60); RED CELL DISTRIBUTION WIDTH 20.6 % (11.5-14.5); WHITE BLOOD COUNT 6.7 X10'3 (4.5-11.0)
[2019-04-15 06:00] VITALS: BP 107/56
--- NOTE | 2019-04-15 06:09 | NUR ---
Problems reprioritized. Patient report given, questions answered & plan of care reviewed with Janay VICTOR.
[2019-04-15 07:17] LABS: PLATELET ESTIMATE DECREASED
[2019-04-15 07:18] LABS: ACANTHOCYTES 1+; ANISOCYTOSIS 3+; ELLIPTOCYTES FEW; HYPOCHROMASIA 1+; MICROCYTOSIS 1+; TEAR DROP CELLS FEW
[2019-04-15] MEDS: losartan 50mg tablet PO SCH (07:44)
[2019-04-15] MEDS: lactobacillus rhamnosus 10,000 MMU CELLS/CAPSULE PO SCH ×2 (07:44→20:04)
[2019-04-15] MEDS: metoprolol succinate 25mg (24-HOUR) SR. Tablet PO SCH (07:45)
[2019-04-15] MEDS: linezolid 600mg tablet PO SCH ×2 (07:45→20:04)
[2019-04-15] MEDS: busPIRone 5mg tablet PO SCH ×2 (07:45→20:04)
[2019-04-15] MEDS: diltiazem CD 180mg cap (once-daily) PO SCH (07:46)
[2019-04-15] MEDS: predniSONE 20 mg tablet PO SCH (07:46)
[2019-04-15] MEDS: NYSTATIN CREAM - 30GM TUBE TP SCH ×2 (07:47→20:05)
[2019-04-15] MEDS: heparin, porcine 5000 units/ml vial SQ SCH ×2 (07:48→20:00)
[2019-04-15] MEDS: nystatin 500,000 unit/5ML UD oral suspension PO SCH ×3 (07:48→20:05)
[2019-04-15] MEDS: morphine 2 MG/ML inj. syringe IV PRN ×2 (08:27→13:24)
[2019-04-15] MEDS: clonazePAM 0.5mg tablet PO PRN (10:33)
[2019-04-15 11:00] VITALS: BP 146/72
[2019-04-15 15:00] VITALS: BP 156/69
[2019-04-15] MEDS: albuterol 2.5 MG/3 ML nebule NEB PRN (17:11)
[2019-04-15 18:00] VITALS: BP 159/79
--- NOTE | 2019-04-15 18:30 | NUR ---
Patient in room PCU 3028. I have received report from Janay VICTOR and had the opportunity to ask questions and assume patient care.
--- NOTE | 2019-04-15 18:31 | NUR ---
Problems reprioritized. Patient report given, questions answered & plan of care reviewed with VALENTE Mcclure.
[2019-04-15] MEDS: sennosides/docusate sodium tablet PO SCH (20:04)
[2019-04-15] MEDS: latanoprost 0.005% 2.5ml ophthalmic drops EACHEYE SCH (20:05)
[2019-04-15 22:00] VITALS: BP 155/77
[2019-04-16] VITALS (7 sets, daily range): BP systolic 141–156; BP diastolic 59–90
[2019-04-16] MEDS: ipratropium/albuterol 3ml nebule NEB SCH ×6 (02:39→23:16)
--- NOTE | 2019-04-16 06:16 | NUR ---
Problems reprioritized. Patient report given, questions answered & plan of care reviewed with Vivian VICTOR.
[2019-04-16] MEDS: heparin, porcine 5000 units/ml vial SQ SCH ×2 (08:00→20:00)
[2019-04-16] MEDS: losartan 50mg tablet PO SCH (08:00)
[2019-04-16] MEDS: lactobacillus rhamnosus 10,000 MMU CELLS/CAPSULE PO SCH ×2 (08:00→20:53)
[2019-04-16] MEDS: NYSTATIN CREAM - 30GM TUBE TP SCH ×2 (08:00→20:00)
[2019-04-16] MEDS: busPIRone 5mg tablet PO SCH ×2 (08:00→20:53)
[2019-04-16] MEDS: predniSONE 20 mg tablet PO SCH (08:00)
[2019-04-16] MEDS: diltiazem CD 180mg cap (once-daily) PO SCH (09:14)
[2019-04-16] MEDS: aztreonam inj. 1,000 MG in normal saline 100ml IV soln 100 ML IV SCH ×3 (09:14→23:54)
[2019-04-16] MEDS: metoprolol succinate 25mg (24-HOUR) SR. Tablet PO SCH (09:17)
[2019-04-16] MEDS: linezolid 600mg tablet PO SCH ×2 (09:17→20:53)
[2019-04-16] MEDS: nystatin 500,000 unit/5ML UD oral suspension PO SCH ×3 (09:17→20:53)
[2019-04-16] MEDS: lactulose 20gm/30ml cup PO PRN (13:56)
--- NOTE | 2019-04-16 15:41 | NUR ---
RECEIVED REPORT FROM VALENTE GARCIA AND ASSUMED CARE. AGREE WITH PREVIOUS ASSESSMENT.
--- NOTE | 2019-04-16 18:00 | NUR ---
Patient in room PCU 3028. I have received report from Gutierrez VICTOR and had the opportunity to ask questions and assume patient care.
--- NOTE | 2019-04-16 18:28 | NUR ---
Problems reprioritized. Patient report given, questions answered & plan of care reviewed with VALENTE HUIZAR.
[2019-04-16] MEDS: sennosides/docusate sodium tablet PO SCH (20:53)
[2019-04-16] MEDS: latanoprost 0.005% 2.5ml ophthalmic drops EACHEYE SCH (20:53)
[2019-04-17] MEDS: ipratropium/albuterol 3ml nebule NEB SCH ×6 (03:14→23:17)
[2019-04-17 05:22] LABS: BASOPHILS % (AUTO) 0.1 % (0-1); EOSINOPHILS % (AUTO) 0 % (0-6); HEMATOCRIT 27.8 % (35.0-45.0); HEMOGLOBIN 9.3 g/dl (12.0-16.0); LYMPHOCYTES # (AUTO) 0.3 X10'3 (1.1-4.8); LYMPHOCYTES % (AUTO) 5.2 % (21-51); MEAN CORPUSCULAR HEMOGLOBIN 25.5 PG (27.0-31.0); MEAN CORPUSCULAR HGB CONC 33.6 g/dL (33.0-36.5); MEAN CORPUSCULAR VOLUME 75.9 FL (78-98); MEAN PLATELET VOLUME 9.6 FL (7.4-10.4); MONOCYTES # (AUTO) 0.2 X10'3 (0-0.9); MONOCYTES % (AUTO) 3.7 % (2-12); NEUTROPHILS # (AUTO) 4.5 X10'3 (1.8-7.7); PLATELET COUNT 77 X10'3 (140-440); RED BLOOD COUNT 3.66 X10'6 (4.20-5.60); RED CELL DISTRIBUTION WIDTH 20.1 % (11.5-14.5); WHITE BLOOD COUNT 4.9 X10'3 (4.5-11.0)
[2019-04-17 05:41] LABS: ALANINE AMINOTRANSFERASE 28 U/L (12-78); ALBUMIN 2.2 G/DL (3.4-5.0); ALKALINE PHOSPHATASE 70 IU/L (46-116); ANION GAP 1 (8-16); ASPARTATE AMINO TRANSFERASE 7 U/L (10-37); BILIRUBIN,TOTAL 0.3 MG/DL (0.1-1.0); BLOOD UREA NITROGEN 12 MG/DL (7-18); CALCIUM 7.5 MG/DL (8.5-10.1); CHLORIDE 96 MMOL/L (99-107); GLUCOSE 141 MG/DL (70-104); POTASSIUM 3.3 MMOL/L (3.5-5.1); SODIUM 131 MMOL/L (135-145); TOTAL CARBON DIOXIDE 33.6 MMOL/L (24-32); TOTAL PROTEIN 4.4 G/DL (6.4-8.2); eGFR > 90 ML/MIN
[2019-04-17 06:00] VITALS: BP 160/74
--- NOTE | 2019-04-17 06:32 | NUR ---
Problems reprioritized. Patient report given, questions answered & plan of care reviewed with Janay VICTOR.
[2019-04-17] MEDS: NYSTATIN CREAM - 30GM TUBE TP SCH ×2 (08:00→20:00)
[2019-04-17] MEDS: heparin, porcine 5000 units/ml vial SQ SCH ×2 (08:00→20:00)
[2019-04-17] MEDS: linezolid 600mg tablet PO SCH ×2 (08:21→21:29)
[2019-04-17] MEDS: metoprolol succinate 25mg (24-HOUR) SR. Tablet PO SCH (08:21)
[2019-04-17] MEDS: diltiazem CD 180mg cap (once-daily) PO SCH (08:21)
[2019-04-17] MEDS: aztreonam inj. 1,000 MG in normal saline 100ml IV soln 100 ML IV SCH ×2 (08:21→16:32)
[2019-04-17] MEDS: busPIRone 5mg tablet PO SCH ×2 (08:22→21:29)
[2019-04-17] MEDS: losartan 50mg tablet PO SCH (08:22)
[2019-04-17] MEDS: lactobacillus rhamnosus 10,000 MMU CELLS/CAPSULE PO SCH ×2 (08:22→21:29)
[2019-04-17] MEDS: predniSONE 20 mg tablet PO SCH (08:22)
[2019-04-17 09:53] LABS: ANISOCYTOSIS 3+; HYPERSEGMENTED NEUTROPHILS 1+; PLATELET ESTIMATE DECREASED; TOTAL CELLS COUNTED 100
[2019-04-17 09:54] LABS: ELLIPTOCYTES FEW; HYPOCHROMASIA 1+; MICROCYTOSIS 1+; TEAR DROP CELLS FEW
[2019-04-17 09:55] LABS: ACANTHOCYTES 1+; POIKILOCYTOSIS FEW
[2019-04-17 09:57] LABS: TOXIC GRANULATION 1+
[2019-04-17 11:00] VITALS: BP 147/74
[2019-04-17] MEDS ORDERED: potassium Cl 20 mEq SR tablet PO PRN (14:25)
[2019-04-17] MEDS ORDERED: magnesium 2GM in 50ml NS 50 ML IV PRN (14:25)
[2019-04-17] MEDS ORDERED: magnesium Cl slow-release 64mg tablet PO PRN (14:25)
[2019-04-17] MEDS ORDERED: magnesium 4gm in 100ml NS 100 ML IV PRN (14:25)
[2019-04-17] MEDS ORDERED: potassium CL 10mEq/100ml bag 100 ML IV PRN ×2 (14:25)
[2019-04-17 15:00] VITALS: BP 132/72
--- NOTE | 2019-04-17 18:28 | NUR ---
Problems reprioritized. Patient report given, questions answered & plan of care reviewed with Alison VICTOR. All patients' needs met at this time.
[2019-04-17 19:00] VITALS: BP 144/77
[2019-04-17] MEDS: potassium Cl 20 mEq SR tablet PO PRN (21:28)
[2019-04-17] MEDS: sennosides/docusate sodium tablet PO SCH (21:29)
[2019-04-17] MEDS: latanoprost 0.005% 2.5ml ophthalmic drops EACHEYE SCH (21:30)
[2019-04-17 23:00] VITALS: BP 160/86
[2019-04-18] MEDS: aztreonam inj. 1,000 MG in normal saline 100ml IV soln 100 ML IV SCH ×4 (00:29→23:20)
[2019-04-18] MEDS: clonazePAM 0.5mg tablet PO PRN ×2 (00:30→23:20)
[2019-04-18] MEDS: potassium Cl 20 mEq SR tablet PO PRN ×3 (01:41→19:57)
[2019-04-18] MEDS: ipratropium/albuterol 3ml nebule NEB SCH ×6 (02:39→23:25)
[2019-04-18 06:00] VITALS: BP 131/69
--- NOTE | 2019-04-18 06:00 | NUR ---
Problems reprioritized. Patient report given, questions answered & plan of care reviewed with Janay VICTOR.
[2019-04-18] MEDS: heparin, porcine 5000 units/ml vial SQ SCH ×2 (08:00→19:52)
[2019-04-18] MEDS: K and/or MAG REPLACEMENT MC SCH (08:00)
[2019-04-18] MEDS: NYSTATIN CREAM - 30GM TUBE TP SCH ×2 (08:00→20:42)
[2019-04-18] MEDS: lactobacillus rhamnosus 10,000 MMU CELLS/CAPSULE PO SCH ×2 (09:43→19:57)
[2019-04-18] MEDS: linezolid 600mg tablet PO SCH ×2 (09:43→19:57)
[2019-04-18] MEDS: predniSONE 20 mg tablet PO SCH (09:44)
[2019-04-18] MEDS: losartan 50mg tablet PO SCH (09:44)
[2019-04-18] MEDS: diltiazem CD 180mg cap (once-daily) PO SCH (09:44)
[2019-04-18] MEDS: busPIRone 5mg tablet PO SCH ×2 (09:44→19:57)
[2019-04-18] MEDS: metoprolol succinate 25mg (24-HOUR) SR. Tablet PO SCH (09:47)
[2019-04-18 11:00] VITALS: BP 162/88
[2019-04-18 15:00] VITALS: BP 137/66
[2019-04-18 18:00] VITALS: BP 169/76
[2019-04-18] MEDS: sennosides/docusate sodium tablet PO SCH (19:57)
[2019-04-18] MEDS: latanoprost 0.005% 2.5ml ophthalmic drops EACHEYE SCH (19:58)
[2019-04-18] MEDS: morphine 2 MG/ML inj. syringe IV PRN (21:37)
[2019-04-18 23:00] VITALS: BP 171/71
[2019-04-19 02:00] VITALS: BP 159/76
[2019-04-19] MEDS: ipratropium/albuterol 3ml nebule NEB SCH ×6 (02:47→23:14)
[2019-04-19] MEDS: morphine 2 MG/ML inj. syringe IV PRN (02:58)
[2019-04-19 03:31] LABS: MAGNESIUM 1.6 MG/DL (1.5-2.4); POTASSIUM 4.6 MMOL/L (3.5-5.1)
[2019-04-19 06:00] VITALS: BP 104/68
--- NOTE | 2019-04-19 06:26 | NUR ---
Problems reprioritized. Patient report given, questions answered & plan of care reviewed with VALENTE Gustafson.
[2019-04-19] MEDS: heparin, porcine 5000 units/ml vial SQ SCH ×2 (08:00→20:00)
[2019-04-19] MEDS: K and/or MAG REPLACEMENT MC SCH (08:00)
[2019-04-19] MEDS: NYSTATIN CREAM - 30GM TUBE TP SCH ×2 (08:00→20:00)
[2019-04-19] MEDS: lactobacillus rhamnosus 10,000 MMU CELLS/CAPSULE PO SCH ×2 (09:39→20:35)
[2019-04-19] MEDS: aztreonam inj. 1,000 MG in normal saline 100ml IV soln 100 ML IV SCH ×2 (09:39→17:01)
[2019-04-19] MEDS: metoprolol succinate 25mg (24-HOUR) SR. Tablet PO SCH (09:40)
[2019-04-19] MEDS: losartan 50mg tablet PO SCH (09:40)
[2019-04-19] MEDS: predniSONE 20 mg tablet PO SCH (09:40)
[2019-04-19] MEDS: busPIRone 5mg tablet PO SCH ×2 (09:40→20:35)
[2019-04-19] MEDS: diltiazem CD 180mg cap (once-daily) PO SCH (09:40)
[2019-04-19] MEDS: linezolid 600mg tablet PO SCH ×2 (09:40→20:35)
[2019-04-19 11:00] VITALS: BP 177/76
[2019-04-19 15:00] VITALS: BP 134/53
--- NOTE | 2019-04-19 15:00 | NUR ---
Paged Dr Mcadams PAGER ID: [phone] MESSAGE: Ciarra Geiger Rm 3021 FYI Plt was 77 drawn on 04/17, I held [employer]. Thanks Janay Adams
[2019-04-19 18:00] VITALS: BP 115/61
--- NOTE | 2019-04-19 19:01 | NUR ---
Problems reprioritized. Patient report given, questions answered & plan of care reviewed with Margarita VICTOR. All patient's needs met at this time.
[2019-04-19] MEDS: sennosides/docusate sodium tablet PO SCH (20:35)
[2019-04-19] MEDS: latanoprost 0.005% 2.5ml ophthalmic drops EACHEYE SCH (20:46)
[2019-04-19 22:00] VITALS: BP 142/52
[2019-04-20 02:00] VITALS: BP 131/59
[2019-04-20] MEDS: ipratropium/albuterol 3ml nebule NEB SCH ×6 (03:35→23:28)
[2019-04-20 06:00] VITALS: BP 157/67
--- NOTE | 2019-04-20 06:00 | NUR ---
Patient in room PCU 3021. I have received report from Margarita VICTOR and had the opportunity to ask questions and assume patient care.
[2019-04-20 06:01] LABS: ALANINE AMINOTRANSFERASE 28 U/L (12-78); ALBUMIN 2.5 G/DL (3.4-5.0); ALBUMIN/GLOBULIN RATIO 1.1 (1.1-1.5); ALKALINE PHOSPHATASE 85 IU/L (46-116); ANION GAP 5 (8-16); ASPARTATE AMINO TRANSFERASE 11 U/L (10-37); BILIRUBIN,TOTAL 0.6 MG/DL (0.1-1.0); BLOOD UREA NITROGEN 10 MG/DL (7-18); BUN/CREATININE RATIO 20.8 (6.6-38.0); CALCIUM 7.6 MG/DL (8.5-10.1); CHLORIDE 97 MMOL/L (99-107); CREATININE 0.48 MG/DL (0.40-0.90); GLUCOSE 79 MG/DL (70-104); MAGNESIUM 1.6 MG/DL (1.5-2.4); PHOSPHORUS 2.6 MG/DL (2.3-4.5); POTASSIUM 3.6 MMOL/L (3.5-5.1); SODIUM 133 MMOL/L (135-145); TOTAL CARBON DIOXIDE 31.1 MMOL/L (24-32); TOTAL PROTEIN 4.8 G/DL (6.4-8.2); eGFR > 90 ML/MIN
[2019-04-20 06:02] LABS: BASOPHILS % (AUTO) 0.3 % (0-1); EOSINOPHILS % (AUTO) 0.2 % (0-6); HEMATOCRIT 28.4 % (35.0-45.0); HEMOGLOBIN 9.6 g/dl (12.0-16.0); LYMPHOCYTES # (AUTO) 0.3 X10'3 (1.1-4.8); LYMPHOCYTES % (AUTO) 9.5 % (21-51); MEAN CORPUSCULAR HGB CONC 33.9 g/dL (33.0-36.5); MEAN CORPUSCULAR VOLUME 76.6 FL (78-98); MEAN PLATELET VOLUME 9.4 FL (7.4-10.4); MONOCYTES # (AUTO) 0.1 X10'3 (0-0.9); MONOCYTES % (AUTO) 3.6 % (2-12); NEUTROPHILS # (AUTO) 2.9 X10'3 (1.8-7.7); NEUTROPHILS % (AUTO) 86.4 % (42-75); PLATELET COUNT 57 X10'3 (140-440); RED BLOOD COUNT 3.71 X10'6 (4.20-5.60); RED CELL DISTRIBUTION WIDTH 20.9 % (11.5-14.5); WHITE BLOOD COUNT 3.4 X10'3 (4.5-11.0)
[2019-04-20 07:19] LABS: ANISOCYTOSIS 3+; BURR CELLS FEW; ELLIPTOCYTES FEW; HYPOCHROMASIA 1+; MICROCYTOSIS 1+; PLATELET ESTIMATE DECREASED; POIKILOCYTOSIS FEW; TEAR DROP CELLS FEW
[2019-04-20] MEDS: heparin, porcine 5000 units/ml vial SQ SCH ×2 (08:00→20:00)
[2019-04-20] MEDS: K and/or MAG REPLACEMENT MC SCH (08:00)
[2019-04-20] MEDS: NYSTATIN CREAM - 30GM TUBE TP SCH ×2 (08:00→20:31)
[2019-04-20] MEDS: lactobacillus rhamnosus 10,000 MMU CELLS/CAPSULE PO SCH ×2 (08:48→20:24)
[2019-04-20] MEDS: metoprolol succinate 25mg (24-HOUR) SR. Tablet PO SCH (08:48)
[2019-04-20] MEDS: predniSONE 20 mg tablet PO SCH (08:48)
[2019-04-20] MEDS: diltiazem CD 180mg cap (once-daily) PO SCH (08:48)
[2019-04-20] MEDS: busPIRone 5mg tablet PO SCH ×2 (08:48→20:24)
[2019-04-20] MEDS: losartan 50mg tablet PO SCH (08:49)
[2019-04-20 11:00] VITALS: BP 169/72
--- NOTE | 2019-04-20 11:03 | NUR ---
1100 SVN TX NOT FINISHED, PT REQUESTED TO HAVE MASK TAKEN OFF. PT ON 1L 98% SPO2. NO SOB OR DISTRESS NOTED. WILL RETURN THIS AFTERNOON FOR 1500 SVN TX. Addendum: 04/20/19 at 1105 by Aubree Amezcua RT Amended: Links added.
--- NOTE | 2019-04-20 12:47 | NUR ---
Pt O2 sat 98 on 2L, titrated to 1L and reassessed at 97%. Will monitor and titrate further to maintain MD parameters of 88-90% SpO2. Addendum: 04/20/19 at 1250 by Ellie Mckay RN Primary VALENTE Arnold notified of changes.
[2019-04-20] MEDS: morphine 2 MG/ML inj. syringe IV PRN (14:11)
[2019-04-20 15:00] VITALS: BP 163/81
[2019-04-20] MEDS: clonazePAM 0.5mg tablet PO PRN (17:02)
[2019-04-20 18:00] VITALS: BP 148/72
--- NOTE | 2019-04-20 19:15 | NUR ---
Problems reprioritized. Patient report given, questions answered & plan of care reviewed with Sumi VICTOR.
[2019-04-20] MEDS: sennosides/docusate sodium tablet PO SCH (20:24)
[2019-04-20] MEDS: latanoprost 0.005% 2.5ml ophthalmic drops EACHEYE SCH (20:31)
[2019-04-20 22:00] VITALS: BP 162/74
[2019-04-21 03:00] VITALS: BP 161/71
[2019-04-21] MEDS: ipratropium/albuterol 3ml nebule NEB SCH ×6 (04:12→23:06)
[2019-04-21 06:00] VITALS: BP 152/77
--- NOTE | 2019-04-21 06:00 | NUR ---
Patient in room PCU 3021. I have received report from Sumi VICTOR and had the opportunity to ask questions and assume patient care.
[2019-04-21 06:13] LABS: BASOPHILS % (AUTO) 0.2 % (0-1); EOSINOPHILS % (AUTO) 0.6 % (0-6); HEMATOCRIT 26.4 % (35.0-45.0); LYMPHOCYTES # (AUTO) 0.6 X10'3 (1.1-4.8); LYMPHOCYTES % (AUTO) 15.1 % (21-51); MEAN CORPUSCULAR HEMOGLOBIN 25.8 PG (27.0-31.0); MEAN PLATELET VOLUME 9.2 FL (7.4-10.4); MONOCYTES # (AUTO) 0.2 X10'3 (0-0.9); MONOCYTES % (AUTO) 4.4 % (2-12); NEUTROPHILS % (AUTO) 79.7 % (42-75); PLATELET COUNT 58 X10'3 (140-440); RED BLOOD COUNT 3.48 X10'6 (4.20-5.60); RED CELL DISTRIBUTION WIDTH 21.2 % (11.5-14.5); WHITE BLOOD COUNT 3.7 X10'3 (4.5-11.0)
[2019-04-21 06:39] LABS: ALANINE AMINOTRANSFERASE 26 U/L (12-78); ALBUMIN 2.3 G/DL (3.4-5.0); ALKALINE PHOSPHATASE 79 IU/L (46-116); ANION GAP 4 (8-16); ASPARTATE AMINO TRANSFERASE 10 U/L (10-37); BILIRUBIN,TOTAL 0.4 MG/DL (0.1-1.0); BLOOD UREA NITROGEN 12 MG/DL (7-18); BUN/CREATININE RATIO 26.7 (6.6-38.0); CALCIUM 7.8 MG/DL (8.5-10.1); CHLORIDE 95 MMOL/L (99-107); CREATININE 0.45 MG/DL (0.40-0.90); GLUCOSE 122 MG/DL (70-104); MAGNESIUM 1.5 MG/DL (1.5-2.4); PHOSPHORUS 2.3 MG/DL (2.3-4.5); POTASSIUM 3.2 MMOL/L (3.5-5.1); SODIUM 132 MMOL/L (135-145); TOTAL PROTEIN 4.6 G/DL (6.4-8.2); eGFR > 90 ML/MIN
[2019-04-21] MEDS: NYSTATIN CREAM - 30GM TUBE TP SCH ×2 (08:00→20:00)
[2019-04-21] MEDS: K and/or MAG REPLACEMENT MC SCH (08:00)
[2019-04-21] MEDS: heparin, porcine 5000 units/ml vial SQ SCH ×2 (08:00→20:00)
[2019-04-21 08:31] LABS: ANISOCYTOSIS 3+; HYPOCHROMASIA 1+; PLATELET ESTIMATE DECREASED
[2019-04-21 08:32] LABS: ELLIPTOCYTES 1+; MICROCYTOSIS 1+; SCHISTOCYTES 1+
--- NOTE | 2019-04-21 09:15 | NUR ---
Requested oxygen delivery order from MD as no order is present and pt has COPD. Received order to maintain SpO2 88-90%. Also received order to arrange family meeting with patient's daughter. Case management paged per request. Addendum: 04/21/19 at 0985 by Ellie Mckay RN Primary VALENTE Arnold aware of MD orders.
[2019-04-21] MEDS: clonazePAM 0.5mg tablet PO PRN ×2 (09:18→13:54)
[2019-04-21] MEDS: lactobacillus rhamnosus 10,000 MMU CELLS/CAPSULE PO SCH ×2 (09:20→20:26)
[2019-04-21] MEDS: metoprolol succinate 25mg (24-HOUR) SR. Tablet PO SCH (09:20)
[2019-04-21] MEDS: losartan 50mg tablet PO SCH (09:20)
[2019-04-21] MEDS: diltiazem CD 180mg cap (once-daily) PO SCH (09:21)
[2019-04-21] MEDS: busPIRone 5mg tablet PO SCH ×2 (09:21→20:26)
[2019-04-21] MEDS: predniSONE 20 mg tablet PO SCH (09:21)
[2019-04-21] MEDS: morphine 2 MG/ML inj. syringe IV PRN (10:08)
[2019-04-21] MEDS ORDERED: potassium CL 10mEq/100ml bag 100 ML IV PRN ×2 (10:45)
[2019-04-21] MEDS ORDERED: potassium Cl 20 mEq SR tablet PO PRN (10:45)
[2019-04-21 11:00] VITALS: BP 152/79
--- NOTE | 2019-04-21 11:54 | NUR ---
Notified primary RN Catalina of pt O2 sat of 100% on 1L, Catalina states will titrate O2 per MD order to maintain SpO2 of 88-90%.
[2019-04-21] MEDS: potassium Cl 20 mEq SR tablet PO PRN (14:13)
[2019-04-21 15:00] VITALS: BP 134/66
--- NOTE | 2019-04-21 17:48 | NUR ---
Daughter called for update on pt. Daughter provided new information to NOD regarding patient behavior and diet. Per daughter pt has hx of complex trauma related to family and upbringing causing patient to be severely anxious as she was raised to make no mistakes and having very low self-esteem. She has no history of dementia per daughter and is more of an anxiety issue. Patient needs to be encouraged because per daughter she is very capable. Daughter states that she is working towards her Phd in nutrition and she is very much involved in her mother's diet. She has listed the following as items to avoid: caffeine, chocolate, dairy, fatty foods, beef, and high sugar food. She does enjoy shrimp (for zinc), healthy simple carbs (for weight gain), and has been accustomed to a more plant-based diet at home. Daughter says that dairy exacerbates her COPD and caffeine irritates her stomach. I have told daughter that I will contact the review scheduling coordinator and share the information that she has provided me and asked if she could provide me a copy of the patient's diet so that I could have it on file in patient's chart and something to show dietary. She says that she has provided the ED with documents including the patient's diet which she says they have scanned into the system. As the review scheduling coordinator has left for the day, I will follow up with them tomorrow. Dairy and milk containing products are already noted in the patient's allergy/adv reaction. I have passed on this information the next NOD.
[2019-04-21 18:00] VITALS: BP 153/72
--- NOTE | 2019-04-21 18:00 | NUR ---
Problems reprioritized. Patient report given, questions answered & plan of care reviewed with Prudence RN.
--- NOTE | 2019-04-21 18:51 | NUR ---
Patient in room PCU 3021. I have received report from Catalina VICTOR and had the opportunity to ask questions and assume patient care. patient is resting and show no sign of distress.
[2019-04-21] MEDS: latanoprost 0.005% 2.5ml ophthalmic drops EACHEYE SCH (20:26)
[2019-04-21] MEDS: sennosides/docusate sodium tablet PO SCH (20:26)
--- NOTE | 2019-04-21 20:44 | NUR ---
Heparin held, [facility] at 58
[2019-04-21 22:00] VITALS: BP 142/75
[2019-04-22] MEDS: potassium Cl 20 mEq SR tablet PO PRN (01:04)
[2019-04-22 02:00] VITALS: BP 142/80
[2019-04-22] MEDS: albuterol 2.5 MG/3 ML nebule NEB PRN (04:20)
[2019-04-22] MEDS: ipratropium/albuterol 3ml nebule NEB SCH ×6 (04:21→23:38)
[2019-04-22 05:45] LABS: BASOPHILS % (AUTO) 0.1 % (0-1); EOSINOPHILS % (AUTO) 0 % (0-6); HEMATOCRIT 26.6 % (35.0-45.0); LYMPHOCYTES # (AUTO) 0.2 X10'3 (1.1-4.8); LYMPHOCYTES % (AUTO) 5.4 % (21-51); MEAN CORPUSCULAR HEMOGLOBIN 26.1 PG (27.0-31.0); MEAN CORPUSCULAR HGB CONC 33.7 g/dL (33.0-36.5); MEAN CORPUSCULAR VOLUME 77.3 FL (78-98); MEAN PLATELET VOLUME 8.6 FL (7.4-10.4); MONOCYTES # (AUTO) 0.2 X10'3 (0-0.9); MONOCYTES % (AUTO) 5.5 % (2-12); PLATELET COUNT 68 X10'3 (140-440); RED BLOOD COUNT 3.44 X10'6 (4.20-5.60); RED CELL DISTRIBUTION WIDTH 21.4 % (11.5-14.5); WHITE BLOOD COUNT 3.3 X10'3 (4.5-11.0)
[2019-04-22 05:57] LABS: ALANINE AMINOTRANSFERASE 25 U/L (12-78); ALBUMIN 2.5 G/DL (3.4-5.0); ALBUMIN/GLOBULIN RATIO 1.1 (1.1-1.5); ALKALINE PHOSPHATASE 87 IU/L (46-116); ANION GAP 2 (8-16); ASPARTATE AMINO TRANSFERASE 11 U/L (10-37); BILIRUBIN,TOTAL 0.5 MG/DL (0.1-1.0); BLOOD UREA NITROGEN 17 MG/DL (7-18); BUN/CREATININE RATIO 34.7 (6.6-38.0); CHLORIDE 96 MMOL/L (99-107); CREATININE 0.49 MG/DL (0.40-0.90); GLUCOSE 110 MG/DL (70-104); MAGNESIUM 1.7 MG/DL (1.5-2.4); PHOSPHORUS 2.9 MG/DL (2.3-4.5); SODIUM 131 MMOL/L (135-145); TOTAL CARBON DIOXIDE 32.6 MMOL/L (24-32); TOTAL PROTEIN 4.7 G/DL (6.4-8.2); eGFR > 90 ML/MIN
[2019-04-22 06:00] VITALS: BP 147/69
--- NOTE | 2019-04-22 06:23 | NUR ---
Problems reprioritized. Patient report given, questions answered & plan of care reviewed with Catalina VICTOR. Patient is awake and denies having pain.
--- NOTE | 2019-04-22 06:59 | NUR ---
Patient in room [facility] 3021. I have received report from Suzy VICTOR and had the opportunity to ask questions and assume patient care. Addendum: 04/22/19 at 0701 by Radha Farias RN Disregard. Incorrect nurse. Patient in room [facility] 3021. I have received report from Renea VICTOR and had the opportunity to ask questions and assume patient care.
[2019-04-22] MEDS: K and/or MAG REPLACEMENT MC SCH (08:00)
[2019-04-22] MEDS: heparin, porcine 5000 units/ml vial SQ SCH ×2 (08:00→21:34)
[2019-04-22] MEDS: diltiazem CD 180mg cap (once-daily) PO SCH (08:40)
[2019-04-22] MEDS: lactobacillus rhamnosus 10,000 MMU CELLS/CAPSULE PO SCH ×2 (08:40→21:35)
[2019-04-22] MEDS: busPIRone 5mg tablet PO SCH ×2 (08:40→21:35)
[2019-04-22] MEDS: losartan 50mg tablet PO SCH (08:40)
[2019-04-22] MEDS: predniSONE 20 mg tablet PO SCH (08:40)
[2019-04-22] MEDS: metoprolol succinate 25mg (24-HOUR) SR. Tablet PO SCH (08:41)
[2019-04-22] MEDS: clonazePAM 0.5mg tablet PO PRN (08:44)
[2019-04-22] MEDS: NYSTATIN CREAM - 30GM TUBE TP SCH ×2 (08:55→21:38)
[2019-04-22 11:00] VITALS: BP 164/66
[2019-04-22 15:00] VITALS: BP 110/90
--- NOTE | 2019-04-22 15:30 | NUR ---
Attempted to call daughter to follow up with conversation regarding pt diet and action taken: speaking with research center director, Veronica. Per Veronica, she had spoken with daughter shortly after patient was admitted. Informed Veronica of conversation with daughter and planned to ask daughter if OK to provide Veronica with contact info so that they could further discuss dietary needs of patient and to come up with a plan that everyone is happy with. Left voicemail. Will attempt to call again.
--- NOTE | 2019-04-22 17:44 | NUR ---
PAGER ID: [phone] MESSAGE: [id number] SLID OUT OF BED ONTO FLOOR. GETTING HER BACK TO BED CAUSED TWO VERY SMALL SKIN TEARS. LEFT FOOT AND RIGHT TALBERT. YESI VIVAS Addendum: 04/22/19 at 1744 by Yesi Devi RN Amended: Links added.
--- NOTE | 2019-04-22 17:50 | NUR ---
During last rounds at 1700, pt was in bed with HOB 30 degrees, low and locked with SRx3. Stated she was hungry and informed that dinner is about to be served soon. At approx. 1715, was found by aide sitting on floor. 3 RNs and 2 aides at bedside to assist pt back to bed using gait belt and sit to stand. Transfer from sit to stand to bed caused to small 1cm skin tears located on right negro and anterior aspect of left foot. Photos in chart. MD was notified @ 1745 and voicemail message left for daughter who was not able to be reached by both and NOD.
[2019-04-22 18:00] VITALS: BP_SYST 149; BP_SYST 156; BP_DIAS 48; BP_DIAS 54
--- NOTE | 2019-04-22 18:00 | NUR ---
Problems reprioritized. Patient report given, questions answered & plan of care reviewed with Veronica VICTOR.
--- NOTE | 2019-04-22 18:00 | NUR ---
Patient in room U 3021. I have received report from Catalina VICTOR and had the opportunity to ask questions and assume patient care. Addendum: 04/23/19 at 0734 by Veronica Stinson RN Amended: Links added.
--- NOTE | 2019-04-22 18:00 | NUR ---
Patient in room U 3021. I have received report from Catalina VICTOR and had the opportunity to ask questions and assume patient care. Addendum: 04/22/19 at 2259 by Veronica Stinson RN Amended: Links added.
[2019-04-22] MEDS: sennosides/docusate sodium tablet PO SCH (21:35)
[2019-04-22] MEDS: morphine 2 MG/ML inj. syringe IV PRN (21:37)
[2019-04-22] MEDS: latanoprost 0.005% 2.5ml ophthalmic drops EACHEYE SCH (21:37)
[2019-04-22 22:00] VITALS: BP 162/76
[2019-04-23 02:00] VITALS: BP_SYST 112; BP_SYST 162; BP_DIAS 53; BP_DIAS 76
[2019-04-23] MEDS: morphine 2 MG/ML inj. syringe IV PRN ×2 (02:43→10:59)
[2019-04-23] MEDS: ipratropium/albuterol 3ml nebule NEB SCH ×6 (03:34→23:00)
--- NOTE | 2019-04-23 05:00 | NUR ---
Problems reprioritized. Patient report given, questions answered & plan of care reviewed with Catalina VICTOR. Addendum: 04/23/19 at 0735 by Veronica Stinson RN Amended: Links added.
--- NOTE | 2019-04-23 05:00 | NUR ---
Pt, with c/o pain x 2 this shift medicated with ivp morphine as ordered; respiratory rate wnl. No falls this shift; bed in low position, bed alarm activated. Pt. repositioned and cleaned q two hours. Call light within reach. Addendum: 04/23/19 at 0710 by Veronica Stinson RN Amended: Links added.
[2019-04-23 06:00] VITALS: BP_SYST 140; BP_SYST 159; BP_DIAS 63; BP_DIAS 68
[2019-04-23 07:50] LABS: ALANINE AMINOTRANSFERASE 25 U/L (12-78); ALBUMIN 2.6 G/DL (3.4-5.0); ALBUMIN/GLOBULIN RATIO 1.2 (1.1-1.5); ALKALINE PHOSPHATASE 89 IU/L (46-116); ANION GAP 4 (8-16); ASPARTATE AMINO TRANSFERASE 8 U/L (10-37); BILIRUBIN,TOTAL 0.5 MG/DL (0.1-1.0); BLOOD UREA NITROGEN 11 MG/DL (7-18); BUN/CREATININE RATIO 26.8 (6.6-38.0); CALCIUM 7.8 MG/DL (8.5-10.1); CHLORIDE 96 MMOL/L (99-107); CREATININE 0.41 MG/DL (0.40-0.90); GLUCOSE 83 MG/DL (70-104); MAGNESIUM 1.5 MG/DL (1.5-2.4); PHOSPHORUS 2.6 MG/DL (2.3-4.5); POTASSIUM 3.7 MMOL/L (3.5-5.1); SODIUM 132 MMOL/L (135-145); TOTAL CARBON DIOXIDE 31.9 MMOL/L (24-32); TOTAL PROTEIN 4.8 G/DL (6.4-8.2); eGFR > 90 ML/MIN
[2019-04-23] MEDS: NYSTATIN CREAM - 30GM TUBE TP SCH ×2 (08:00→23:00)
[2019-04-23] MEDS: heparin, porcine 5000 units/ml vial SQ SCH ×2 (08:00→20:00)
[2019-04-23] MEDS: lactobacillus rhamnosus 10,000 MMU CELLS/CAPSULE PO SCH ×2 (08:00→22:20)
[2019-04-23] MEDS: K and/or MAG REPLACEMENT MC SCH (08:00)
[2019-04-23] MEDS: losartan 50mg tablet PO SCH (08:00)
[2019-04-23 08:15] LABS: BASOPHILS % (AUTO) 0.3 % (0-1); EOSINOPHILS % (AUTO) 0.2 % (0-6); HEMATOCRIT 27.2 % (35.0-45.0); HEMOGLOBIN 9.1 g/dl (12.0-16.0); LYMPHOCYTES # (AUTO) 0.5 X10'3 (1.1-4.8); LYMPHOCYTES % (AUTO) 12.4 % (21-51); MEAN CORPUSCULAR HEMOGLOBIN 25.8 PG (27.0-31.0); MEAN CORPUSCULAR HGB CONC 33.4 g/dL (33.0-36.5); MEAN CORPUSCULAR VOLUME 77.2 FL (78-98); MONOCYTES # (AUTO) 0.5 X10'3 (0-0.9); MONOCYTES % (AUTO) 12.3 % (2-12); NEUTROPHILS # (AUTO) 2.9 X10'3 (1.8-7.7); NEUTROPHILS % (AUTO) 74.8 % (42-75); PLATELET COUNT 108 X10'3 (140-440); RED BLOOD COUNT 3.52 X10'6 (4.20-5.60); RED CELL DISTRIBUTION WIDTH 21.5 % (11.5-14.5); WHITE BLOOD COUNT 3.9 X10'3 (4.5-11.0)
[2019-04-23 09:04] LABS: PLATELET ESTIMATE DECREASED
[2019-04-23 09:05] LABS: ANISOCYTOSIS 3+; BURR CELLS 1+; ELLIPTOCYTES 1+; HYPOCHROMASIA 1+; MICROCYTOSIS 1+; POLYCHROMASIA 1+
[2019-04-23] MEDS: busPIRone 5mg tablet PO SCH ×2 (09:24→22:21)
[2019-04-23] MEDS: metoprolol succinate 25mg (24-HOUR) SR. Tablet PO SCH (09:24)
[2019-04-23] MEDS: diltiazem CD 180mg cap (once-daily) PO SCH (09:25)
[2019-04-23] MEDS: predniSONE 20 mg tablet PO SCH (09:27)
[2019-04-23 11:00] VITALS: BP 161/82
--- NOTE | 2019-04-23 14:39 | NUR ---
Reassessment: Pt PO has improved overall past 3 days 75-100% w/ some fluctuations meeting needs. Per RN; pt daughter wants "zero dairy or sugar and is getting PhD in Nutrition." RN provided RD w/ daughter contact information and password to give daughter to ensure confidentiality. Per RN daughter reports no longer bringing in organic ONS from home since 'nobody was giving it to pt.' CNM to d/w daughter importance of repletion nutrition in severely malnourished dementia pt who will eat what is given to her w/ feeder in order to help come up w/ adequate nutrition plan. Tea, chocolate, and ensure puddings all held per daughter request; dietary notified. Large BM x2 04/22. Will continue to monitor. Recommend: 1. continue mechanical soft chop all diet; Encourage PO intake w/ feeder 2. hold ONS per daughter request; ONS from home 3. honor daughter specific dietary requests; see above 4. routine bowel care 5. weekly wts Addendum: 04/23/19 at [address] Amended: Links added. Addendum: 04/24/19 at [address] Reassessment: Pt PO has improved overall past 3 days 75-100% w/ some fluctuations meeting needs. Per RN; pt daughter wants "zero dairy or sugar." RN provided RD w/ daughter contact information and password to give daughter to ensure confidentiality. Per RN daughter reports no longer bringing in organic ONS from home since 'nobody was giving it to pt.' CNM to d/w daughter importance of repletion nutrition in severely malnourished dementia pt who will eat what is given to her w/ feeder in order to help come up w/ adequate nutrition plan. Tea, chocolate, and ensure puddings all held per daughter request; dietary notified. Large BM x2 04/22. Will continue to monitor. Recommend: 1. continue mechanical soft chop all diet; Encourage PO intake w/ feeder 2. hold ONS per daughter request; ONS from home 3. honor daughter specific dietary requests; see above 4. routine bowel care 5. weekly wts
[2019-04-23 15:00] VITALS: BP 155/86
--- NOTE | 2019-04-23 18:13 | NUR ---
Problems reprioritized. Patient report given, questions answered & plan of care reviewed with Janay VICTOR.
--- NOTE | 2019-04-23 18:18 | NUR ---
Patient in room PCU 3021. I have received report from Catalina VICTOR and had the opportunity to ask questions and assume patient care. All patient's needs met at this time.
[2019-04-23 22:00] VITALS: BP 165/63
[2019-04-23] MEDS: sennosides/docusate sodium tablet PO SCH (22:58)
[2019-04-23] MEDS: latanoprost 0.005% 2.5ml ophthalmic drops EACHEYE SCH (22:59)
[2019-04-24 02:00] VITALS: BP 138/57
[2019-04-24] MEDS: ipratropium/albuterol 3ml nebule NEB SCH ×3 (03:39→11:00)
[2019-04-24 06:00] VITALS: BP 141/69
--- NOTE | 2019-04-24 06:32 | NUR ---
Problems reprioritized. Patient report given, questions answered & plan of care reviewed with Cally VICTOR. All patient's needs met at this time.
[2019-04-24] MEDS: K and/or MAG REPLACEMENT MC SCH (06:55)
[2019-04-24] MEDS: NYSTATIN CREAM - 30GM TUBE TP SCH (08:00)
[2019-04-24] MEDS: losartan 50mg tablet PO SCH (08:12)
[2019-04-24] MEDS: busPIRone 5mg tablet PO SCH (08:13)
[2019-04-24] MEDS: lactobacillus rhamnosus 10,000 MMU CELLS/CAPSULE PO SCH (08:13)
[2019-04-24] MEDS: metoprolol succinate 25mg (24-HOUR) SR. Tablet PO SCH (08:14)
[2019-04-24] MEDS: diltiazem CD 180mg cap (once-daily) PO SCH (08:14)
[2019-04-24] MEDS: predniSONE 20 mg tablet PO SCH (08:14)
[2019-04-24] MEDS: heparin, porcine 5000 units/ml vial SQ SCH (08:15)
[2019-04-24 11:00] VITALS: BP_SYST 108; BP_SYST 136; BP_DIAS 71; BP_DIAS 84
[2019-04-24] MEDS ORDERED: PRED10TA23 PO (14:45)
[2019-04-24] MEDS ORDERED: LACT10SO32 PO (14:45)
[2019-04-24] MEDS ORDERED: BUDE10.22 INH (14:45)
[2019-04-24] MEDS ORDERED: MYC15CR TP (14:45)
[2019-04-24] MEDS ORDERED: METO-395 PO (14:45)
[2019-04-24] MEDS ORDERED: ALBU8.5H8 INH (14:45)
[2019-04-24 15:00] VITALS: BP 108/71
--- NOTE | 2019-04-24 16:40 | NUR ---
Pt discharged home under care of daughter. Pt is very weak and difficult to move. Pt confused. Per Case mgt. patient to be discharged home with daughter and daughter understands care. I tried to call daughter to go over discharge but she did not answer or call back. WC pictures taken, tele returned, PICC access taken out. Discharge packet given to transport company. All belongings taken from room. Pt put in depends for transport as she is incontinent often. Meds e sent to preferred pharmacy.
== END 2019-04-24 16:45 | disposition home health service (06) | DRG 871 ==
LOC: ER 19:59 → EEVIPCON 19:59 → ED HOLD 03-25 01:06 → PCU 3S 03-25 04:45 → ICU 2S 03-26 17:45 → PCU 3S 03-31 14:30
PROVIDERS: ADMIT Internal Medicine; ATTEND Family Medicine
PROC: 5A09357 Assistance with Respiratory Ventilation, Less than 24 Consecutive Hours, Continuous Positive Airway Pressure (ICD-10-PCS; principal; 2019-03-24)
PROC: 5A1945Z Respiratory Ventilation, 24-96 Consecutive Hours (ICD-10-PCS; 2019-03-25)
PROC: 0BH17EZ Insertion of Endotracheal Airway into Trachea, Via Natural or Artificial Opening (ICD-10-PCS; 2019-03-25)
PROC: 02HV33Z Insertion of Infusion Device into Superior Vena Cava, Percutaneous Approach (ICD-10-PCS; 2019-03-27)
DX: A41.9 Sepsis, unspecified organism (principal); J96.21 Acute and chronic respiratory failure with hypoxia; G92 Toxic encephalopathy; J96.22 Acute and chronic respiratory failure with hypercapnia; J44.1 Chronic obstructive pulmonary disease with (acute) exacerbation; N39.0 Urinary tract infection, site not specified; E87.1 Hypo-osmolality and hyponatremia; F03.91 Unspecified dementia, unspecified severity, with behavioral disturbance; F05 Delirium due to known physiological condition; E78.5 Hyperlipidemia, unspecified; F41.9 Anxiety disorder, unspecified; Z96.649 Presence of unspecified artificial hip joint; B96.20 Unspecified Escherichia coli [E. coli] as the cause of diseases classified elsewhere; G89.29 Other chronic pain; M54.9 Dorsalgia, unspecified; I11.0 Hypertensive heart disease with heart failure; I25.10 Atherosclerotic heart disease of native coronary artery without angina pectoris; I50.9 Heart failure, unspecified; K59.00 Constipation, unspecified; Z90.49 Acquired absence of other specified parts of digestive tract; Z90.710 Acquired absence of both cervix and uterus; Z99.81 Dependence on supplemental oxygen; Z88.0 Allergy status to penicillin; Z88.2 Allergy status to sulfonamides; Z88.8 Allergy status to other drugs, medicaments and biological substances; Z88.1 Allergy status to other antibiotic agents; Z91.011 Allergy to milk products
CPT/HCPCS: 36415; 36569; 36600; 70450; 71045; 71046; 71250; 74018; 76937; 80048; 80053; 81001; 82803; 82948; 83605; 83735; 83880; 84100; 84132; 84134; 84145; 84484; 85018; 85025; 87040; 87070; 87077; 87081; 87088; 87186; 92508; 92616; 93005; 94002; 94003; 94640; 94660; 94760; 96365; 97110; 97112; 97116; 97161; 97530; 97535; 99285; C9113; G0378; J0456; J1644; J1956; J2185; J2250; J2270; J2405; J2930; J3010; J3475; J3490; J7030; J7512; P9045; Q2037

== ENCOUNTER 2019-04-27 14:56 | Inpatient (IN) | payer MEDICARE ==
[~2019-04-27] VITALS: Ht 157.5 cm; Wt 46.4 kg
[~2019-04-27 14:56] MED LIST changes: +ALBU8.5H8 INH; +BUDE10.22 INH; +LACT10SO32 PO; -LEVO500T2 PO; -MAGN400C PO; +METO-395 PO; +MYC15CR TP; -POTA10TA19 PO; +PRED10TA23 PO
[2019-04-27 16:23] LABS: BASOPHILS % (AUTO) 0.1 % (0-1); EOSINOPHILS # (AUTO) 0.2 X10'3 (0-0.9); EOSINOPHILS % (AUTO) 1.3 % (0-6); HEMATOCRIT 29.6 % (35.0-45.0); HEMOGLOBIN 10.1 g/dl (12.0-16.0); LYMPHOCYTES # (AUTO) 0.1 X10'3 (1.1-4.8); MEAN CORPUSCULAR HGB CONC 33.9 g/dL (33.0-36.5); MEAN CORPUSCULAR VOLUME 76.7 FL (78-98); MEAN PLATELET VOLUME 8.4 FL (7.4-10.4); MONOCYTES # (AUTO) 0.2 X10'3 (0-0.9); MONOCYTES % (AUTO) 1.7 % (2-12); NEUTROPHILS # (AUTO) 10.8 X10'3 (1.8-7.7); NEUTROPHILS % (AUTO) 95.9 % (42-75); PLATELET COUNT 231 X10'3 (140-440); RED BLOOD COUNT 3.86 X10'6 (4.20-5.60); RED CELL DISTRIBUTION WIDTH 21.7 % (11.5-14.5); WHITE BLOOD COUNT 11.3 X10'3 (4.5-11.0)
[2019-04-27 16:30] LABS: ABG BASE EXCESS 7.9 mmol/L (-2.0-3.0); ABG HCO3 32.1 mmol/L (22.0-26.0); ABG OXYGEN SATURATION 93.6 % (95-98); ABG PCO2 (T) 43.7 mmHg (35.0-45.0); ABG PH (T) 7.484 (7.350-7.450); ABG PO2 (T) 70.2 mmHg (83-108); ALLEN'S TEST Positive; FCOHb 0.4 % (0.5-1.5); FLOW 2 L/min; FMetHb 0.1 % (0.3-1.12); FO2Hb 93.1 % (94-100); TOTAL HEMOGLOBIN 10.2 G/dl (12.0-16.0)
[2019-04-27 16:34] LABS: ALANINE AMINOTRANSFERASE 248 U/L (12-78); ALBUMIN 2.5 G/DL (3.4-5.0); ALBUMIN/GLOBULIN RATIO 0.9 (1.1-1.5); ALKALINE PHOSPHATASE 100 IU/L (46-116); ANION GAP 7 (8-16); ASPARTATE AMINO TRANSFERASE 43 U/L (10-37); BILIRUBIN,TOTAL 0.9 MG/DL (0.1-1.0); BLOOD UREA NITROGEN 73 MG/DL (7-18); CALCIUM 8.1 MG/DL (8.5-10.1); CHLORIDE 87 MMOL/L (99-107); CREATININE 2.03 MG/DL (0.40-0.90); GLUCOSE 86 MG/DL (70-104); POTASSIUM 3.5 MMOL/L (3.5-5.1); SODIUM 128 MMOL/L (135-145); TOTAL CARBON DIOXIDE 34.5 MMOL/L (24-32); TOTAL PROTEIN 5.4 G/DL (6.4-8.2); eGFR 23 ML/MIN
[2019-04-27] MEDS ORDERED: doxycycline inj 100 MG in normal saline 100ml IV soln 100 ML IV STA (16:44)
[2019-04-27] MEDS ORDERED: BUSP5TAB3 PO (17:53)
[2019-04-27 17:54] LABS: NUCLEATED RED BLOOD CELLS 1 /100WBC (0-0); PLATELET ESTIMATE NORMAL; TOTAL CELLS COUNTED 100
[2019-04-27 17:55] LABS: ANISOCYTOSIS 3+; BURR CELLS 1+; ELLIPTOCYTES 1+; HYPOCHROMASIA 1+; MICROCYTOSIS 1+; POIKILOCYTOSIS 1+; POLYCHROMASIA 1+
[2019-04-27] MEDS ORDERED: piperacillin/tazo 3.375gm/50ml 50 ML IV ONE (17:55)
[2019-04-27 17:56] LABS: SPHEROCYTES FEW
[2019-04-27 17:57] LABS: SCHISTOCYTES FEW; TOXIC GRANULATION 3+
[2019-04-27 17:58] LABS: TOXIC VACUOLATION FEW
[2019-04-27] MEDS ORDERED: ondansetron/PF 4mg/2ml inj IV ONE (18:00)
[2019-04-27] MEDS ORDERED: mag hydrox/Alum hydrox/simeth 30ml oral suspension PO PRN (18:05)
[2019-04-27] MEDS ORDERED: magnesium Cl slow-release 64mg tablet PO PRN (18:05)
[2019-04-27] MEDS ORDERED: POTA-82 PO (18:05)
[2019-04-27] MEDS ORDERED: diphenhydrAMINE 50 mg/ml inj IV PRN (18:05)
[2019-04-27] MEDS ORDERED: acetaminophen 325mg tablet PO PRN ×2 (18:05)
[2019-04-27] MEDS ORDERED: magnesium hydroxide 30ml (MOM) UD suspension PO PRN (18:05)
[2019-04-27] MEDS ORDERED: bisacodyl 10mg suppository rectal RC PRN (18:05)
[2019-04-27] MEDS ORDERED: MAGN400T28 PO (18:05)
[2019-04-27] MEDS ORDERED: potassium CL 10mEq/100ml bag 100 ML IV PRN ×2 (18:05)
[2019-04-27] MEDS ORDERED: magnesium 2GM in 50ml NS 50 ML IV PRN (18:05)
[2019-04-27] MEDS ORDERED: diphenhydrAMINE 25mg capsule PO PRN (18:05)
[2019-04-27] MEDS ORDERED: magnesium 4gm in 100ml NS 100 ML IV PRN (18:05)
[2019-04-27] MEDS ORDERED: potassium Cl 20 mEq SR tablet PO PRN ×2 (18:05)
[2019-04-27] MEDS ORDERED: acetaminophen 650mg rectal suppository RC PRN (18:05)
[2019-04-27] MEDS ORDERED: ondansetron/PF 4mg/2ml inj IV PRN (18:05)
[2019-04-27] MEDS ORDERED: XAL0.005OS OP (18:07)
[2019-04-27] MEDS ORDERED: ALBU8.5H8 INH (18:09)
[2019-04-27] MEDS ORDERED: aztreonam inj. 2,000 MG in dextrose 5%-water 100 ML IV SCH (18:30)
[2019-04-27] MEDS ORDERED: ASPI-611 PO (18:34)
[2019-04-27] MEDS ORDERED: vancomycin/NS 1 GM ADD-VANTAGE 250 ML X 1 DOSE IV ONE (18:35)
[2019-04-27] MEDS ORDERED: IBUP-1984 PO (18:36)
[2019-04-27 19:06] LABS: CLARITY,URINE CLOUDY (Clear); COLOR,URINE AMBER (Yellow); GLUCOSE, URINE NEGATIVE (Neg); KETONES,URINE NEGATIVE (Neg); LEUKOCYTE ESTERASE ,URINE LARGE (Neg); NITRITES, URINE NEGATIVE (Neg); OCCULT BLOOD,URINE MODERATE (Neg); PROTEIN,URINE 30 mg/dl (Neg); UROBILINOGEN,URINE 0.2 E.U/dL (0.2-1.0)
[2019-04-27 19:08] LABS: UA COLLECTION TYPE STRAIGHT CATH
[2019-04-27] MEDS ORDERED: clonazePAM 0.5mg tablet PO PRN (19:15)
[2019-04-27] MEDS ORDERED: acetaminophen w/codeine (30MG) #3 tablet PO PRN (19:15)
[2019-04-27 19:17] LABS: AMORPHOUS URATES 2+; BACTERIA,URINE 1+ /HPF (Neg); MUCUS STRANDS NONE SEEN /LPF (Neg); SQUAMOUS EPITHELIAL CELL,UR NONE SEEN /LPF (FEW); WBC,URINE 20-30 /HPF (0-4)
[2019-04-27] MEDS: normal saline 1000ml 1,000 ML IV SCH (19:30)
--- NOTE | 2019-04-27 19:55 | NUR ---
received pt report from Angelic SMART RN. had opportunity to ask questions, awaiting pt on unit.
[2019-04-27 20:00] VITALS: BP 132/65
[2019-04-27] MEDS ORDERED: doxycycline inj 100 MG in normal saline 100ml IV soln 100 ML IV SCH (20:00)
[2019-04-27] MEDS: K and/or MAG REPLACEMENT MC SCH (20:00)
[2019-04-27] MEDS ORDERED: temazepam 15mg capsule PO PRN (21:00)
[2019-04-27] MEDS: heparin, porcine 5000 units/ml vial SQ SCH (22:35)
[2019-04-27 23:00] VITALS: BP 132/61
[2019-04-28] VITALS (10 sets, daily range): BP systolic 132–165; BP diastolic 35–64
[2019-04-28] MEDS: metroNIDAZOLE-Flagyl 500mg/NS 100 ML IV SCH ×3 (00:39→15:37)
[2019-04-28] MEDS ORDERED: aztreonam inj. 2,000 MG in dextrose 5%-water 100 ML IV SCH (01:49)
[2019-04-28 05:25] LABS: BASOPHILS % (AUTO) 0.2 % (0-1); EOSINOPHILS % (AUTO) 0.1 % (0-6); HEMATOCRIT 26.3 % (35.0-45.0); LYMPHOCYTES # (AUTO) 0.1 X10'3 (1.1-4.8); LYMPHOCYTES % (AUTO) 0.8 % (21-51); MEAN CORPUSCULAR HGB CONC 34.1 g/dL (33.0-36.5); MEAN CORPUSCULAR VOLUME 76.4 FL (78-98); MEAN PLATELET VOLUME 8.8 FL (7.4-10.4); MONOCYTES # (AUTO) 0.2 X10'3 (0-0.9); MONOCYTES % (AUTO) 1.8 % (2-12); NEUTROPHILS # (AUTO) 10.9 X10'3 (1.8-7.7); NEUTROPHILS % (AUTO) 97.1 % (42-75); PLATELET COUNT 210 X10'3 (140-440); RED BLOOD COUNT 3.44 X10'6 (4.20-5.60); RED CELL DISTRIBUTION WIDTH 22.8 % (11.5-14.5); WHITE BLOOD COUNT 11.2 X10'3 (4.5-11.0)
[2019-04-28 05:39] LABS: ALANINE AMINOTRANSFERASE 176 U/L (12-78); ALBUMIN 2.1 G/DL (3.4-5.0); ALBUMIN/GLOBULIN RATIO 0.8 (1.1-1.5); ALKALINE PHOSPHATASE 95 IU/L (46-116); ANION GAP 3 (8-16); ASPARTATE AMINO TRANSFERASE 24 U/L (10-37); BILIRUBIN,TOTAL 0.7 MG/DL (0.1-1.0); BLOOD UREA NITROGEN 77 MG/DL (7-18); BUN/CREATININE RATIO 41.8 (6.6-38.0); CALCIUM 7.6 MG/DL (8.5-10.1); CHLORIDE 89 MMOL/L (99-107); CREATININE 1.84 MG/DL (0.40-0.90); GLUCOSE 98 MG/DL (70-104); MAGNESIUM 1.8 MG/DL (1.5-2.4); PHOSPHORUS 4.9 MG/DL (2.3-4.5); POTASSIUM 3.8 MMOL/L (3.5-5.1); SODIUM 129 MMOL/L (135-145); TOTAL PROTEIN 4.8 G/DL (6.4-8.2); eGFR 26 ML/MIN
--- NOTE | 2019-04-28 06:30 | NUR ---
Problems reprioritized. Patient report given, questions answered & plan of care reviewed with Janay Foster RN.
--- NOTE | 2019-04-28 06:33 | NUR ---
Patient in room PCU 3022. I have received report from Scar RN and had the opportunity to ask questions and assume patient care.
[2019-04-28 06:35] LABS: ANISOCYTOSIS 3+; MICROCYTOSIS 1+; PLATELET ESTIMATE NORMAL; TOTAL CELLS COUNTED 100
[2019-04-28 06:36] LABS: ELLIPTOCYTES FEW; HYPOCHROMASIA 1+; POIKILOCYTOSIS 1+; POLYCHROMASIA FEW; SCHISTOCYTES FEW; TOXIC GRANULATION 2+
[2019-04-28] MEDS: heparin, porcine 5000 units/ml vial SQ SCH ×2 (07:26→21:11)
[2019-04-28] MEDS: normal saline 1000ml 1,000 ML IV SCH (07:31)
[2019-04-28] MEDS: latanoprost 0.005% 2.5ml ophthalmic drops LEFTEYE SCH (08:00)
[2019-04-28] MEDS: furosemide 20MG tablet PO SCH (08:00)
[2019-04-28] MEDS: magnesium oxide 400mg tablet PO SCH (08:00)
[2019-04-28] MEDS: K and/or MAG REPLACEMENT MC SCH ×2 (08:00→20:00)
[2019-04-28] MEDS: losartan 50mg tablet PO SCH (08:00)
[2019-04-28] MEDS ORDERED: SAW PALMETTO PO SCH (08:00)
[2019-04-28] MEDS ORDERED: diltiazem CD 180mg cap (once-daily) PO SCH (08:00)
[2019-04-28] MEDS: busPIRone 15mg tablet PO SCH (08:00)
[2019-04-28] MEDS: atorvastatin 20mg tablet PO SCH (08:00)
[2019-04-28] MEDS ORDERED: PUMPKIN SEED OIL PO SCH (08:00)
[2019-04-28] MEDS ORDERED: aspirin 81mg tab.chew PO PRN (08:30)
--- NOTE | 2019-04-28 09:40 | NUR ---
Deven trigger: Pt documented with Deven of 12. Per physical assessment, reports of multiple areas of concern on lower legs, coccyx, pressure points, pending further assessment at this time. Pt is currently NPO, but when diet is advanced per daughter, pt prefers vegan meals. Addendum: 04/28/19 at 0940 by Wing Gabriel RONQUILLO Amended: Links added. Addendum: 04/28/19 at [address] SHIMA agree with note
--- NOTE | 2019-04-28 09:46 | NUR ---
Patient oxygen saturation down to 86-88% with good reading. Paged RT to come assess patient, has PRN nebs ordered.
--- NOTE | 2019-04-28 10:00 | NUR ---
RT at bedside with patient. Her oxygen saturation is 82-86%, increased oxygen to 5L NC with sats still in the 80%. RT to perform ABG and breathing treatment. Will continue to monitor patient. lease attendant aware.
[2019-04-28] MEDS: albuterol 2.5 MG/3 ML nebule NEB PRN (10:03)
[2019-04-28 10:20] LABS: ABG BASE EXCESS 11.2 mmol/L (-2.0-3.0); ABG HCO3 36.7 mmol/L (22.0-26.0); ABG OXYGEN SATURATION 84.5 % (95-98); ABG PCO2 (T) 54.3 mmHg (35.0-45.0); ABG PH (T) 7.448 (7.350-7.450); ABG PO2 (T) 50.9 mmHg (83-108); ALLEN'S TEST Positive; FCOHb 0.3 % (0.5-1.5); FLOW 5 L/min; FMetHb 0.1 % (0.3-1.12); FO2Hb 84.2 % (94-100); RESPIRATORY RATE (OBSERVED) 28 b/min
--- NOTE | 2019-04-28 10:35 | NUR ---
Patient moved to 3023A. RT at bedside to place patient on CPAP, placed on bedside monitor. Sitter in room to monitor patient.
--- NOTE | 2019-04-28 10:55 | NUR ---
PT SON NIKKI CALLED. HE KNEW HIS MOM WAS HERE IN HOSPITAL. PT IS NOT "CONFIDENTIAL" THIS VISIT. HE WOULD LIKE TO VISIT HIS MOTHER TODAY. I SPOKE TO VERO FROM [employer] TO SEE IF IT WAS OK FOR NIKKI TO VISIT. VERO STATED THAT IT WAS FINE PT WAS NOT CONFIDENTIAL AND THERE IS INDEED NO ASP CASE AGAINST SON. I SPOKE TO STEVIE CASE MANAGEMENT AND SHE AGREED TO VISIT. Addendum: 04/28/19 at 1249 by Yesi Devi RN Amended: Links added.
[2019-04-28 12:40] LABS: ABG BASE EXCESS 7.8 mmol/L (-2.0-3.0); ABG HCO3 33.7 mmol/L (22.0-26.0); ABG OXYGEN SATURATION 98.9 % (95-98); ABG PCO2 (T) 55.2 mmHg (35.0-45.0); ABG PH (T) 7.404 (7.350-7.450); ABG PO2 (T) 209.9 mmHg (83-108); ALLEN'S TEST Positive; FCOHb 0.2 % (0.5-1.5); FMetHb 0.2 % (0.3-1.12); FO2Hb 98.5 % (94-100); RESPIRATORY RATE (OBSERVED) 20 b/min
--- NOTE | 2019-04-28 12:48 | NUR ---
Paged hospitalist, Dr. Mcadams, regarding ABG results. PAGER ID: [phone] MESSAGE: Janay nancy [phone]. RE Antony Julian [id number]. FYI ABG results are in, RT is going to turn down CPAP to FiO2 30. Thanks!
--- NOTE | 2019-04-28 13:30 | NUR ---
ANGELO JORDAN AT BEDSIDE. PT REACHED FOR HIM. SON SHOWING MOM PHOTOS. MANY TEARS BEING SHED BY ANGELO. Addendum: 04/28/19 at 1433 by Yesi Devi RN Amended: Links added.
[2019-04-28] MEDS: vancomycin/NS 1 GM ADD-VANTAGE 250 ML X 1 DOSE IV SCH (17:29)
--- NOTE | 2019-04-28 18:15 | NUR ---
Patient in room PCU 3023. I have received report from Janay VICTOR and had the opportunity to ask questions and assume patient care. Patient is sleeping, sitter at bedside, will continue to monitor
--- NOTE | 2019-04-28 18:38 | NUR ---
Problems reprioritized. Patient report given, questions answered & plan of care reviewed with Margarita VICTOR.
[2019-04-28] MEDS: lactobacillus rhamnosus 10,000 MMU CELLS/CAPSULE PO SCH (20:00)
[2019-04-29] VITALS (8 sets, daily range): BP systolic 111–145; BP diastolic 40–101
[2019-04-29] MEDS: metroNIDAZOLE-Flagyl 500mg/NS 100 ML IV SCH ×4 (00:07→23:09)
[2019-04-29 05:27] LABS: BASOPHILS % (AUTO) 0.1 % (0-1); EOSINOPHILS % (AUTO) 0.1 % (0-6); HEMATOCRIT 25.4 % (35.0-45.0); HEMOGLOBIN 8.4 g/dl (12.0-16.0); LYMPHOCYTES # (AUTO) 0.1 X10'3 (1.1-4.8); LYMPHOCYTES % (AUTO) 0.6 % (21-51); MEAN CORPUSCULAR HEMOGLOBIN 26.2 PG (27.0-31.0); MEAN CORPUSCULAR HGB CONC 33.1 g/dL (33.0-36.5); MEAN PLATELET VOLUME 8.4 FL (7.4-10.4); MONOCYTES # (AUTO) 0.3 X10'3 (0-0.9); MONOCYTES % (AUTO) 2.7 % (2-12); NEUTROPHILS # (AUTO) 11.4 X10'3 (1.8-7.7); NEUTROPHILS % (AUTO) 96.5 % (42-75); PLATELET COUNT 205 X10'3 (140-440); RED BLOOD COUNT 3.21 X10'6 (4.20-5.60); RED CELL DISTRIBUTION WIDTH 22.9 % (11.5-14.5); WHITE BLOOD COUNT 11.8 X10'3 (4.5-11.0)
[2019-04-29 05:48] LABS: ALANINE AMINOTRANSFERASE 104 U/L (12-78); ALBUMIN 1.7 G/DL (3.4-5.0); ALBUMIN/GLOBULIN RATIO 0.6 (1.1-1.5); ALKALINE PHOSPHATASE 89 IU/L (46-116); ANION GAP 7 (8-16); ASPARTATE AMINO TRANSFERASE 9 U/L (10-37); BILIRUBIN,TOTAL 0.4 MG/DL (0.1-1.0); BLOOD UREA NITROGEN 57 MG/DL (7-18); BUN/CREATININE RATIO 54.8 (6.6-38.0); CALCIUM 7.9 MG/DL (8.5-10.1); CHLORIDE 101 MMOL/L (99-107); CREATININE 1.04 MG/DL (0.40-0.90); GLUCOSE 67 MG/DL (70-104); MAGNESIUM 1.9 MG/DL (1.5-2.4); PHOSPHORUS 4.1 MG/DL (2.3-4.5); POTASSIUM 3.8 MMOL/L (3.5-5.1); SODIUM 137 MMOL/L (135-145); TOTAL CARBON DIOXIDE 28.9 MMOL/L (24-32); TOTAL PROTEIN 4.5 G/DL (6.4-8.2); eGFR 50 ML/MIN
--- NOTE | 2019-04-29 06:40 | NUR ---
Patient in room PCU 3023. I have received report from Margarita VICTOR and had the opportunity to ask questions and assume patient care.
[2019-04-29] MEDS: atorvastatin 20mg tablet PO SCH (08:00)
[2019-04-29] MEDS: lactobacillus rhamnosus 10,000 MMU CELLS/CAPSULE PO SCH ×2 (08:00→20:00)
[2019-04-29] MEDS: busPIRone 15mg tablet PO SCH (08:00)
[2019-04-29] MEDS: furosemide 20MG tablet PO SCH (08:00)
[2019-04-29] MEDS: magnesium oxide 400mg tablet PO SCH (08:00)
[2019-04-29] MEDS: latanoprost 0.005% 2.5ml ophthalmic drops LEFTEYE SCH (08:00)
[2019-04-29] MEDS: losartan 50mg tablet PO SCH (08:00)
[2019-04-29] MEDS: normal saline 1000ml 1,000 ML IV SCH ×2 (08:08→09:51)
[2019-04-29] MEDS: K and/or MAG REPLACEMENT MC SCH ×2 (08:09→20:00)
[2019-04-29] MEDS: cefepime 2g/NS 100ml ADVANTAGE 100 ML IV SCH (08:13)
--- NOTE | 2019-04-29 09:50 | NUR ---
PAGE SENT MESSAGE: Ciarra Mena Cardiac Rhythm Change at 9 AM. SR with First degree AV block with PVC"S and PAC's / to / Aflutter with BBB.
[2019-04-29] MEDS: heparin, porcine 5000 units/ml vial SQ SCH ×2 (10:32→20:37)
--- NOTE | 2019-04-29 12:35 | NUR ---
Nutrition consult: Per MD notes pt is cachectic. Current documented wt isn't accurate as it is pt stated. Pt recently admitted and temporarily received nutrition support via TF and overall was with poor PO intake throughout LOS. Pt also with 10.7kg wt loss in 23 days during last admit which is severe wt loss of 19% per bed scale wts at last visit. Pt currently NPO pending MBS, ST has already been consulted. Pt also documented with severe muscle weakness meeting criteria for malnutrition, MD notified. Pt admit with sepsis likely from aspiration pneumonia per MD notes. Pt not appropriate for education as pt with hx dementia and documented as obtunded per physical assessment. Will continue to follow closely. Recommendations: 1) Advance to vegan diet per daughter request as medically indicated if safe for PO intake pending ST recs 2) Monitor need for ONS/nutrition support to meet nutrient needs 3) Monitor for refeeding syndrome once nutrition is implemented 4) Routine bowel care 5) Wt per rx Addendum: 04/29/19 at [address] Amended: Links added.
[2019-04-29] MEDS ORDERED: diltiazem 5mg/ml 5ml inj. IV ONE (12:40)
[2019-04-29] MEDS: diltiazem-NS 100mg/100ml 100 ML IV SCH (14:00)
[2019-04-29] MEDS: dextrose 5%-normal saline 1,000 ML IV SCH (14:30)
--- NOTE | 2019-04-29 14:45 | NUR ---
Patient in room PCU 3023. I have received report from Dianne VICTOR and had the opportunity to ask questions and assume patient care.
--- NOTE | 2019-04-29 14:55 | NUR ---
Pt. is NPO pending barium swallow eval on Wednesday. Unable to do bedside swallow at this time, Pt. is unable to be off Bipap. Medications held Pema HURLEY is aware.
[2019-04-29] MEDS: vancomycin/NS 1 GM ADD-VANTAGE 250 ML X 1 DOSE IV SCH (17:22)
--- NOTE | 2019-04-29 17:49 | NUR ---
PAGER ID: [phone] MESSAGE: [phone] Ciarra Julian: LYUDMILAI Pt HR continues to be in the 110's-120's, cardizem gtts is running at 5mg/hr. Thanks Rosi
--- NOTE | 2019-04-29 18:00 | NUR ---
Patient in room PCU 3023. I have received report from Rosi VICTOR and had the opportunity to ask questions and assume patient care.
--- NOTE | 2019-04-29 18:13 | NUR ---
PAGER ID: [phone] MESSAGE: [phone] Ciarra Julian: Update patient has converted to sinus rhythm @1810, HR however is sustaining in the 50's. Do you want to decrease the cardizem rate? Thanks Rosi
--- NOTE | 2019-04-29 18:55 | NUR ---
Problems reprioritized. Patient report given, questions answered & plan of care reviewed with Rosalba VICTOR.
[2019-04-29] MEDS ORDERED: diltiazem CD 180mg cap (once-daily) PO SCH (23:20)
[2019-04-30] VITALS (9 sets, daily range): BP systolic 132–181; BP diastolic 43–76
[2019-04-30] MEDS: dextrose 5%-normal saline 1,000 ML IV SCH ×2 (03:30→15:55)
--- NOTE | 2019-04-30 04:24 | NUR ---
End NOC NOTE Patient has been sleeping tonight. Heart rate has been sustaining over 60s. BiPAP at 25% now. Will continue to monitor.
[2019-04-30 05:54] LABS: BASOPHILS % (AUTO) 0.1 % (0-1); EOSINOPHILS % (AUTO) 0.1 % (0-6); HEMATOCRIT 27.9 % (35.0-45.0); HEMOGLOBIN 9.2 g/dl (12.0-16.0); LYMPHOCYTES # (AUTO) 0.1 X10'3 (1.1-4.8); LYMPHOCYTES % (AUTO) 1.2 % (21-51); MEAN CORPUSCULAR HEMOGLOBIN 26.1 PG (27.0-31.0); MEAN CORPUSCULAR HGB CONC 33.1 g/dL (33.0-36.5); MEAN CORPUSCULAR VOLUME 79.1 FL (78-98); MEAN PLATELET VOLUME 8.5 FL (7.4-10.4); MONOCYTES # (AUTO) 0.4 X10'3 (0-0.9); MONOCYTES % (AUTO) 4.5 % (2-12); NEUTROPHILS # (AUTO) 8.4 X10'3 (1.8-7.7); NEUTROPHILS % (AUTO) 94.1 % (42-75); PLATELET COUNT 221 X10'3 (140-440); RED BLOOD COUNT 3.53 X10'6 (4.20-5.60); RED CELL DISTRIBUTION WIDTH 23.9 % (11.5-14.5); WHITE BLOOD COUNT 8.9 X10'3 (4.5-11.0)
[2019-04-30 06:23] LABS: ALANINE AMINOTRANSFERASE 75 U/L (12-78); ALBUMIN 1.7 G/DL (3.4-5.0); ALBUMIN/GLOBULIN RATIO 0.6 (1.1-1.5); ALKALINE PHOSPHATASE 99 IU/L (46-116); ANION GAP 6 (8-16); ASPARTATE AMINO TRANSFERASE 7 U/L (10-37); BILIRUBIN,TOTAL 0.4 MG/DL (0.1-1.0); BLOOD UREA NITROGEN 40 MG/DL (7-18); BUN/CREATININE RATIO 50.6 (6.6-38.0); CHLORIDE 108 MMOL/L (99-107); CREATININE 0.79 MG/DL (0.40-0.90); GLUCOSE 138 MG/DL (70-104); MAGNESIUM 1.7 MG/DL (1.5-2.4); PHOSPHORUS 2.5 MG/DL (2.3-4.5); POTASSIUM 3.3 MMOL/L (3.5-5.1); SODIUM 142 MMOL/L (135-145); TOTAL CARBON DIOXIDE 28.5 MMOL/L (24-32); TOTAL PROTEIN 4.7 G/DL (6.4-8.2); eGFR 69 ML/MIN
--- NOTE | 2019-04-30 06:38 | NUR ---
Patient in room PCU 3023. I have received report from Elihsa VICTOR and had the opportunity to ask questions and assume patient care.
--- NOTE | 2019-04-30 06:39 | NUR ---
Problems reprioritized. Patient report given, questions answered & plan of care reviewed with Dianne VICTOR.
[2019-04-30] MEDS: atorvastatin 20mg tablet PO SCH (08:00)
[2019-04-30] MEDS: lactobacillus rhamnosus 10,000 MMU CELLS/CAPSULE PO SCH ×2 (08:00→20:00)
[2019-04-30] MEDS: K and/or MAG REPLACEMENT MC SCH ×2 (08:00→20:00)
[2019-04-30] MEDS: magnesium oxide 400mg tablet PO SCH (08:00)
[2019-04-30] MEDS: metroNIDAZOLE-Flagyl 500mg/NS 100 ML IV SCH ×2 (09:09→15:58)
[2019-04-30] MEDS: cefepime 2g/NS 100ml ADVANTAGE 100 ML IV SCH (09:09)
[2019-04-30] MEDS: heparin, porcine 5000 units/ml vial SQ SCH ×2 (09:12→19:35)
--- NOTE | 2019-04-30 11:00 | NUR ---
Pt. is placed on O2 Nasal Canula. Bedside swallow evaluation completed Encouraged to cough, Large mucus plug is coughed up, Saturation then improved O2 2L 96%. Able to swallow small sips with caution and small tablets with caution and directions. Bedside swallow evaluation, must swallow small sips with chin down. recommend: RN should provide guidance with all sips of water. tomorrow is the barium shallow evaluation.
[2019-04-30] MEDS ORDERED: bisacodyl 10mg suppository rectal RC STA (11:48)
[2019-04-30] MEDS: losartan 50mg tablet PO SCH (11:59)
[2019-04-30] MEDS: busPIRone 15mg tablet PO SCH (12:10)
[2019-04-30] MEDS: furosemide 20MG tablet PO SCH (12:11)
--- NOTE | 2019-04-30 14:22 | NUR ---
PAGER ID: [phone] MESSAGE: Pt. Eliel Hardy would not be able to swallow the Cardizem capsule. Tx. Johnny VICTOR
--- NOTE | 2019-04-30 16:23 | NUR ---
Page to Dr. Mcadams: Hypertensive PAGER ID: [phone] MESSAGE: Brenden. Ciarra Julian Rm 30: SBP is in 170-180's Pt. is requiring the bipap once again after a one time desaturation to 81% at 1620
[2019-04-30] MEDS ORDERED: VANCOMYCIN LEVEL IV ONE (17:30)
[2019-04-30] MEDS: diltiazem-NS 100mg/100ml 100 ML IV SCH ×2 (17:44→20:36)
[2019-04-30] MEDS: vancomycin/NS 1 GM ADD-VANTAGE 250 ML X 1 DOSE IV SCH (18:00)
[2019-04-30] MEDS ORDERED: LORazepam 2 mg/ml vial IV ONE (22:25)
[2019-05-01] VITALS (11 sets, daily range): BP systolic 160–189; BP diastolic 63–89
[2019-05-01] MEDS: metroNIDAZOLE-Flagyl 500mg/NS 100 ML IV SCH ×2 (00:27→07:40)
[2019-05-01 02:40] LABS: BASOPHILS % (AUTO) 0.1 % (0-1); EOSINOPHILS % (AUTO) 0 % (0-6); HEMATOCRIT 29.2 % (35.0-45.0); HEMOGLOBIN 9.7 g/dl (12.0-16.0); LYMPHOCYTES # (AUTO) 0.1 X10'3 (1.1-4.8); LYMPHOCYTES % (AUTO) 1.2 % (21-51); MEAN CORPUSCULAR HEMOGLOBIN 26.1 PG (27.0-31.0); MEAN CORPUSCULAR HGB CONC 33.3 g/dL (33.0-36.5); MEAN CORPUSCULAR VOLUME 78.4 FL (78-98); MEAN PLATELET VOLUME 8.9 FL (7.4-10.4); MONOCYTES # (AUTO) 0.5 X10'3 (0-0.9); MONOCYTES % (AUTO) 6.5 % (2-12); NEUTROPHILS # (AUTO) 6.4 X10'3 (1.8-7.7); NEUTROPHILS % (AUTO) 92.2 % (42-75); PLATELET COUNT 186 X10'3 (140-440); RED BLOOD COUNT 3.73 X10'6 (4.20-5.60); RED CELL DISTRIBUTION WIDTH 22.9 % (11.5-14.5)
[2019-05-01 02:47] LABS: ALANINE AMINOTRANSFERASE 57 U/L (12-78); ALBUMIN 1.9 G/DL (3.4-5.0); ALBUMIN/GLOBULIN RATIO 0.7 (1.1-1.5); ALKALINE PHOSPHATASE 99 IU/L (46-116); ANION GAP 3 (8-16); ASPARTATE AMINO TRANSFERASE 9 U/L (10-37); BILIRUBIN,TOTAL 0.4 MG/DL (0.1-1.0); BLOOD UREA NITROGEN 24 MG/DL (7-18); BUN/CREATININE RATIO 35.8 (6.6-38.0); CHLORIDE 108 MMOL/L (99-107); CREATININE 0.67 MG/DL (0.40-0.90); GLUCOSE 195 MG/DL (70-104); MAGNESIUM 1.2 MG/DL (1.5-2.4); PHOSPHORUS 1.4 MG/DL (2.3-4.5); SODIUM 144 MMOL/L (135-145); TOTAL CARBON DIOXIDE 33.2 MMOL/L (24-32); TOTAL PROTEIN 4.8 G/DL (6.4-8.2); eGFR 84 ML/MIN
[2019-05-01 02:57] LABS: POTASSIUM 2.3 MMOL/L (3.5-5.1)
[2019-05-01] MEDS: potassium CL 10mEq/100ml bag 100 ML IV PRN ×11 (03:22→23:43)
[2019-05-01] MEDS: diltiazem-NS 100mg/100ml 100 ML IV SCH ×2 (04:55→16:13)
--- NOTE | 2019-05-01 06:00 | NUR ---
Problems reprioritized. Patient report given, questions answered & plan of care reviewed with Thuy VICTOR.
[2019-05-01] MEDS: dextrose 5%-normal saline 1,000 ML IV SCH ×2 (06:10→19:30)
--- NOTE | 2019-05-01 06:15 | NUR ---
Problems reprioritized. Patient report given, questions answered & plan of care reviewed with VLAENTE Navarrete.
--- NOTE | 2019-05-01 06:40 | NUR ---
Patient in room PCU 3023. I have received report from VALENTE Tello and had the opportunity to ask questions and assume patient care. Patient resting, sitter at bedside.
--- NOTE | 2019-05-01 06:58 | NUR ---
END NOC NOTE Patient has slept tonight, wound care done, wound pictures taken, and new IVs placed. Patient's blood pressure continued to stay above SBP 165 and peaking to 191, MD Thomas was notified and titrated Cardizem to 7.5ml/hr, also a one time dose of ativan was given for anxiety; Blood pressure slowly returned to SBP of 160s but slowly started to climb again. MD Thomas was notified and stated to just wait and see. Potassium critical at 2.3 this morning, MD Thomas notified and patient was placed on potassium replacement protocol, was able to hang 2 bags on my shift and the rest was passed on to day shift. Will continue to monitor.
[2019-05-01] MEDS: cefepime 2g/NS 100ml ADVANTAGE 100 ML IV SCH (07:41)
[2019-05-01] MEDS: latanoprost 0.005% 2.5ml ophthalmic drops LEFTEYE SCH (08:00)
[2019-05-01] MEDS: magnesium oxide 400mg tablet PO SCH (08:00)
[2019-05-01] MEDS: furosemide 20MG tablet PO SCH (08:00)
[2019-05-01] MEDS: busPIRone 15mg tablet PO SCH (08:00)
[2019-05-01] MEDS: lactobacillus rhamnosus 10,000 MMU CELLS/CAPSULE PO SCH ×2 (08:00→19:48)
[2019-05-01] MEDS: losartan 50mg tablet PO SCH (08:00)
[2019-05-01] MEDS: atorvastatin 20mg tablet PO SCH (08:00)
[2019-05-01] MEDS: K and/or MAG REPLACEMENT MC SCH ×2 (08:06→20:00)
[2019-05-01] MEDS: heparin, porcine 5000 units/ml vial SQ SCH ×2 (08:09→19:50)
--- NOTE | 2019-05-01 10:40 | NUR ---
Page sent to Dr. Mcadams regarding Mg replacement therapy. PAGER ID: [phone] MESSAGE: re [phone] Ciarra Julian: Pts Mg 1.2 this am. She does not have replacement order. Can mg replacement protocol be ordered? Thanks, Thuy [phone]
[2019-05-01] MEDS: micafungin inj 100 MG in normal saline 100ml IV soln 100 ML IV SCH (11:16)
[2019-05-01] MEDS ORDERED: magnesium 4gm in 100ml NS 100 ML IV PRN (12:00)
[2019-05-01] MEDS ORDERED: magnesium 2GM in 50ml NS 50 ML IV PRN (12:00)
--- NOTE | 2019-05-01 12:02 | NUR ---
New order for magnesium replacement protocol. Dr. Mcadams also notified of recent blood pressures, no new orders at this time. Will continue to monitor.
--- NOTE | 2019-05-01 13:45 | NUR ---
Pagepriscilla [facility] RN, Rm [id number],Eliel. Pt is back and ready for the extended PIV.
--- NOTE | 2019-05-01 14:50 | NUR ---
RN informed that BP cuff should not be placed on left upper arm over Ext. PIV, and that a sign should be placed to letter future shifts know.
--- NOTE | 2019-05-01 15:09 | NUR ---
F/u: Pt NPO x [address] BSS, ST recommends NPO with alternative nutrition d/t delay in swallow reflex and trace aspiration with thin liquids. court manager and MD pending meeting w/ daughter to discuss treatment plan. Depending on outcome, if continuing with treatment, pt needs a tube for nutrition support. Addendum: 05/01/19 at 1509 by Wing Gabriel RONQUILLO Amended: Links added. Addendum: 05/01/19 at [address] RD agree with note
--- NOTE | 2019-05-01 15:10 | NUR ---
PRESSURE ULCER EDUCATION: DEFINITION: A pressure ulcer is an area of skin that breaks down when you stay in one position too long. The constant pressure against the skin reduces the blood flow to that area and the affected tissue dies. CAUSES: "Being bedridden or in a wheelchair "Fragile skin "Having a chronic condition, such as diabetes or vascular disease "Inability to move certain parts of your body without assistance "Older age "Incontinence of urine or stool SYMPTOMS: "A reddened area that DOES NOT turn white when pressed on - this can be the beginning of a pressure ulcer "A blister, deep sore or a crater - these can be advanced pressure ulcers FIRST AID: "Relieve the pressure on this area "Keep the area clean and dry "Call your primary doctor if you see any of the above symptoms "DO NOT massage the area "DO NOT use a donut shaped or ring shaped pillow- these actually interfere with the blood flow and cause complications PREVENTION: "Check for pressure ulcers everyday "Change position at least every two hours to relieve pressure "Use items that help relieve pressure- pillows, sheepskin, foam padding, and powders. "Keep skin clean and dry "Eat healthy well balanced meals "Exercise daily IF YOU SEE ANY OF THESE SYMPTOMS WHILE IN THE HOSPITAL - TELL YOUR NURSE IMMEDIATELY. IF YOU SEE ANY OF THESE SYMPTOMS WHILE AT HOME OR HAVE ANY QUESTIONS OR CONCERNS ABOUT PRESSURE ULCERS - CALL YOUR PRIMARY DOCTOR IMMEDIATELY. Addendum: 05/01/19 at 1511 by Ira Mtz RN Amended: Links added.
[2019-05-01] MEDS ORDERED: vancomycin/NS 1 GM ADD-VANTAGE 250 ML X 1 DOSE IV SCH ×2 (18:00)
--- NOTE | 2019-05-01 18:00 | NUR ---
Patient in room PCU 3023. I have received report from Thuy VICTOR and had the opportunity to ask questions and assume patient care.
[2019-05-01 20:59] LABS: MAGNESIUM 3.1 MG/DL (1.5-2.4)
[2019-05-01 21:04] LABS: POTASSIUM 2.8 MMOL/L (3.5-5.1)
[2019-05-02] VITALS (9 sets, daily range): BP systolic 160–188; BP diastolic 78–96
[2019-05-02] MEDS: potassium CL 10mEq/100ml bag 100 ML IV PRN ×8 (00:42→16:09)
[2019-05-02] MEDS: dextrose 5%-normal saline 1,000 ML IV SCH ×2 (02:14→16:08)
[2019-05-02] MEDS: diltiazem-NS 100mg/100ml 100 ML IV SCH ×2 (04:13→19:21)
--- NOTE | 2019-05-02 04:48 | NUR ---
END NOC NOTE Patient has been more awake tonight. She made comments: "Tell Catina (daughter in law) I say hello", "Where's Erica?", "I want to talk to Erica", "Erica takes care of me when she's home", and "How did I get here?"; however soon she forgets she said these things. Patient has been repositioned every two hours, still on Cardizem 7.5mg/hr, started replacing critical potassium level (MD Gillis notified and aware). Will continue to monitor.
[2019-05-02 05:34] LABS: BASOPHILS % (AUTO) 0.2 % (0-1); EOSINOPHILS % (AUTO) 0.1 % (0-6); HEMATOCRIT 31.2 % (35.0-45.0); HEMOGLOBIN 10.5 g/dl (12.0-16.0); LYMPHOCYTES # (AUTO) 0.2 X10'3 (1.1-4.8); LYMPHOCYTES % (AUTO) 2.6 % (21-51); MEAN CORPUSCULAR HEMOGLOBIN 25.8 PG (27.0-31.0); MEAN CORPUSCULAR HGB CONC 33.8 g/dL (33.0-36.5); MEAN CORPUSCULAR VOLUME 76.4 FL (78-98); MEAN PLATELET VOLUME 8.9 FL (7.4-10.4); MONOCYTES # (AUTO) 0.5 X10'3 (0-0.9); MONOCYTES % (AUTO) 5.4 % (2-12); NEUTROPHILS # (AUTO) 7.9 X10'3 (1.8-7.7); NEUTROPHILS % (AUTO) 91.7 % (42-75); PLATELET COUNT 197 X10'3 (140-440); RED BLOOD COUNT 4.09 X10'6 (4.20-5.60); RED CELL DISTRIBUTION WIDTH 23.4 % (11.5-14.5); WHITE BLOOD COUNT 8.7 X10'3 (4.5-11.0)
[2019-05-02 05:55] LABS: ALANINE AMINOTRANSFERASE 42 U/L (12-78); ALBUMIN 1.9 G/DL (3.4-5.0); ALBUMIN/GLOBULIN RATIO 0.6 (1.1-1.5); ALKALINE PHOSPHATASE 105 IU/L (46-116); ANION GAP 0 (8-16); ASPARTATE AMINO TRANSFERASE 11 U/L (10-37); BILIRUBIN,TOTAL 0.4 MG/DL (0.1-1.0); BLOOD UREA NITROGEN 10 MG/DL (7-18); BUN/CREATININE RATIO 18.5 (6.6-38.0); CALCIUM 7.6 MG/DL (8.5-10.1); CHLORIDE 105 MMOL/L (99-107); CREATININE 0.54 MG/DL (0.40-0.90); GLUCOSE 148 MG/DL (70-104); MAGNESIUM 2.4 MG/DL (1.5-2.4); POTASSIUM 3.1 MMOL/L (3.5-5.1); SODIUM 143 MMOL/L (135-145); TOTAL CARBON DIOXIDE 37.8 MMOL/L (24-32); TOTAL PROTEIN 4.9 G/DL (6.4-8.2); eGFR > 90 ML/MIN
[2019-05-02 06:01] LABS: PHOSPHORUS 0.8 MG/DL (2.3-4.5)
--- NOTE | 2019-05-02 06:04 | NUR ---
PAGER ID: [phone] MESSAGE: Ciarra Julian: Critical Phos 0.8. patient cant swallow. need orders. Rosalba VICTOR [id number]
--- NOTE | 2019-05-02 06:44 | NUR ---
Problems reprioritized. Patient report given, questions answered & plan of care reviewed with Thuy VICTOR.
[2019-05-02] MEDS ORDERED: potassium phosphate inj 15 MMOL in normal saline 250ml IV soln 245 ML IV ONE ×2 (06:55→20:00)
--- NOTE | 2019-05-02 06:56 | NUR ---
Phos Replacement MD Gillis called back about the critical phos, ordered: K-Phos once dose now and one for evening. Will pass on to day shift.
[2019-05-02] MEDS ORDERED: NORMAL SALINE IV ONE (07:10)
[2019-05-02] MEDS ORDERED: POTASSIUM PHOSPHATE IV ONE (07:10)
[2019-05-02 07:47] LABS: ANISOCYTOSIS 3+; PLATELET ESTIMATE NORMAL
[2019-05-02 07:48] LABS: ELLIPTOCYTES 1+; MICROCYTOSIS 1+; POIKILOCYTOSIS 1+
[2019-05-02] MEDS: busPIRone 15mg tablet PO SCH (08:00)
[2019-05-02] MEDS: K and/or MAG REPLACEMENT MC SCH ×2 (08:00→20:00)
[2019-05-02] MEDS: atorvastatin 20mg tablet PO SCH (08:00)
[2019-05-02] MEDS: magnesium oxide 400mg tablet PO SCH (08:00)
[2019-05-02] MEDS: lactobacillus rhamnosus 10,000 MMU CELLS/CAPSULE PO SCH ×2 (08:00→20:00)
[2019-05-02] MEDS: furosemide 20MG tablet PO SCH (08:00)
[2019-05-02] MEDS: losartan 50mg tablet PO SCH (08:00)
[2019-05-02] MEDS: latanoprost 0.005% 2.5ml ophthalmic drops LEFTEYE SCH (08:07)
[2019-05-02] MEDS: CefTRIAXone 2gm/D5W 50ml 50 ML IV SCH (08:07)
[2019-05-02] MEDS: micafungin inj 100 MG in normal saline 100ml IV soln 100 ML IV SCH (08:07)
[2019-05-02] MEDS: heparin, porcine 5000 units/ml vial SQ SCH (08:08)
[2019-05-02] MEDS ORDERED: potassium phosphate inj 30 MMOL in normal saline 500ml IV soln 500 ML IV ONE (09:40)
--- NOTE | 2019-05-02 10:39 | NUR ---
Dr. Mcadams at bedside. New order for NG tube placement and dietary consultation.
--- NOTE | 2019-05-02 12:26 | NUR ---
TF consult: Pt remains NPO at this time. Pt s/p video swallow study 05/01 with [facility] NPO with alternative nutrition. Corpak placement has been ordered. TF recommendations below are calculated to meet 100% of patient's estimated nutrient needs using IBW. 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 Pt with low K of 3.1 and Phos of 0.8 today, receiving routine and PRN electrolyte replacement. [facility] 05/01. Will continue to follow closely. Recommendations: 1) Once NG tube placed and confirmed in appropriate location, continuous TF using Jevity 1.2 with goal rate of 65 mL/hr to provide: 1560 mL total volume/day, 1872 kcal, 87 g protein, and 1259 mL water 2) Additional 100 mL water flushes Q4H; Monitor serum Na and need for adjustments in fluid flushes 3) Prealbumin q / 4) Daily weights 5) Advance to vegan diet per daughter request as medically indicated if safe for PO intake pending [facility] 6) Monitor for refeeding syndrome 7) Routine bowel care Addendum: 05/02/19 at [address] Amended: Links added.
--- NOTE | 2019-05-02 14:10 | NUR ---
This nurse attempted to place NG tube per MD order and was unable to advance. Patient yelling out to stop. I explained to patient importance of nutrition and hydration. Patient refused to have second attempt at NG tube placement. Telephone message left for daughter Saud regarding this. Page sent to Dr. Mcadams to notify him of this. Will continue to monitor.
[2019-05-02] MEDS: albuterol 2.5 MG/3 ML nebule NEB PRN (16:03)
--- NOTE | 2019-05-02 17:17 | NUR ---
Patients daughter, Saud called. Explained to her that the NG tube placement was unsuccessful. She requested a call back from Dr. Mcadams. Page sent to Dr. Mcadams with this information. Also notified Saud if she did not hear from MD today, she should call case management tomorrow between hours of 8am and 4:30pm
--- NOTE | 2019-05-02 17:51 | NUR ---
Dr. Mcadams called stated he attempted to call patients daughter and she did not answer, but left a message for her to return call. New order for PPN. Pharmacy notified. Called and left message with daughterSaud with update.
[2019-05-02] MEDS ORDERED: D5W IV SCH (18:00)
[2019-05-02] MEDS ORDERED: CALCIUM IV SCH (18:00)
[2019-05-02] MEDS ORDERED: [UNRECOGNIZED DRUG - OTHER] IV SCH (18:00)
[2019-05-02] MEDS ORDERED: LYTES IV SCH (18:00)
[2019-05-02] MEDS ORDERED: TRACE ELEMENT IV SCH (18:00)
--- NOTE | 2019-05-02 18:00 | NUR ---
Patient in room PCU 3018. I have received report from Thuy VICTOR and had the opportunity to ask questions and assume patient care.
--- NOTE | 2019-05-02 20:00 | NUR ---
PPN Pharmacy called stating that the TPN is not appropriate for the patient, the patient has no PICC or Central line. I informed pharmacy that the order is for PPN and not TPN and should be appropriate for the patient and that it needs to be given tonight per MD orders. Pharmacy then stated that PPN will only be available in the morning. MD Escobedo was notified about the PPN being only available in the morning, no new orders were given.
--- NOTE | 2019-05-02 21:56 | NUR ---
Agitated, Pulling Bipap off PAGER ID: [phone] MESSAGE: [phone] Ciarra Julian: Patient increasingly agitated and restless pulling off bipap. Has Klonopine PO 0.5mg ordered but patient cant swallow. Would you like to order something for agitation? Rosalba VICTOR [id number]
[2019-05-02] MEDS ORDERED: LORazepam 2 mg/ml vial IV ONE (22:15)
[2019-05-03] VITALS (13 sets, daily range): BP systolic 164–199; BP diastolic 26–120
[2019-05-03 05:13] LABS: BASOPHILS % (AUTO) 0.2 % (0-1); EOSINOPHILS % (AUTO) 0 % (0-6); HEMATOCRIT 28.3 % (35.0-45.0); HEMOGLOBIN 9.7 g/dl (12.0-16.0); LYMPHOCYTES # (AUTO) 0.3 X10'3 (1.1-4.8); LYMPHOCYTES % (AUTO) 2.9 % (21-51); MEAN CORPUSCULAR HEMOGLOBIN 25.9 PG (27.0-31.0); MEAN CORPUSCULAR HGB CONC 34.1 g/dL (33.0-36.5); MEAN CORPUSCULAR VOLUME 76.1 FL (78-98); MEAN PLATELET VOLUME 8.4 FL (7.4-10.4); MONOCYTES # (AUTO) 0.4 X10'3 (0-0.9); MONOCYTES % (AUTO) 3.9 % (2-12); NEUTROPHILS # (AUTO) 9.3 X10'3 (1.8-7.7); PLATELET COUNT 199 X10'3 (140-440); RED BLOOD COUNT 3.72 X10'6 (4.20-5.60); RED CELL DISTRIBUTION WIDTH 23.3 % (11.5-14.5)
[2019-05-03 05:23] LABS: PARTIAL THROMBOPLASTIN TIME 31 SECONDS (22-32)
[2019-05-03 05:32] LABS: ALANINE AMINOTRANSFERASE 31 U/L (12-78); ALBUMIN 1.7 G/DL (3.4-5.0); ALBUMIN/GLOBULIN RATIO 0.5 (1.1-1.5); ALKALINE PHOSPHATASE 107 IU/L (46-116); ANION GAP 3 (8-16); ASPARTATE AMINO TRANSFERASE 10 U/L (10-37); BILIRUBIN,TOTAL 0.4 MG/DL (0.1-1.0); BLOOD UREA NITROGEN 6 MG/DL (7-18); BUN/CREATININE RATIO 13.6 (6.6-38.0); CALCIUM 7.3 MG/DL (8.5-10.1); CHLORIDE 107 MMOL/L (99-107); CREATININE 0.44 MG/DL (0.40-0.90); GLUCOSE 131 MG/DL (70-104); MAGNESIUM 1.5 MG/DL (1.5-2.4); PHOSPHORUS 1.5 MG/DL (2.3-4.5); SODIUM 147 MMOL/L (135-145); TOTAL CARBON DIOXIDE 37.3 MMOL/L (24-32); TOTAL PROTEIN 4.8 G/DL (6.4-8.2); eGFR > 90 ML/MIN
[2019-05-03 05:55] LABS: POTASSIUM 2.6 MMOL/L (3.5-5.1)
--- NOTE | 2019-05-03 06:00 | NUR ---
POTASSIUM 2.6 PAGER ID: [phone] MESSAGE: [phone] Ciarra Julian: Critical potassium 2.6. Rosalba VICTOR [phone]
--- NOTE | 2019-05-03 06:18 | NUR ---
Problems reprioritized. Patient report given, questions answered & plan of care reviewed with Thuy VICTOR.
[2019-05-03] MEDS: diltiazem-NS 100mg/100ml 100 ML IV SCH ×3 (06:31→15:55)
[2019-05-03] MEDS: dextrose 5%-normal saline 1,000 ML IV SCH (06:39)
[2019-05-03] MEDS: potassium CL 10mEq/100ml bag 100 ML IV PRN ×8 (06:54→17:03)
[2019-05-03 07:29] LABS: ANISOCYTOSIS 3+; MICROCYTOSIS 1+; PLATELET ESTIMATE NORMAL
[2019-05-03 07:30] LABS: ELLIPTOCYTES 1+
[2019-05-03 07:32] LABS: POIKILOCYTOSIS FEW; SCHISTOCYTES FEW
[2019-05-03] MEDS: CefTRIAXone 2gm/D5W 50ml 50 ML IV SCH (07:53)
[2019-05-03] MEDS: latanoprost 0.005% 2.5ml ophthalmic drops LEFTEYE SCH (07:54)
[2019-05-03] MEDS: furosemide 20MG tablet PO SCH (08:00)
[2019-05-03] MEDS: magnesium oxide 400mg tablet PO SCH (08:00)
[2019-05-03] MEDS: atorvastatin 20mg tablet PO SCH (08:00)
[2019-05-03] MEDS: losartan 50mg tablet PO SCH (08:00)
[2019-05-03] MEDS: lactobacillus rhamnosus 10,000 MMU CELLS/CAPSULE PO SCH ×2 (08:00→20:00)
[2019-05-03] MEDS: busPIRone 15mg tablet PO SCH (08:00)
[2019-05-03] MEDS: K and/or MAG REPLACEMENT MC SCH ×2 (08:08→20:00)
[2019-05-03] MEDS ORDERED: MVI, adult No.4 with vit. K 10 ML in dextrose 5% water 500ml 500 ML IV SCH ×6 (09:00→17:09)
[2019-05-03] MEDS: micafungin inj 100 MG in normal saline 100ml IV soln 100 ML IV SCH (09:15)
[2019-05-03] MEDS ORDERED: potassium phosphate inj 30 MMOL in normal saline 500ml IV soln 490 ML IV ONE (09:15)
[2019-05-03] MEDS ORDERED: magnesium 2GM in 50ml NS 50 ML IV ONE (09:15)
--- NOTE | 2019-05-03 09:22 | NUR ---
TPN consult, RNs attempted corpak placement two times with no success, patient saying no and refusing placement. PPN was started last night, currently does not have a PICC line, now pending placement. 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 TF consult: Pt remains NPO at this time. Pt s/p video swallow study 05/01 with [facility] NPO with alternative nutrition. Corpak placement has been ordered. TF recommendations below are calculated to meet 100% of patient's estimated nutrient needs using IBW. 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 Pt with low K of 3.1 and Phos of 0.8 today, receiving routine and PRN electrolyte replacement. [facility] 05/01. Will continue to follow closely. Recommendations: 1) When patient has PICC line recommend continuous 2:1 TPN using Clinimix E 09/28 at 83 ml/hr will provide total volume of 1993 ml, 100 gm protein, 4.47 mg/kg/min dextrose loading, and 1417 total cals. 2) Separate 20% intralipids to run at 17 ml/hr for 12 hours will provide 40 g lipids and 400 calories 3) 2:1 TPN and lipids will provide total of 1817 calories to meet patient's needs. 4) Prealbumin and TG q wednesday and , daily wts 5) For longterm nutrition patient would benefit from PEG for enteral nutrition 6) Monitor for refeeding syndrome Addendum: 05/03/19 at [address] Amended: Links added.
[2019-05-03] MEDS: CALCIUM IV SCH (10:21)
[2019-05-03] MEDS: LYTES IV SCH (10:21)
[2019-05-03] MEDS: [UNRECOGNIZED DRUG - OTHER] IV SCH (10:21)
[2019-05-03] MEDS: TRACE ELEMENT IV SCH (10:21)
[2019-05-03] MEDS: D5W IV SCH (10:21)
--- NOTE | 2019-05-03 10:58 | NUR ---
PPN consult, Correction to previous note: patient is not pending a PICC line, only has peripheral line and PPN to be used for now using Clinimix E 4.15/10; Spoke with bedside RN who reports that MD will be consulted for PEG, patient's daughter gave consent. Discussed that if patient is pending PEG placement more than three days would need PICC line and TPN versus PPN. Yesterday bedside RN attempted corpak placement two times with no success, patient saying no and refusing placement. PPN was ordered last night but not started yet. 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 Recommendations: 1) 2:1 PPN using Clinimix E 4.25/5 at 100 ml/hr will provide total volume of 2400 ml, 100 gm protein, 1.8 mg/kg/min CHO loading. 2) Separate 20% intralipids to run at 17 ml/hr for 12 hours will provide 40 g lipids and 400 calories 3) 2:1 PPN and lipids will provide total of 1216 total calories and 808 non protein calories, will not meet calorie needs without fluid overloading however will meet protein needs. 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 Addendum: 05/03/19 at [address] Amended: Links added. Addendum: 05/03/19 at [address] Correction to note: PPN consult, Correction to previous note: patient is not pending a PICC line, only has peripheral line and PPN to be used for now using Clinimix E 4.25/5; Spoke with bedside RN who reports that MD will be consulted for PEG, patient's daughter gave consent. Discussed that if patient is pending PEG placement more than three days would need PICC line and TPN versus PPN. Yesterday bedside RN attempted corpak placement two times with no success, patient saying no and refusing placement. PPN was ordered last night but not started yet. Parenteral only indicated d/t the inability to place corpak however for intermediate nutrition would benefit from PEG placement for enteral feedings. Recommendations: 1) 2:1 PPN using Clinimix E 4.25/5 at 50 ml/hr will provide total volume of 1200 ml, 51 gm protein, 0.9 mg/kg/min CHO loading. 2) Separate 20% intralipids to run at 17 ml/hr for 12 hours will provide 40 g lipids and 400 calories 3) 2:1 PPN and lipids will provide total of 808 total calories and 408 non protein calories, will not meet calorie or protein needs without fluid overloading; patient has a low body weight and history of CHF. 4) Prealbumin and TG q wednesday and , daily wts 5) For intermediate nutrition patient would benefit from PEG for enteral nutrition 6) Monitor for refeeding syndrome 7) IF patient has PICC line recommend continuous 2:1 TPN using Clinimix E 515 at 83 ml/hr will provide total volume of 1993 ml, 100 gm protein, 4.47 mg/kg/min dextrose loading, and 1417 total cals.
--- NOTE | 2019-05-03 11:43 | NUR ---
Dr. Mcadams at bedside. New order for PICC placement, Ativan 0.5mg IV Q8 hours, and increase Cardizem to 10mg/hr.
--- NOTE | 2019-05-03 14:02 | NUR ---
Rm [id number], Eliel. Pt SOB and agitated need help getting Bipap on. Thank you.
[2019-05-03] MEDS: LORazepam 2 mg/ml vial IV PRN (14:08)
[2019-05-03] MEDS: fat emulsion IV bag 250 ML IV SCH (14:09)
--- NOTE | 2019-05-03 18:30 | NUR ---
Patient in room PCU 3018. I have received report from Thuy Rodas and had the opportunity to ask questions and assume patient care. per report Dr. Mcadams does not want blood sugars taken at this time nikko dela cruz is on PPN and is aware of pt's SBP in the 180s.
[2019-05-03] MEDS: MVI, adult No.4 with vit. K 10 ML in dextrose 5% water 500ml 500 ML IV SCH ×2 (20:32)
--- NOTE | 2019-05-03 22:20 | NUR ---
PPN kept at current rate due to patient not meeting clinical indication, based upon protocol, for increasing rate to goal. Will reassess for appropriateness of rate increase at later time, will hand off these findings to day shift, due to next reassessment taking place during day shift.
[2019-05-04] VITALS (8 sets, daily range): BP systolic 147–176; BP diastolic 72–88
[2019-05-04] MEDS: diltiazem-NS 100mg/100ml 100 ML IV SCH (00:46)
--- NOTE | 2019-05-04 00:50 | NUR ---
D5NS HELD per conversation with charge nurse this was held due to lack of clinical indication. pt is now on PPN and is not recieving Accu-checks per MD.
--- NOTE | 2019-05-04 02:10 | NUR ---
lipids taken down after 12 hours, per protocol.
[2019-05-04 05:16] LABS: BASOPHILS % (AUTO) 0.1 % (0-1); EOSINOPHILS % (AUTO) 0 % (0-6); HEMATOCRIT 28.9 % (35.0-45.0); HEMOGLOBIN 9.5 g/dl (12.0-16.0); LYMPHOCYTES # (AUTO) 0.4 X10'3 (1.1-4.8); LYMPHOCYTES % (AUTO) 2.5 % (21-51); MEAN CORPUSCULAR HEMOGLOBIN 25.5 PG (27.0-31.0); MEAN CORPUSCULAR HGB CONC 32.8 g/dL (33.0-36.5); MEAN CORPUSCULAR VOLUME 77.7 FL (78-98); MEAN PLATELET VOLUME 9.3 FL (7.4-10.4); MONOCYTES # (AUTO) 0.5 X10'3 (0-0.9); MONOCYTES % (AUTO) 3.5 % (2-12); NEUTROPHILS # (AUTO) 14.1 X10'3 (1.8-7.7); NEUTROPHILS % (AUTO) 93.9 % (42-75); PLATELET COUNT 172 X10'3 (140-440); RED BLOOD COUNT 3.72 X10'6 (4.20-5.60); RED CELL DISTRIBUTION WIDTH 24.4 % (11.5-14.5)
[2019-05-04 05:35] LABS: ALANINE AMINOTRANSFERASE 24 U/L (12-78); ALBUMIN 1.6 G/DL (3.4-5.0); ALBUMIN/GLOBULIN RATIO 0.5 (1.1-1.5); ALKALINE PHOSPHATASE 104 IU/L (46-116); ANION GAP 4 (8-16); ASPARTATE AMINO TRANSFERASE 11 U/L (10-37); BILIRUBIN,TOTAL 0.4 MG/DL (0.1-1.0); BLOOD UREA NITROGEN 8 MG/DL (7-18); BUN/CREATININE RATIO 17.8 (6.6-38.0); CALCIUM 7.4 MG/DL (8.5-10.1); CHLORIDE 103 MMOL/L (99-107); CREATININE 0.45 MG/DL (0.40-0.90); GLUCOSE 121 MG/DL (70-104); MAGNESIUM 1.5 MG/DL (1.5-2.4); PHOSPHORUS 2.3 MG/DL (2.3-4.5); POTASSIUM 3.7 MMOL/L (3.5-5.1); PREALBUMIN 8.1 MG/DL (19-36); SODIUM 140 MMOL/L (135-145); TOTAL CARBON DIOXIDE 33.4 MMOL/L (24-32); TOTAL PROTEIN 4.6 G/DL (6.4-8.2); TRIGLYCERIDES 115 MG/DL (20-135); eGFR > 90 ML/MIN
--- NOTE | 2019-05-04 06:36 | NUR ---
Problems reprioritized. Patient report given, questions answered & plan of care reviewed with Rosi VICTOR.
[2019-05-04 06:41] LABS: BURR CELLS FEW; ELLIPTOCYTES FEW; HYPOCHROMASIA 1+; PLATELET ESTIMATE NORMAL; SCHISTOCYTES FEW
--- NOTE | 2019-05-04 06:45 | NUR ---
Patient in room PCU 3018. I have received report from Ezequiel VICTOR and had the opportunity to ask questions and assume patient care.
[2019-05-04] MEDS: busPIRone 15mg tablet PO SCH (08:00)
[2019-05-04] MEDS: magnesium oxide 400mg tablet PO SCH (08:00)
[2019-05-04] MEDS: K and/or MAG REPLACEMENT MC SCH ×2 (08:00→20:00)
[2019-05-04] MEDS: lactobacillus rhamnosus 10,000 MMU CELLS/CAPSULE PO SCH ×2 (08:00→20:00)
[2019-05-04] MEDS: atorvastatin 20mg tablet PO SCH (08:00)
[2019-05-04] MEDS: furosemide 20MG tablet PO SCH (08:00)
[2019-05-04] MEDS: losartan 50mg tablet PO SCH (08:00)
[2019-05-04] MEDS: MVI, adult No.4 with vit. K 10 ML in dextrose 5% water 500ml 500 ML IV SCH ×2 (08:30)
[2019-05-04] MEDS: latanoprost 0.005% 2.5ml ophthalmic drops LEFTEYE SCH (08:31)
[2019-05-04] MEDS: CefTRIAXone 2gm/D5W 50ml 50 ML IV SCH (08:31)
--- NOTE | 2019-05-04 10:10 | NUR ---
PICC line inserted in Patient's left upper arm, catheter tip in SVC of cavoatrial junction, 3CG confirmed. PICC REF# [id number], LOT # [id number], Exp Date 01/15/2020
[2019-05-04] MEDS: micafungin inj 100 MG in normal saline 100ml IV soln 100 ML IV SCH (10:27)
--- NOTE | 2019-05-04 10:30 | NUR ---
Received orders to stop cardizem gtts and ok for no accuchecks although pt is npo on PPN feeding per dr. myers
--- NOTE | 2019-05-04 12:11 | NUR ---
Reassessment: Pt continues receiving PPN at 30 mL/hr, not at goal rate. PPN advancement is appropriate at this time as electrolytes are WNL. Per MD note pt currently too ill for PEG placement. Recommend TPN in order to meet patient's estimated nutrient needs as PPN only able to meet 54% estimated energy needs and 83% estimated protein needs. Pt with increased energy needs r/t stage III PU and malnutrition. Will continue to follow closely. 1) 2:1 PPN using Clinimix E 4.25/5 at 50 ml/hr will provide total volume of 1200 ml, 51 gm protein, 0.9 mg/kg/min CHO loading. 2) Separate 20% intralipids to run at 17 ml/hr for 12 hours will provide 40 g lipids and 400 calories 3) 2:1 PPN and lipids will provide total of 808 total calories and 408 non protein calories, will not meet calorie or protein needs without fluid overloading; patient has a low body weight and history of CHF. 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 8) Routine bowel care Addendum: 05/04/19 at [address] Amended: Links added.
[2019-05-04] MEDS: fat emulsion IV bag 250 ML IV SCH (13:24)
--- NOTE | 2019-05-04 14:02 | NUR ---
D/w RN who reports pt had a PICC placed this morning. Paged MD regarding recommendation for TPN. Per RN MD would like to d/c PPN and proceed with TPN. Recommendations below are estimated to meet 100% of patient's estimated nutrient needs and have been d/w pharmacy. Will continue to follow closely. Reassessment: Pt continues receiving PPN at 30 mL/hr, not at goal rate. PPN advancement is appropriate at this time as electrolytes are WNL. Per MD note pt currently too ill for PEG placement. Recommend TPN in order to meet patient's estimated nutrient needs as PPN only able to meet 54% estimated energy needs and 83% estimated protein needs once at goal rate. Pt with increased energy needs r/t stage III PU and malnutrition. Will continue to follow closely. 1) Continuous 2:1 TPN using Clinimix E 09/28 at 85 mL/hr will provide total volume of 2040 mL, 102 g AA, 306 g dextrose with 4.58 mg/kg/min dextrose loading, and 1448 total cals. 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
--- NOTE | 2019-05-04 14:12 | NUR ---
Spoke w/ Dr. Juares and due to patient having a PICC placed PPN will be changed to TPN, per pharmacist continue PPN for now and to start TPN @2100 tonight.
--- NOTE | 2019-05-04 16:22 | NUR ---
PAGER ID: [phone] MESSAGE: [id number] Ciarra Julian: ARUN BP is 170/79, Hr is 102, pt is anxious and will give PRN ativan. Thanks Rosi
[2019-05-04] MEDS ORDERED: cloNIDine 0.1 MG/24 HOUR patch (7 day patch) TD SCH (16:25)
[2019-05-04] MEDS: LORazepam 2 mg/ml vial IV PRN (16:31)
[2019-05-04] MEDS ORDERED: VANCOMYCIN LEVEL IV ONE (17:30)
[2019-05-04] MEDS: LYTES IV SCH (18:22)
[2019-05-04] MEDS: TRACE ELEMENT IV SCH (18:22)
[2019-05-04] MEDS: [UNRECOGNIZED DRUG - OTHER] IV SCH (18:22)
[2019-05-04] MEDS: CALCIUM IV SCH (18:22)
[2019-05-04] MEDS: D5W IV SCH (18:22)
--- NOTE | 2019-05-04 18:43 | NUR ---
Problems reprioritized. Patient report given, questions answered & plan of care reviewed with Kris VICTOR.
[2019-05-04] MEDS ORDERED: Trace element-5 inj. 1 ML in AA 5%/cal/electrolyte-TPN/D15W 2,000 ML IV SCH ×4 (21:00)
[2019-05-04] MEDS: Trace element-5 inj. 0.5 ML in AA 5%/cal/electrolyte-TPN/D15W 1,000 ML IV SCH (21:00)
[2019-05-05 03:00] VITALS: BP 149/88
[2019-05-05] MEDS: LORazepam 2 mg/ml vial IV PRN (04:24)
[2019-05-05 06:00] VITALS: BP 168/62
--- NOTE | 2019-05-05 06:32 | NUR ---
Patient in room PCU 3018. I have received report from Kris VICTOR and had the opportunity to ask questions and assume patient care.
[2019-05-05 06:34] LABS: BASOPHILS % (AUTO) 0 % (0-1); EOSINOPHILS % (AUTO) 0.1 % (0-6); HEMATOCRIT 24.7 % (35.0-45.0); HEMOGLOBIN 8.3 g/dl (12.0-16.0); LYMPHOCYTES # (AUTO) 0.3 X10'3 (1.1-4.8); LYMPHOCYTES % (AUTO) 1.9 % (21-51); MEAN CORPUSCULAR HGB CONC 33.6 g/dL (33.0-36.5); MEAN CORPUSCULAR VOLUME 77.4 FL (78-98); MONOCYTES # (AUTO) 0.6 X10'3 (0-0.9); MONOCYTES % (AUTO) 3.6 % (2-12); NEUTROPHILS # (AUTO) 14.9 X10'3 (1.8-7.7); NEUTROPHILS % (AUTO) 94.4 % (42-75); PLATELET COUNT 132 X10'3 (140-440); RED CELL DISTRIBUTION WIDTH 24.9 % (11.5-14.5); WHITE BLOOD COUNT 15.8 X10'3 (4.5-11.0)
[2019-05-05 07:01] LABS: ALANINE AMINOTRANSFERASE 22 U/L (12-78); ALBUMIN 1.4 G/DL (3.4-5.0); ALBUMIN/GLOBULIN RATIO 0.5 (1.1-1.5); ALKALINE PHOSPHATASE 89 IU/L (46-116); ANION GAP 2 (8-16); ASPARTATE AMINO TRANSFERASE 17 U/L (10-37); BILIRUBIN,TOTAL 0.4 MG/DL (0.1-1.0); BLOOD UREA NITROGEN 17 MG/DL (7-18); BUN/CREATININE RATIO 31.5 (6.6-38.0); CALCIUM 7.3 MG/DL (8.5-10.1); CHLORIDE 101 MMOL/L (99-107); CREATININE 0.54 MG/DL (0.40-0.90); GLUCOSE 157 MG/DL (70-104); MAGNESIUM 1.5 MG/DL (1.5-2.4); POTASSIUM 3.5 MMOL/L (3.5-5.1); SODIUM 137 MMOL/L (135-145); TOTAL PROTEIN 4.4 G/DL (6.4-8.2); eGFR > 90 ML/MIN
[2019-05-05 07:44] LABS: ANISOCYTOSIS 3+; MICROCYTOSIS 1+; PLATELET ESTIMATE DECREASED
[2019-05-05 07:45] LABS: BURR CELLS FEW; ELLIPTOCYTES FEW; HYPOCHROMASIA 1+; SCHISTOCYTES FEW
[2019-05-05] MEDS: furosemide 20MG tablet PO SCH (08:00)
[2019-05-05] MEDS: busPIRone 15mg tablet PO SCH (08:00)
[2019-05-05] MEDS: atorvastatin 20mg tablet PO SCH (08:00)
[2019-05-05] MEDS: K and/or MAG REPLACEMENT MC SCH ×2 (08:00→20:00)
[2019-05-05] MEDS: magnesium oxide 400mg tablet PO SCH (08:00)
[2019-05-05] MEDS: losartan 50mg tablet PO SCH (08:00)
[2019-05-05] MEDS: lactobacillus rhamnosus 10,000 MMU CELLS/CAPSULE PO SCH ×2 (08:00→20:00)
[2019-05-05] MEDS: latanoprost 0.005% 2.5ml ophthalmic drops LEFTEYE SCH (08:50)
[2019-05-05] MEDS: CefTRIAXone 2gm/D5W 50ml 50 ML IV SCH (08:50)
[2019-05-05] MEDS: MVI, adult No.4 with vit. K 10 ML in dextrose 5% water 500ml 500 ML IV SCH ×2 (08:51)
[2019-05-05] MEDS: micafungin inj 100 MG in normal saline 100ml IV soln 100 ML IV SCH (08:51)
[2019-05-05] MEDS: Trace element-5 inj. 0.5 ML in AA 5%/cal/electrolyte-TPN/D15W 1,000 ML IV SCH ×2 (09:20→21:52)
[2019-05-05 11:00] VITALS: BP 167/55
[2019-05-05] MEDS: fat emulsion IV bag 250 ML IV SCH (12:11)
--- NOTE | 2019-05-05 12:53 | NUR ---
Spoke with clinical pharmacist who reports Clinimix 5/15 is no longer available. TPN recommendations below have been adjusted using Clinimix-E 5/20 which has been d/w pharmacy. Unable to provide maximum protein using Clinimix-E 5/20 given concern for fluid overload in pt with hx CHF. Will continue to follow closely. Recommendations: 1) Continuous 2:1 TPN using Clinimix E 5/20 at 70 mL/hr will provide total volume of 1680 mL/day, 84 g AA, 336 g dextrose with 5.02 mg/kg/min dextrose loading, and 1478 total kcals. 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
--- NOTE | 2019-05-05 13:21 | NUR ---
PAGER ID: [phone] MESSAGE: [phone] Eliel Ciarra: Daughter is at bedside and is ready to meet with you. Thanks Rosi
--- NOTE | 2019-05-05 14:00 | NUR ---
Erica (DPOA/Daughter) came and had a meeting with RN, Charge Nurse and Dr. Juares in regards to patient and plan of care, hospice will be considered and daughter said she will give a definite response in a day and will speak with family, she also does not want patient to be confidential anymore, will continue to monitor.
[2019-05-05 15:00] VITALS: BP 174/68
--- NOTE | 2019-05-05 18:17 | NUR ---
Patient in room PCU 3018A. I have received report from Buffy VICTOR and had the opportunity to ask questions and assume patient care
--- NOTE | 2019-05-05 18:31 | NUR ---
Problems reprioritized. Patient report given, questions answered & plan of care reviewed with Kris VICTOR.
[2019-05-05 19:00] VITALS: BP 172/90
[2019-05-05 23:00] VITALS: BP 166/89
[2019-05-06 03:00] VITALS: BP 163/59
--- NOTE | 2019-05-06 04:17 | NUR ---
Notified Dr. Escobedo of BP 175/92 with no new orders given.
[2019-05-06 06:00] VITALS: BP 192/84
[2019-05-06] MEDS: LORazepam 2 mg/ml vial IV PRN ×2 (06:34→11:01)
--- NOTE | 2019-05-06 06:46 | NUR ---
I CALLED PT DAUGHTER GHADA TO INFORM HER HER MOM IS NOT DOING WELL. NO ANSWER. LEFT MESSAGE INFORMING HER TO CALL HERE. PT SBP 192, HR 120. ATIVAN GIVEN, LUPETER AT BEDSIDE. Addendum: 05/06/19 at 0648 by Yesi Devi RN Amended: Links added.
[2019-05-06 07:00] LABS: BASOPHILS # (AUTO) 0.1 X10'3 (0-0.2); BASOPHILS % (AUTO) 0.3 % (0-1); EOSINOPHILS % (AUTO) 0 % (0-6); HEMATOCRIT 30.1 % (35.0-45.0); HEMOGLOBIN 9.9 g/dl (12.0-16.0); LYMPHOCYTES # (AUTO) 0.6 X10'3 (1.1-4.8); LYMPHOCYTES % (AUTO) 2.7 % (21-51); MEAN CORPUSCULAR HEMOGLOBIN 25.7 PG (27.0-31.0); MEAN CORPUSCULAR VOLUME 77.8 FL (78-98); MEAN PLATELET VOLUME 10.6 FL (7.4-10.4); MONOCYTES % (AUTO) 4.6 % (2-12); NEUTROPHILS # (AUTO) 20.6 X10'3 (1.8-7.7); NEUTROPHILS % (AUTO) 92.4 % (42-75); PLATELET COUNT 169 X10'3 (140-440); RED BLOOD COUNT 3.86 X10'6 (4.20-5.60); RED CELL DISTRIBUTION WIDTH 23.9 % (11.5-14.5); WHITE BLOOD COUNT 22.2 X10'3 (4.5-11.0)
--- NOTE | 2019-05-06 07:01 | NUR ---
Patient in room PCU 3018. I have received report from VALENTE Ponce and had the opportunity to ask questions and assume patient care. Patient is in bed, appears to be in some distress with rapid respirations, elevated BP (192/84) and HR in 120s with frequent PACs, patient is DNR and supposed to be changed to comfort care tonight per CRN, daughter contacted and will come in, ativan available in eMAR, given and SBP now 130s, HR still 120s, respirations also more stable. Will continue to monitor.
--- NOTE | 2019-05-06 07:05 | NUR ---
PAGER ID: [phone] MESSAGE: VALENTE Gustafson, ext [phone], [phone], Brown, at shift change BP 192/84, HR 120s with frequent PACs and RR 40s, gave Ativan as ordered and BP now 134/76, HR unchanged, RR 20s. daughter notified and will come in.
[2019-05-06 07:21] LABS: ALANINE AMINOTRANSFERASE 38 U/L (12-78); ALBUMIN 1.6 G/DL (3.4-5.0); ALBUMIN/GLOBULIN RATIO 0.5 (1.1-1.5); ALKALINE PHOSPHATASE 113 IU/L (46-116); ANION GAP 2 (8-16); ASPARTATE AMINO TRANSFERASE 31 U/L (10-37); BILIRUBIN,TOTAL 0.3 MG/DL (0.1-1.0); BLOOD UREA NITROGEN 25 MG/DL (7-18); BUN/CREATININE RATIO 52.1 (6.6-38.0); CALCIUM 7.6 MG/DL (8.5-10.1); CHLORIDE 97 MMOL/L (99-107); CREATININE 0.48 MG/DL (0.40-0.90); GLUCOSE 133 MG/DL (70-104); MAGNESIUM 1.5 MG/DL (1.5-2.4); PHOSPHORUS 3.1 MG/DL (2.3-4.5); POTASSIUM 3.6 MMOL/L (3.5-5.1); SODIUM 133 MMOL/L (135-145); TOTAL CARBON DIOXIDE 33.9 MMOL/L (24-32); eGFR > 90 ML/MIN
[2019-05-06] MEDS: K and/or MAG REPLACEMENT MC SCH ×2 (08:00→20:00)
[2019-05-06] MEDS: latanoprost 0.005% 2.5ml ophthalmic drops LEFTEYE SCH (08:00)
[2019-05-06] MEDS: losartan 50mg tablet PO SCH (08:00)
[2019-05-06] MEDS: atorvastatin 20mg tablet PO SCH (08:00)
[2019-05-06] MEDS: magnesium oxide 400mg tablet PO SCH (08:00)
[2019-05-06] MEDS: lactobacillus rhamnosus 10,000 MMU CELLS/CAPSULE PO SCH ×2 (08:00→20:00)
[2019-05-06] MEDS: busPIRone 15mg tablet PO SCH (08:00)
[2019-05-06] MEDS: furosemide 20MG tablet PO SCH (08:00)
[2019-05-06 08:09] LABS: ANISOCYTOSIS 3+; MICROCYTOSIS 1+; PLATELET ESTIMATE NORMAL; POLYCHROMASIA 1+; TARGET CELLS FEW
[2019-05-06] MEDS: morphine 2 MG/ML inj. syringe IV PRN ×2 (09:23→18:07)
[2019-05-06] MEDS: MVI, adult No.4 with vit. K 10 ML in dextrose 5% water 500ml 500 ML IV SCH ×2 (09:25)
[2019-05-06] MEDS: Trace element-5 inj. 1 ML in AA 5 %/CALCIUM/LYTES/DEXT 20% 2,000 ML IV SCH (09:34)
[2019-05-06] MEDS: CefTRIAXone 2gm/D5W 50ml 50 ML IV SCH (09:39)
[2019-05-06] MEDS: micafungin inj 100 MG in normal saline 100ml IV soln 100 ML IV SCH (09:43)
[2019-05-06 11:00] VITALS: BP 198/77
[2019-05-06] MEDS: fat emulsion IV bag 250 ML IV SCH (12:37)
--- NOTE | 2019-05-06 14:58 | NUR ---
daughter in law piper shaffer in lobby requesting to see patient. Contacted Erica and spoke with her, she okay'd the visit. Informed security that it is just for today as Erica did not specify otherwise.
[2019-05-06 15:00] VITALS: BP 130/78
[2019-05-06] MEDS ORDERED: hydrALAZINE 20mg/ml inj. IV SCH (16:00)
[2019-05-06] MEDS: hydrALAZINE 20mg/ml inj. IV SCH (17:08)
[2019-05-06 18:00] VITALS: BP 103/72
--- NOTE | 2019-05-06 18:17 | NUR ---
Problems reprioritized. Patient report given, questions answered & plan of care reviewed with VALENTE Ponce.
[2019-05-06] MEDS ORDERED: hydrALAZINE 20mg/ml inj. IV PRN (18:20)
--- NOTE | 2019-05-06 19:03 | NUR ---
Patient in room PCU 3018. I have received report from VALENTE Gustafson and had the opportunity to ask questions and assume patient care. Patient is in bed, with family at bedside. Pt with labored and rapid, shallow respirations of 32 BPM. BP of 174/82 manual and HR of 109. T; 98.3 ax. Will review care plan and treat per MD order.
[2019-05-06 22:00] VITALS: BP 150/57
[2019-05-07] MEDS: hydrALAZINE 20mg/ml inj. IV SCH ×3 (00:20→16:54)
[2019-05-07] MEDS: morphine 2 MG/ML inj. syringe IV PRN ×3 (01:36→17:55)
[2019-05-07 02:30] VITALS: BP 128/49
[2019-05-07 04:51] LABS: ALANINE AMINOTRANSFERASE 41 U/L (12-78); ALBUMIN 1.4 G/DL (3.4-5.0); ALBUMIN/GLOBULIN RATIO 0.4 (1.1-1.5); ALKALINE PHOSPHATASE 116 IU/L (46-116); ANION GAP 1 (8-16); ASPARTATE AMINO TRANSFERASE 27 U/L (10-37); BILIRUBIN,TOTAL 0.2 MG/DL (0.1-1.0); BLOOD UREA NITROGEN 29 MG/DL (7-18); BUN/CREATININE RATIO 61.7 (6.6-38.0); CALCIUM 7.4 MG/DL (8.5-10.1); CHLORIDE 98 MMOL/L (99-107); CREATININE 0.47 MG/DL (0.40-0.90); GLUCOSE 145 MG/DL (70-104); MAGNESIUM 1.4 MG/DL (1.5-2.4); PHOSPHORUS 3.1 MG/DL (2.3-4.5); POTASSIUM 3.9 MMOL/L (3.5-5.1); SODIUM 132 MMOL/L (135-145); TOTAL CARBON DIOXIDE 33.5 MMOL/L (24-32); TOTAL PROTEIN 4.9 G/DL (6.4-8.2); eGFR > 90 ML/MIN
[2019-05-07 05:53] LABS: BASOPHILS % (AUTO) 0.2 % (0-1); EOSINOPHILS % (AUTO) 0 % (0-6); HEMATOCRIT 27.6 % (35.0-45.0); HEMOGLOBIN 9.2 g/dl (12.0-16.0); LYMPHOCYTES # (AUTO) 0.4 X10'3 (1.1-4.8); LYMPHOCYTES % (AUTO) 1.7 % (21-51); MEAN CORPUSCULAR HEMOGLOBIN 26.2 PG (27.0-31.0); MEAN CORPUSCULAR HGB CONC 33.5 g/dL (33.0-36.5); MEAN CORPUSCULAR VOLUME 78.2 FL (78-98); MEAN PLATELET VOLUME 11.2 FL (7.4-10.4); MONOCYTES # (AUTO) 1.2 X10'3 (0-0.9); MONOCYTES % (AUTO) 5.1 % (2-12); NEUTROPHILS # (AUTO) 22.4 X10'3 (1.8-7.7); PLATELET COUNT 179 X10'3 (140-440); RED BLOOD COUNT 3.53 X10'6 (4.20-5.60); RED CELL DISTRIBUTION WIDTH 23.8 % (11.5-14.5)
[2019-05-07 06:00] VITALS: BP 153/65
--- NOTE | 2019-05-07 06:13 | NUR ---
Problems reprioritized. Patient report given, questions answered & plan of care reviewed with VALENTE Ponce. Addendum: 05/07/19 at 0620 by Florence Summers RN Problems reprioritized. Patient report given, questions answered & plan of care reviewed with VALENTE Gustafson.
--- NOTE | 2019-05-07 06:15 | NUR ---
Patient in room PCU 3018. I have received report from VALENTE Ponce and had the opportunity to ask questions and assume patient care.
[2019-05-07 07:22] LABS: ANISOCYTOSIS 3+; PLATELET ESTIMATE NORMAL; TOTAL CELLS COUNTED 100
[2019-05-07 07:23] LABS: POLYCHROMASIA 1+; TOXIC GRANULATION 2+
[2019-05-07 07:24] LABS: ELLIPTOCYTES 1+; SCHISTOCYTES FEW
[2019-05-07] MEDS: K and/or MAG REPLACEMENT MC SCH ×2 (08:00→20:00)
[2019-05-07] MEDS ORDERED: furosemide 20 MG/2 ML vial IV SCH (08:00)
[2019-05-07] MEDS: magnesium oxide 400mg tablet PO SCH (08:00)
[2019-05-07] MEDS: latanoprost 0.005% 2.5ml ophthalmic drops LEFTEYE SCH (08:00)
[2019-05-07] MEDS: lactobacillus rhamnosus 10,000 MMU CELLS/CAPSULE PO SCH ×2 (08:00→20:00)
--- NOTE | 2019-05-07 10:00 | NUR ---
Spoke with Erica (daughter) on the phone, explained to her that her mother is continuing to deteriorate and that our interventions are starting to cause her pain and cause damage, specifically the bipap mask is causing deep tissue injuries on her face. I asked her if she would be willing o change her to comfort care tonight. She asked what time and I told her whatever time she would like, she said 9PM, Dr. Juraes was informed and put in the order for comfort care to be initiated at 9PM tonight.
[2019-05-07] MEDS: CefTRIAXone 2gm/D5W 50ml 50 ML IV SCH (10:19)
[2019-05-07] MEDS: MVI, adult No.4 with vit. K 10 ML in dextrose 5% water 500ml 500 ML IV SCH ×2 (10:19)
[2019-05-07] MEDS: micafungin inj 100 MG in normal saline 100ml IV soln 100 ML IV SCH (10:20)
[2019-05-07 11:00] VITALS: BP 77/51
--- NOTE | 2019-05-07 11:27 | NUR ---
PAGER ID: [phone] MESSAGE: VALENTE Gustafson, ext [phone], [phone], Brown, spoke with daughter Erica, she okay'd making her mother comfort care as of 2099 tonight. Said you can put in the order now to start tonight.
[2019-05-07] MEDS: fat emulsion IV bag 250 ML IV SCH (12:10)
[2019-05-07 15:00] VITALS: BP 141/67
[2019-05-07] MEDS: Trace element-5 inj. 1 ML in AA 5 %/CALCIUM/LYTES/DEXT 20% 2,000 ML IV SCH (15:25)
--- NOTE | 2019-05-07 16:00 | NUR ---
Reassessment: Pt tolerating TPN at goal. Per MD note pt daughter requests morphine to make comfortable but not to accept hospice at this time. LBM 05/05. Would benefit from PEG placement if prolonged nutrition support and no changes in code status. Will continue to monitor. Recommendations: 1) Continuous 2:1 TPN using Clinimix E 10/03 at 70 mL/hr will provide total volume of 1680 mL/day, 84 g AA, 336 g dextrose with 5.02 mg/kg/min dextrose loading, and 1478 total kcals. 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
[2019-05-07 18:00] VITALS: BP 147/69
--- NOTE | 2019-05-07 18:15 | NUR ---
Patient in room PCU 3018. I have received report from VALENTE Gustafson and had the opportunity to ask questions and assume patient care. Dr. Juares at bedside, talking with daughter. At 2100 patient will be made comfort care and all orders will be stopped except for comfort measures.
[2019-05-07] MEDS: LORazepam 2 mg/ml vial IV PRN ×2 (20:04→21:13)
[2019-05-07] MEDS ORDERED: LORazepam 2 mg/ml vial IV PRN (21:35)
[2019-05-07] MEDS ORDERED: morphine 2 MG/ML inj. syringe IV PRN (21:35)
--- NOTE | 2019-05-08 00:02 | NUR ---
Time of 2355, Dr. Thomas notified and [facility] called.
--- NOTE | 2019-05-11 12:49 | NUR ---
Court appointed personnel has called asking for a certificate for the patient. Informed her that we do not have one on file and Erica's phone number was then requested. This is the only reason the chart has been accessed at this time.
== END 2019-05-07 23:55 | disposition expired | DRG 871 ==
LOC: ER 14:56 → ED HOLD 18:02 → EEVIPCON 18:02 → PCU 3S 19:45
PROVIDERS: ADMIT Family Medicine; ATTEND Family Medicine
PROC: 5A09457 Assistance with Respiratory Ventilation, 24-96 Consecutive Hours, Continuous Positive Airway Pressure (ICD-10-PCS; principal; 2019-04-28)
PROC: 5A09457 Assistance with Respiratory Ventilation, 24-96 Consecutive Hours, Continuous Positive Airway Pressure (ICD-10-PCS; 2019-05-03)
PROC: 02HV33Z Insertion of Infusion Device into Superior Vena Cava, Percutaneous Approach (ICD-10-PCS; 2019-05-04)
PROC: B548ZZA Ultrasonography of Superior Vena Cava, Guidance (ICD-10-PCS; 2019-05-04)
DX: A40.9 Streptococcal sepsis, unspecified (principal); J69.0 Pneumonitis due to inhalation of food and vomit; E43 Unspecified severe protein-calorie malnutrition; J96.01 Acute respiratory failure with hypoxia; N39.0 Urinary tract infection, site not specified; N17.9 Acute kidney failure, unspecified; E87.1 Hypo-osmolality and hyponatremia; F03.91 Unspecified dementia, unspecified severity, with behavioral disturbance; F05 Delirium due to known physiological condition; I13.0 Hypertensive heart and chronic kidney disease with heart failure and stage 1 through stage 4 chronic kidney disease, or unspecified chronic kidney disease; J44.1 Chronic obstructive pulmonary disease with (acute) exacerbation; Z68.1 Body mass index [BMI] 19.9 or less, adult; B37.7 Candidal sepsis; B95.2 Enterococcus as the cause of diseases classified elsewhere; M54.9 Dorsalgia, unspecified; E86.0 Dehydration; F41.9 Anxiety disorder, unspecified; G89.29 Other chronic pain; I25.10 Atherosclerotic heart disease of native coronary artery without angina pectoris; I48.91 Unspecified atrial fibrillation; I50.9 Heart failure, unspecified; N18.9 Chronic kidney disease, unspecified; Z96.649 Presence of unspecified artificial hip joint; E87.6 Hypokalemia; R13.12 Dysphagia, oropharyngeal phase; R62.7 Adult failure to thrive; Y95 Nosocomial condition; Z51.5 Encounter for palliative care; Z66 Do not resuscitate; Z85.828 Personal history of other malignant neoplasm of skin; Z87.440 Personal history of urinary (tract) infections; Z88.1 Allergy status to other antibiotic agents; Z90.49 Acquired absence of other specified parts of digestive tract; Z90.710 Acquired absence of both cervix and uterus; Z98.1 Arthrodesis status; Z88.0 Allergy status to penicillin; Z88.2 Allergy status to sulfonamides; Z91.011 Allergy to milk products; Z88.8 Allergy status to other drugs, medicaments and biological substances
CPT/HCPCS: 36415; 36569; 36600; 71045; 74230; 76937; 80053; 80202; 81001; 82803; 83605; 83735; 83880; 84100; 84132; 84134; 84145; 84478; 85018; 85025; 85610; 85730; 87040; 87077; 87088; 87186; 87502; 87503; 92508; 93005; 93306; 94640; 94660; 94760; 96365; 97162; 97530; 99285; G0378; J0360; J0692; J0696; J1644; J1940; J2060; J2248; J2270; J2405; J2543; J3370; J3475; J3480; J3490; J7030; J7040; J7042; J7050; J7060